=== PATIENT | male | born 1940 | race Caucasian/White ===

== ENCOUNTER 2023-05-03 10:45 | Inpatient (IN) | payer OTHER, MEDICARE, BC, SELFPAY ==
[2023-05-03] VITALS (25 sets, daily range): BP systolic 127–151; BP diastolic 62–77; PULSE 72–91; RESP 20–28; TEMP 36.4–37.7; O2SAT 93–100; BMI 29.3; BMI 30.6
--- NOTE | 2023-05-03 10:56 | CRLHL7_ITS ---
For Patients: As a result of the Century Cures Act, medical imaging exams and procedure reports are released immediately into your electronic medical record. You may view this report before your referring provider. If you have questions, please contact your health care provider. INDICATION: Shortness of breath TECHNIQUE: Chest 1 views. COMPARISON: None FINDINGS: Cardiovascular and mediastinum: Cardiomediastinal silhouette is within normal limits in size. Postsurgical changes of median sternotomy. Lungs and pleural spaces: There is elevation of the left hemidiaphragm with patchy airspace opacities bilaterally and likely atelectatic changes involving the left lung base. No sign of pleural effusion. No pneumothorax. Bones and soft tissues: No significant findings. IMPRESSION: Faint patchy airspace opacities bilaterally may be secondary to pulmonary edema versus an acute infectious/inflammatory process. Dictated by Hans Yousif MD @ 05/03/2023 11:20:43 AM (Electronically Signed)
--- NOTE | 2023-05-03 10:57 | ED.GENADULT ---
HPI - General Adult General Chief complaint: Shortness of Breath/Dyspnea Stated complaint: shortness of breath Time Seen by Provider: 05/03/23 10:51 Source: patient Mode of arrival: ambulatory Limitations: no limitations History of Present Illness HPI narrative: 82-year-old male coming in today complaining shortness of breath. Patient was found to be 80% on room air so he was placed on BiPAP and brought in for evaluation. He states he has been short of breath for a few days now. However it appears that he was seen in the clinic at the end of March and was started on azithromycin for shortness of breath at that time. Azithromycin ended 2 days ago. He thought that he was feeling better and then about 3 days ago started having more shortness of breath. He denies cough. He denies changes in his appetite. He denies fevers or chills. It appears that on April 15 he was diagnosed with acute cough and wheezing. His past medical history is significant for elevated PSA, gout, hypertension, coronary artery atherosclerosis, atrial flutter and atrial fibrillation on anticoagulation,, peripheral vascular disease. Patient takes albuterol inhaler as needed number, amlodipine, aspirin, atorvastatin, Advair, lisinopril, metoprolol, sublingual nitro, Xarelto, Flomax. Related Data Home Medications Medication Instructions Recorded Confirmed amlodipine 5 mg tablet 5 mg PO DAILY 05/03/23 05/03/23 atorvastatin 40 mg tablet 40 mg PO DAILY 05/03/23 05/03/23 fluticasone 500 mcg-salmeterol 50 1 ea inhalation BID 05/03/23 05/03/23 mcg/dose blistr powdr for inhalation (Advair Diskus) lisinopril 10 mg tablet 10 mg PO DAILY 05/03/23 05/03/23 metoprolol succinate 25 mg 25 mg PO DAILY 05/03/23 05/03/23 tablet,extended release 24 hr rivaroxaban 20 mg tablet (Xarelto) 20 mg PO DAILY 05/03/23 05/03/23 tamsulosin 0.4 mg capsule 0.4 mg PO DAILY 05/03/23 05/03/23 Allergies Allergy/AdvReac Type Severity Reaction Status Date / Time morphine Allergy Verified 05/03/23 10:51 Review of Systems Status of ROS: Reports: 10 or more systems reviewed and unremarkable except as noted in History and below PFSH [facility] Medical History (Updated 05/08/23 @ 08:10 by Susana Beatty MD) Elevated troponin ?R79.89 - Other specified abnormal findings of blood chemistry (ICD-10) Hyponatremia ?E87.1 - Hypo-osmolality and hyponatremia (ICD-10) BPH (benign prostatic hyperplasia) ?N40.0 - Benign prostatic hyperplasia without lower urinary tract symptoms (ICD-10) Hypertension ?I10 - Essential (primary) hypertension (ICD-10) Obesity ?E66.9 - Obesity, unspecified (ICD-10) Coronary artery disease ?I25.10 - Atherosclerotic heart disease of [place] coronary artery without angina pectoris (ICD-10) Chronic atrial fibrillation ?I48.20 - Chronic atrial fibrillation, unspecified (ICD-10) Surgical History (Updated 05/03/23 @ 17:42 by Hilton Nguyen MD) H/O arthroscopic knee surgery ?Z98.890 - Other specified postprocedural states (ICD-10) History of coronary artery stent placement ?Z95.5 - Presence of coronary angioplasty implant and graft (ICD-10) H/O tympanomastoidectomy ?Z98.890 - Other specified postprocedural states (ICD-10) History of tonsillectomy and adenoidectomy ?Z90.89 - Acquired absence of other organs (ICD-10) Traumatic amputation of right thumb ?S68.011A - Complete traumatic metacarpophalangeal amputation of right thumb, initial encounter (ICD-10) S/P CABG x 4 ?Z95.1 - Presence of aortocoronary bypass graft (ICD-10) Family History (Updated 05/03/23 @ 17:43 by Hilton Nguyen MD) Father Heart disease Brother Heart disease Diabetes Sister Heart disease Mother Diabetes Social History (Updated 05/03/23 @ 17:44 by Hilton Nguyen MD) Narrative: He lives in [place] with his . is healthcare power of workers compensation attorney. Code status is full. He does not smoke. Does not drink alcohol. What is your current living situation?: I presently have a place to live Problems where you live: no known problems Problems where you live details: none In the past 12 months, utilities in danger of being shut off: no In past 12 months, lack of transportation kept you from medical appts, meetings, work, or getting things needed for daily living: no In the past 12 mos, have been you worried that your food would run out before you had money to buy more?: never true In the past 12 mos, the food you bought just didn't last and you didn't have money to buy more?: never true Smoking Status: Never smoker Do you use any of these nicotine containing products: None Second hand tobacco smoke exposure: No How often do you have a drink containing alcohol: never How often do you have six or more drinks on one occasion: Never AUDIT-C Alcohol total score: 0 Non-prescribed substance use: denies use How often does anyone, including family, friends and others, physically hurt you: never How often does anyone, including family, friends and others, insult or talk down to you: never How often does anyone, including family, friends and others, threaten you with harm: never How often does anyone, including family, friends and others, scream or curse at you: never service: Yes Exam Narrative: Exam Narrative: Overweight, well-developed patient on BiPAP. Alert and oriented x3. Answers questions appropriately. Mood and affect are appropriate. Thoughts are goal oriented and rational. No tangential or magical thinking noted. Patient speaks in full sentences but does need to catch his breath before the sentences are over. HEENT: Normocephalic atraumatic. Pupils are equally round reactive to light. Extraocular muscles are intact. Conjunctivae are moist without any icterus noted. Neck is soft. Cardiovascular: Distant difficult to hear secondary to BiPAP. Pulse is regular. Lungs: Patient has rhonchi bilaterally. Right worse than the left. Abdomen: Soft and nontender nondistended with normal bowel sounds. No guarding or rebound. Extremities: Bilateral lower extremities show trace edema. Skin: Well perfused without any obvious rashes. Const: Vital Signs, click to edit/add: Vital Signs - 24 hr 05/03/23 10:52 05/03/23 11:07 05/03/23 11:08 Temperature 97.6 F Pulse Rate 85 81 Pulse Rate [Pulse Oximeter] 87 Respiratory Rate 24 Blood Pressure 148/77 H Blood Pressure [Le ft Upper Arm] 148/77 H Pulse Oximetry 100 98 98 Oxygen Delivery Me thod BiPAP Fraction of Inspir ed Oxygen 45 05/03/23 11:15 05/03/23 11:25 05/03/23 11:30 Temperature Pulse Rate 89 84 Pulse Rate [Pulse Oximeter] Respiratory Rate Blood Pressure Blood Pressure [Le ft Upper Arm] Pulse Oximetry 98 98 96 Oxygen Delivery Me thod Fraction of Inspir ed Oxygen 05/03/23 11:32 05/03/23 11:45 05/03/23 12:00 Temperature Pulse Rate 83 75 75 Pulse Rate [Pulse Oximeter] Respiratory Rate Blood Pressure 130/72 Blood Pressure [Le ft Upper Arm] Pulse Oximetry 98 98 96 Oxygen Delivery Me thod Fraction of Inspir ed Oxygen 05/03/23 12:02 05/03/23 12:03 05/03/23 12:15 Temperature Pulse Rate 82 85 82 Pulse Rate [Pulse Oximeter] Respiratory Rate Blood Pressure 144/73 H Blood Pressure [Le ft Upper Arm] Pulse Oximetry 96 97 98 Oxygen Delivery Me thod Fraction of Inspir ed Oxygen 05/03/23 12:58 05/03/23 13:00 05/03/23 13:06 Temperature Pulse Rate 83 79 Pulse Rate [Pulse Oximeter] Respiratory Rate Blood Pressure 142/69 H Blood Pressure [Le ft Upper Arm] Pulse Oximetry 96 97 Oxygen Delivery Me thod OxyMask Fraction of Inspir ed Oxygen 05/03/23 13:06 05/03/23 13:15 Temperature Pulse Rate 79 84 Pulse Rate [Pulse Oximeter] Respiratory Rate Blood Pressure 142/69 H Blood Pressure [Le ft Upper Arm] Pulse Oximetry 97 97 Oxygen Delivery Me thod Fraction of Inspir ed Oxygen Course Course ED Course: IV established. Labs drawn. D-dimer and CRP mildly elevated. Troponin elevated. IV fluids were started and patient is given a dose of IV Lasix. Chest x-ray showed bilateral airspace opacities. Given the elevated D-dimer, we did proceed with a chest CT. This was negative for PE and confirmed bilateral opacities. We were able to take the patient off of BiPAP and put him on an OxyMask. Discussed the patient with hospitalist, patient will be admitted for further management. Vital Signs Vital signs: Initial Vital Signs Temperature 97.6 F 05/03/23 10:52 Temperature Source Temporal Artery Scan 05/03/23 10:52 Pulse Rate 87 05/03/23 10:52 Pulse Rhythm Regular 05/03/23 10:52 Respiratory Rate 24 05/03/23 10:52 Blood Pressure 148/77 H 05/03/23 10:52 Blood Pressure Mean 100 05/03/23 10:52 Blood Pressure Position Supine 05/03/23 10:52 Pulse Oximetry 100 05/03/23 10:52 Oxygen Delivery Method BiPAP 05/03/23 10:52 Fraction of Inspired Oxygen 45 05/03/23 10:52 Vital Signs Temperature 97.6 F 05/03/23 10:52 Pulse Rate 87 05/03/23 10:52 Respiratory Rate 24 05/03/23 10:52 Blood Pressure 148/77 H 05/03/23 10:52 Pulse Oximetry 100 05/03/23 10:52 Oxygen Delivery Method BiPAP 05/03/23 10:52 Fraction of Inspired Oxygen 45 05/03/23 10:52 Temperature 98.6 F 05/08/23 03:00 Pulse Rate 67 05/08/23 07:00 Respiratory Rate 16 05/08/23 03:00 Blood Pressure 123/65 05/08/23 03:00 Pulse Oximetry 94 05/08/23 03:00 Oxygen Delivery Method Nasal Cannula 05/08/23 03:00 Oxygen Flow Rate 1.5 05/08/23 03:00 Fraction of Inspired Oxygen 45 05/04/23 03:05 Medications Administered Medications: Generic Name Dose Route Start Last Admin Trade Name Freq PRN Reason Stop Dose Admin Albuterol/Ipratropium 1 neb 05/03/23 17:00 05/07/23 21:12 Iprat-Albut 0.5-2.5 Mg/3 Ml Neb IH 1 neb QID FARZANA Administration Atorvastatin Calcium 40 mg 05/04/23 09:00 05/07/23 09:10 Atorvastatin Calcium 40 Mg Tablet PO 40 mg DAILY FARZANA Administration Budesonide 0.5 mg 05/03/23 21:00 05/07/23 21:13 Budesonide 0.5 Mg/2ml Neb NEB 0.5 mg BID FARZANA Administration Furosemide 40 mg 05/06/23 08:00 05/07/23 13:51 Furosemide 10 Mg/Ml Inj IVP 40 mg BID@0800,1400 FARZANA Administration Piperacillin Sod/Tazobactam 100 mls @ 200 mls/hr 05/06/23 12:30 05/08/23 06:11 Sod 3.375 gm/ Sodium Chloride IVPB 200 mls/hr Q6H FARZANA Administration Vancomycin HCl 1,500 mg/ 515 mls @ 350 mls/hr 05/07/23 01:00 05/08/23 01:54 Sodium Chloride IVPB 350 mls/hr Q12H FARZANA Administration Protocol Lisinopril 10 mg 05/04/23 09:00 05/07/23 09:11 Lisinopril 10 Mg Tablet PO 10 mg DAILY FARZANA Administration Metoprolol Succinate 50 mg 05/07/23 09:00 05/07/23 09:11 Metoprolol Succinate (Xl) 50 Mg Tab PO 50 mg DAILY FARZANA Administration Rivaroxaban 20 mg 05/04/23 09:00 05/07/23 09:11 Rivaroxaban 10 Mg Tablet PO 20 mg DAILY FARZANA Administration Sodium Chloride 5 ml 05/03/23 21:00 05/07/23 21:12 Sodium Chloride 0.9 % (Flush) 10 Ml Syringe IVF 5 ml BID FARZANA Administration Tamsulosin HCl 0.4 mg 05/04/23 09:00 05/07/23 09:11 Tamsulosin Hcl 0.4 Mg Capsule PO 0.4 mg DAILY FARZANA Administration Discontinued Medications Generic Name Dose Route Start Last Admin Trade Name Freq PRN Reason Stop Dose Admin Azithromycin 500 mg 05/03/23 16:00 05/05/23 16:51 Azithromycin 250 Mg Tablet PO 500 mg Q24H FARZANA Administration Furosemide 20 mg 05/03/23 12:36 05/03/23 13:02 Furosemide 10 Mg/Ml Inj IVP 05/03/23 12:37 20 mg ONCE ONE Administration Furosemide 40 mg 05/03/23 15:45 05/03/23 16:36 Furosemide 10 Mg/Ml Inj IVP 05/03/23 15:46 40 mg ONCE ONE Administration Furosemide 40 mg 05/04/23 07:00 05/04/23 06:12 Furosemide 10 Mg/Ml Inj IVP 05/04/23 07:01 40 mg ONCE ONE Administration Furosemide 20 mg 05/04/23 14:00 05/05/23 14:17 Furosemide 10 Mg/Ml Inj IVP 20 mg BID@0800,1400 FARZANA Administration Sodium Chloride 250 mls @ 250 mls/hr 05/03/23 11:39 05/03/23 13:46 0.9 % Sodium Chloride 250 Ml IV 05/03/23 12:38 Infused .Q1H ONE Infusion Piperacillin Sod/Tazobactam 100 mls @ 200 mls/hr 05/03/23 13:25 05/03/23 14:00 Sod 3.375 gm/ Sodium Chloride IVPB 05/03/23 13:26 Infused ONCE ONE Infusion Ceftriaxone Sodium 1 gm/ 100 mls @ 200 mls/hr 05/03/23 16:00 05/05/23 16:51 Sodium Chloride IVPB 200 mls/hr Q24H FARZANA Administration Sodium Chloride 50 mls @ 33.333 mls/hr 05/06/23 09:30 05/06/23 10:48 3 % Sodium Chloride 500 Ml IV 05/06/23 10:59 33.33 mls/hr ONCE ONE Administration Vancomycin HCl 1,750 mg/ 517.5 mls @ 240 mls/hr 05/06/23 13:00 05/06/23 13:33 Sodium Chloride IVPB 05/06/23 15:09 240 mls/hr ONCE ONE Administration Protocol Metoprolol Succinate 25 mg 05/04/23 09:00 05/06/23 09:31 Metoprolol Succinate (Xl) 25 Mg Tab PO 25 mg DAILY FARZANA Administration Metoprolol Succinate 25 mg 05/06/23 12:00 05/06/23 12:46 Metoprolol Succinate (Xl) 25 Mg Tab PO 05/06/23 12:01 25 mg ONCE ONE Administration Perflutren Lipid Microsphere 2 ml 05/04/23 15:52 05/04/23 16:04 Perflutren Lipid Microspheres 2 Ml Vial IV 05/04/23 15:53 2 ml ONCE ONE Administration Potassium Bicarbonate 50 meq 05/03/23 15:45 05/03/23 16:36 Potassium Bicarb 25 Meq Effervescent Tab PO 05/03/23 15:46 50 meq ONCE ONE Administration Medical Decision Making MDM Narrative Medical decision making narrative: 82-year-old male with acute respiratory failure, likely secondary to pneumonia. Patient will be admitted for further management. Medical Records Medical records reviewed: Yes I reviewed the patient's medical records Lab Data Lab results reviewed: Yes I reviewed the patient's lab results Labs: Lab Results 05/03/23 05/03/23 Range/Units : 16:19 WBC 9.24 (4.50-11.00) K/uL RBC 4.02 L (4.30-5.90) m/uL Hgb 12.1 L (13.5-17.5) gm/dL Hct 37.4 (37.0-53.0) % MCV 93 (80-100) fL MCH 30 (26-34) pg MCHC 32 (32-36) gm/dL RDW Coeff of Ronaldo 14.0 (11.5-15.5) % Plt Count 188 (140-440) K/uL Neut % (Auto) 89.1 H (42.0-72.0) % Lymph % (Auto) 2.5 L (20-44) % [place] % (Auto) 8.2 (0.0-11.0) % Eos % (Auto) 0.0 (0.0-7.0) % Baso % (Auto) 0.1 (0.0-3.0) % Neut # (Auto) 8.20 H (1.7-7.0) K/uL Lymph # (Auto) 0.20 L (0.90-2.90) K/uL [place] # (Auto) 0.80 (0.00-0.90) K/UL Eos # (Auto) 0.00 (0.00-0.50) K/uL Baso # (Auto) 0.01 (0.00-0.30) K/uL Abs Immat Gran (auto) 0.01 (0.00-0.30) K/uL Imm/Tot Granulo (auto) 0.1 % ESR 44 H (2-15) mm/hr D-Dimer Quant (PE/DVT) 1.15 H (0.00-0.50) ug/ml VBG pH 7.378 (7.32-7.43) VBG pCO2 53 H (40-50) mmHG VBG pO2 40.1 (25-47) mmHG VBG HCO3 31 H (21-28) mmol/L Sodium 128 L (135-149) mmol/L Potassium 4.8 (3.6-5.1) mmol/L Chloride 92 L (96-114) mmol/L Carbon Dioxide 27 (20-32) mmol/L Anion Gap 9 (7-15) mEq/L BUN 22 (7-30) mg/dL Creatinine 1.0 (0.5-1.5) mg/dL Estimated Creat Clear 59.61 Estimated GFR 75 ml/min Glucose 170 H (60-115) mg/dL Lactate 2.2 H 1.5 (0.5-1.9) mmol/L Calcium 8.5 (8.4-10.6) mg/dL Magnesium 2.2 (1.5-2.6) mg/dL Total Bilirubin 1.5 (0.1-1.5) mg/dL Direct Bilirubin 0.2 (0.0-0.5) mg/dL AST 60 H (12-35) U/L ALT 32 (4-50) U/L Alkaline Phosphatase 68 (40-150) U/L Troponin I 0.09 H* 0.10 H* (0.01-0.04) ng/mL C-Reactive Protein 5.8 H (0.5-1.0) mg/dL NT-Pro-B Natriuret Pep 3820 pg/mL Total Protein 7.9 (6.0-8.3) g/dL Albumin 3.9 (3.3-5.0) g/dL Procalcitonin 0.09 (<0.50) ng/mL SARS-CoV-2 (PCR) Negative SARS-CoV-2 (Negative) Influenza Type A (PCR) Negative PCR FLU A (Negative) Influenza Type B (PCR) Negative PCR FLU B (Negative) RSV (PCR) Negative PCR RSV (Negative) Imaging Data Chest x-ray: Attestation: I have reviewed the pertinent imaging results. Radiologist's impression: Chest 1 views. COMPARISON: None FINDINGS: Cardiovascular and mediastinum: Cardiomediastinal silhouette is within normal limits in size. Postsurgical changes of median sternotomy. Lungs and pleural spaces: There is elevation of the left hemidiaphragm with patchy airspace opacities bilaterally and likely atelectatic changes involving the left lung base. No sign of pleural effusion. No pneumothorax. Bones and soft tissues: No significant findings. IMPRESSION: Faint patchy airspace opacities bilaterally may be secondary to pulmonary edema versus an acute infectious/inflammatory process. CT scan - chest: Attestation: I have reviewed the pertinent imaging results. Radiologist's impression: CT chest PE was acquired with 95 cc Isovue 370 IV contrast. COMPARISON: Same day chest radiograph FINDINGS: Heart and vasculature: There is no central or lobar pulmonary embolism. Small hypodensities in the segmental and subsegmental pulmonary arteries are favored to represent contrast mixing artifact, and less likely small pulmonary emboli. Mild cardiomegaly. Coronary artery calcifications. Mitral and aortic annular calcifications. Likely postsurgical changes of prior CABG. Thoracic aorta and pulmonary artery are normal in caliber. Lungs and pleura: There scattered airspace opacities throughout the lungs bilaterally, favored to represent a combination of atelectasis with superimposed infectious/inflammatory process in the appropriate clinical context. Faint mosaic attenuation of the lungs which can be seen with pulmonary edema other air-trapping. There is a small right pleural effusion. Large right lower lung calcified granuloma. Lymph nodes/mediastinum: There are few prominent mediastinal lymph nodes, which are favored to be reactive. Chest wall: No masses. Upper abdomen: No acute or significant findings. Bones: Unremarkable for age. IMPRESSION: 1. No central or lobar pulmonary embolism. Small hypodensities in the segmental and subsegmental pulmonary arteries are favored to represent contracts m mixing artifact, and less likely small pulmonary emboli. No CT evidence of right heart strain. 2. Scattered airspace opacities throughout the lungs bilaterally, favored to represent an infectious/inflammatory process. Recommend dedicated CT chest with contrast in approximately 8-10 weeks to assess for resolution. 3. A few prominent mediastinal lymph nodes, which are favored to be reactive. Discharge Plan Discharge Clinical Impression: Acute respiratory failure, Pneumonia Patient Disposition: Admitted As Observation
--- NOTE | 2023-05-03 11:04 | RESP.RT ---
Patient presented short of breath and on bipap via ems. Patient set up on Bipap 03/25 Rate of 10, 45% Fio2, IT 1:00 and Rise 1. Patient RR 24, VT 842, Trigger 95%, Leak 34%, Francis 32, PIP 13, Ve 15.3. BS decreased with RUL coarse crackles. RN and MD present with Bipap set up.
[2023-05-03 11:31] LABS: HCO3 VBG 31 mmol/L (21-28); Lactate* 2.2 mmol/L (0.5-1.9); PCO2 VBG 53 mmHG (40-50); PO2 VBG 40.1 mmHG (25-47); pH VBG 7.378 (7.32-7.43)
[2023-05-03 11:34] LABS: Basophils Absolute Auto 0.01 K/uL (0.00-0.30); Basophils Percent Auto 0.1 % (0.0-3.0); Hematocrit 37.4 % (37.0-53.0); Hemoglobin* 12.1 gm/dL (13.5-17.5); Immature Granulocytes Abs Auto 0.01 K/uL (0.00-0.30); Immature Granulocytes Pct Auto 0.1 %; Lymphocytes Percent Auto 2.5 % (20-44); Mean Corpuscular HGB Conc 32 gm/dL (32-36); Mean Corpuscular Hemoglobin 30 pg (26-34); Mean Corpuscular Volume 93 fL (80-100); Monocytes Percent Auto 8.2 % (0.0-11.0); Neutrophils Percent Auto 89.1 % (42.0-72.0); Platelet Count* 188 K/uL (140-440); Red Blood Count 4.02 m/uL (4.30-5.90); White Blood Count* 9.24 K/uL (4.50-11.00)
[2023-05-03 11:51] LABS: Albumin* 3.9 g/dL (3.3-5.0); Chloride* 92 mmol/L (96-114)
[2023-05-03 11:52] LABS: Potassium* 4.8 mmol/L (3.6-5.1); Sodium* 128 mmol/L (135-149)
[2023-05-03 11:54] LABS: Est. Creatinine Clearance* 59.61; Estimated Glomerular Filt Rate 75 ml/min
[2023-05-03] MEDS: 0.9 % SODIUM CHLORIDE 250 ml 250 ML IV (11:54)
[2023-05-03 11:55] LABS: Alanine Aminotransferase* 32 U/L (4-50); Alkaline Phosphatase* 68 U/L (40-150); Anion Gap 9 mEq/L (7-15); Aspartate Amino Transferase* 60 U/L (12-35); Bilirubin Direct* 0.2 mg/dL (0.0-0.5); Bilirubin Total* 1.5 mg/dL (0.1-1.5); Blood Urea Nitrogen* 22 mg/dL (7-30); Calcium* 8.5 mg/dL (8.4-10.6); Carbon Dioxide* 27 mmol/L (20-32); D Dimer Quantitative* 1.15 ug/ml (0.00-0.50); Glucose* 170 mg/dL (60-115); Total Protein* 7.9 g/dL (6.0-8.3)
[2023-05-03 11:56] LABS: Slide Review Reflex No
[2023-05-03 11:58] LABS: C Reactive Protein* 5.8 mg/dL (0.5-1.0)
--- NOTE | 2023-05-03 12:03 | CRLHL7_ITS ---
For Patients: As a result of the Century Cures Act, medical imaging exams and procedure reports are released immediately into your electronic medical record. You may view this report before your referring provider. If you have questions, please contact your health care provider. INDICATION: Shortness of breath TECHNIQUE: CT chest PE was acquired with 95 cc Isovue 370 IV contrast. COMPARISON: Same day chest radiograph FINDINGS: Heart and vasculature: There is no central or lobar pulmonary embolism. Small hypodensities in the segmental and subsegmental pulmonary arteries are favored to represent contrast mixing artifact, and less likely small pulmonary emboli. Mild cardiomegaly. Coronary artery calcifications. Mitral and aortic annular calcifications. Likely postsurgical changes of prior CABG. Thoracic aorta and pulmonary artery are normal in caliber. Lungs and pleura: There scattered airspace opacities throughout the lungs bilaterally, favored to represent a combination of atelectasis with superimposed infectious/inflammatory process in the appropriate clinical context. Faint mosaic attenuation of the lungs which can be seen with pulmonary edema other air-trapping. There is a small right pleural effusion. Large right lower lung calcified granuloma. Lymph nodes/mediastinum: There are few prominent mediastinal lymph nodes, which are favored to be reactive. Chest wall: No masses. Upper abdomen: No acute or significant findings. Bones: Unremarkable for age. IMPRESSION: 1. No central or lobar pulmonary embolism. Small hypodensities in the segmental and subsegmental pulmonary arteries are favored to represent contracts m mixing artifact, and less likely small pulmonary emboli. No CT evidence of right heart strain. 2. Scattered airspace opacities throughout the lungs bilaterally, favored to represent an infectious/inflammatory process. Recommend dedicated CT chest with contrast in approximately 8-10 weeks to assess for resolution. 3. A few prominent mediastinal lymph nodes, which are favored to be reactive. Please note that all CT scans at this facility use dose modulation, iterative reconstruction, and/or weight-based dosing when appropriate to reduce radiation dose to as low as reasonably achievable. Dictated by Hans Yousif MD @ 05/03/2023 1:07:57 PM (Electronically Signed)
[2023-05-03 12:07] LABS: NT Pro B Type NatriureticPept* 3820 pg/mL; Troponin I* 0.09 ng/mL (0.01-0.04)
--- NOTE | 2023-05-03 12:08 | ED.NURSE ---
dr kirkland aware of elevated trop 0.09.
[2023-05-03 12:12] LABS: Procalcitonin* 0.09 ng/mL (<0.50)
[2023-05-03 12:14] LABS: PCR FLU A Negative PCR FLU A (Negative); PCR FLU B Negative PCR FLU B (Negative); PCR RSV Negative PCR RSV (Negative)
[2023-05-03 12:18] LABS: Erythrocyte SedimentationRate* 44 mm/hr (2-15)
--- NOTE | 2023-05-03 12:59 | RESP.RT ---
Patient transported to and from CT on Oxymask @ 6 lpm. Spoke with MD and will trial patient off of Bipap. Patient currently on 6 lpm oxymask with spo2 of 96%.
[2023-05-03] MEDS: FUROSEMIDE 10 MG/ML inj 20 MG IVP (13:02)
[2023-05-03 13:12] LABS: SARS PCR* Negative SARS-CoV-2 (Negative)
[2023-05-03] MEDS: PIPERACILLIN/TAZOBACTAM 3.375 GM in 0.9 % SODIUM CHLORIDE Mini-bag 100 ML IVPB (13:46)
--- NOTE | 2023-05-03 14:21 | ED.NURSE ---
given report to Caridad Castelan who will admit the patient to room 255 via cart and with O2 on via oxymask.
--- NOTE | 2023-05-03 14:43 | ED.NURSE ---
was able to stand and use urinal. has diuresed approx 650 ml.
[2023-05-03 16:29] LABS: Lactate* 1.5 mmol/L (0.5-1.9)
[2023-05-03] MEDS: FUROSEMIDE 10 MG/ML inj 40 MG IVP (16:36)
[2023-05-03] MEDS: AZITHROMYCIN 250 MG TABLET 500 MG PO (16:36)
[2023-05-03] MEDS: POTASSIUM BICARB 25 MEQ EFFERVESCENT TAB 50 MEQ PO (16:36)
[2023-05-03] MEDS: cefTRIAXone 1 GM in 0.9 % SODIUM CHLORIDE Mini-bag 100 ML IVPB (16:37)
[2023-05-03 17:08] LABS: Magnesium* 2.2 mg/dL (1.5-2.6)
--- NOTE | 2023-05-03 17:33 | PM.IMHP1 ---
Hospitalist- H&P: LUIS History of Present Illness Date Seen: 05/10/23 Chief complaint: shortness of breath Narrative: Jonathan Herrera is a 82 year old male admitted with worsening cough and dyspnea over 6 weeks. 82-year-old male with history of coronary artery disease and 4 vessel coronary artery bypass, atrial fibrillation, anticoagulation, hypertension was 1st seen at the beginning of March for a 1-2 week illness with coughing and dyspnea and some hoarseness in his voice. Did not have a fever. He does not think he was tested for COVID at the time. He was treated for bronchitis with doxycycline and prednisone. He does not think it made much difference to him but follow-up visit indicated that perhaps he had some temporary benefit from that. He was treated with an Advair inhaler which he is unsure of whether it had any benefit but he subsequently has been getting more dyspneic over the last few weeks. He does report discoloration of his sputum when he gets up in the morning with a brownish tinge to it but most the day his sputum is clear when he coughs. His dyspnea is now at a point where he can not walk around his house without stopping to catch his breath. He does not have any chest pain. He does not have a history of COPD. He is a nonsmoker. His father was a smoker. When he was younger he was apparently diagnosed with asthma but has not been evaluated or treated for asthma until this past month when he was started on an Advair inhaler. No history of thrombophilia. He does not have a history of heart failure. He denies extremity edema. He is not aware of any weight gain. Review of Systems Narrative: Other than respiratory symptoms of cough and dyspnea he reports no other concerns. He has been eating normally. Bowel bladder function have been normal. No abdominal pain. No chest pain. [facility] Medical History (Updated 05/08/23 @ 08:10 by Susana Beatty MD) Elevated troponin ?R79.89 - Other specified abnormal findings of blood chemistry (ICD-10) Hyponatremia ?E87.1 - Hypo-osmolality and hyponatremia (ICD-10) BPH (benign prostatic hyperplasia) ?N40.0 - Benign prostatic hyperplasia without lower urinary tract symptoms (ICD-10) Hypertension ?I10 - Essential (primary) hypertension (ICD-10) Obesity ?E66.9 - Obesity, unspecified (ICD-10) Coronary artery disease ?I25.10 - Atherosclerotic heart disease of [place] coronary artery without angina pectoris (ICD-10) Chronic atrial fibrillation ?I48.20 - Chronic atrial fibrillation, unspecified (ICD-10) Surgical History (Updated 05/03/23 @ 17:42 by Hilton Nguyen MD) H/O arthroscopic knee surgery ?Z98.890 - Other specified postprocedural states (ICD-10) History of coronary artery stent placement ?Z95.5 - Presence of coronary angioplasty implant and graft (ICD-10) H/O tympanomastoidectomy ?Z98.890 - Other specified postprocedural states (ICD-10) History of tonsillectomy and adenoidectomy ?Z90.89 - Acquired absence of other organs (ICD-10) Traumatic amputation of right thumb ?S68.011A - Complete traumatic metacarpophalangeal amputation of right thumb, initial encounter (ICD-10) S/P CABG x 4 ?Z95.1 - Presence of aortocoronary bypass graft (ICD-10) Family History (Updated 05/03/23 @ 17:43 by Hilton Nguyen MD) Father Heart disease Brother Heart disease Diabetes Sister Heart disease Mother Diabetes Social History (Updated 05/03/23 @ 17:44 by Hilton Nguyen MD) Narrative: He lives in [place] with his . 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 Code status is full. He does not smoke. Does not drink alcohol. What is your current living situation?: I presently have a place to live Problems where you live: no known problems Problems where you live details: none In the past 12 months, utilities in danger of being shut off: no In past 12 months, lack of transportation kept you from medical appts, meetings, work, or getting things needed for daily living: no In the past 12 mos, have been you worried that your food would run out before you had money to buy more?: never true In the past 12 mos, the food you bought just didn't last and you didn't have money to buy more?: never true Smoking Status: Never smoker Do you use any of these nicotine containing products: None Second hand tobacco smoke exposure: No How often do you have a drink containing alcohol: never How often do you have six or more drinks on one occasion: Never AUDIT-C Alcohol total score: 0 Non-prescribed substance use: denies use How often does anyone, including family, friends and others, physically hurt you: never How often does anyone, including family, friends and others, insult or talk down to you: never How often does anyone, including family, friends and others, threaten you with harm: never How often does anyone, including family, friends and others, scream or curse at you: never service: Yes Meds Home Medications and Allergies Home Medications Medication Instructions Recorded Confirmed Type amlodipine 5 mg tablet 5 mg PO DAILY 05/03/23 05/03/23 History atorvastatin 40 mg tablet 40 mg PO DAILY 05/03/23 05/03/23 History fluticasone 500 mcg-salmeterol 50 1 ea inhalation BID 05/03/23 05/03/23 History mcg/dose blistr powdr for inhalation (Advair Diskus) lisinopril 10 mg tablet 10 mg PO DAILY 05/03/23 05/03/23 History rivaroxaban 20 mg tablet (Xarelto) 20 mg PO DAILY 05/03/23 05/03/23 History tamsulosin 0.4 mg capsule 0.4 mg PO DAILY 05/03/23 05/03/23 History Allergies Allergy/AdvReac Type Severity Reaction Status Date / Time morphine Allergy Verified 05/03/23 10:51 Exam Narrative: Exam Narrative: He is alert and appears in no obvious distress breathing oxygen at 4 L via OxyMask. He gives his own history. Eyes are normal. Oropharynx is normal. Neck is supple without mass or adenopathy. No jugular venous distension. Respirations with diffuse crackles primarily expiratory crackles. Diminished breath sounds at the left lung base. No obvious consolidation. Cardiovascular: S1, S2, somewhat irregular rhythm. 2/6 systolic ejection murmur heard across the precordium. Abdomen: Bowel sounds active. Abdomen is soft without tenderness or mass. External genitalia normal. Extremities without edema. Intact pedal pulses. Good perfusion all 4 extremities. No rash. Lesions on his scalp from treatment from Dermatology for probable skin cancer appear to be well healing Const: Vital Signs, click to edit/add: Vital Signs - 24 hr 05/03/23 10:52 05/03/23 11:07 05/03/23 11:08 Temperature 97.6 F Pulse Rate 85 81 Pulse Rate [Pulse Oximeter] 87 Respiratory Rate 24 Blood Pressure 148/77 H Blood Pressure [Le ft Upper Arm] 148/77 H Pulse Oximetry 100 98 98 Oxygen Delivery Me thod BiPAP Fraction of Inspir ed Oxygen 45 05/03/23 11:15 05/03/23 11:25 05/03/23 11:30 Temperature Pulse Rate 89 84 Pulse Rate [Pulse Oximeter] Respiratory Rate Blood Pressure Blood Pressure [Le ft Upper Arm] Pulse Oximetry 98 98 96 Oxygen Delivery Me thod Fraction of Inspir ed Oxygen 05/03/23 11:32 05/03/23 11:45 05/03/23 12:00 Temperature Pulse Rate 83 75 75 Pulse Rate [Pulse Oximeter] Respiratory Rate Blood Pressure 130/72 Blood Pressure [Le ft Upper Arm] Pulse Oximetry 98 98 96 Oxygen Delivery Me thod Fraction of Inspir ed Oxygen 05/03/23 12:02 05/03/23 12:03 05/03/23 12:15 Temperature Pulse Rate 82 85 82 Pulse Rate [Pulse Oximeter] Respiratory Rate Blood Pressure 144/73 H Blood Pressure [Le ft Upper Arm] Pulse Oximetry 96 97 98 Oxygen Delivery Me thod Fraction of Inspir ed Oxygen 05/03/23 12:58 05/03/23 13:00 05/03/23 13:06 Temperature Pulse Rate 83 79 Pulse Rate [Pulse Oximeter] Respiratory Rate Blood Pressure 142/69 H Blood Pressure [Le ft Upper Arm] Pulse Oximetry 96 97 Oxygen Delivery Me thod OxyMask Fraction of Inspir ed Oxygen 05/03/23 13:06 05/03/23 13:15 05/03/23 13:30 Temperature Pulse Rate 79 84 83 Pulse Rate [Pulse Oximeter] Respiratory Rate Blood Pressure 142/69 H Blood Pressure [Le ft Upper Arm] Pulse Oximetry 97 97 94 Oxygen Delivery Me thod Fraction of Inspir ed Oxygen 05/03/23 13:32 05/03/23 13:45 05/03/23 14:00 Temperature Pulse Rate 83 87 72 Pulse Rate [Pulse Oximeter] Respiratory Rate Blood Pressure 151/76 H Blood Pressure [Le ft Upper Arm] Pulse Oximetry 96 97 95 Oxygen Delivery Me thod Fraction of Inspir ed Oxygen 05/03/23 14:01 05/03/23 14:15 Temperature Pulse Rate 82 85 Pulse Rate [Pulse Oximeter] Respiratory Rate Blood Pressure 142/68 H Blood Pressure [Le ft Upper Arm] Pulse Oximetry 95 96 Oxygen Delivery Me thod Fraction of Inspir ed Oxygen Documenting provider has reviewed patient's vital signs: yes Hospitalist - H&P: Result Labs Labs: Short CBC 05/03/23 Range/Units 11:23 WBC 9.24 (4.50-11.00) K/uL Hgb 12.1 L (13.5-17.5) gm/dL Hct 37.4 (37.0-53.0) % Plt Count 188 (140-440) K/uL BMP 05/03/23 11:23 Sodium 128 L Potassium 4.8 Chloride 92 L Carbon Dioxide 27 BUN 22 Creatinine 1.0 Glucose 170 H Calcium 8.5 Cardiac Enzymes 05/03/23 05/03/23 Range/Units 11: 16:19 Troponin I 0.09 H* 0.10 H* (0.01-0.04) ng/mL Liver Function 05/03/23 Range/Units 11:23 Total Bilirubin 1.5 (0.1-1.5) mg/dL Direct Bilirubin 0.2 (0.0-0.5) mg/dL AST 60 H (12-35) U/L ALT 32 (4-50) U/L Alkaline Phosphatase 68 (40-150) U/L Albumin 3.9 (3.3-5.0) g/dL Imaging CT scan - chest: Radiologist's impression: INDICATION: Shortness of breath TECHNIQUE: CT chest PE was acquired with 95 cc Isovue 370 IV contrast. COMPARISON: Same day chest radiograph FINDINGS: Heart and vasculature: There is no central or lobar pulmonary embolism. Small hypodensities in the segmental and subsegmental pulmonary arteries are favored to represent contrast mixing artifact, and less likely small pulmonary emboli. Mild cardiomegaly. Coronary artery calcifications. Mitral and aortic annular calcifications. Likely postsurgical changes of prior CABG. Thoracic aorta and pulmonary artery are normal in caliber. Lungs and pleura: There scattered airspace opacities throughout the lungs bilaterally, favored to represent a combination of atelectasis with superimposed infectious/inflammatory process in the appropriate clinical context. Faint mosaic attenuation of the lungs which can be seen with pulmonary edema other air-trapping. There is a small right pleural effusion. Large right lower lung calcified granuloma. Lymph nodes/mediastinum: There are few prominent mediastinal lymph nodes, which are favored to be reactive. Chest wall: No masses. Upper abdomen: No acute or significant findings. Bones: Unremarkable for age. IMPRESSION: 1. No central or lobar pulmonary embolism. Small hypodensities in the segmental and subsegmental pulmonary arteries are favored to represent contracts m mixing artifact, and less likely small pulmonary emboli. No CT evidence of right heart strain. 2. Scattered airspace opacities throughout the lungs bilaterally, favored to represent an infectious/inflammatory process. Recommend dedicated CT chest with contrast in approximately 8-10 weeks to assess for resolution. 3. A few prominent mediastinal lymph nodes, which are favored to be reactive. Assessment and Plan Assessment and plan (1) Hypoxic respiratory failure: Problem comment: At least 6 weeks of progressive hypoxic respiratory failure. Chest CT showing infiltrates. With his history of heart disease and other evaluation I clinically suspect this is heart failure primarily. He does not currently have obvious wheezing or poor air exchange suggestive of COPD, though that was reported in the clinic. Will treat for community-acquired pneumonia as well pending his clinical course. Diuresis and continued monitoring of vital signs and troponin. - may be able to switch to oral furosemide tomorrow. - continue to try to wean oxygen down. Did discuss with patient the possibility that he may need oxygen at time of discharge. Status: Acute (2) Hypertension: Problem comment: -continue home blood pressure medicines as tolerated Status: Acute (3) Coronary artery disease: Problem comment: -Status post coronary artery bypass x4 vessels in 2000 and coronary artery stent placement in 2018 Status: Acute (4) Chronic atrial fibrillation: Problem comment: On anticoagulation and rate control with metoprolol. Rate mildly elevated today. BP okay. Will increase metoprolol. Monitor on telemetry. Status: Acute (5) Hyponatremia: Problem comment: - Fluctuating. I have ordered a stricter fluid restriction and a small 3% saline bolus for this morning. May need sodium tabs. - Cause is unclear, maybe due to severity of pneumonia. I have reviewed his medications. Maybe related to lasix, but unlikely. Status: Acute (6) Elevated troponin: Problem comment: - Peak 0.1 yesterday. Asymptomatic. - Likely type 2 [place] related to hypoxic respiratory failure and probable heart failure. Status: Acute
[2023-05-03] MEDS: IPRAT-ALBUT 0.5-2.5 MG/3 ML NEB 1 NEB IH ×2 (17:35→20:41)
--- NOTE | 2023-05-03 19:27 | PC.NURSE ---
End of shift: Patient is alert and orientated, pleasant. Continuos pulse oximetry in place. NC @ 6L to maintain above 90%. Stands at the bedside to urinate... does so frequently due to IV Lasix ate 75% of dinner. Will call appropriately. No reports of pain this shift. IV came out after IV abx were given, multiple failed attempts to restart house sup was notified. Expiatory wheeze on R anterior and fine crackles bilaterally upon auscultation. Will call appropriately. Tele NSR. Call light within reach. CANDI GOODWIN RN
[2023-05-03] MEDS: BUDESONIDE 0.5 MG/2ML NEB NEB (20:35)
[2023-05-03] MEDS: SODIUM CHLORIDE 0.9 % (FLUSH) 10 ML SYRINGE 5 ML IVF (20:41)
[2023-05-04] VITALS (15 sets, daily range): BP systolic 115–150; BP diastolic 61–75; PULSE 84–101; RESP 18–24; TEMP 36.4–36.9; O2SAT 90–95
[2023-05-04] MEDS: FUROSEMIDE 10 MG/ML inj 40 MG IVP (06:12)
[2023-05-04 06:20] LABS: HCO3 VBG 37 mmol/L (21-28); PCO2 VBG 60 mmHG (40-50); PO2 VBG 27.4 mmHG (25-47); pH VBG 7.401 (7.32-7.43)
[2023-05-04 06:26] LABS: Basophils Absolute Auto 0.01 K/uL (0.00-0.30); Basophils Percent Auto 0.1 % (0.0-3.0); Eosinophils Absolute Auto 0.01 K/uL (0.00-0.50); Eosinophils Percent Auto 0.1 % (0.0-7.0); Hematocrit 36.1 % (37.0-53.0); Hemoglobin* 11.4 gm/dL (13.5-17.5); Immature Granulocytes Abs Auto 0.06 K/uL (0.00-0.30); Immature Granulocytes Pct Auto 0.6 %; Lymphocytes Percent Auto 3.3 % (20-44); Mean Corpuscular HGB Conc 32 gm/dL (32-36); Mean Corpuscular Hemoglobin 30 pg (26-34); Mean Corpuscular Volume 95 fL (80-100); Monocytes Percent Auto 9.5 % (0.0-11.0); Neutrophils Percent Auto 86.4 % (42.0-72.0); Platelet Count* 184 K/uL (140-440); RDW Coefficient of Variation % 14.2 % (11.5-15.5); Red Blood Count 3.81 m/uL (4.30-5.90); White Blood Count* 9.93 K/uL (4.50-11.00)
[2023-05-04 06:32] LABS: Slide Review Reflex No
--- NOTE | 2023-05-04 06:34 | PC.NURSE ---
Shift note [id number]: Pt has been denying pain when asked with nonverbal indications of pain noted. He has also been denying CP, numbness and tingling. Pt does have some shortness of breath upon exertion. Staff have decreased oxygen to 1L due to pt tolerating at rest though O2 sat decreased to 82% when pt up to bathroom. Oxygen increased to 3 LPM. Pt able to reposition independently in bed and uses bedside urinal independently with staff emptying. He was continent of bowel in toilet. He reports his shortness of breath is better compared to earlier yesterday before coming to hospital. Pt noted to have temp of 99.9 earlier in the shift with 1900 VS though last temp of 98.3 noted with 0300 VS. ?Pt transferring/ambulating in room with assist of 1 using walker and GB. supervisor instrument repair placed new IV to left inner forearm last evening. IV is patent and SL.
[2023-05-04 06:47] LABS: Chloride* 91 mmol/L (96-114); Sodium* 125 mmol/L (135-149)
[2023-05-04 06:48] LABS: Potassium* 4.6 mmol/L (3.6-5.1)
[2023-05-04 06:50] LABS: Est. Creatinine Clearance* 57.79; Estimated Glomerular Filt Rate 75 ml/min
[2023-05-04 06:51] LABS: Anion Gap -4 mEq/L (7-15); Blood Urea Nitrogen* 20 mg/dL (7-30); Calcium* 8.6 mg/dL (8.4-10.6); Carbon Dioxide* 38 mmol/L (20-32); Glucose* 112 mg/dL (60-115)
[2023-05-04 06:54] LABS: C Reactive Protein* 7.1 mg/dL (0.5-1.0)
[2023-05-04] MEDS: lisinopriL 10 MG TABLET PO (08:46)
[2023-05-04] MEDS: METOPROLOL SUCCINATE (XL) 25 MG TAB PO (08:46)
[2023-05-04] MEDS: RIVAROXABAN 10 MG TABLET 20 MG PO (08:46)
[2023-05-04] MEDS: ATORVASTATIN CALCIUM 40 MG TABLET PO (08:46)
[2023-05-04] MEDS: SODIUM CHLORIDE 0.9 % (FLUSH) 10 ML SYRINGE 5 ML IVF ×2 (08:46→21:02)
[2023-05-04] MEDS: TAMSULOSIN HCL 0.4 MG CAPSULE PO (08:46)
[2023-05-04] MEDS: IPRAT-ALBUT 0.5-2.5 MG/3 ML NEB 1 NEB IH ×4 (09:40→21:02)
[2023-05-04] MEDS: BUDESONIDE 0.5 MG/2ML NEB NEB ×2 (09:52→21:02)
--- NOTE | 2023-05-04 11:31 | RESP.RT ---
Continues on 3 Lpm NC, weaning as patient tolerates, patient was decreased to 1 Lpm, SaO2 decreased to 85% post 4 minutes, returned to 3 Lpm. Goal; Oxygen to Maintain SaO2 >90%, PEP with Aerobika done, instruction, education, patient made good exhalation, with good chest shake, had patient feel chest shake to understand use of Aerobika, patient does and states so. DuoNeb given in line with Aerobika, patient used well, improved breath sounds, no wheeze noted post treatment. IS done with patient used well, good effort, 2000 with float in good position. Nonproductive cough promoted.
--- NOTE | 2023-05-04 12:00 | PM.IMPN1 ---
Progress Note: A&P Assessment and plan (1) Hypoxic respiratory failure: Problem details: At least 6 weeks of progressive hypoxic respiratory failure. Chest CT showing infiltrates. With his history of heart disease and other evaluation I clinically suspect this is heart failure primarily. He does not currently have obvious wheezing or poor air exchange suggestive of COPD, though that was reported in the clinic. Will treat for community-acquired pneumonia as well pending his clinical course. Diuresis and continued monitoring of vital signs and troponin. -continue Lasix 20 mg IV b.i.d., daily weights, strict I&Os -echocardiogram ordered. BNP 3820 -RT for pulmonary support, nebulizers, incentive spirometry -05/04: PCO2 60, pH 7.37 -repeat CXR and VBG on 05/05 Status: Acute (2) Pneumonia: Problem details: -bilateral infiltrates. Lactate improved. No leukocytosis. Afebrile. Remains hypoxic -continue ceftriaxone and azithromycin. Management as above -strep pneumo/Legionella, sputum culture/Gram stain ordered Status: Acute (3) Hypertension: Problem details: -continue home blood pressure medicines as tolerated Status: Acute (4) Coronary artery disease: Problem details: -Status post coronary artery bypass x4 vessels in 2000 and coronary artery stent placement in 2018 Status: Acute (5) Chronic atrial fibrillation: Problem details: On anticoagulation and rate control EKG shows atrial fibrillation, rate controlled Status: Acute (6) Hyponatremia: Problem details: Sodium 125 (previously 128). Monitor with diuresis. Fluid restriction 1800ml Status: Acute (7) Elevated troponin: Problem details: Likely type 2 [place] related to hypoxic respiratory failure and probable heart failure. Continue to monitor and trend. Troponins flat. Denies chest pain Status: Acute Time Spent With Patient Total time spent: Total time spent caring for the patient today was 45 minutes. This includes time spent for the visit reviewing the chart, time spent during the visit, time spent after the visit and documentation and planning in coordination of care. Subjective Date Seen: 05/04/23 Interval history: Patient reports feeling much better this morning. Denies chest pain or tightness. Remains on supplemental oxygen without dyspnea. Denies headache or dizziness. Remains afebrile. Tolerating orals without nausea vomited. Exam Narrative: Exam Narrative: PHYSICAL EXAM General: Pleasant, conversant, NAD HEENT: Normocephalic, atraumatic, sclera white, EOMI, oral mucosa moist Cardiovascular: RRR, bilateral trace edema Pulmonary: Mildly diminished without expiratory wheezes, No dyspnea Neurological: Alert, answering questions appropriately, cranial nerves intact, no focal findings Extremities: No gross joint deformity or swelling. AROMI. Neurovascularly intact Skin: Warm, dry. Const: Vital Signs, click to edit/add: Vital Signs - 24 hr 05/03/23 12:02 05/03/23 12:03 05/03/23 12:15 Temperature Pulse Rate 82 85 82 Pulse Rate [Right Pulse Oximeter] Respiratory Rate Blood Pressure 144/73 H Blood Pressure [Ri ght Arm] Pulse Oximetry 96 97 98 Oxygen Delivery Me thod Oxygen Flow Rate Fraction of Inspir ed Oxygen 05/03/23 12:58 05/03/23 13:00 05/03/23 13:06 Temperature Pulse Rate 83 79 Pulse Rate [Right Pulse Oximeter] Respiratory Rate Blood Pressure 142/69 H Blood Pressure [Ri ght Arm] Pulse Oximetry 96 97 Oxygen Delivery Me thod OxyMask Oxygen Flow Rate Fraction of Inspir ed Oxygen 05/03/23 13:06 05/03/23 13:15 05/03/23 13:30 Temperature Pulse Rate 79 84 83 Pulse Rate [Right Pulse Oximeter] Respiratory Rate Blood Pressure 142/69 H Blood Pressure [Ri ght Arm] Pulse Oximetry 97 97 94 Oxygen Delivery Me thod Oxygen Flow Rate Fraction of Inspir ed Oxygen 05/03/23 13:32 05/03/23 13:45 05/03/23 14:00 Temperature Pulse Rate 83 87 72 Pulse Rate [Right Pulse Oximeter] Respiratory Rate Blood Pressure 151/76 H Blood Pressure [Ri ght Arm] Pulse Oximetry 96 97 95 Oxygen Delivery Me thod Oxygen Flow Rate Fraction of Inspir ed Oxygen 05/03/23 14:01 05/03/23 14:15 05/03/23 16:00 Temperature 98.4 F Pulse Rate 82 85 Pulse Rate [Right Pulse Oximeter] 80 Respiratory Rate 28 H Blood Pressure 142/68 H Blood Pressure [Ri ght Arm] 149/70 H Pulse Oximetry 95 96 93 Oxygen Delivery Me thod OxyMask Oxygen Flow Rate 5 Fraction of Inspir ed Oxygen 05/03/23 16:00 05/03/23 19:00 05/03/23 23:36 Temperature 99.9 F H 98.3 F Pulse Rate Pulse Rate [Right Pulse Oximeter] 91 85 Respiratory Rate 28 H 24 20 Blood [facility] 135/62 127/68 Pulse Oximetry 93 95 95 Oxygen Delivery Me thod OxyMask Nasal Cannula Nasal Cannula Oxygen Flow Rate 5 5 3 Fraction of Inspir ed Oxygen 45 45 05/04/23 03:05 05/04/23 07:00 05/04/23 08:00 Temperature 98.3 F 98.3 F Pulse Rate 99 Pulse Rate [Right Pulse Oximeter] 86 101 H Respiratory Rate 20 20 Blood Pressure Blood Pressure [facility] 115/61 150/75 H Pulse Oximetry 95 91 Oxygen Delivery Me thod Nasal Cannula Nasal Cannula Oxygen Flow Rate 3 2 Fraction of Inspir ed Oxygen 45 05/04/23 09:15 Temperature Pulse Rate Pulse Rate [Right Pulse Oximeter] Respiratory Rate 20 Blood Pressure Blood Pressure [[facility] Arm] Pulse Oximetry 92 Oxygen Delivery Me thod Nasal Cannula Oxygen Flow Rate 3 Fraction of Inspir ed Oxygen Labs Labs: Laboratory Results - last 24 hr 05/03/23 05/03/23 05/04/23 11: 16:19 06:04 WBC 9.93 RBC 3.81 L Hgb 11.4 L Hct 36.1 L MCV 95 MCH 30 MCHC 32 RDW Coeff of Ronaldo 14.2 Plt Count 184 Neut % (Auto) 86.4 H Lymph % (Auto) 3.3 L Levy % (Auto) 9.5 Eos % (Auto) 0.1 Baso % (Auto) 0.1 Neut # (Auto) 8.60 H Lymph # (Auto) 0.30 L Levy # (Auto) 0.90 Eos # (Auto) 0.01 Baso # (Auto) 0.01 Abs Immat Gran (auto) 0.06 Imm/Tot Granulo (auto) 0.6 ESR 44 H VBG pH 7.401 VBG pCO2 60 H VBG pO2 27.4 VBG HCO3 37 H Sodium 128 L 125 L Potassium 4.8 4.6 Chloride 92 L 91 L Carbon Dioxide 27 38 H Anion Gap 9 -4 L BUN 22 20 Creatinine 1.0 1.0 Estimated Creat Clear 59.61 57.79 Estimated GFR 75 75 Glucose 170 H 112 Lactate 1.5 Calcium 8.5 8.6 Magnesium 2.2 Total Bilirubin 1.5 Direct Bilirubin 0.2 AST 60 H ALT 32 Alkaline Phosphatase 68 Troponin I 0.09 H* 0.10 H* 0.10 H* C-Reactive Protein 5.8 H 7.1 H NT-Pro-B Natriuret Pep 3820 Total Protein 7.9 Albumin 3.9 Procalcitonin 0.09 SARS-CoV-2 (PCR) Negative SARS-CoV-2 Influenza Type A (PCR) Negative PCR FLU A Influenza Type B (PCR) Negative PCR FLU B RSV (PCR) Negative PCR RSV Lab Acknowledgement 05/04/23 11:48 WBC RBC Hgb Hct MCV MCH MCHC RDW Coeff of [place]nal[place] Plt Count Neut % (Auto) Lymph % (Auto) Levy % (Auto) Eos % (Auto) Baso % (Auto) Neut # (Auto) Lymph # (Auto) Levy # (Auto) Eos # (Auto) Baso # (Auto) Abs Immat Gran (auto) Imm/Tot Granulo (auto) ESR VBG pH VBG pCO2 VBG pO2 VBG HCO3 Sodium Potassium Chloride Carbon Dioxide Anion Gap BUN Creatinine Estimated Creat Clear Estimated GFR Glucose Lactate Calcium Magnesium Total Bilirubin Direct Bilirubin AST ALT Alkaline Phosphatase Troponin I C-Reactive Protein NT-Pro-B Natriuret Pep Total Protein Albumin Procalcitonin SARS-CoV-2 (PCR) Influenza Type A (PCR) Influenza Type B (PCR) RSV (PCR) Lab Acknowledgement Test Added
[2023-05-04 12:21] LABS: NT Pro B Type NatriureticPept* 2160 pg/mL
[2023-05-04 13:34] LABS: Legionella pneumo Ag Urine L. pneumo Negative (Negative); S pneumo Ag Urine S. pneumo Negative (Negative)
[2023-05-04] MEDS: FUROSEMIDE 10 MG/ML inj 20 MG IVP (13:54)
[2023-05-04] MEDS: PERFLUTREN LIPID MICROSPHERES 2 ML VIAL IV (16:04)
[2023-05-04] MEDS: AZITHROMYCIN 250 MG TABLET 500 MG PO (16:24)
[2023-05-04] MEDS: cefTRIAXone 1 GM in 0.9 % SODIUM CHLORIDE Mini-bag 100 ML IVPB (16:24)
--- NOTE | 2023-05-04 18:38 | PC.NURSE ---
End of Shift: The patient is alert and orientated... Oxygen remains in place via NC.. @ 2L currently to maintain greater than 88%. Continuous pulse oximetry in place. Voiding well IV Lasix given 1x this shift... Voids in the urinal by standing @ the bedside. He calls appropriately if he wants to move around more. IV ABX and PO ABX given this afternoon. Echo with bubble study was completed this afternoon. Awaiting results. No complaints of pain. visited this afternoon.... Telemetry in place Afib w/ RVR. Call light within reach. CANDI GOODWIN RN
[2023-05-05] VITALS (10 sets, daily range): BP systolic 93–144; BP diastolic 48–76; PULSE 79–91; RESP 18–24; TEMP 36.6–37.2; O2SAT 88–95
[2023-05-05 06:43] LABS: HCO3 VBG 36 mmol/L (21-28); PO2 VBG 36.8 mmHG (25-47); pH VBG 7.372 (7.32-7.43)
[2023-05-05 06:45] LABS: PCO2 VBG 63 mmHG (40-50)
[2023-05-05 06:51] LABS: Basophils Absolute Auto 0.01 K/uL (0.00-0.30); Basophils Percent Auto 0.1 % (0.0-3.0); Eosinophils Absolute Auto 0.08 K/uL (0.00-0.50); Hematocrit 39.4 % (37.0-53.0); Hemoglobin* 11.9 gm/dL (13.5-17.5); Immature Granulocytes Abs Auto 0.01 K/uL (0.00-0.30); Immature Granulocytes Pct Auto 0.1 %; Lymphocytes Percent Auto 4.2 % (20-44); Mean Corpuscular HGB Conc 30 gm/dL (32-36); Mean Corpuscular Hemoglobin 30 pg (26-34); Mean Corpuscular Volume 99 fL (80-100); Monocytes Percent Auto 8.7 % (0.0-11.0); Neutrophils Percent Auto 85.9 % (42.0-72.0); Platelet Count* 134 K/uL (140-440); RDW Coefficient of Variation % 14.4 % (11.5-15.5); Red Blood Count 3.99 m/uL (4.30-5.90); White Blood Count* 7.79 K/uL (4.50-11.00)
--- NOTE | 2023-05-05 06:51 | PC.NURSE ---
: pleasant and cooperative. Stands at bedside indep to use urinal. Titrated O2 from 2.5L NC to 1.5L NC, O2 sats 88-90%, will occasionally dip into the low-mid 80s for a minute or so,?singer songwriter noted that pt has episodes of apnea when asleep.
[2023-05-05 06:56] LABS: Slide Review Reflex No
--- NOTE | 2023-05-05 07:00 | CRLHL7_ITS ---
For Patients: As a result of the Century Cures Act, medical imaging exams and procedure reports are released immediately into your electronic medical record. You may view this report before your referring provider. If you have questions, please contact your health care provider. INDICATION: Short of breath, hypoxia COMPARISON: 05/03/2023 TECHNIQUE: 1 view chest radiograph. FINDINGS: Lung volumes are moderate. Significantly elevated left hemidiaphragm is unchanged. Slightly increased left basilar opacity. Prominent interstitial markings and prominent pulmonary vascular markings. Blunting of the left costophrenic angle is probably a small effusion. Pleural effusion. No pneumothorax. No pneumomediastinum. Unchanged cardiomediastinal silhouette. Atherosclerotic vascular calcifications. Median sternotomy wires. Bones: No acute appearing findings. IMPRESSION: Slightly worse left lower lobe opacity could be pneumonia or worsening atelectasis. Possible trace left pleural effusion. Elevated left hemidiaphragm is unchanged. Dictated by Sabrina Beltran MD @ 05/06/2023 9:27:44 AM (Electronically Signed)
[2023-05-05 07:22] LABS: Chloride* 90 mmol/L (96-114); Potassium* 4.6 mmol/L (3.6-5.1); Sodium* 131 mmol/L (135-149)
[2023-05-05 07:24] LABS: Creatinine* 0.9 mg/dL (0.5-1.5); Est. Creatinine Clearance* 57.79; Estimated Glomerular Filt Rate 85 ml/min
[2023-05-05 07:25] LABS: Blood Urea Nitrogen* 23 mg/dL (7-30); Calcium* 8.5 mg/dL (8.4-10.6); Carbon Dioxide* 34 mmol/L (20-32); Glucose* 109 mg/dL (60-115)
[2023-05-05 07:26] LABS: Anion Gap 7 mEq/L (7-15)
[2023-05-05] MEDS: ATORVASTATIN CALCIUM 40 MG TABLET PO (10:11)
[2023-05-05] MEDS: RIVAROXABAN 10 MG TABLET 20 MG PO (10:11)
[2023-05-05] MEDS: lisinopriL 10 MG TABLET PO (10:11)
[2023-05-05] MEDS: TAMSULOSIN HCL 0.4 MG CAPSULE PO (10:12)
[2023-05-05] MEDS: METOPROLOL SUCCINATE (XL) 25 MG TAB PO (10:12)
[2023-05-05] MEDS: SODIUM CHLORIDE 0.9 % (FLUSH) 10 ML SYRINGE 5 ML IVF ×2 (10:12→20:25)
[2023-05-05] MEDS: FUROSEMIDE 10 MG/ML inj 20 MG IVP ×2 (10:13→14:17)
[2023-05-05] MEDS: BUDESONIDE 0.5 MG/2ML NEB NEB ×2 (10:13→20:24)
[2023-05-05] MEDS: IPRAT-ALBUT 0.5-2.5 MG/3 ML NEB 1 NEB IH ×4 (10:13→20:24)
--- NOTE | 2023-05-05 15:20 | PM.IMPN1 ---
Progress Note: A&P Assessment and plan (1) Hypoxic respiratory failure: Problem details: At least 6 weeks of progressive hypoxic respiratory failure. Chest CT showing infiltrates. With his history of heart disease and other evaluation I clinically suspect this is heart failure primarily. He does not currently have obvious wheezing or poor air exchange suggestive of COPD, though that was reported in the clinic. Will treat for community-acquired pneumonia as well pending his clinical course. Diuresis and continued monitoring of vital signs and troponin. -increase Lasix to 40mg IV b.i.d., daily weights, strict I&Os -echocardiogram reviewed as above, noted for increased aortic stenosis since previous in 2018. BNP 3820 -RT for pulmonary support, nebulizers, incentive spirometry -05/05: Remains hypercapnic, pH stable -repeat CXR no significant improvement Status: Acute (2) Pneumonia: Problem details: -bilateral infiltrates. Lactate improved. No leukocytosis. Afebrile. Remains hypoxic -continue ceftriaxone and azithromycin. Management as above with diuresis -strep pneumo/Legionella negative, sputum culture pending/Gram stain negative Status: Acute (3) Hypertension: Problem details: -continue home blood pressure medicines as tolerated Status: Acute (4) Coronary artery disease: Problem details: -Status post coronary artery bypass x4 vessels in 2000 and coronary artery stent placement in 2018 Status: Acute (5) Chronic atrial fibrillation: Problem details: On anticoagulation and rate control EKG shows atrial fibrillation, rate controlled Status: Acute (6) Hyponatremia: Problem details: Sodium improving following diuresis and fluid restriction, continue to monitor Status: Acute (7) Elevated troponin: Problem details: Likely type 2 CT related to hypoxic respiratory failure and probable heart failure. Continue to monitor and trend. Troponins flat. Denies chest pain Status: Acute Time Spent With Patient Total time spent: Total time spent caring for the patient today was 45 minutes. This includes time spent for the visit reviewing the chart, time spent during the visit, time spent after the visit and documentation and planning in coordination of care. Subjective Date Seen: 05/05/23 Interval history: Continues to feel better without new complaints. Denies chest pain or tightness. Remains on supplemental oxygen without dyspnea. Oxygen saturations noted to drop with positional changes. Denies headache or dizziness. Remains afebrile. Tolerating orals without nausea vomiting. Exam Narrative: Exam Narrative: PHYSICAL EXAM General: Pleasant, conversant, NAD HEENT: Normocephalic, atraumatic, sclera white, EOMI, oral mucosa moist Cardiovascular: RRR, bilateral trace edema resolved Pulmonary: Mildly diminished without expiratory wheezes, still tight. Mild dyspnea with positional change, quickly recovers Neurological: Alert, answering questions appropriately, cranial nerves intact, no focal findings Extremities: No gross joint deformity or swelling. AROMI. Neurovascularly intact Skin: Warm, dry. Const: Vital Signs, click to edit/add: Vital Signs - 24 hr 05/04/23 15:30 05/04/23 16:00 05/04/23 16:00 Temperature 98.4 F Pulse Rate Pulse Rate [Right Pulse Oximeter] 95 Respiratory Rate 20 18 Blood Pressure [Ri ght Arm] 144/73 H Pulse Oximetry 90 92 92 Oxygen Delivery Me thod Nasal Cannula Nasal Cannula Oxygen Flow Rate 1.5 1 05/04/23 18:53 05/04/23 19:00 05/04/23 21:56 Temperature 98.2 F Pulse Rate 101 H Pulse Rate [Right Pulse Oximeter] 93 Respiratory Rate 18 Blood Pressure [Ri ght Arm] 134/73 Pulse Oximetry 91 90 Oxygen Delivery Me thod Nasal Cannula Nasal Cannula Oxygen Flow Rate 2 2 05/04/23 22:35 05/04/23 23:00 05/04/23 23:00 Temperature 98.1 F Pulse Rate Pulse Rate [Right Pulse Oximeter] 84 Respiratory Rate 18 24 Blood Pressure [Ri ght Arm] 139/72 Pulse Oximetry 93 90 Oxygen Delivery Me thod Nasal Cannula Oxygen Flow Rate 1.5 05/05/23 02:00 05/05/23 04:00 05/05/23 07:21 Temperature 98.5 F Pulse Rate 87 Pulse Rate [Right Pulse Oximeter] 79 Respiratory Rate 24 20 Blood Pressure [Ri ght Arm] 109/63 Pulse Oximetry 88 88 Oxygen Delivery Me thod Nasal Cannula Nasal Cannula Oxygen Flow Rate 1.5 1.5 05/05/23 08:15 05/05/23 08:15 05/05/23 10:00 Temperature 98.2 F Pulse Rate Pulse Rate [Right Pulse Oximeter] 87 Respiratory Rate 20 Blood Pressure [Ri ght Arm] 144/76 H Pulse Oximetry 90 91 91 Oxygen Delivery Me thod Nasal Cannula Nasal Cannula Oxygen Flow Rate 1.5 1.5 05/05/23 11:00 Temperature 98.8 F Pulse Rate Pulse Rate [Right Pulse Oximeter] 91 Respiratory Rate 20 Blood Pressure [Ri ght Arm] 139/68 Pulse Oximetry 91 Oxygen Delivery Me thod Nasal Cannula Oxygen Flow Rate 1.5 Labs Labs: Laboratory Results - last 24 hr 05/05/23 06:20 WBC 7.79 RBC 3.99 L Hgb 11.9 L Hct 39.4 MCV 99 MCH 30 MCHC 30 L RDW Coeff of Ronaldo 14.4 Plt Count 134 L Neut % (Auto) 85.9 H Lymph % (Auto) 4.2 L [place] % (Auto) 8.7 Eos % (Auto) 1.0 Baso % (Auto) 0.1 Neut # (Auto) 6.70 Lymph # (Auto) 0.30 L [place] # (Auto) 0.70 Eos # (Auto) 0.08 Baso # (Auto) 0.01 Abs Immat Gran (auto) 0.01 Imm/Tot Granulo (auto) 0.1 VBG pH 7.372 VBG pCO2 63 H* VBG pO2 36.8 VBG HCO3 36 H Sodium 131 L Potassium 4.6 Chloride 90 L Carbon Dioxide 34 H Anion Gap 7 BUN 23 Creatinine 0.9 Estimated Creat Clear 57.79 Estimated GFR 85 Glucose 109 Calcium 8.5 Imaging Echo: Radiologist's impression: Moderately enlarged left atrium. Normal left ventricular size, moderately increased wall thickness, hyperdynamic global systolic function, EF 77%, global systolic RV function is mildly reduced, aortic valve calcified and trileaflet, mild to moderate stenosis, mitral valve is sclerotic, trace mitral regurgitation, mildly increased estimated pulmonary pressures, ascending aorta is dilated maximal diameter of 3.8 cm, no pericardial effusion When compared to exam of 09/2017 aortic stenosis has increased
--- NOTE | 2023-05-05 15:43 | PC.NURSE ---
Please see eMar for meds provided. Teaching on IS and Aerobika, enc. TCDB q 1hr while awake. Pt sats 88-91% on 1.5 Litres/NC. Pt has some bloody sinus drainage and he states he is coughing up thick brown phlegm this afternoon. Report to oncoming shift RN. Tele indicates afib with NVR.
[2023-05-05] MEDS: AZITHROMYCIN 250 MG TABLET 500 MG PO (16:51)
[2023-05-05] MEDS: cefTRIAXone 1 GM in 0.9 % SODIUM CHLORIDE Mini-bag 100 ML IVPB (16:51)
[2023-05-06] VITALS (9 sets, daily range): BP systolic 114–161; BP diastolic 59–74; PULSE 79–105; RESP 18–20; TEMP 36.6–36.9; O2SAT 85–96
--- NOTE | 2023-05-06 06:10 | PC.NURSE ---
SHIFT NOTE 19-07: Pt is pleasant, A&O. Denies pain, CP and N/V. Reports some SOB with exertion. Afebrile, oxygen saturations upper 80's to 91% on 1.5L O2 PNC. Up 1 assist.
[2023-05-06 07:35] LABS: Chloride* 90 mmol/L (96-114)
[2023-05-06 07:36] LABS: Potassium* 3.8 mmol/L (3.6-5.1)
[2023-05-06 07:38] LABS: Anion Gap 1 mEq/L (7-15); Carbon Dioxide* 33 mmol/L (20-32); Creatinine* 0.9 mg/dL (0.5-1.5); Est. Creatinine Clearance* 57.79; Estimated Glomerular Filt Rate 85 ml/min
[2023-05-06 07:39] LABS: Blood Urea Nitrogen* 22 mg/dL (7-30); Calcium* 8.4 mg/dL (8.4-10.6); Glucose* 106 mg/dL (60-115)
[2023-05-06 07:47] LABS: Sodium* 124 mmol/L (135-149)
[2023-05-06 09:25] LABS: Basophils Absolute Auto 0.02 K/uL (0.00-0.30); Basophils Percent Auto 0.3 % (0.0-3.0); Eosinophils Absolute Auto 0.13 K/uL (0.00-0.50); Eosinophils Percent Auto 1.7 % (0.0-7.0); Hematocrit 35.1 % (37.0-53.0); Hemoglobin* 11.2 gm/dL (13.5-17.5); Immature Granulocytes Abs Auto 0.01 K/uL (0.00-0.30); Immature Granulocytes Pct Auto 0.1 %; Lymphocytes Percent Auto 4.5 % (20-44); Mean Corpuscular HGB Conc 32 gm/dL (32-36); Mean Corpuscular Hemoglobin 30 pg (26-34); Mean Corpuscular Volume 94 fL (80-100); Monocytes Percent Auto 8.4 % (0.0-11.0); Platelet Count* 199 K/uL (140-440); RDW Coefficient of Variation % 13.9 % (11.5-15.5); Red Blood Count 3.72 m/uL (4.30-5.90); White Blood Count* 7.76 K/uL (4.50-11.00)
[2023-05-06 09:26] LABS: Slide Review Reflex No
[2023-05-06] MEDS: IPRAT-ALBUT 0.5-2.5 MG/3 ML NEB 1 NEB IH ×4 (09:31→21:22)
[2023-05-06] MEDS: lisinopriL 10 MG TABLET PO (09:31)
[2023-05-06] MEDS: METOPROLOL SUCCINATE (XL) 25 MG TAB PO ×2 (09:31→12:46)
[2023-05-06] MEDS: FUROSEMIDE 10 MG/ML inj 40 MG IVP ×2 (09:31→13:34)
[2023-05-06] MEDS: ATORVASTATIN CALCIUM 40 MG TABLET PO (09:31)
[2023-05-06] MEDS: TAMSULOSIN HCL 0.4 MG CAPSULE PO (09:32)
[2023-05-06] MEDS: RIVAROXABAN 10 MG TABLET 20 MG PO (09:32)
[2023-05-06] MEDS: SODIUM CHLORIDE 0.9 % (FLUSH) 10 ML SYRINGE 5 ML IVF ×2 (09:32→21:23)
[2023-05-06] MEDS: 3 % SODIUM CHLORIDE 500 ml 50 ML 33.33 ML IV (10:48)
[2023-05-06] MEDS: BUDESONIDE 0.5 MG/2ML NEB NEB ×2 (10:48→21:22)
[2023-05-06 11:04] LABS: Troponin I* 0.07 ng/mL (0.01-0.04)
--- NOTE | 2023-05-06 11:15 | NUTR.NU ---
Addendum entered and electronically signed by Luiza Smart RD 05/06/23 11:23: Of note, RDN offered diet order change from Regular to Heart Healthy however patient declined. Original Note: RDN with diet education related to hx coronary artery disease, Hypertension, and obesity. Patient admitted for pneumonia and possible CHF. Height 5ft 10.87in; weight 203lb 2oz; BMI overweight at 28.4 kg/m2. Current diet order is Regular with 1500mL fluid restriction. Intakes have been adequate at 75%+ since admit. No recent weight records to assess. RDN visited with patient whom reports receiving heart healthy diet education multiple times in the past. He reports his weight has been stable. RDN offered diet education related to heart health, however he declined at this time. No nutrition inteventions at this time. RDN will continue to monitor and follow-up prn.
--- NOTE | 2023-05-06 11:31 | PM.IMPN1 ---
Progress Note: A&P Assessment and plan (1) Hypoxic respiratory failure: Problem details: At least 6 weeks of progressive hypoxic respiratory failure. Chest CT showing infiltrates. With his history of heart disease and other evaluation I clinically suspect this is heart failure primarily. He does not currently have obvious wheezing or poor air exchange suggestive of COPD, though that was reported in the clinic. Will treat for community-acquired pneumonia as well pending his clinical course. Diuresis and continued monitoring of vital signs and troponin. Status: Acute (2) Pneumonia: Problem details: -bilateral infiltrates. Lactate improved. No leukocytosis. Afebrile. Remains hypoxic, although with some improvement since admission. Has been on ceftriaxone and azithromycin. Worsening PNA on CXR yesterday. Strep pneumo/Legionella negative, sputum culture pending/Gram stain negative. Change to zosyn/vanco. Monitor renal function daily. Status: Acute (3) Heart failure with preserved ejection fraction: Problem details: -increase Lasix to 40mg IV b.i.d. (first dose of that was this morning 05/06/23), daily weights, strict I&Os -echocardiogram done 05/04/23, EF 77%, increased aortic stenosis since previous in 2018. BNP 3820 -RT for pulmonary support, nebulizers, incentive spirometry -05/05: Remains hypercapnic, pH stable -repeat CXR 05/05 no improvement Status: Acute (4) Hyponatremia: Problem details: - Fluctuating. I have ordered a stricter fluid restriction and a small 3% saline bolus for this morning. May need sodium tabs. - Cause is unclear, maybe due to severity of pneumonia. I have reviewed his medications. Maybe related to lasix, but unlikely. Status: Acute (5) Elevated troponin: Problem details: - Peak 0.1 yesterday. Asymptomatic. - Likely type 2 MD related to hypoxic respiratory failure and probable heart failure. Status: Acute (6) Coronary artery disease: Problem details: -Status post coronary artery bypass x4 vessels in 1999 and coronary artery stent placement in 2018 Status: Acute (7) Chronic atrial fibrillation: Problem details: On anticoagulation and rate control with metoprolol. Rate mildly elevated today. BP okay. Will increase metoprolol. Monitor on telemetry. Status: Acute (8) Hypertension: Problem details: -continue home blood pressure medicines as tolerated Status: Acute Time Spent With Patient Total time spent: Today I spent 35 minutes rounding on the patient. Greater than 50% included discussing care with the team, reviewing data, updating and managing the care plan. Subjective Time Seen by Provider: 09:38 Date Seen: 05/06/23 Interval history: Jonathan has no complaints. He is a little less SOB than admission. Denies pain. Exam Narrative: Exam Narrative: General: No acute distress. Awake, alert, oriented x3. No pallor. No jaundice. Oropharynx: Clear. Mucous membranes moist. Cardiovascular: Irregularly irregular, mildly tachycardic. Respiratory: Diminished bilaterally, rhonchorous throughout with occasional expiratory wheeze especially in the right lower lung field. Abdomen: Bowel sounds present. Soft, nondistended, nontender. Extremities: No pedal edema. Const: Vital Signs, click to edit/add: Vital Signs - 24 hr 05/05/23 15:00 05/05/23 15:00 05/05/23 15:00 Temperature 98.9 F Pulse Rate Pulse Rate [Right Pulse Oximeter] 91 91 Respiratory Rate 20 20 Blood Pressure [Ri t Arm] 136/72 Pulse Oximetry 95 95 Oxygen Delivery Me thod Nasal Cannula Oxygen Flow Rate 1.5 05/05/23 18:00 05/05/23 19:00 05/05/23 23:00 Temperature 98.5 F Pulse Rate 88 Pulse Rate [Right Pulse Oximeter] 90 Respiratory Rate 20 20 Blood Pressure [Ri t Arm] 128/69 Pulse Oximetry 95 90 Oxygen Delivery Me thod Nasal Cannula Nasal Cannula Oxygen Flow Rate 1.5 1.5 05/05/23 23:00 05/05/23 23:00 05/05/23 23:00 Temperature 98 F Pulse Rate Pulse Rate [Right Pulse Oximeter] 90 88 Respiratory Rate 20 18 Blood Pressure [Ri t Arm] 93/48 L Pulse Oximetry 91 91 Oxygen Delivery Me thod Nasal Cannula Oxygen Flow Rate 1.5 05/06/23 02:00 05/06/23 03:00 05/06/23 07:00 Temperature 98.5 F Pulse Rate 91 Pulse Rate [Right Pulse Oximeter] 90 Respiratory Rate 18 18 Blood Pressure [Ri t Arm] 114/59 L Pulse Oximetry 89 90 Oxygen Delivery Me thod Nasal Cannula Nasal Cannula Oxygen Flow Rate 1.5 1.5 05/06/23 07:00 05/06/23 07:00 05/06/23 07:00 Temperature 98.5 F Pulse Rate Pulse Rate [Right Pulse Oximeter] 90 94 Respiratory Rate 18 20 Blood Pressure [Ri ght Arm] 142/74 H Pulse Oximetry 88 88 Oxygen Delivery Me thod Nasal Cannula Oxygen Flow Rate 2 05/06/23 10:00 Temperature Pulse Rate Pulse Rate [Right Pulse Oximeter] Respiratory Rate 20 Blood Pressure [Ri ght Arm] Pulse Oximetry 90 Oxygen Delivery Me thod Nasal Cannula Oxygen Flow Rate 2 Labs Labs: Laboratory Results - last 24 hr 05/06/23 05/06/23 06:16 10:15 WBC 7.76 RBC 3.72 L Hgb 11.2 L Hct 35.1 L MCV 94 MCH 30 MCHC 32 RDW Coeff of Ronaldo 13.9 Plt Count 199 Neut % (Auto) 85.0 H Lymph % (Auto) 4.5 L [place] % (Auto) 8.4 Eos % (Auto) 1.7 Baso % (Auto) 0.3 Neut # (Auto) 6.60 Lymph # (Auto) 0.30 L [place] # (Auto) 0.70 Eos # (Auto) 0.13 Baso # (Auto) 0.02 Abs Immat Gran (auto) 0.01 Imm/Tot Granulo (auto) 0.1 Sodium 124 L* Potassium 3.8 Chloride 90 L Carbon Dioxide 33 H Anion Gap 1 L BUN 22 Creatinine 0.9 Estimated Creat Clear 57.79 Estimated GFR 85 Glucose 106 Calcium 8.4 Troponin I 0.07 H* Lab Acknowledgement Test Added Ordering Physician: Lien MUKHERJEE Date of Service: 05/05/23 Procedure(s): XR chest 1V portable Accession Number(s): [id number] cc: Flakito Ling M.D.; Lien MUKHERJEE~ For Patients: As a result of the Cures Act, medical imaging exams and procedure reports are released immediately into your electronic medical record. You may view this report before your referring provider. If you have questions, please contact your health care provider. INDICATION: Short of breath, hypoxia COMPARISON: 05/03/2023 TECHNIQUE: 1 view chest radiograph. FINDINGS: Lung volumes are moderate. Significantly elevated left hemidiaphragm is unchanged. Slightly increased left basilar opacity. Prominent interstitial markings and prominent pulmonary vascular markings. Blunting of the left costophrenic angle is probably a small effusion. Pleural effusion. No pneumothorax. No pneumomediastinum. Unchanged cardiomediastinal silhouette. Atherosclerotic vascular calcifications. Median sternotomy wires. Bones: No acute appearing findings. IMPRESSION: Slightly worse left lower lobe opacity could be pneumonia or worsening atelectasis. Possible trace left pleural effusion. Elevated left hemidiaphragm is unchanged. Dictated by Sabrina Beltran MD @ 05/06/2023 9:27:44 AM (Electronically Signed)
[2023-05-06] MEDS: PIPERACILLIN/TAZOBACTAM 3.375 GM in 0.9 % SODIUM CHLORIDE Mini-bag 100 ML IVPB ×2 (12:46→18:17)
--- NOTE | 2023-05-06 19:04 | PC.NURSE ---
Nursing Care Hours: [id number] Pt this shift calm and cooperative with cares, alert and oriented with some repetitive statements. Increased supplemental oxygen to 2L with NC. Pt c/o dry bloody and stuffy nose so switched to OxyMask for comfort. IV patent. No c/o pain. Using urinal at bedside independently. Walked to bathroom x1 for BM. Game Design Instructor encouraged pt to sit up in recliner chair but pt refused and eats at edge of bed for meals. Scheduled nebs given. Pt is coughing up brown to bright red tinged mucus occasionally. Complying to 1500 FR. Tele shows Afib with NVR, BBB, and occasional PVS.
[2023-05-07] VITALS (9 sets, daily range): BP systolic 113–149; BP diastolic 63–79; PULSE 70–93; RESP 15–24; TEMP 36.5–37.1; O2SAT 90–93
[2023-05-07] MEDS: PIPERACILLIN/TAZOBACTAM 3.375 GM in 0.9 % SODIUM CHLORIDE Mini-bag 100 ML IVPB ×4 (02:09→17:59)
--- NOTE | 2023-05-07 06:11 | PC.NURSE ---
End of Shift: Pt AO, pleasant and cooperative throughout shift. Denied any pain. Utilizing urinal bedside, no BM throughout shift. receiving vancomcyin and piperacillin and tazobactam IV. RN noted that 3% NA had been running at 33ml/hr from the previous shift until about 0430. Upon double checking it was noted that order was d/c'd and pt was only to receive a partial dose. NA to be drawn with morning labs. Pt remained on 2L oxygen via oxymask with sats between 91-96%. Tolerated nebs well with some intermittent coughing after.
[2023-05-07 06:26] LABS: HCO3 VBG 36 mmol/L (21-28); PO2 VBG 48.9 mmHG (25-47); pH VBG 7.361 (7.32-7.43)
[2023-05-07 06:29] LABS: PCO2 VBG 63 mmHG (40-50)
[2023-05-07 06:30] LABS: Basophils Absolute Auto 0.02 K/uL (0.00-0.30); Basophils Percent Auto 0.4 % (0.0-3.0); Eosinophils Absolute Auto 0.17 K/uL (0.00-0.50); Eosinophils Percent Auto 3.1 % (0.0-7.0); Hematocrit 35.9 % (37.0-53.0); Hemoglobin* 11.3 gm/dL (13.5-17.5); Immature Granulocytes Abs Auto 0.01 K/uL (0.00-0.30); Immature Granulocytes Pct Auto 0.2 %; Lymphocytes Percent Auto 7.2 % (20-44); Mean Corpuscular HGB Conc 32 gm/dL (32-36); Mean Corpuscular Hemoglobin 30 pg (26-34); Mean Corpuscular Volume 95 fL (80-100); Monocytes Percent Auto 10.3 % (0.0-11.0); Neutrophils Percent Auto 78.8 % (42.0-72.0); Platelet Count* 197 K/uL (140-440); RDW Coefficient of Variation % 13.9 % (11.5-15.5); Red Blood Count 3.78 m/uL (4.30-5.90); White Blood Count* 5.44 K/uL (4.50-11.00)
[2023-05-07 06:32] LABS: Slide Review Reflex No
[2023-05-07 06:45] LABS: Chloride* 95 mmol/L (96-114)
[2023-05-07 06:46] LABS: Sodium* 135 mmol/L (135-149)
[2023-05-07 06:48] LABS: Est. Creatinine Clearance* 57.79; Estimated Glomerular Filt Rate 75 ml/min
[2023-05-07 06:49] LABS: Anion Gap 6 mEq/L (7-15); Blood Urea Nitrogen* 22 mg/dL (7-30); Calcium* 8.3 mg/dL (8.4-10.6); Carbon Dioxide* 34 mmol/L (20-32); Glucose* 105 mg/dL (60-115)
[2023-05-07] MEDS: FUROSEMIDE 10 MG/ML inj 40 MG IVP ×2 (09:10→13:51)
[2023-05-07] MEDS: ATORVASTATIN CALCIUM 40 MG TABLET PO (09:10)
[2023-05-07] MEDS: METOPROLOL SUCCINATE (XL) 50 MG TAB PO (09:11)
[2023-05-07] MEDS: lisinopriL 10 MG TABLET PO (09:11)
[2023-05-07] MEDS: RIVAROXABAN 10 MG TABLET 20 MG PO (09:11)
[2023-05-07] MEDS: BUDESONIDE 0.5 MG/2ML NEB NEB ×2 (09:11→21:13)
[2023-05-07] MEDS: TAMSULOSIN HCL 0.4 MG CAPSULE PO (09:11)
[2023-05-07] MEDS: IPRAT-ALBUT 0.5-2.5 MG/3 ML NEB 1 NEB IH ×4 (09:11→21:12)
[2023-05-07] MEDS: SODIUM CHLORIDE 0.9 % (FLUSH) 10 ML SYRINGE 5 ML IVF ×2 (10:00→21:12)
--- NOTE | 2023-05-07 17:26 | PM.IMPN1 ---
Progress Note: A&P Assessment and plan (1) Hypoxic respiratory failure: Problem details: At least 6 weeks of progressive hypoxic respiratory failure. Chest CT showing infiltrates. With his history of heart disease and other evaluation I clinically suspect this is heart failure primarily. He does not currently have obvious wheezing or poor air exchange suggestive of COPD, though that was reported in the clinic. Will treat for community-acquired pneumonia as well pending his clinical course. Diuresis and continued monitoring of vital signs and troponin. - may be able to switch to oral furosemide tomorrow. - continue to try to wean oxygen down. Did discuss with patient the possibility that he may need oxygen at time of discharge. Status: Acute (2) Pneumonia: Problem details: -bilateral infiltrates. Lactate improved. No leukocytosis. Afebrile. Remains hypoxic, although with some improvement since admission. Has been on ceftriaxone and azithromycin. Worsening PNA on CXR yesterday. Strep pneumo/Legionella negative, sputum culture pending/Gram stain negative. Change to zosyn/vanco. Monitor renal function daily. - may be able to switch to oral antibiotic in near future. Status: Acute (3) Heart failure with preserved ejection fraction: Problem details: -increase Lasix to 40mg IV b.i.d. (first dose of that was this morning 05/06/23), daily weights, strict I&Os -echocardiogram done 05/04/23, EF 77%, increased aortic stenosis since previous in 2018. BNP 3820 -RT for pulmonary support, nebulizers, incentive spirometry -05/05: Remains hypercapnic, pH stable -repeat CXR 05/05 no improvement Status: Acute (4) Hyponatremia: Problem details: - Fluctuating. I have ordered a stricter fluid restriction and a small 3% saline bolus for this morning. May need sodium tabs. - Cause is unclear, maybe due to severity of pneumonia. I have reviewed his medications. Maybe related to lasix, but unlikely. Status: Acute (5) Elevated troponin: Problem details: - Peak 0.1 yesterday. Asymptomatic. - Likely type 2 MA related to hypoxic respiratory failure and probable heart failure. Status: Acute (6) Coronary artery disease: Problem details: -Status post coronary artery bypass x4 vessels in 1999 and coronary artery stent placement in 2018 Status: Acute (7) Chronic atrial fibrillation: Problem details: On anticoagulation and rate control with metoprolol. Rate mildly elevated today. BP okay. Will increase metoprolol. Monitor on telemetry. Status: Acute (8) Hypertension: Problem details: -continue home blood pressure medicines as tolerated Status: Acute Plan 1. Reviewed with patient, , son. Answered their questions. 2. They are all agreeable with above stated plans and recommendations. Time Spent With Patient Total time spent: 35 minutes Subjective Date Seen: 05/07/23 Interval history: He is concerned about his response to the furosemide causing him to have urination for long periods of time. States he has dyspnea with exertion. Still requiring oxygen supplementation at 1 liter/minute via nasal cannula continuously. Denies orthostasis. Exam Narrative: Exam Narrative: Appears comfortable in no acute distress. Vision and hearing are normal. Alert and oriented to self, place, time, situation. Friendly, articulate, cooperative. Lungs with decreased breath sounds left base with fine rales bilaterally right greater than left. Heart tones with regular rhythm, normal S1-S2. Add with active bowel sounds, soft, nontender. Independent transfer, station, and gait. No focal motor neurologic deficits. Weight today 92.1 kg, yesterday 92.9 kg, on 05/05/2023 was 93.6 kg. Const: Vital Signs, click to edit/add: Vital Signs - 24 hr 05/06/23 18:00 05/06/23 19:00 05/06/23 23:00 Temperature 98.1 F Pulse Rate Pulse Rate [Right Pulse Oximeter] 96 Respiratory Rate 18 20 Blood Pressure [Ri ght Arm] 129/67 Pulse Oximetry 93 96 91 Oxygen Delivery Me thod OxyMask OxyMask Oxygen Flow Rate 2 2 05/06/23 23:00 05/06/23 23:00 05/06/23 23:00 Temperature 98.1 F Pulse Rate 79 Pulse Rate [Right Pulse Oximeter] 93 93 Respiratory Rate 20 20 Blood Pressure [Ri ght Arm] 129/64 Pulse Oximetry 91 Oxygen Delivery Me thod OxyMask Oxygen Flow Rate 2 05/07/23 02:00 05/07/23 03:00 05/07/23 07:00 Temperature 98.1 F Pulse Rate Pulse Rate [Right Pulse Oximeter] 86 Respiratory Rate 20 20 Blood Pressure [Ri ght Arm] 120/66 Pulse Oximetry 93 93 92 Oxygen Delivery Me thod Nasal Cannula Nasal Cannula Oxygen Flow Rate 2 2 05/07/23 07:00 05/07/23 07:00 05/07/23 07:00 Temperature 98.3 F Pulse Rate 80 Pulse Rate [Right Pulse Oximeter] 90 90 Respiratory Rate 18 18 Blood Pressure [Ri ght Arm] 146/76 H Pulse Oximetry 92 Oxygen Delivery Me thod Room Air Oxygen Flow Rate 05/07/23 10:00 05/07/23 11:00 Temperature 97.7 F Pulse Rate Pulse Rate [Right Pulse Oximeter] 70 Respiratory Rate 18 15 Blood Pressure [Ri ght Arm] 118/65 Pulse Oximetry 93 90 Oxygen Delivery Me thod Nasal Cannula Nasal Cannula Oxygen Flow Rate 1.5 1.5 Documenting provider has reviewed patient's vital signs: yes Labs Labs: Laboratory Results - last 24 hr 05/07/23 06:07 WBC 5.44 RBC 3.78 L Hgb 11.3 L Hct 35.9 L MCV 95 MCH 30 MCHC 32 RDW Coeff of Ronaldo 13.9 Plt Count 197 Neut % (Auto) 78.8 H Lymph % (Auto) 7.2 L [place] % (Auto) 10.3 Eos % (Auto) 3.1 Baso % (Auto) 0.4 Neut # (Auto) 4.30 Lymph # (Auto) 0.40 L [place] # (Auto) 0.60 Eos # (Auto) 0.17 Baso # (Auto) 0.02 Abs Immat Gran (auto) 0.01 Imm/Tot Granulo (auto) 0.2 VBG pH 7.361 VBG pCO2 63 H* VBG pO2 48.9 H VBG HCO3 36 H Sodium 135 Potassium 4.0 Chloride 95 L Carbon Dioxide 34 H Anion Gap 6 L BUN 22 Creatinine 1.0 Estimated Creat Clear 57.79 Estimated GFR 75 Glucose 105 Calcium 8.3 L
--- NOTE | 2023-05-07 19:07 | PC.NURSE ---
Nursing Care Hours: [id number] Pt this shift calm and cooperative, alert and oriented. No c/o headache or chest pain. Still needing encouragement to get out of bed. Does stand at bedside to use urinal. IV in L arm tender and occluded. DC and new IV placed in R wrist. Pt states he is using IS and PEP every hour. Titrated supplemental O2 from 2L NC to 1L. At 1L pt spO2 at around 85-87% while eating. Increased to 1.5L.
[2023-05-08] VITALS (7 sets, daily range): BP systolic 123–143; BP diastolic 60–65; PULSE 67–94; RESP 16–22; TEMP 36.8–37.2; O2SAT 80–94
[2023-05-08] MEDS: PIPERACILLIN/TAZOBACTAM 3.375 GM in 0.9 % SODIUM CHLORIDE Mini-bag 100 ML IVPB ×3 (00:12→12:53)
[2023-05-08 06:02] LABS: Basophils Absolute Auto 0.02 K/uL (0.00-0.30); Basophils Percent Auto 0.4 % (0.0-3.0); Eosinophils Absolute Auto 0.23 K/uL (0.00-0.50); Eosinophils Percent Auto 4.6 % (0.0-7.0); Hematocrit 36.4 % (37.0-53.0); Hemoglobin* 11.3 gm/dL (13.5-17.5); Immature Granulocytes Abs Auto 0.01 K/uL (0.00-0.30); Immature Granulocytes Pct Auto 0.2 %; Lymphocytes Percent Auto 8.8 % (20-44); Mean Corpuscular HGB Conc 31 gm/dL (32-36); Mean Corpuscular Hemoglobin 29 pg (26-34); Mean Corpuscular Volume 95 fL (80-100); Monocytes Percent Auto 9.8 % (0.0-11.0); Neutrophils Percent Auto 76.2 % (42.0-72.0); Platelet Count* 202 K/uL (140-440); RDW Coefficient of Variation % 13.8 % (11.5-15.5); Red Blood Count 3.85 m/uL (4.30-5.90); White Blood Count* 5.01 K/uL (4.50-11.00)
[2023-05-08 06:04] LABS: HCO3 VBG 35 mmol/L (21-28); PCO2 VBG 55 mmHG (40-50); PO2 VBG 62.5 mmHG (25-47); pH VBG 7.414 (7.32-7.43)
[2023-05-08 06:06] LABS: Slide Review Reflex No
[2023-05-08 06:15] LABS: Chloride* 94 mmol/L (96-114); Potassium* 3.8 mmol/L (3.6-5.1); Sodium* 134 mmol/L (135-149)
[2023-05-08 06:18] LABS: Anion Gap 6 mEq/L (7-15); Carbon Dioxide* 34 mmol/L (20-32); Est. Creatinine Clearance* 57.79; Estimated Glomerular Filt Rate 75 ml/min
[2023-05-08 06:19] LABS: Blood Urea Nitrogen* 19 mg/dL (7-30); Calcium* 8.3 mg/dL (8.4-10.6); Glucose* 100 mg/dL (60-115)
--- NOTE | 2023-05-08 06:35 | PC.NURSE ---
End of Shift: Pt AO throughout shift, pleasant and cooperative. Utilized urinal bedside throughout shift. Denied any pain. R forearm IV remained patent throughout shift, dressing CDI. Tolerating abx infusions well. O2 sats between 92-94% on 1.5L O2 NC. VS stable. Afebrile. Cough improving in frequency compared to yesterday.
[2023-05-08] MEDS: TAMSULOSIN HCL 0.4 MG CAPSULE PO (08:42)
[2023-05-08] MEDS: lisinopriL 10 MG TABLET PO (08:42)
[2023-05-08] MEDS: RIVAROXABAN 10 MG TABLET 20 MG PO (08:42)
[2023-05-08] MEDS: ATORVASTATIN CALCIUM 40 MG TABLET PO (08:42)
[2023-05-08] MEDS: METOPROLOL SUCCINATE (XL) 50 MG TAB PO (08:42)
[2023-05-08] MEDS: SODIUM CHLORIDE 0.9 % (FLUSH) 10 ML SYRINGE 5 ML IVF (08:43)
[2023-05-08] MEDS: IPRAT-ALBUT 0.5-2.5 MG/3 ML NEB 1 NEB IH ×2 (08:43→12:52)
[2023-05-08] MEDS: FUROSEMIDE 10 MG/ML inj 40 MG IVP (08:43)
[2023-05-08] MEDS: BUDESONIDE 0.5 MG/2ML NEB NEB (08:43)
[2023-05-08] MEDS: LACTOBACILLUS ACIDOPHILUS 1 TABLET 2 TAB PO (12:52)
--- NOTE | 2023-05-08 15:30 | PC.NURSE ---
Pt pleasant and conversational. Up in chair after morning cares. 1L O2 @ rest, 3L with activity. IV DC'd, cath tip intact. DC instructions given verbally and in writing to pt, and adult son. Follow Up PCP appointment made and pt added to phone calendar. DC'd via WC to return home with and adult son helping for next few days.
--- NOTE | 2023-05-12 16:41 | P.DS_ITS ---
DS: Providers Provider Date Seen: 05/08/23 Date of admission: 05/03/23 17:15 Primary care physician: Flakito Ling MD Admitting Clinician: Lucy Cook MD Consults: 05/03/23 15:19 Consult to Respiratory Therapy [CONS] Routine Comment: Reason(s) for RT Consult:: Consult Attending Physician on discharge: Donald Costa MD Date of Discharge: 05/08/23 DS: Diagnosis Discharge Diagnosis (1) Acute respiratory failure: Status: Acute (2) Heart failure with preserved ejection fraction: Status: Acute Problem details: -increase Lasix to 40mg IV b.i.d. (first dose of that was this morning 05/06/23), daily weights, strict I&Os -echocardiogram done 05/04/23, EF 77%, increased aortic stenosis since previous in 2018. BNP 3820 -RT for pulmonary support, nebulizers, incentive spirometry -05/05: Remains hypercapnic, pH stable -repeat CXR 05/05 no improvement (3) Elevated troponin: Status: Acute Problem details: - Peak 0.1 yesterday. Asymptomatic. - Likely type 2 NE related to hypoxic respiratory failure and probable heart failure. (4) Pneumonia: Status: Acute Problem details: -bilateral infiltrates. Lactate improved. No leukocytosis. Afebrile. Remains hypoxic, although with some improvement since admission. Has been on ceftri axone and azithromycin. Worsening PNA on CXR yesterday. Strep pneumo/Legionella negative, sputum culture pending/Gram stain negative. Change to zosyn/vanco. Monitor renal function daily. - may be able to switch to oral antibiotic in near future. (5) Hyponatremia: Status: Acute Problem details: - Fluctuating. I have ordered a stricter fluid restriction and a small 3% saline bolus for this morning. May need sodium tabs. - Cause is unclear, maybe due to severity of pneumonia. I have reviewed his medi cations. Maybe related to lasix, but unlikely. (6) Hypoxic respiratory failure: Status: Acute Problem details: At least 6 weeks of progressive hypoxic respiratory failure. Chest CT showing infiltrates. With his history of heart disease and other evaluation I clinically suspect this is heart failure primarily. He does not currently have obvious wheezing or poor air exchange suggestive of COPD, though that was reported in the clinic. Will treat for community-acquired pneumonia as well pending his clinical course. Diuresis and continued monitoring of vital signs and troponin. - may be able to switch to oral furosemide tomorrow. - continue to try to wean oxygen down. Did discuss with patient the possibility that he may need oxygen at time of discharge. (7) BPH (benign prostatic hyperplasia): Status: Acute Problem details: Check bladder scan (8) Hypertension: Status: Acute Problem details: -continue home blood pressure medicines as tolerated (9) Coronary artery disease: Status: Acute Problem details: -Status post coronary artery bypass x4 vessels in 2000 and coronary artery stent placement in 2018 (10) Chronic atrial fibrillation: Status: Acute Problem details: On anticoagulation and rate control with metoprolol. Rate mildly elevated today. BP okay. Will increase metoprolol. Monitor on telemetry. DS: Summary Hospital Course Hospital Course: Please see above stated problems for details of interventions and responses. Patient had multifactorial reasons for having hypoxemic respiratory failure including heart failure exacerbation and pneumonia. Status at Discharge Functional status at discharge: independent ambulation Overall status at discharge: patient is progressing back to baseline Time Spent with Patient Time attestation: Total time spent providing and/or coordinating discharge services: Time spent: Greater than 30 minutes Exam Narrative: Exam Narrative: Appears comfortable in no acute distress. Vision and hearing are normal. Alert and oriented to self, place, time, situation. Friendly, articulate, cooperative. Lungs with decreased breath sounds left base with fine rales bilaterally right greater than left. Heart tones with regular rhythm, normal S1-S2. Add with active bowel sounds, soft, nontender. Independent transfer, station, and gait. No focal motor neurologic deficits. Weight 05/07 92.1 kg, 05/06 92.9 kg, on 05/05/2023 was 93.6 kg. DS: Data Imaging Echo: Radiologist's impression: Left atrial enlargement. Normal left ventricular chamber size with increased wall thickness and ejection fraction estimated at 77%. Mild increased size in right ventral [place] and mild decreased function of right ventricle. Moderate aortic stenosis. Increased pulmonary artery pressures at 48 mmHg plus right atrial pressure. CT angiogram of chest: Radiologist's impression: IMPRESSION: 1. No central or lobar pulmonary embolism. Small hypodensities in the segmental and subsegmental pulmonary arteries are favored to represent contracts m mixing artifact, and less likely small pulmonary emboli. No CT evidence of right heart strain. 2. Scattered airspace opacities throughout the lungs bilaterally, favored to represent an infectious/inflammatory process. Recommend dedicated CT chest with contrast in approximately 8-10 weeks to assess for resolution. 3. A few prominent mediastinal lymph nodes, which are favored to be reactive. Discharge Plan Discharge Disposition: Home, Self-Care Date of Admission: 05/03/23 17:15 Attending Provider on Discharge: Donald Costa Primary Care Provider: Flakito Ling Condition: Improved Anticipated Discharge Date/Time: 05/08/23 14:30 Discharge Medications: New metoprolol succinate 50 mg Tablet Extended Release 24 Hr 50 mg PO DAILY 30 Days Qty: 30 1RF amoxicillin-pot clavulanate 875-125 mg tablet 1 tab PO BID Qty: 10 0RF ipratropium-albuterol 0.5 mg-3 mg(2.5 mg base)/3 mL solution for nebulization 3 ml inhalation QID Qty: 180 2RF furosemide 40 mg tablet 40 mg PO DAILY Qty: 30 2RF Continued atorvastatin 40 mg tablet 40 mg PO DAILY amlodipine 5 mg tablet 5 mg PO DAILY tamsulosin 0.4 mg capsule 0.4 mg PO DAILY lisinopril 10 mg tablet 10 mg PO DAILY fluticasone propion-salmeterol [Advair Diskus] 500-50 mcg/dose blister with device 1 ea inhalation BID Xarelto 20 mg tablet 20 mg PO DAILY Discontinued metoprolol succinate 25 mg tablet extended release 24 hr 25 mg PO DAILY Discharge Orders: Discharge Order (Routine); Ordered 05/08/23 Ordered By: Donald Costa Patient Education: Metoprolol (By mouth), Furosemide (By mouth), Amoxicillin/Clavulanate Potassium (By mouth), Ipratropium/Albuterol (By breathing), Heart Failure (DC), Using Oxygen at Home (DC), Community Acquired Pneumonia (DC), How to Use a Nebulizer (DC), Low-Sodium Diet (GEN) Activity Level: Activity as Tolerated Discharge Diet: 2 gm Sodium Follow Up Appointments: Flakito Ling MD [Primary Care Provider] - 05/11/23 11:45 am ([facility] follow[facility].) [facility]: [facility] Instructions
== END 2023-05-08 15:00 | disposition home or self-care (01) | DRG 280 ==
LOC: ED 12:10 → MEDSURG 14:24
PROVIDERS: Family Medicine; Internal Medicine; Admitting Provider Family Medicine; Emergency Provider Family Medicine; PCP Family Medicine; Visit Provider Physician Assistant
DX: I11.0 Hypertensive heart disease with heart failure (principal); I50.33 Acute on chronic diastolic (congestive) heart failure; J18.9 Pneumonia, unspecified organism; J96.02 Acute respiratory failure with hypercapnia; J96.01 Acute respiratory failure with hypoxia; I21.A1 Myocardial infarction type 2; E87.1 Hypo-osmolality and hyponatremia; I48.20 Chronic atrial fibrillation, unspecified; I35.0 Nonrheumatic aortic (valve) stenosis; I25.10 Atherosclerotic heart disease of native coronary artery without angina pectoris; I48.92 Unspecified atrial flutter; Z79.01 Long term (current) use of anticoagulants; I73.9 Peripheral vascular disease, unspecified; N40.0 Benign prostatic hyperplasia without lower urinary tract symptoms; Z95.1 Presence of aortocoronary bypass graft; M10.9 Gout, unspecified; Z95.5 Presence of coronary angioplasty implant and graft
CPT/HCPCS: 36415; 71045; 71275; 80048; 80076; 82803; 83605; 83735; 83880; 84145; 84484; 85025; 85379; 85651; 86140; 87070; 87449; 87631; 87635; 87899; 93005; 93306; 94640; 94664; 94761; 99285; A9270; J0696; J1940; J2543; J3370; J7050; J7120; J7131; J7626; Q9957; Q9967

== ENCOUNTER 2023-12-17 10:31 | Emergency (ER) | payer MEDICARE, BC, SELFPAY ==
[2023-12-17] VITALS (44 sets, daily range): BP systolic 75–127; BP diastolic 39–83; PULSE 42–84; RESP 16–18; TEMP 36.2; O2SAT 93–100; BMI 25.1
--- OUTSIDE RECORDS SUMMARY | 2023-12-17 10:33 | XMS_ITS | Encounter Summary ---
Author Name [facility] [facility] [place] Address [address] [place] [address] Care Team Providers Care Biomedical Engineering Supervisor Name Role Phone HAYLEY ESCALERA Primary Care Provider Bettina eric Insurance Providers: All historical and current Section Date Range: From patient's date of to the date document was created. This section includes the names of all active insurance providers for the patient. Insurance Provider Type of Coverage Plan Name Start of Policy Coverage End of Policy Coverage Group Number Member ID Insurance Provider's Telephone Number Policy Blanco's Name Patient's Relationship to Policy Lbanco [facility] (WNR) MEDICARE ADVANTAGE SENIO R KARINE GREGG IDU Jun 20, 2011 [id number] [phone] LACI HARE PATIENT Selected Encounter This section includes the information on record at [place] for the Encounter. Date/Time Encounter Type Encounter Description Reason Provider Source Jul 28, 2023 02:31 PM EMERGENCY DEPT VISIT [facility] EMERGENCY DEPT ICD-10-CM S01.401S Unsp open wound of right cheek and TMJ area, sequela NESSDEBRA O IHE Encounter Template Text not used by [place] Assessments - Encounter Diagnoses This section includes the primary and secondary diagnoses documented for the Encounter. Date/Time Primary/Secondary Diagnosis Diagnosis Name Provider Source Jul 28, 2023 05:04 PM PRIMARY Unsp open wound of right cheek and TMJ area, sequela NESS,DEBRA O [facility] Plan of Treatment: Future Appointments (+ 6 months) and Future Tests (+/- 45 days) The Plan of Treatment section includes future care activities for the patient from all [place] treatmentfacilities. This section includes future appointments and future orders which are active, pending or scheduled. Future Appointments This section includes appointments that were scheduled to occur 6 months from the date of the Encounter, up to a maximum of 20 appointments. The data comes from all [place] treatment facilities. Appointment Date/Time Appointment Type Appointme nt Facility Name Aug 29, 2023 08:08 PM AMBULATORY - NONE [facility] Sep 27, 2023 11:00 AM AMBULATORY - NONE [facility] Nov 28, 2023 07:00 AM AMBULATORY - NONE [facility] Dec 16, 2023 09:45 AM AMBULATORY - SURGERY [facility] Vital Signs: All taken on the encounter date This section contains inpatient and outpatient Vital Signs collected on the date of the Encounter. Date/Time Temperature Pulse Blood Pressure Respiratory Rate SP02 Pain Height Weight Body Mass Index Source Jul 28, 2023 02:43 PM 98.0 70 178/73 16 96 0 [facility] Social History: Smoking Status (Most current) and Tobacco Use (All prior to encounter date) This section includes the most current, and the historical, smoking and tobacco- related health factors from the [place] facility where the Encounter took place. Current Smoking Status This section includes the most current smoking, or tobacco-related health factor, from the [facility] where the Encounter took place. Date/Time Current Smoking Status Comment Susanna cisse Aug 12, 2008 09:28 AM LIFETIME NON-TOBACCO USER [facility] Encounter Notes: All associated encounter notes This section contains the clinical notes associated to the Encounter. Date/Time Encounter Note(s) Provider Source Jul 28, 2023 06:11 PM ADDENDUM: LOCAL TITLE: Addendum STANDARD TITLE: ADDENDUM DATE OF NOTE: JUL 28, 2023@18:11:53 ENTRY DATE: JUL 28, 2023@18:11:53 AUTHOR: DEBRA ROMANO EXP COSIGNER: URGENCY: STATUS: COMPLETED pt was seen in the emergency room today. dx: minor bleed from recent MoHs site f/u: no specific follow up is needed at this time. cosignature to primary team is only FYI. /isidoro/ DEBRA ROMANO PHYSICIAN [employer] AGENT Signed: 07/28/2023 18:12 Receipt Acknowledged By: 07/29/2023 09:13 /SANGEETHA Chaudhary DNP --- Original Document --- 07/28/23 EMERGENCY DEPT NOTE: Personal Protective Equipment (PPE): MD/PA/IN STORE MARKETING ASSOCIATE used PPE during every encounter with the patient Nurse's note reviewed. All relevant CPRS notes reviewed. CHIEF COMPLAINT: bleeding from MOHS site HISTORY OF PRESENT ILLNESS: 82 y/o who is s/p MoHs earlier this week L temporal area, reporting some bleeding from the surgical site. he is on DOAC. He was at [facility] for a [employer] gathering and decided to stop by the emergency room. REVIEW OF SYSTEMS: GENERAL: no fevers, chills. Weight stable. No weakness, fatigue HEENT: no dizziness, headaches, diplopia, tinnitus, PULM: no chest pain, cough, shortness of breath, wheezing, CARDIAC: no orthopnea, dyspnea on exertion, peripheral edema, chest pain Allergies: MORPHINE (Aug 12, 2008) Past Medical History: Active problems - Computerized Problem List is the source for the followin. Tinnitus (SNOMED CT 21697316) 2. Hearing loss (SNOMED CT 77453385) - bilateral hearing aids 3. Hypertension (SNOMED CT 41181127) - dx 40s 4. Coronary atherosclerosis (SNOMED CT 713290212) - CABG 4 vsl and L Carotid Endart at [facility] - chest tightness prior to procedure 5. Hyperlipidemia (SNOMED CT 75877227) 6. Otalgia - left tympanomastoidectomy for ear pain - prior perf TM 7. Knee pain - R knee arthroscopy - meniscus and ligaments 12/16/1987 8. 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 Peripheral vascular disease 10. Benign prostatic hypertrophy with outflow obstruction Medications: Active Outpatient Medications (including Supplies): Active Non-VA Medications Status 1) Non-VA ACETAMINOPHEN 500MG TAB 500MG MOUTH EVERY DAY ACTIVE NEEDED 2) Non-VA ALBUTEROL INHL,ORAL 1-2PUFFS (PROAIR HFA) 90 ACTIVE MCG/ACTUATION INHALER INHALATION EVERY 6 HOURS NEEDED 3) Non-VA AMLODIPINE BESYLATE 10MG TAB 5MG MOUTH EVERY ACTIVE DAY 4) Non-VA ASPIRIN 81MG EC TAB 81MG MOUTH EVERY DAY ACTIVE 5) Non-VA ATORVASTATIN CALCIUM 80MG TAB 40MG MOUTH EVERY ACTIVE DAY 6) Non-VA LISINOPRIL 20MG TAB 10MG MOUTH EVERY DAY ACTIVE 7) Non-VA METOPROLOL SUCCINATE 50MG SA TAB 25MG MOUTH ACTIVE EVERY DAY 8) Non-VA NITROGLYCERIN 0.4MG SL TAB 0.4MG UNDER THE ACTIVE TONGUE NEEDED 9) Non-VA RIVAROXABAN 20MG TAB 20MG MOUTH EVERY DAY ACTIVE 10) Non-VA TAMSULOSIN HCL 0.4MG CAP 0.4MG MOUTH EVERY DAY ACTIVE Physical Exam: Temperature: 98.0 F [36.7 C] (07/28/2023 14:43) Blood Pressure: 178/73 (07/28/2023 14:43) Pulse: 70 (07/28/2023 14:43) Respiration: 16 (07/28/2023 14:43) Pain: 0 (07/28/2023 14:43) Pulse Oximetry: 96% (07/28/2023 14:43) General: well developed, well nourished Derm: He has significant dull red bruising to the left periorbital area. He has significant periorbital edema. The sutures are intact. There is a small ooze laterally by the ear. The whole area was cleansed and a pressure dressing applied. The surgical site has no redness. Neck: supple. HEENT: airway is patent Cardiovascular: RRR Pulm: CTA EXT: no edema. no deformities. ASSESSMENT wound ED COURSE: 82-year-old who presented to the emergency room with a slow ooze from a surgical wound on his left pentecostal. He had Mohs earlier this week. On exam he had a very slow stream of blood from the lateral aspect of the wound. The sutures were intact. The area was cleansed and a pressure dressing was applied. He was given some Surgicel should he really have recurrence at home that does not respond to pressure. He will leave the dressing in place till Tuesday, then apply a warm washcloth to it for 10 to 15 minutes before removing it. He was instructed by the surgeon to keep a petroleum jelly based emollient over it without covering. The degree of bleeding does not warrant interruption of his DOAC. Disposition: patient was discharged home in stable condition The above note was dictated using voice recognition software. While proofreading attempts were made to verify accuracy, it is possible that nonsensical phrases and words are still contained within the document. Please direct all questions regarding content to the original author. /isidoro/ DEBRA ROMANO PHYSICIAN [employer] AGENT Signed: 07/28/2023 18:11 DEBRA ROMANO [facility] Jul 28, 2023 04:01 PM PHYSICIAN EMERGENCY DEPT NOTE: LOCAL TITLE: EMERGENCY DEPT NOTE STANDARD TITLE: PHYSICIAN EMERGENCY DEPT NOTE DATE OF NOTE: JUL 28, 2023@16:01 ENTRY DATE: JUL 28, 2023@16:01:55 AUTHOR: DEBRA ROMANO EXP COSIGNER: URGENCY: STATUS: COMPLETED EMERGENCY DEPT NOTE Has ADDENDA Personal Protective Equipment (PPE): MD/PA/IN STORE MARKETING ASSOCIATE used PPE during every encounter with the patient Nurse's note reviewed. All relevant CPRS notes reviewed. CHIEF COMPLAINT: bleeding from MOHS site HISTORY OF PRESENT ILLNESS: 82 y/o who is s/p MoHs earlier this week L temporal area, reporting some bleeding from the surgical site. he is on DOAC. He was at [facility] for a [employer] gathering and decided to stop by the emergency room. REVIEW OF SYSTEMS: GENERAL: no fevers, chills. Weight stable. No weakness, fatigue HEENT: no dizziness, headaches, diplopia, tinnitus, PULM: no chest pain, cough, shortness of breath, wheezing, CARDIAC: no orthopnea, dyspnea on exertion, peripheral edema, chest pain Allergies: MORPHINE (Aug 12, 2008) Past Medical History: Active problems - Computerized Problem List is the source for the followin. Tinnitus (SNOMED CT 30024007) 2. Hearing loss (SNOMED CT 73142657) - bilateral hearing aids 3. Hypertension (SNOMED CT 27370020) - dx 40s 4. Coronary atherosclerosis (SNOMED CT 133745029) - CABG 4 vsl and L Carotid Endart at [facility] - chest tightness prior to procedure 5. Hyperlipidemia (SNOMED CT 42872893) 6. Otalgia - left tympanomastoidectomy for ear pain - prior perf TM 7. Knee pain - R knee arthroscopy - meniscus and ligaments 12/16/1987 8. 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 Peripheral vascular disease 10. Benign prostatic hypertrophy with outflow obstruction Medications: Active Outpatient Medications (including Supplies): Active Non-VA Medications Status 1) Non-VA ACETAMINOPHEN 500MG TAB 500MG MOUTH EVERY DAY ACTIVE NEEDED 2) Non-VA ALBUTEROL INHL,ORAL 1-2PUFFS (PROAIR HFA) 90 ACTIVE MCG/ACTUATION INHALER INHALATION EVERY 6 HOURS NEEDED 3) Non-VA AMLODIPINE BESYLATE 10MG TAB 5MG MOUTH EVERY ACTIVE DAY 4) Non-VA ASPIRIN 81MG EC TAB 81MG MOUTH EVERY DAY ACTIVE 5) Non-VA ATORVASTATIN CALCIUM 80MG TAB 40MG MOUTH EVERY ACTIVE DAY 6) Non-VA LISINOPRIL 20MG TAB 10MG MOUTH EVERY DAY ACTIVE 7) Non-VA METOPROLOL SUCCINATE 50MG SA TAB 25MG MOUTH ACTIVE EVERY DAY 8) Non-VA NITROGLYCERIN 0.4MG SL TAB 0.4MG UNDER THE ACTIVE TONGUE NEEDED 9) Non-VA RIVAROXABAN 20MG TAB 20MG MOUTH EVERY DAY ACTIVE 10) Non-VA TAMSULOSIN HCL 0.4MG CAP 0.4MG MOUTH EVERY DAY ACTIVE Physical Exam: Temperature: 98.0 F [36.7 C] (07/28/2023 14:43) Blood Pressure: 178/73 (07/28/2023 14:43) Pulse: 70 (07/28/2023 14:43) Respiration: 16 (07/28/2023 14:43) Pain: 0 (07/28/2023 14:43) Pulse Oximetry: 96% (07/28/2023 14:43) General: well developed, well nourished Derm: He has significant dull red bruising to the left periorbital area. He has significant periorbital edema. The sutures are intact. There is a small ooze laterally by the ear. The whole area was cleansed and a pressure dressing applied. The surgical site has no redness. Neck: supple. HEENT: airway is patent Cardiovascular: RRR Pulm: CTA EXT: no edema. no deformities. ASSESSMENT wound ED COURSE: 82-year-old who presented to the emergency room with a slow ooze from a surgical wound on his left pentecostal. He had Mohs earlier this week. On exam he had a very slow stream of blood from the lateral aspect of the wound. The sutures were intact. The area was cleansed and a pressure dressing was applied. He was given some Surgicel should he really have recurrence at home that does not respond to pressure. He will leave the dressing in place till Tuesday, then apply a warm washcloth to it for 10 to 15 minutes before removing it. He was instructed by the surgeon to keep a petroleum jelly based emollient over it without covering. The degree of bleeding does not warrant interruption of his DOAC. Disposition: patient was discharged home in stable condition The above note was dictated using voice recognition software. While proofreading attempts were made to verify accuracy, it is possible that nonsensical phrases and words are still contained within the document. Please direct all questions regarding content to the original author. /cynthia ROMANO PHYSICIAN [employer] AGENT Signed: 07/28/2023 18:11 07/28/2023 ADDENDUM STATUS: COMPLETED pt was seen in the emergency room today. dx: minor bleed from recent MoHs site f/u: no specific follow up is needed at this time. cosignature to primary team is only FYI. /cynthia ROMANO PHYSICIAN [employer] AGENT Signed: 07/28/2023 18:12 Receipt Acknowledged By: * AWAITING SIGNATURE * HAYLEY ESCALERA SYLVIA O [facility] Jul 28, 2023 03:21 PM NURSING EMERGENCY DEPT NOTE: LOCAL TITLE: EMERGENCY DEPT NURSING NOTE STANDARD TITLE: NURSING EMERGENCY DEPT NOTE DATE OF NOTE: JUL 28, 2023@15:21 ENTRY DATE: JUL 28, 2023@15:21:46 AUTHOR: JULISSA DIMAS EXP COSIGNER: URGENCY: STATUS: COMPLETED EMERGENCY DEPT NURSING NOTE Has ADDENDA Emergency Department Discharge Education Personal Protective Equipment (PPE): Patient was in mask on arrival, patient remained masked for entire visit, RN used PPE during every encounter with the patient, MD/PA/IN STORE MARKETING ASSOCIATE used PPE during every encounter with the patient The patient was given education on the following: wound check EDUCATION/TEACH BACK: [facility] discharge instructions have been reviewed with Patient AND had an opportunity to ask questions, has verbalized understanding, have received a copy of the [facility] instructions EDUCATIONAL LEVEL OF UNDERSTANDING: Patient was ready and receptive to education. BARRIERS TO LEARNING: No barriers identified Accompanied by: Self Mode of Transportation: Drive self EXIT ADDITIONAL EDUCATION GIVE: Discharged to: Home /isidoro/ JULISSA DIMAS POSTAL TRANSPORTATION CLERK RN Signed: 07/28/2023 17:02 07/28/2023 ADDENDUM STATUS: COMPLETED Helped clean up his hearing aid that was full of blood. Pt's wound stopped bleeding. Gave him extra supplies if bleeding starts again. /isidoro/ JULISSA DIMAS RN CONCERT MANAGER Signed: 07/28/2023 17:03 JULISSA DIMAS [facility] Jul 28, 2023 03:20 PM NURSING EMERGENCY DEPT NOTE: LOCAL TITLE: EMERGENCY DEPT NURSING NOTE STANDARD TITLE: NURSING EMERGENCY DEPT NOTE DATE OF NOTE: JUL 28, 2023@15:20 ENTRY DATE: JUL 28, 2023@15:20:32 AUTHOR: JULISSA DIMAS EXP COSIGNER: URGENCY: STATUS: COMPLETED Nursing Focused Assessment: CHIEF COMPLAINT: wound check L side of face/cheek area. Had a moohs procedure 2 d ago. [place] biopsy site started to bleed. On a blood thinner. Has L eye brusing/swelling since today. Eye swollen shut. Allergies/ADR: MORPHINE (Aug 12, 2008) Additional allergies not listed: Vital Signs * Blood Pressure: 178/73 (07/28/2023 14:43) Heart Rate: 70 (07/28/2023 14:43) Respirations: 16 (07/28/2023 14:43) Temperature: 98.0 F [36.7 C] (07/28/2023 14:43) Pain: 0 (07/28/2023 14:43) Weight: 235.1 lb [106.64 kg] (10/15/2022 08:48) O2 Sats: 96% (07/28/2023 14:43) Tobacco use: No Alcohol use: No Any drugs besides what is prescribed or over the counter: No ABUSE/NEGLECT: No evidence of abuse/neglect REVIEW OF SYSTEM-FOCUSED ASSESSMENT Neurological: Alert INTERVENTIONS: Oriented to room and bed controls Call light within reach of patient or family/friend /es/ JULISSA DIMAS RN CONCERT MANAGER Signed: 07/28/2023 16:06 JULISSA DIMAS [facility] Jul 28, 2023 02:44 PM NURSING EMERGENCY DEPT TRIAGE NOTE: LOCAL TITLE: EMERGENCY DEPARTMENT NURSING TRIAGE NOTE STANDARD TITLE: NURSING EMERGENCY DEPT TRIAGE NOTE DATE OF NOTE: JUL 28, 2023@14:44 ENTRY DATE: JUL 28, 2023@14:44:58 AUTHOR: ESTRADA ROOT COSIGNER: URGENCY: STATUS: COMPLETED Emergency Department/Urgent Care Center Triage Patient age:82 Sex: MALE On arrival patient was: AMBULATORY Patient phone number: Allergies: MORPHINE (Aug 12, 2008) Subjective/Chief Complaint: I had a MOHs procedure on and today the area started bleeding Objective: Ambulated to desk independently, no distress noted. The patient is not a fall risk. Vital Signs * Blood Pressure: 178/73 (07/28/2023 14:43) Heart Rate: 70 (07/28/2023 14:43) Respirations: 16 (07/28/2023 14:43) Temperature: 98.0 F [36.7 C] (07/28/2023 14:43) Pain: 0 (07/28/2023 14:43) Weight: 235.1 lb [106.64 kg] (10/15/2022 08:48) O2 Sats: 96% (07/28/2023 14:43) Emergency Severity Index (SUPA) level Level 4 Current Medications: Active Outpatient Medications (including Supplies): Active Non-VA Medications Status 1) Non-VA ACETAMINOPHEN 500MG TAB 500MG MOUTH EVERY DAY ACTIVE NEEDED 2) Non-VA ALBUTEROL INHL,ORAL 1-2PUFFS (PROAIR HFA) 90 ACTIVE MCG/ACTUATION INHALER INHALATION EVERY 6 HOURS NEEDED 3) Non-VA AMLODIPINE BESYLATE 10MG TAB 5MG MOUTH EVERY ACTIVE DAY 4) Non-VA ASPIRIN 81MG EC TAB 81MG MOUTH EVERY DAY ACTIVE 5) Non-VA ATORVASTATIN CALCIUM 80MG TAB 40MG MOUTH EVERY ACTIVE DAY 6) Non-VA LISINOPRIL 20MG TAB 10MG MOUTH EVERY DAY ACTIVE 7) Non-VA METOPROLOL SUCCINATE 50MG SA TAB 25MG MOUTH ACTIVE EVERY DAY 8) Non-VA NITROGLYCERIN 0.4MG SL TAB 0.4MG UNDER THE ACTIVE TONGUE NEEDED 9) Non-VA RIVAROXABAN 20MG TAB 20MG MOUTH EVERY DAY ACTIVE 10) Non-VA TAMSULOSIN HCL 0.4MG CAP 0.4MG MOUTH EVERY DAY ACTIVE Current Problems: Tinnitus ([facility] [id number]) Hearing loss ([facility] 74142943) Hypertension ([facility] 11108210) Coronary atherosclerosis ([facility] 640459398) Hyperlipidemia ([facility] 25117834) Otalgia ([facility] 77476488) Knee pain ([facility] 87010112) Traumatic amputation of finger ([facility] 94866032) Peripheral vascular disease ([facility] [id number] prostatic hypertrophy with outflow obstruction ([facility] 489499128) Identification of Seniors at Risk (ISAR):* Perform Screen Yes-ISAR help on a regular basis Yes-ISAR hospitalized during the past 6 months Yes-ISAR More than 3 different medications daily Total Score: 3 Suicide Screen: [place] Suicide Severity Rating Scale (C-SSRS) screener 1. Over the past month, have you wished you were or wished you could go to sleep and not wake up? No 2. Over the past month, have you had any actual thoughts of killing yourself? No 3. Over the past month, have you been thinking about how you might do this? Response not required due to responses to other questions. 4. Over the past month, have you had these thoughts and had some intention of acting on them? Response not required due to responses to other questions. 5. Over the past month, have you started to work out or worked out the details of how to kill yourself? Response not required due to responses to other questions. 6. If yes, at any time in the past month did you intend to carry out this plan? Response not required due to responses to other questions. 7. In your lifetime, have you ever done anything, started to do anything, or prepared to do anything to end your life (for example, collected pills, obtained a gun, gave away valuables, went to the roof but didn't jump)? No 8. If YES, was this within the past 3 months? Response not required due to responses to other questions. /isidoro/ ESTRADA ROOT, MSN, RN REGISTERED NURSE Signed: 07/28/2023 14:46 ESTRADA ROOT [facility]
--- OUTSIDE RECORDS SUMMARY | 2023-12-17 10:33 | XMS_ITS | Continuity of Care Document ---
Author Name [facility] Organization [facility] Care Team Providers Care Neurodiagnostic Technician Name Role Phone [facility] Unavailable Unavailable Problems Combined list of problems from Department of Defense and Veterans Affairs facilities. It does not include entries that were removed or entered in error. Problem Status Onset Date Problem Type Date of Resolution Comments Source Traumatic amputation of finger Active 012 Condition May 20, 2014 Entered By: CAROL RAMIREZ Comment: Right thumb amputation at joint with table saw accident [facility] Otalgia Active 985 Condition May 14, 2014 Entered By: CAROL RAMIREZ Comment: left tympanomastoidectomy for ear pain - prior perf TM [facility] Benign prostatic hypertrophy with outflow obstruction Active Condition [facility] Carotid artery occlusion Active Condition Sep 27, 2023 En tered By: HAYLEY ESCALERA Comment: Right internal carotid artery occlusion is asymptomatic- no need for further imaging of the carotid occlusionSep 27, 2023 Entered By: HAYLEY ESCALERA Comment: the left internal carotid artery is most likely less than 50% - left internal carotid artery plaque for progression with a duplex ultrasound every 1 to 2 years. [facility] Chronic obstructive pulmonary disease Active Condition [facility] Coronary atherosclerosis (SNOMED CT 689760353) Active Condition May 14, 2014 En tered By: CAROL RAMIREZ Comment: CABG 4 vsl and L Carotid [facility] at [facility] 2013 Entered By: CAROL RAMIREZ Comment: chest tightness prior to procedure [facility] Hearing loss (SNOMED CT 70939040) Active Condition May 14, 2014 En tered By: CAROL RAMIREZ Comment: bilateral hearing aids [facility] Hyperlipidemia (SNOMED CT 39684184) Active Condition [facility] Hypertension (SNOMED CT 56829797) Active Condition May 14, 2014 En tered By: CAROL RAMIREZ Comment: dx 40s [facility] Knee pain Active Condition Nov 25, 20 14 Entered By: CAROL RAMIREZ Comment: R knee arthroscopy - meniscus and ligaments 12/16/1987 [facility] Peripheral vascular disease Active Condition [facility] Pulmonary hypertension Active Condition [facility] Tinnitus (SNOMED CT 25363520) Active Condition [facility] Diagnosis: ICD-10-CM H90.3 Sensorineural hearing loss, bilateral Active Diagnosis [facility] Diagnosis: ICD-10-CM Z00.01 Encounter for general adult medical exam w abnormal findings Active Diagnosis [facility] Diagnosis: ICD-10-CM S01.401S Unsp open wound of right cheek and TMJ area, sequela [facility] Diagnosis: ICD-10-CM H25.813 Combined forms of age-related cataract, bilateral Active Diagnosis [facility] Diagnosis: ICD-10-CM Z23 Encounter for immunization Active Diagnosis [facility] Diagnosis: ICD-10-CM H61.23 Impacted cerumen, bilateral Active Diagnosis [facility] Diagnosis: ICD-10-CM I10 Essential (primary) hypertension Active Diagnosis [facility] Diagnosis: ICD-10-CM Z00.00 Encntr for general adult medical exam w/o abnormal findings Active Diagnosis [facility] Diagnosis: ICD-10-CM H90.5 Unspecified sensorineural hearing loss Active Diagnosis [facility] Medications Combined list of outpatient medications from Department of Defense and Veterans Affairs facilities.Medications provided include 1) outpatient medications from the last 15 months, and 2) patient-reported medications. Medication Details Route Status Patient Instructions Prescription Expires Prescription Number Last Dispense Date Ordering Provider Order Date Order Qty Source ACETAMINOPH EN 500MG TAB ACETAMIN OPHEN 500MG TAB Non-VA TAKE ONE TABLET BY MOUTH EVERY DAY NEEDED Oct 03, 2020 Non-VA Document ed by: SARITA ECHEVARRIA I Document ed at: [facility] ORAL ACTIVE NIKA ECHEVARRIA I 2020 [facility] ALBUTEROL INHL,ORAL ALBUTERO L INHL,ORA L Non-VA INHALE 1-2PUFFS (PROAIR HFA) 90 MCG/ACTU ATION INHALER BY INHALATI ON EVERY 6 HOURS NEEDED Oct 05, 2021 Non-VA Document ed by: WALE,RH ONDA I Document ed at: [facility] RESPIR ATORY (INHAL ATION) ACTIVE NIKA ECHEVARRIA NDA I 2021 [facility] ASPIRIN 81MG TAB,EC ASPIRIN 81MG TAB,EC Non-VA TAKE ONE TABLET BY MOUTH EVERY DAY Oct 03, 2020 Non-VA Document ed by: WALERH ONDA I Document ed at: [facility] ORAL ACTIVE WALENIKA HERNANDEZ NDA I 2020 [facility] ATORVASTATI N CA 80MG TAB ATORVAST ATIN CA 80MG TAB Non-VA TAKE ONE-HALF TABLET BY MOUTH EVERY DAY Sep 05, 2018 Non-VA Document ed by: Trevor ROSALES Document ed at: [facility] ORAL ACTIVE ABEL ROSALES 2018 [facility] LISINOPRIL 20MG TAB LISINOPR [place] 20MG TAB Non-VA TAKE ONE-HALF TABLET BY MOUTH EVERY DAY Sep 05, 2018 Non-VA Document ed by: Trevor ROSALES Document ed at: [facility] ORAL ACTIVE ABEL ROSALES 2018 [facility] METOPROLOL SUCCINATE 50MG TAB,SA METOPROL OL SUCCINAT E 50MG TAB,SA Non-VA TAKE ONE TABLET BY MOUTH EVERY DAY Sep 27, 2023 Non-VA Document ed by: NALLUSAM Y,VASUMA THI Document ed at: [facility] ORAL ACTIVE NALLUSAMY ,VASUMATH I 2023 [facility] NITROGLYCER IN 0.4MG TAB,SUBLING UAL NITROGLY CERIN 0.4MG TAB,SUBL INGUAL Non-VA DISSOLVE ONE TABLET UNDER THE TONGUE PRN Sep 05, 2018 Non-VA Document ed by: Trevor ROSALES Document ed at: [facility] SUBLIN GUAL ACTIVE ABEL ROSALES 2018 [facility] RIVAROXABAN 20MG TAB RIVAROXA BAN 20MG TAB Non-VA TAKE ONE TABLET BY MOUTH EVERY DAY Sep 05, 2018 Non-VA Document ed by: Trevor ROSALES Document ed at: [facility] ORAL ACTIVE ABEL ROSALES 2018 [facility] SPIRONOLACT ONE 25MG TAB SPIRONOL ACTONE 25MG TAB Non-VA TAKE ONE-HALF TABLET BY MOUTH EVERY DAY Sep 27, 2023 Non-VA Document ed by: ALEXA MCLEAN Document ed at: [facility] ORAL ACTIVE NALLUSAMY ,VASUMATH I 2023 [facility] TAMSULOSIN HCL 0.4MG CAP TAMSULOS IN HCL 0.4MG CAP Non-VA TAKE 1 CAPSULE BY MOUTH EVERY DAY Sep 05, 2018 Non-VA Document ed by: Trevor ROSALES Document ed at: [facility] ORAL ACTIVE ABEL ROSALES 2018 [facility] TORSEMIDE 20MG TAB TORSEMID E 20MG TAB Non-VA TAKE TWO TABLETS BY MOUTH EVERY DAY Sep 27, 2023 Non-VA Document ed by: ALEXA MCLEAN Document ed at: [facility] ORAL ACTIVE NALLUSAMY ,VASUMATH I 2023 [facility] UMECLIDINIU M 62.5MCG/DULCE ANTEROL 25MCG/ACTUA T INH,ORAL,30 D UMECLIDI NIUM 62.5MCG/ VILANTER OL 25MCG/AC TUAT INH,ORAL ,30D Non-VA INHALE 1 PUFF BY MOUTH EVERY DAY Sep 27, 2023 Non-VA Document ed by: ALEXA MCLEAN Document ed at: [facility] RESPIR ATORY (INHAL ATION) ACTIVE NALLUSAMY ,VASUMATH I 2023 [facility] Allergies, Adverse Reactions, Alerts Combined list of allergies from Department of Defense and Veterans Affairs facilities. It does not include entries that were removed or entered in error. Substance Category Reaction Severity Reaction type Status Date Reported Comments Source MORPHINE Propensity to adverse reactions to drug (finding) Finding of vomiting active 9 [facility] Immunizations Combined list of available immunizations from the Department of Defense and Veterans Affairs facilities. Immunization Series Date Given Administered By Site Reaction Lot Number CVX Code Drug Capacitor Inspector Status Comments Source TDAP 2023 GEBREKIRSTOS, MARY E LEFT DELTO ID [id number] 115 complet ed [facility] COVID-19 ([employer]), MRNA, LNP-S, PF, LINDA-SUCROSE, 30 MCG/0.3 ML (AGES 12+ YEARS) 5 2023 PRIYANKA GRACE PEBBLES RIGHT DELTO ID [id number] 309 complet ed [facility] INFLUENZA, HIGH-DOSE, QUADRIVALENT 2022 SHORTY FELDER LEFT DELTO ID [id number] 197 complet ed [facility] INFLUENZA VACCINE, QUADRIVALENT, ADJUVANTED 2021 205 complet [facility] COVID-19 (PFIZER), MRNA, LNP-S, PF, 30 MCG/0.3 ML DOSE 3 2020 208 complet ed [facility] INFLUENZA, HIGH-DOSE, QUADRIVALENT 2020 197 complet ed [facility] INFLUENZA, UNSPECIFIED FORMULATION 2020 88 complet ed [facility] COVID-19 (PFIZER), MRNA, LNP-S, PF, 30 MCG/0.3 ML DOSE 2 2020 208 complet ed [facility] COVID-19 (PFIZER), MRNA, LNP-S, PF, 30 MCG/0.3 ML DOSE 2020 208 complet ed [facility] COVID-19 (PFIZER), MRNA, LNP-S, PF, 30 MCG/0.3 ML DOSE 1 2020 208 complet [facility] INFLUENZA, INJECTABLE, QUADRIVALENT, PRESERVATIVE FREE 2019 150 complet [facility] INFLUENZA, HIGH-DOSE, QUADRIVALENT 2019 197 complet [facility] INFLUENZA, HIGH DOSE SEASONAL 2019 135 complet [facility] INFLUENZA, TRIVALENT, ADJUVANTED 2019 168 complet [facility] INFLUENZA, HIGH DOSE SEASONAL 2018 135 complet [facility] INFLUENZA, TRIVALENT, ADJUVANTED 2018 168 complet [facility] PNEUMOCOCCAL CONJUGATE PCV 13 2016 133 complet ed [facility] INFLUENZA, HIGH DOSE SEASONAL 2016 135 complet [facility] INFLUENZA, HIGH DOSE SEASONAL 2015 135 complet ed [facility] INFLUENZA, UNSPECIFIED FORMULATION 2013 88 complet ed [facility] TDAP 2012 115 complet ed [facility] INFLUENZA, SEASONAL, INJECTABLE, PRESERVATIVE FREE 2011 140 complet ed [facility] TDAP 2011 115 complet ed [facility] TDAP 2011 115 complet ed [facility] INFLUENZA, SEASONAL, INJECTABLE, PRESERVATIVE FREE 2010 140 complet ed [facility] INFLUENZA, SEASONAL, INJECTABLE 2009 141 complet ed [facility] NOVEL INFLUENZA-H1N 1-09, ALL FORMULATIONS 2009 128 complet ed [employer] [facility] PNEUMOCOCCAL POLYSACCHARID E PPV23 2009 33 complet ed [facility] INFLUENZA, UNSPECIFIED FORMULATION 2008 88 complet ed [facility] PNEUMOCOCCAL POLYSACCHARID E PPV23 2008 33 complet ed [facility] TD (ADULT), 5 LF TETANUS TOXOID, PRESERVATIVE FREE, ADSORBED 2007 113 complet ed [facility] TD(ADULT) UNSPECIFIED FORMULATION 2007 139 complet ed [facility] INFLUENZA, SEASONAL, INJECTABLE 2002 141 complet ed [facility] Vital Signs Combined list of inpatient and outpatient Vital Signs from Department of [facility] and Veterans Affairs, ranging from 12 months to all on record, depending upon the facility. Vital Sign Value Date Comments Source Encounters Combined list of: 1) Encounters from Department of Veterans Affairs facilities going back up to thelast 18 months. 2) Encounters from the Department of Defense facilities going back up to 280 months. Location Location Details Encounter Type Encounter Number Reason For Visit Attending Provider ADM Date DC Date Status Disposition Source [facility] Outpatient Encounter [id number] Diagnos is: ICD-10- CM H90.5 Unspeci fied sensori neural hearing loss
JULIET OQUENDO 07/09 [facility] OFFICE O/P EST MOD 30-39 MIN [id number] Diagnos is: ICD-10- CM H25.813 Combine d forms of age-rel ated eva brock al
RACHELCYNTHIA MCADAMSGUANACO 07[facility]21 [facility] [id number] Diagnos is: ICD-10- CM Z00.00 Encntr for general adult medical exam w/o abnorma l finding s
NALLUSALAMBERTO MCMAHANUMATHI 10/15 [facility] [place] [facility] Out[facility] Encounter [id number] 11[facility]09 [facility] [place] [facility] En[facility] [id number] 11[place]10 [place] [facility] [place] [facility] [place] Encounter [id number] 11/24 [place] [facility] [place] [facility] Encounter [id number] 12/09 [place] [facility] HC PRO PHONE CALL 21-30 MIN [id number] Diagnos is: ICD-10- CM I10 Essenti al (primar y) hyperte nsion<b r/> TEMO DAMON 12/15 [facility] [place] [facility] O/P EST MOD 30-39 MIN [id number] Diagnos is: ICD-10- CM H61.23 Impacte d eva worrell al
MONSERRAT MALONE 04[facility]22 [place] [place] [facility] En[facility] [id number] 04[place]28 [place] [facility] [place] [facility] Out[place] Encounter [id number] NICHOLAS NORTON 05/04 [place] [facility] [place] ADMIN [id number] Diagnos is: ICD-10- CM Z23 Encount er for immuniz ation<b r/> BRADFORDJOSH ANABELLA D 06/17 [facility] IMMUNIZATI ON ADMIN [id number] Diagnos is: ICD-10- CM Z23 Encount er for immuniz ation<b r/> LASHAE GRACE PEBBLES 07/15 [facility] O/P EST MOD 30 MIN [id number] Diagnos is: ICD-10- CM H25.813 Combine d forms of age-rel ated catarac t, bilater al
CYNTHIA RAMOS 07/27 [facility] EMERGENCY DEPT VISIT [facility] [id number] Diagnos is: ICD-10- CM S01.401 S Unsp open wound of right cheek and TMJ area, sequela
NESS,SYLVI A O 07/28 [facility] Outpatient Encounter [id number] RONY CUMMINGS 08/28 [facility] IMMUNIZATI ON ADMIN [id number] Diagnos is: ICD-10- CM Z00.01 Encount er for general adult medical exam w abnorma l finding s
NALLUSAMY, VASUMATHI 09/26 [facility] En[facility] [id number] 11/27 [facility] HEARING AID REPAIR/MOD IFYING [id number] Diagnos is: ICD-10- CM H90.3 Sensori neural hearing loss, bilater al
JULIET GRIFFITHS 12/15 [facility] Social History Combined list of available smoking, tobacco, and other social history from Department of Defense and Veterans Affairs facilities. Social History Type Response Date Comment Sourc e Tobacco smoking status NHIS VA-TOBACCO NEVER USED 09/27/2023 [facility] History of tobacco use VA-TOBACCO NEVER USED 10/15/2022 [facility] History of tobacco use VA-TOBACCO NEVER USED 10/05/2021 [facility] History of tobacco use VA-TOBACCO FORMER USER 10/03/2020 [facility] History of tobacco use VA-TOBACCO NEVER USED 08/27/2019 [facility] History of tobacco use VA-TOBACCO NEVER USED 07/31/2018 [facility] History of tobacco use [employer] C[employer]IST USER 08/19/2017 [facility] History of tobacco use [employer]IFETIME NON-[employer] 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 Additional future care activities may be listed in the Assessment and Plan section. Date/Time Care Activity Care Activity Detail Facili ty 04/19/2024 AMBULATORY - SURGERY AMBULATORY - SURGERY [facility] 04/25/2024 AMBULATORY - SURGERY AMBULATORY - SURGERY [facility]
--- OUTSIDE RECORDS SUMMARY | 2023-12-17 10:33 | XMS_ITS | Encounter Summary ---
Author Name [facility] [place] [facility] [place] Address [address] [place] [address] Care Team Providers Care Jigger Artisan Name Role Phone HAYLEY ESCALERA Primary Care Provider Bettina ilevonne Insurance Providers: All historical and current Section Date Range: From patient's date of to the date document was created. This section includes the names of all active insurance providers for the patient. Insurance Provider Type of Coverage Plan Name Start of Policy Coverage End of Policy Coverage Group Number Member ID Insurance Provider's Telephone Number Policy Blanco's Name Patient's Relationship to Policy Blanco JONO GOMEZ MCR (WNR) MEDICARE ADVANTAGE SENIO R KARINE BALLARDIV IDU Jun 20, 2010 [id number] [phone] LACI HARE PATIENT Selected Encounter This section includes the information on record at [place] for the Encounter. Date/Time Encounter Type Encounter Description Reason Provider Source Jul 27, 2023 11:00 AM OFFICE O/P EST MOD 30 MIN OPTOMETRY ICD-10-CM H25.813 Combined forms of age-related cataract, bilateral CYNTHIA RAMOS IHJosr Encounter Template Text not used by [facility] Assessments - Encounter Diagnoses This section includes the primary and secondary diagnoses documented for the Encounter. Date/Time Primary/Secondary Diagnosis Diagnosis Name Provider Source Jul 27, 2023 11:43 AM PRIMARY Combined forms of age-related cataract, bilateral CYNTHIA RAMOS [facility] Jul 27, 2023 11:43 AM SECONDARY Macular cyst, hole, or pseudohole, right eye CYNTHIA RAMOS [facility] Jul 27, 2023 11:43 AM SECONDARY Presbyopia CYNTHIA RAMOS [facility] Jul 27, 2023 11:43 AM SECONDARY Retinal hemorrhage, right eye RACHEL,CYNTHIA GARBO [facility] Plan of Treatment: Future Appointments (+ 6 months) and Future Tests (+/- 45 days) The Plan of Treatment section includes future care activities for the patient from all [place] treatmentfacilities. This section includes future appointments and future orders which are active, pending or scheduled. Future Appointments This section includes appointments that were scheduled to occur 6 months from the date of the Encounter, up to a maximum of 20 appointments. The data comes from all [place] treatment facilities. Appointment Date/Time Appointment Type Appointme nt Facility Name Jul 28, 2023 02:31 PM [facility] Aug 29, 2023 08:08 PM AMBULATORY - NONE [place] [facility] Sep 27, 2023 11:00 AM AMBULATORY - NONE [facility] Nov 28, 2023 07:00 [facility] Dec 16, 2023 09:45 AM [facility] SUR[facility] Encounter Notes: All associated encounter notes This section contains the clinical notes associated to the Encounter. Date/Time Encounter Note(s) Provider Source Jul 27, 2023 12:13 PM CLOUD CONSULTANT NOTE: LOCAL TITLE: CLOUD CONSULTANT NOTE STANDARD TITLE: CLOUD CONSULTANT NOTE DATE OF NOTE: JUL 27, 2023@12:13 ENTRY DATE: JUL 27, 2023@12:13:54 AUTHOR: GELA AVALOS EXP COSIGNER: URGENCY: STATUS: COMPLETED MAC OCT DONE AND UPLOADED FOR REVIEW /es/ GELA AVALOS OPHTHALMOLOGY HEALTH LABORER POULTRY HATCHERY Signed: 07/27/2023 12:14 GELA AVALOS CB Jul 27, 2023 11:05 AM OPTOMETRY NOTE: LOCAL TITLE: OPTOMETRY CLINIC NOTE STANDARD TITLE: OPTOMETRY NOTE DATE OF NOTE: JUL 27, 2023@11:05 ENTRY DATE: JUL 27, 2023@11:05:58 AUTHOR: CYNTHIA RAMOS EXP COSIGNER: URGENCY: STATUS: COMPLETED Reviewed and agree with tech notes, add: 82 year old WHITE MALE CC: stable vision OU, unaware of any visual changes OU, stable health as well chronic floaters, stable, denies flash or curtain or veil in vision PMHx: HTN, HLD 2000 left carotid endarterectomy with bypass surgery POhx: Macular cyst vs hole OD H/O midperipheral heme OD with right internal carotid artery 100% blocked Cataracts OU Mental Status: alert and orientation to time and place Mood, affect: Appropriate Last refraction: Vision: OD:CC(with glasses) OD: 20/25-1 Pinhole: 20/ Near: 20/ Vision: OS:CC(with glasses) 0S: 20/20-1 Pinhole: 20/ Near: 20/ Current glasses: OD:+2.50 -1.75X52 Prism: OS:+3.00 -1.32R025 Prism: Add: +2.75 MRx/Final Rx OD +2.50-1.05e130 VA: 20/25- OS +2.75-1.29q868 VA: 20/20 ADD+2.75 SLEx (OU unless otherwise noted): Adnexa/Orbit: clear Lids/Lashes: inspissation, 1+ scurf, dermatochalasis Conjunctiva: White and quiet Cornea: Clear Anterior Chamber: Deep and quiet Iris: No tears, no NVI Lens: 1+ NSC, 2+ ACC Intra-ocular pressure (IOP): OD: 07 OS: 09 iCare Fundus Exam (OU unless otherwise noted): ONH: 0.6 OD, 0.55 OS Rim tissue well perfused OU, distinct margins, no pallor Macula: OD foveal sheen with very subtle pseudohole,, flat/dry, OS flat/dry Vessels: Normal caliber, no heme, no NVE Vitreous: Syneresis, dense asteroid OS Periphery: Flat and intact with no holes or tears 360'; one dot heme with several MAs temporal and one MA nasal and inf OD midperiphery no midperipheral hemes OS mac OCT, 07/2023 OD slightly altered foveal contour, one cystic space, slightly larger compared to 2021 scan no other irf or srf OS normal foveal contour, no irf or srf Assessment/Plan 1.Combined cataracts OU, presurgical, discussed with patient, monitor yearly, sooner with changes 2. Mild ERM OD with pseudohole, previously saw retina in [place] who recommended observation only, cystic pocket slightly larger today compared to 2021 scan, that being said, vision stable, and pt remains asymptomatic, will contiue to f/u 9 months, VTD, mac OCT but sooner with changes 3. Mid-peripheral hemes OD, chronic -per last US, right internal carotid is 100% occluded, pt [facility] vascular [facility], [facility] notes, he is on blood thinners, there is not much else that can be done, they recommend repeating US in 1 yr, pt instructed to go to ER stat with any sudden dimming or blacking out of vision -s/p left carotid endarterectomy x 1999, and bypass surgery 4. Presbyopia OU, continue with habitual, monitor 5. Physiological cupping OU -IOP today 12/26 -denies FHx -OCT RNFL 2021: bdl T OU, otherwise WNL -pt educated on findings; IOP adequate for ONH and RNFL. Will monitor yearly with VTD, consider repeating rnfl OCT if changes occur RTC: 9-10 months VTDMRx, mac OCT Is the patient legally blind? 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 I still see my floaters but they are about the same History of Present Illness: Location: Intensity: Duration: Active problems - Computerized Problem List is the source for the followin. Tinnitus (SNOMED CT 94073721) 2. Hearing loss (SNOMED CT 41274949) - bilateral hearing aids 3. Hypertension (SNOMED CT 93604900) - dx 40s 4. Coronary atherosclerosis (SNOMED CT 013936065) - CABG 4 vsl and L Carotid Endart at [facility] - chest tightness prior to procedure 5. Hyperlipidemia (SNOMED CT 61932709) 6. Otalgia - left tympanomastoidectomy for ear pain - prior perf TM 7. Knee pain - R knee arthroscopy - meniscus and ligaments 12/16/1987 8. 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 Peripheral vascular disease 10. Benign prostatic hypertrophy with outflow obstruction Surgeries: SURGERIES - NONE FOUND Full Exam Eye Medications Patient denies eye medication use. Allergies: MORPHINE (Aug 12, 2008) No new Allergies. Past Medical History: Hypertension High cholesterol Heart disease Other: skin cancer Past eye history: Cataracts : OU Other: mac pucker OD Past eye surgeries: Denies all Social History: Alcohol use - No Tobacco use - No Family History: Eye disease: denies Diabetes Heart disease or stroke: Last refraction: Vision: OD:CC(with glasses) OD: 20/25-1 Pinhole: 20/ Near: 20/ Vision: OS:CC(with glasses) 0S: 20/20-1 Pinhole: 20/ Near: 20/ Current glasses: OD:+2.50 -1.75X52 Prism: OS:+3.00 -1.58G418 Prism: Add: +2.75 Confrontational Blanton: Full to finger counting: Right: Yes Left: Yes Extra Ocular Movement: Normal Pupils: Right: Round Left: Round Size: Right: 4 Left: 4 React to light: Right: Yes Left: Yes Afferent pupil defect: Right:No Grade: Left: No Grade: Note: Intra-ocular pressure (IOP): OD: 7 OS: 9 iCare Dilation: mydriacyl 1% and neosynephrine OU Jul@11:03 /isidoro/ GELA AVALOS OPHTHALMOLOGY HEALTH LABORER POULTRY HATCHERY Signed: 07/27/2023 11:04 GELA AVALOS OC
--- OUTSIDE RECORDS SUMMARY | 2023-12-17 10:33 | XMS_ITS | Encounter Summary ---
Author Name [facility] [place] [place] [facility] [place] Address [address] [place] [address] Care Team Providers Care Raised Printer Name Role Phone ALEYDAHAYLEY MCMAHAN Primary Care Provider Bettina eric Insurance Providers: [...] Blanco's Name Patient's Relationship to Policy Blanco [facility] MCR (WNR) MEDICARE ADVANTAGE SENIO R KARINE GREGG IDU Jun 20, 2011 [id number] [phone] LACI HARE PATIENT Selected Encounter This section includes the [place] on [place] at [place] for the Encounter. Date/Time Encounter Type Encounter Description Reason Pro vider Source Nov 28, 2023 03:44 PM Outpatient Encounter PRIMARY CARE/MEDICINE I[facility] Encounter Template Text not used by [place] Plan of Treatment: Future Appointments (+ 6 [...] Date/Time Appointment Type Appointme nt Facility Name Dec 16, 2023 09:45 AM AMBULATORY - SURGERY [facility] Apr 19, 2024 09:00 AM AMBULATORY - SURGERY [facility] Apr 25, 2024 11:00 AM AMBULATORY - SURGERY [facility] Social History: Smoking Status (Most current) and Tobacco Use (All prior to encounter date) This section includes the most current, and the historical, smoking and tobacco- related health factors from the [place] facility where the Encounter took place. Current Smoking Status This section includes the most current smoking, or tobacco-related health factor, from the [place] facility where the Encounter took place. Date/Time Current Smoking Status Comment Susanna cisse Aug 12, 2008 09:28 AM LIFETIME NON-TOBACCO USER [facility] Radiology Reports: +/- 30 days of the encounter Radiology Reports For cases when an order for radiology services may have been completed prior to the date of the Encounter, the report list includes the Radiology Reports that were completed up to 30 days before dateof the Encounter. For cases when an order for radiology services may have been completed after the date of the Encounter, the report list also includes the Radiology Reports that were completed up to30 days after date of the Encounter. The data comes from all [place] treatment facilities. Date/Time Radiology Report Provider Source Nov 28, 2023 06:53 AM US CAROTID (UNILAT ERAL) (P): YOHAN HARE [id number] -[id number] M Exm Date: NOV 28, 2023@06:53 Req Phys: NALLUSAMY,VASUMATHI Pat Loc: [facility] PACT HEARTS (Req'g Loc) Img Loc: Ultrasound Imaging Service: [place] [address] (Case [id number] COMPLETE) US CAROTID UNILATERAL (US Detailed) CPT:89483 Proc Modifiers : LEFT Reason for Study: Follow up from 2021 as per vascular Clinical History: Follow up from 2021 as per vascular Responsible provider name and phone number to notify for critical findings if other than user placing the order and pager listed below: User placing orders pager: LAST CREATININE____ Report Status: Verified Date Reported: NOV 28, 2023 Date Verified: NOV 28, 2023 Auto Service Representative E-Sig:/ES/KARRI MOYA MD Report: Unilateral Carotid Artery Duplex Ultrasound History: Follow up from 2021 as per vascular. Left carotid endarterectomy in 1999. Comparison Study: Ultrasound 07/09/2021. Findings: Left side: Plaque: Mild plaque is present at the carotid bifurcation. Moderate shadowing plaque in the common carotid artery. Changes of prior left carotid endarterectomy, widely patent. The lumen of the internal carotid artery was adequately visualized. Proximal CCA: 67 / 12 cm/sec Distal CCA: 140 / 31 cm/sec Carotid bifurcation: 150 / 29 cm/sec External CA: 204 / 22 cm/sec Proximal ICA: 130 / 51 cm/sec Mid ICA: 113 / 33 cm/sec Distal ICA: 96 / 31 cm/sec Vertebral Artery: antegrade Subclavian artery: 175 cm/sec ICA/CCA ratio: 0.93 Impression: Left: Doppler velocity criteria correlate with a less than 50% stenosis of the internal carotid artery. The endarterectomy site is patent. THE REPORT OF THE PATIENT'S FINDINGS ENDS HERE. Please note that as of April 09, 2022 the [facility] has adopted the carotid artery stenosis Duplex criteria endorsed by Intersocietal Accreditation Commission(IAC). The changes in criteria may explain differences in the degree of stenosis when compared with prior exams. I, Karri Moya, have reviewed the images and report. Primary Interpreting Staff: KARRI MOYA MD, STAFF NUCLEAR RADIOLOGIST (Auto Service Representative) Primary Interpreting Resident: ROGELIO BUSTILLO MD, FLOATMAN /peytonm KARRI MOYA [facility] Encounter Notes: All associated encounter notes This section contains the clinical notes associated to the Encounter. Date/Time Encounter Note(s) Provider Source Nov 28, 2023 03:44 PM LETTERS: LOCAL TITLE: FOLLOW UP RESULTS LETTER STANDARD TITLE: LETTERS DATE OF NOTE: NOV 28, 2023@15:44 ENTRY DATE: NOV 28, 2023@15:44:19 AUTHOR: HAYLEY ESCALERA EXP COSIGNER: URGENCY: STATUS: COMPLETED [facility] [place] [address] Nov YOHAN [place]ON PAYAM [id number] [facility] [address] Dear [place]: You should be receiving another letter with the results of the tests you had done through the [facility]. I have reviewed the results of the carotid Artery scan and overall they looked fine which is very reassuring. If you have any further questions or problems, please contact the call center at [phone] to speak with a nurse or leave me a message. Sincerely, HAYLEY ESCALERA DNP,LAMBERTO RadfordUMATHI [facility]
--- OUTSIDE RECORDS SUMMARY | 2023-12-17 10:33 | XMS_ITS | Encounter Summary ---
Author Name [facility] [place] [facility] [place] Address [address] [place] [address] Care Team Providers Care Darklight Inspector Name Role Phone HAYLEY ESCALERA Primary Care [...] Blanco's Name Patient's Relationship to Policy Blanco [facility] (WNR) MEDICARE ADVANTAGE SENIO R KARINE RGEGG IDU Jun 20, 2011 [id number] [phone] LACI HARE PATIENT Selected Encounter This section includes the information on record at [place] for the Encounter. Date/Time Encounter Type Encounter Description Reason Provider Source Sep 27, 2023 11:00 AM IMMUNIZATION ADMIN PRIMARY CARE/MEDICINE ICD-10-CM Z00.01 Encounter for general adult medical exam w abnormal findings NALLUSAMY,VAS HALEYATHI IHE Encounter Template Text not used by [place] Assessments - Encounter Diagnoses This section includes the primary and secondary diagnoses documented for the Encounter. Date/Time Primary/Secondary Diagnosis Diagnosis Name Provider Source Sep 27, 2023 12:09 PM PRIMARY Encounter for general adult medical exam w abnormal findings NALLUSAMY,KAYLYN KELI [facility] Sep 27, 2023 12:09 PM SECONDARY Athscl heart disease of [place] coronary artery w/o ang pctrs NALLUSAMY,KAYLYN KELI [facility] Sep 27, 2023 12:09 PM SECONDARY Chronic obstructive pulmonary disease, unspecified NALLUSAMY,KAYLYN KELI [facility] Sep 27, 2023 12:09 PM SECONDARY Encounter for immunization Taras MARTINEZ [facility] Sep 27, 2023 12:09 PM SECONDARY Essential (primary) hypertension ALEYDASAKAYLYN MCMAHAN [facility] Sep 27, 2023 12:09 PM SECONDARY Pulmonary hypertension, unspecified NALLUSAMY,KAYLYN KELI [facility] Plan of Treatment: Future Appointments (+ 6 months) and Future Tests (+/- 45 days) The Plan of Treatment section includes future care activities for the patient from all [place] [facility]. This section includes future appointments and future orders which are active, pending or scheduled. Future Appointments This section includes appointments that were scheduled to occur 6 months from the date of the Encounter, up to a maximum of 20 appointments. The data comes from all [place] treatment facilities. Appointment Date/Time Appointment Type Appointme nt Facility Name Nov 28, 2023 07:00 AM [facility]ATORY [facility] NONE [facility] Dec 16, 2023 09:45 AM AMBULATORY - SURGERY [facility] Vital Signs: All taken on the encounter date This section contains inpatient and outpatient Vital Signs collected on the date of the Encounter. Date/Time Temperature Pulse Blood Pressure Respiratory Rate SP02 Pain Height Weight Body Mass Index Source Sep 27, 2023 11:11 AM 97.1 62 123/68 14 95 4 70 227.5 33 KARYN SQUIRES Immunizations: All administered on the encounter date This section contains immunizations associated to the Encounter. Immunization Series Date Issued Reaction Comments TDAP Sep 27, 2023 Social History: Smoking Status (Most current) and Tobacco Use (All prior to encounter date) This section includes the most current, and the historical, smoking and tobacco- related health factors from the [place] facility where the Encounter took place. Current Smoking Status This section includes the most current smoking, or tobacco-related health factor, from the [place] facility where the Encounter took place. Date/Time Current Smoking Status Comment Susanna ity Sep 27, 2023 11:00 AM [place]-TOBACCO NEVER USED [facility] Tobacco Use History This section includes a history of the smoking, or tobacco-related health factors, that were collected on or before the date of the Encounter. The data comes from the [place] facility where the Encounter took place. Date/Time Smoking Status/Tobacco Use Comment F acility Oct 15, 2022 08:30 AM VA-TOBACCO NEVER USED [facility] Oct 05, 2021 08:00 AM VA-TOBACCO NEVER USED [facility] Oct 03, 2020 08:00 AM VA-TOBACCO FORMER USER [facility] Oct 03, 2020 08:00 AM VA-TOBACCO QUIT 15 YRS OR MORE [facility] Aug 27, 2019 03:14 PM VA-TOBACCO NEVER USED [facility] Jul 31, 2018 03:28 PM VA-TOBACCO NEVER USED [facility] Aug 19, 2017 01:06 PM LIFETIME NON-TOBACCO USER [facility] Sep 07, 2016 08:05 AM LIFETIME NON-TOBACCO USER [facility] Sep 01, 2015 11:20 AM LIFETIME NON-TOBACCO USER [facility] May 14, 2014 08:18 AM LIFETIME NON-TOBACCO USER [facility] Encounter Notes: All associated encounter notes This section contains the clinical notes associated to the Encounter. Date/Time Encounter Note(s) Provider Source Sep 27, 2023 11:14 AM PRIMARY CARE NURSI NG NOTE: LOCAL TITLE: [facility] NURSING PROGRESS NOTE STANDARD TITLE: PRIMARY CARE NURSING NOTE DATE OF NOTE: SEP 27, 2023@11:14 ENTRY DATE: SEP 27, 2023@11:14:17 AUTHOR: MARY MARTINEZ EXP COSIGNER: URGENCY: STATUS: COMPLETED TYPE OF VISIT: Appointment Check In Type of appointment: In-person appointment REASON FOR VISIT: Annual ALLERGIES: MORPHINE (Aug 12, 2008) VITAL SIGNS: Blood Pressure: 123/68 (09/27/2023 11:11) Pulse: 62 (09/27/2023 11:11) Respiration: 14 (09/27/2023 11:11) Temperature: 97.1 F [36.2 C] (09/27/2023 11:11) Weight: 227.5 lb [103.19 kg] (09/27/2023 11:11) Height: 70 in [177.8 cm] (09/27/2023 11:11) BMI: 32.7 O2 Sat: 95% (09/27/2023 11:11) Pain: 4 (09/27/2023 11:11) PAIN SCREEN: Patient is having significant pain that they would like to talk to their provider about today. Old (Chronic) (began more than 6 months ago) Patient states their average pain this past week is 4 Patient states the average number on how the chronic pain affects their enjoyment of life the past week is 4 Patient states during the past week the average number on how the pain has interfered with their general activity is 4 MEDICATION Active Outpatient Medications (including Supplies): Non-VA ACETAMINOPHEN 500MG TAB 500MG MOUTH EVERY DAY ACTIVE NEEDED Non-VA ALBUTEROL INHL,ORAL 1-2PUFFS (PROAIR HFA) 90 ACTIVE MCG/ACTUATION INHALER INHALATION EVERY 6 HOURS NEEDED Non-VA ASPIRIN 81MG EC TAB 81MG MOUTH EVERY DAY ACTIVE Non-VA ATORVASTATIN CALCIUM 80MG TAB 40MG MOUTH EVERY DAY ACTIVE Non-VA LISINOPRIL 20MG TAB 10MG MOUTH EVERY DAY ACTIVE Non-VA METOPROLOL SUCCINATE 50MG SA TAB 50MG MOUTH EVERY ACTIVE DAY Non-VA NITROGLYCERIN 0.4MG SL TAB 0.4MG UNDER THE TONGUE ACTIVE NEEDED Non-VA RIVAROXABAN 20MG TAB 20MG MOUTH EVERY DAY ACTIVE Non-VA SPIRONOLACTONE 25MG TAB 12.5MG MOUTH EVERY DAY ACTIVE Non-VA TAMSULOSIN HCL 0.4MG CAP 0.4MG MOUTH EVERY DAY ACTIVE Non-VA TORSEMIDE 20MG TAB 40MG MOUTH EVERY DAY ACTIVE Non-VA [id number] G 30D INH 1 PUFF ACTIVE MOUTH EVERY DAY Over the Counter/Herbal Medications: The patient states that they take some outside medications and/or herbals. Depression Screening: Perform PHQ-2 A PHQ-2 screen was performed. The score was 0 which is a negative screen for depression. Over the past two weeks, how often have you been bothered by the following problems? 1. Little interest or pleasure in doing things Not at all 2. Feeling down, depressed, or hopeless Not at all Alcohol Use Screen (AUDIT-C): Alcohol Screen: SCREEN FOR ALCOHOL (AUDIT-C) An alcohol screening test (AUDIT-C) was negative (score=0). 1. How often did you have a drink containing alcohol in the past year? Consider a drink to be a 12 ounce can or bottle of regular beer, 8 ounces of malt liquor, a 5 ounce glass of table wine, or a 1.5 ounce shot of liquor (like scotch, gin, or vodka). Never 2. How many drinks containing alcohol did you have on a typical day when you were drinking in the past year? Response not required due to responses to other questions. 3. How often did you have six or more drinks on one occasion in the past year? Response not required due to responses to other questions. Tobacco Use Screening: The patient has never used tobacco. Td / Tdap Immunization: Administered: TDAP Date Administered: Sep 27, 2023 11:00 [facility] Director: MiName Lot: [id number] Exp Date: October 25, 2025 [facility]: [phone] Admin Route/Site: INTRAMUSCULAR/LEFT DELTOID Dosage: 0.5mL Vaccine Information Statement(s): TDAP (TETANUS, DIPHTHERIA, PERTUSSIS) VACCINE VIS Jan 23, 2021 ([place]) Order By: Policy Administered By: Mary Martinez Vaccine Information Sheet (VIS) was given to the patient/caregiver, education regarding adverse reactions was discussed, as well as barriers to learning, if any, were acknowledged. Homelessness/Food Insecurity Screen: In the past 2 months, have you been living in stable housing that you own, rent, or stay in as part of a household? Yes - Living in stable housing. Are you worried or concerned that in the next 2 months you may NOT have stable housing that you own, rent, or stay in as part of a household? No - Not worried about housing near future [facility] reports the following: Within the past 12 months, you worried whether your food would run out before you got money to buy more. Never true Within the past 12 months, the food you bought just didn't last and you didn't have money to get more. Never true Food Assistance Programs [facility] Food Assistance Programs [facility] ADV DIR Notification and Screening: ADVANCE DIRECTIVE NOTIFICATION: Patient was given written notification of the following rights: 1. Accept or refuse any medical treatment. 2. Complete a durable power of staff attorney for health care. 3. Complete a living will. ADVANCE DIRECTIVE SCREENING: Does patient have an Advance Directive? The patient does not have an Advance Directive. The patient does not wish to create an Advance Directive for health care. Nursing Annual Screening: Fall History Screen During the past 12 months, have you had any falls? Patient does not report any falls in the past 12 months. MEDICATIONS: Patient is on one of the following medication classes: Antihypertensives, Antidepressants, Antipsychotics, Diuretics, or Controlled substance medication used for pain. Script Talk Screen Are you able to read your prescription bottles with your glasses, magnifiers or other aids? Yes or patient not taking any prescriptions. Skin Screen Patient reports any current pressure ulcers, a history of pressure ulcers, or a wound from a medical management trainer or Patient is bed-confined or a wheelchair-user or Patient requires assistance to transfer/change position No, Skin Screen is Negative Home Abuse/Violence Screen Is your home free of abuse and violence? Yes MOVE! Program Screen Body Mass Index (BMI)= 32.7 [place]: Collection DT Specimen Test Name Result Units Ref Range 09/01/2015 11:48 BLOOD !! HEMOGLOBIN A1C 5.6 % 4.0 - 6.0 !! Indicates COMMENTS AVAILABLE...Refer to Interim Lab Report. [place] Hgb A1C: No data available [place] Hgb A1C: No data available Point of Care Hgb A1C: POC HGB A1C____ Outpatient Nutrition Screen Body Mass Index (BMI)= 32.7 [place]: Collection DT Specimen Test Name Result Units Ref Range 09/01/2015 11:48 BLOOD !! HEMOGLOBIN A1C 5.6 % 4.0 - 6.0 !! Indicates COMMENTS AVAILABLE...Refer to Interim Lab Report. [place] Hgb A1C: No data available [place] Hgb A1C: No data available Point of Care Hgb A1C: POC HGB A1C____ Is patient's BMI less than 18.5? No Does patient have swallowing, coughing, or chewing problems affecting oral intake? No Has patient experienced unplanned weight loss or gain greater than 10 pounds over the last 2 months? No Is patient's Hgb A1C (Glycosylated Hemoglobin) greater than 9.5? Information not available Is patient receiving Total Parenteral Nutrition (TPN) or Tube Feedings? No Patient Health Education Screen BARRIERS/SPECIAL NEEDS: No barriers identified PREFERRED STYLE OF LEARNING: No preference stated Client Assistive Service (YAJAIRA) Screen Does the patient require assistance with outpatient visit? No Herpes Zoster (Shingles) Vaccine: The patient declines to receive the recommended dose of zoster (shingles) vaccine. Immunization: ZOSTER RECOMBINANT Refusal Reason: PATIENT DECISION Patient refuses all immunization(s) in the ZOSTER group Date Documented: 09/27/23 11:32 /isidoro/ MARY MARTINEZ LPN LICENSED PRACTICAL NURSE Signed: 09/27/2023 11:33 MARY MARTINEZ CBLAVELL Sep 27, 2023 11:11 AM H & P NOTE: LOCAL TITLE: [facility] ANNUAL VISIT STANDARD TITLE: H & P NOTE DATE OF NOTE: SEP 27, 2023@11:11 ENTRY DATE: SEP 27, 2023@11:11:19 AUTHOR: HAYLEY ESCALERA EXP COSIGNER: URGENCY: STATUS: COMPLETED Today's Nurse check-in note reviewed. Seen in clinic today respecting current PPE guidelines. Preferred name Jonathan Patient brought in outside medical records and have been reviewed: Yes-labs Co-managed care with a non-VA provider. PCP: Viktoriya Sarmiento Urology: Dr. Arenas - manage hematuria s/p angioplasty Cardiology: Dr. Sandoval, [facility]- Last seen - 09/21/2023 manages all dxs/rxs; gets some meds filled [facility] *JLV = active Chief complaint: The patient is a 82 year old MALE here for Wellness and preventive medicine visit. The patient has no concerns today. With history of CAD post CABG on Xarelto,COPD HTN, HLD, BPH knee osteoarthritis all managed through non-VA PCP. He gets all his prescriptions through non-VA pharmacy. No concerns today, he has been discharged recently after hospital stay where he was diagnosed with CHF-he has upcoming visits with cardiology and has several tests pending. ADLs: independent IADLs: independent Memory concerns: none No fall-lives in a single-family home Interval History ER- 09/01/2023- COPD exacerbation , CHF , Afib started on lasix Dysphagia- had a swallow study Review of Systems Denies chest pain, shortness of breath, recent significant weight changes, rash, bowel or bladder changes, new joint pain or swelling, headaches, lightheadedness, vision changes, new numbness or tingling or weakness. Remainder of the ROS is negative, except as above. Past Medical History Active problems - Computerized Problem List is the source for the followin. Tinnitus (SNOMED CT 26230980) 2. Hearing loss (SNOMED CT 72827367) - bilateral hearing aids 3. Hypertension (SNOMED CT 74918255) - dx 40s 4. Coronary atherosclerosis (SNOMED CT 078550726) - CABG 4 vsl and L Carotid Endart at [facility] - chest tightness prior to procedure 5. Hyperlipidemia (SNOMED CT 02756366) 6. Otalgia - left tympanomastoidectomy for ear pain - prior perf TM 7. Knee pain - R knee arthroscopy - meniscus and ligaments 12/16/1987 8. 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 Peripheral vascular disease 10. Benign prostatic hypertrophy with outflow obstruction PAST SURGICAL HISTORY CABG - 1999 left ear surgery r knee surgery right thumb amputation angioplasty x 1 - 10/12/17 SOCIAL HISTORY tobacco: lifetime nonsmoker alcohol: none to 51 yrs this year; Linda 1 daughter; 0 grandchildren lives with occupation: retired FAMILY HISTORY father: d57; [place] mother: d77; CHF, DM 1 sister d24: heart disease 1 brother d68 DM, kidney disease Allergies: MORPHINE (Aug 12, 2008) Medications: Active Outpatient Medications (including Supplies): Active Non-VA Medications Status 1) Non-VA ACETAMINOPHEN 500MG TAB 500MG MOUTH EVERY DAY ACTIVE NEEDED 2) Non-VA ALBUTEROL INHL,ORAL 1-2PUFFS (PROAIR HFA) 90 ACTIVE MCG/ACTUATION INHALER INHALATION EVERY 6 HOURS NEEDED 3) Non-VA ASPIRIN 81MG EC TAB 81MG MOUTH EVERY DAY ACTIVE 4) Non-VA ATORVASTATIN CALCIUM 80MG TAB 40MG MOUTH EVERY ACTIVE DAY 5) Non-VA LISINOPRIL 20MG TAB 10MG MOUTH EVERY DAY ACTIVE 6) Non-VA METOPROLOL SUCCINATE 50MG SA TAB 50MG MOUTH ACTIVE EVERY DAY 7) Non-VA NITROGLYCERIN 0.4MG SL TAB 0.4MG UNDER THE ACTIVE TONGUE NEEDED 8) Non-VA RIVAROXABAN 20MG TAB 20MG MOUTH EVERY DAY ACTIVE 9) Non-VA SPIRONOLACTONE 25MG TAB 12.5MG MOUTH EVERY DAY ACTIVE 10) Non-VA TAMSULOSIN HCL 0.4MG CAP 0.4MG MOUTH EVERY DAY ACTIVE 11) Non-VA TORSEMIDE 20MG TAB 40MG MOUTH EVERY DAY ACTIVE 12) Non-VA [id number]/[id number] G 30D INH 1 ACTIVE PUFF MOUTH EVERY DAY MEDICATION RECONCILIATION Outpatient At this visit I have reviewed the medication list, and discussed relevant medications with the patient/surrogate. An updated patient medication list was given to the participant(s). Change/New: I have noted this on the patient's copy of the medication list. Physical Exam: Vitals: BP: 123/68 (09/27/2023 11:11) P: 62 (09/27/2023 11:11) R: 14 (09/27/2023 11:11) T: 97.1 F [36.2 C] (09/27/2023 11:11) WT: 227.5 lb [103.19 kg] (09/27/2023 11:11) BMI: 32.7 Pain: 4 (09/27/2023 11:11) O2 Sat: 95% (09/27/2023 11:11) General: Alert, well dressed and groomed, no apparent distress HEENT: Normocephalic, atraumatic, ear canals clear, TMs normal, OP clear, neck supple without mass, adenopathy or thyromegaly Lungs: Clear; no wheezes, rhonchi or rales CV: RRR with murmur,no rub or gallop GI: Abdomen non distended, soft, non tender, normal bowel sounds, no mass or HSM Skin: Warm and moist, no rash or erythema MS: No joint swelling, ambulates without difficulty Psych: Good eye contact, speech normal rate and rhythm, affect full range Assessment/Plan: Wellness/screening visit completed. [facility] who [facility] repeat Carotid doppler of left side - I ordered it continue care with Non VA provider - Non VA provider Manages meds , health maintenance and screenings. Prescriptions updated. #Annual Vested exam - meds: reviewed, updated and renewed - the ACTIVE PROBLEM LIST problem list above is considered to be the Past Medical History for the purposes of this note; it was reviewed at the time of this visit and no changes unless otherwise noted above #Health Maintenance/Wellness As per non-VA If all is well we can see this comanaged back in one to two years. [facility] understands and agrees to the plan. Follow up as discussed. Sooner if questions or concerns. Disclaimer: This note consists of symbols derived from keyboarding, dictation and/or voice recognition software. As a result, there may be errors in the script that have gone undetected. Please consider this when interpreting information found in this chart. /isidoro/ SANGEETHA ZHU DNP Signed: 09/27/2023 12:09 HAYLEY ESCALERA [facility]
--- OUTSIDE RECORDS SUMMARY | 2023-12-17 10:34 | XMS_ITS | Encounter Summary ---
Author Name [facility] [place] [facility] [place] [facility] [place] [facility] [place] Address [address] [place] [address] Care Team Providers Care Director Energy Name Role Phone HAYLEY ESCALERA Primary Care [...] Blanco's Name Patient's Relationship to Policy Blanco [facility] (WNR) MEDICARE ADVANTAGE SENIO R KARINE GREGG IDU Jun 20, 2011 [id number] [phone] LACI HARE PATIENT Selected Encounter This section includes the information on record at [place] for the Encounter. Date/Time Encounter Type Encounter Description Reason Provider Source Dec 16, 2023 09:45 AM HEARING AID REPAIR/MODIFYIN G AUDIOLOGY ICD-10-CM H90.3 Sensorineural hearing loss, bilateral HELEN GRIFFITHS E Encounter Template Text not used by [place] Assessments - Encounter Diagnoses This section includes the primary and secondary diagnoses documented for the Encounter. Date/Time Primary/Secondary Diagnosis Diagnosis Name Provider Source Dec 16, 2023 11:18 AM PRIMARY Sensorineural hearing loss, bilateral HELEN GRIFFITHS [facility] Dec 16, 2023 11:18 AM SECONDARY Tinnitus, bilateral HELEN GRIFFITHS [facility] Plan of Treatment: Future Appointments (+ 6 months) and Future Tests (+/- 45 days) The Plan of Treatment section includes future care activities for the patient from all [place] treatmentfacilities. This section includes future appointments and future orders which are active, pending or scheduled. Future Appointments This section includes appointments that were scheduled to occur 6 months from the date of the Encounter, up to a maximum of 20 appointments. The data comes from all [facility]. Appointment Date/Time Appointment Type Appointme nt Facility Name Apr 19, 2024 09:00 AM AMBULATORY - SURGERY GIGI BERMUDEZ [facility] Apr 25, 2024 11:00 AM AMBULATORY - SURGERY AIDE NARAYAN [facility] Social History: Smoking Status (Most current) and Tobacco Use (All prior to encounter date) This section includes the most current, and the historical, smoking and tobacco- related health factors from the [place] facility where the Encounter took place. Current Smoking Status This section includes the most current smoking, or tobacco-related health factor, from the [place] facility where the Encounter took place. Date/Time Current Smoking Status Comment Susanna cisse Aug 12, 2008 09:28 AM LIFETIME NON-TOBACCO USER [facility] Radiology Reports: +/- 30 days of the [...] the Encounter. The data comes from all [facility]. Date/Time Radiology Report Provider Source Nov 28, 2023 06:53 AM US CAROTID (UNILAT ERAL) (P): YOHAN HARE [id number] -[id number] M Exm Date: NOV 28, 2023@06:53 Req Phys: HAYLEY ESCALERA Pat Loc: [facility] (Req'g Loc) Img Loc: Ultrasound Imaging Service: [place] [address] (Case [id number] COMPLETE) US CAROTID UNILATERAL (US Detailed) CPT:79591 Proc Modifiers : LEFT Reason for Study: [...] 28, 2023 Date Verified: NOV 28, 2023 Artist Relationship Manager E-Sig:/ES/JAIME MOYA MD Report: Unilateral Carotid Artery Duplex [...] that as of April 09, 2022 the [facility] Non-invasive Vascular Lab has adopted the carotid artery stenosis Duplex criteria endorsed by Intersocietal Accreditation Commission(IAC). The changes in criteria may explain differences in the degree of stenosis when compared with prior exams. IJaime, have reviewed the images and report. Primary Interpreting Staff: JAIME MOYA MD, STAFF NUCLEAR RADIOLOGIST (Artist Relationship Manager) Primary Interpreting Resident: ROGELIO BUSTILLO MD, ASSISTANT ACCOUNT MANAGER /JAIME Lantigua [facility] Encounter Notes: All associated encounter notes This section contains the clinical notes associated to the Encounter. Date/Time Encounter Note(s) Provider Source Dec 16, 2023 11:14 AM AUDIOLOGY NOTE: LOCAL TITLE: AUDIOLOGY CLINIC NOTE STANDARD TITLE: AUDIOLOGY NOTE DATE OF NOTE: DEC 16, 2023@11:14 ENTRY DATE: DEC 16, 2023@11:14:24 AUTHOR: LOUISE GRIFFITHS COSIGNER: URGENCY: STATUS: COMPLETED AUDIOLOGY CLINIC NOTE Has ADDENDA DIAGNOSIS: Sensorineural Hearing Loss, Tinnitus Reason for visit: Encounter for fitting adjustment Otoscopy: Free of excessive cerumen, normal anatomy bilaterally. History: Patient seen for a hearing aid service/hearing aid check. Hearing Aids (right/left): JOSE STRICKLAND AI MICRO SHER 312 L [id number] JOSE STRICKLAND AI MICRO SHER 312 R [id number] The following hearing aid problem/s were presented: RIGHT HEARING AID - clean & check, connect to phone LEFT HEARING AID - clean & check, connect to phone Action: Hearing aids were cleaned and checked. Listening check revealed good sound quality The following parts were replaced: wax guards, domes The was seen today for a routing clean & check, and to pair his hearing aids to his phone. I cleaned the hearing aids; changed the wax guards, replaced the domes, and brushed the eileen ports. Both aids functioning properly post clean & check. We connected the hearing aids to the vet's phone and conducted a few test calls to make sure the was hearing the phone conversation through his hearing aids. Supplies provided to patient today: No supplies needed today. was counseled on the cleaning, care and use of hearing aids. Plan: Patient will schedule an appointment to return to the clinic as needed Patient is in agreement with this plan. /isidoro/ LOUISE GRIFFITHS HEALTH TRIGONOMETRY TUTOR Signed: 12/16/2023 11:18 12/16/2023 ADDENDUM STATUS: COMPLETED I reviewed the audiological note and concur with the findings, procedures and recommendations for the . The health septic technician provided services to the during the time of the entire appointment. /isidoro/ Yomi AGOSTO, PRACHI-A FUNERAL ARRANGER Signed: 12/16/2023 15:13 LOUISE GRIFFITHS [facility]
--- OUTSIDE RECORDS SUMMARY | 2023-12-17 10:34 | XMS_ITS ---
Author Organization [facility] Address [address] [place] [address] Care Team Providers Care Rubber Belt Splicer Name Role Phone Unavailable Unavailable Unavailable Surgery Details Not on file Complications Check Surgery Details section. Procedure Estimated Blood Loss Check Surgery Details section. Procedure Findings Check Surgery Details section. Procedure Specimens Taken Check Surgery Details section.
--- OUTSIDE RECORDS SUMMARY | 2023-12-17 10:34 | XMS_ITS | Clinical Summary ---
Author Organization [facility] Address [address] [place] [address] Phone Care Team Providers Care Precinct Police Captain Name Role Phone Flakito Ling MD Primary Care Provider [phone] Allergies Active Allergy Reactions Criticality Noted Date Comments Morphine GI intolerance,Nause a And Vomiting,Other (see comments),Vomiting 12/02/2006 Medications Medication Sig Dispensed Refills Start Date End Date Status spironolactone (ALDACTONE) 25 MG tablet Take 12.5 mg by mouth 1 (one) time each day 10/20/2023 Active rivaroxaban (XARELTO) 20 MG tablet Take 20 mg by mouth 1 (one) time each day with dinner 05/03/2023 Active metoprolol succinate XL (TOPROL XL) 50 MG 24 hr tablet Take 50 mg by mouth 1 (one) time each day Active Umeclidinium-Vilant kelsie 62.5-25 MCG/ACT aerosol powder Inhale 1 puff 1 (one) time each day 07/22/2023 Active torsemide (DEMADEX) 20 MG tablet Take 20 mg by mouth in the morning and 20 mg in the evening. 10/20/2023 Active tamsulosin (FLOMAX) 0.4 MG 24 hr capsule Take 0.4 mg by mouth 1 (one) time each day 10/25/2023 Active aspirin (ST SACHI) 81 MG EC tablet Take 81 mg by mouth 1 (one) time each day Active albuterol HFA (PROVENTIL HFA;VENTOLIN HFA) 108 (90 Base) MCG/ACT inhaler Inhale 1-2 Puffs by mouth every 6 hours if needed for Shortness of Breath 1st choice. 10/25/2023 Active acetaminophen (TYLENOL) 500 MG tablet Take 1 tablet by mouth once daily. Max acetaminophen dose: 4000mg in 24 hrs. 08/13/2020 Active Dapagliflozin Propanediol 10 MG tablet Take 1 Tablet (10 mg) by mouth once daily. Get BMP lab drawn in 2 weeks after starting. 10/20/2023 Active atorvastatin (LIPITOR) 40 MG tablet Take 40 mg by mouth 1 (one) time each day 09/20/2022 Active lisinopril 10 MG tablet Take 20 mg by mouth 1 (one) time each day Active Active Problems Problem Noted Date Diagnosed Date Atrial flutter 10/30/2023 Last Assessment & Plan: Longstanding and rate controlled. Rivaroxaban. He was started on a Zio patch when he visit with cardiology on 10/20/2023 and will be seeing EP for consideration of AV node ablation and PPM. Heart valve disorder 10/30/2023 Overview: Known severe TR and mild to moderate . 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 Status post unsuccessful attempted plasty of RPL with coronary angiogram in 2018. Chronic diastolic congestive heart failure 10/29 Overview: Cardiac MRI September 2023: Hyperenhancement of the inferoseptal and anteroseptal naidu near the RV septal insertion sites with cardiac involvement by sarcoid in the differential. Echocardiogram September 2023: 1. LVEF estimate 60-65%. Normal LV size. Mild concentric LVH. 2. Moderately dilated RV with mildly reduced global function. 3. No LV thrombus [contrast study]. 4. Severe tricuspid regurgitation. There is systolic reversal in the hepatic vein. 5. Mild mitral regurgitation. 6. Yfhy-wt-mjphuadr aortic stenosis [peak velocity 2.6 m/s, mean gradient 14 mmHg, valve area 1.4 cm2]. 7. Moderate NATI. 8. Dilated IVC with abnormal respiratory variability. Nuclear medicine cardiac stress test May 2023 small area of mild transmural infarction but specificity for with no change from prior study in 2019. Last Assessment & Plan: Weight peaked at 232 pounds on 10/19/2023. Down to 205.4 pounds as of today. Recommend he sustain this weight at this time due to the MARY being worked up. Patient has pulmonary hypertension by echo criteria and appears to present this way via physical examination. High likelihood that he will not be edema free as a result. He was asked to continue his current cardiovascular related medications including the twice daily administered torsemide. This will depend on the blood work that we will obtain in the next day or so. A proBNP level will also be performed to compare to his level that was done on 10/19/2023. Insofar as a right heart catheterization, I would highly support this plan if it will take place. Other acute kidney failure 10/30/2023 Last Assessment & Plan: Progressive worsening GFR as described in the narrative. Creatinine began rising in September 2023. Previous creatinine values at 1-1.1 range, documented from levels in March and May 2023. Unclear etiology as of yet. Common things being common, patient may be experiencing progressive intolerance to RAAS inhibitors plus MRA. Cannot rule out progressive decompensated cardiorenal physiology that has also brought this forth. At the same time, need to consider the possibility of progressive intrinsic CKD. Based on his history of hemoptysis, cannot rule out underlying vasculitis. The carlson right now is to determine where he stands from a blood work perspective and GFR. Especially since he had Jardiance started around the first of this month. We will plan to obtain repeat kidney function testing in the next day or 2. Blood work will also include serologies which will encompass EDUARD, ANCA, and urinalysis. If GFR is worsening, we will recommend discontinuation of both the DILCIA inhibitor and spironolactone. In addition we will also plan to proceed with renal ultrasound to address lower genitourinary tract pathology. Continue current medications as ordered. 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 Stage 3a chronic kidney disease 10/30/2023 Overview: Baseline creatinine approximately 1-1.2 range stretching back to 2006 Hypertensive chronic kidney disease, benign, with chronic kidney disease stage I through stage IV, or unspecified 11/19/2015 Overview: Home blood pressure cuff very similar to clinic blood pressure cuff on 10/25/2023. Last Assessment & Plan: Blood pressures are excellent at this time on current regimen. 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, or unspecified 10/31/2023 Documentation Only [facility] [address] [facility] [address] [place] [address] Cherry Johnson 10/26/2023 Documentation Only [facility] [address] [facility] [address] [place] [address] Flakito Ling MD 10/26/2023 Documentation Only [facility] [address] [facility] [address] [place] [address] Flakito Ling MD from Last 3 Months Immunizations Name Administration Dates Next Due Influenza Split High Dose Preservative Free IM 1 Influenza, Unspecified 06/20/2022 Bloominous Sars-cov-2 (Covid-19) Vaccine, Mrna, Fabiano Protein 07/15/2023 Tdap 09/27/2023,06/20/2011 Family History Medical History Relation Comments Diabetes Brother Heart disease Brother heart failure, M I Heart disease Father coronary occlusi on Diabetes Mother at age 78 o f CHF and DM Heart disease Mother CHF Heart disease Sister at 24 of he art problems Relation Status Comments Brother Father Mother Sister Social History Tobacco Use Types Packs/Day Years Used Date Smoking Tobacco: Never Smokeless Tobacco: Never Alcohol Use Standard Drinks/Week Comments Not Currently 0 (1 standard drink = 0.6 oz pur e alcohol) Sex and Gender Information Value Date Recorded Sex Assigned at Not on file Gender Identity Not on file Sexual Orientation Not on file Last Filed Vital Signs Vital Sign Reading Time Taken Comments Blood Pressure 108/58 10/31/2023 2:26 PM CDT Pulse 58 10/31/2023 2:26 PM CDT Temperature - - Respiratory Rate - - Oxygen Saturation 93% 10/31/2023 2:26 PM CDT Inhaled Oxygen Concentration - - Weight 103 kg (226 lb) 10/31/2023 2:26 PM CDT Height 174.6 cm (5' 8.74) 10/31/2023 2:26 PM CD T Body Mass Index 33.63 10/31/2023 2:26 PM CDT Plan of Treatment Upcoming Encounters Date Type Department Care Team (Late st Contact Info) Description 01/24/2024 1:00 PM EDT Office Visit [facility] [address] [place] [address] Adeel Loomis MD [address] [place] [id number] Health Maintenance Due Date Last Done Comments Pneumococcal Vaccine: 65+ Years (1 of 2 - PCV) 1946 Influenza Vaccine Completed 06/17/2023, 06/20/2022 Hepatitis B Vaccine Aged Out No longe r eligible based on patient's age to complete this topic Procedures Procedure Name Priority Date/Time Associated Diagnosis Comments BASIC METABOLIC PANEL (BMP) (EXTERNAL LAB ENTRY) Routine 10/19/2023 from Last 3 Months Results * (ABNORMAL) Basic Metabolic Panel (BMP) (10/19/2023) Sodium 138 mEq/L [facility] Potassium 4.9 mEq/L [facility] Chloride 100 [facility] Carbon Dioxide 27 mmol/L [facility] Calcium 9.1 mg/dL [facility] BUN 36(H) mg/dL [facility] Creatinine 2.03(H) mg/dL [facility] Glucose 89 mg/dL [facility] eGFR 32(L) [facility] Anion Gap 11 [facility] 10/19/2023 Historical Provider LAB BLOOD ORDERAB LES [facility] from Last 3 Months Care Teams Precinct Police Captain Relationship Specialty Start Date End Date Flakito iLng MD [address] [place] [address] PCP - General Family Medicine 10/26/23
--- OUTSIDE RECORDS SUMMARY | 2023-12-17 10:34 | XMS_ITS | Encounter Summary ---
Author Organization [facility] Address [address] [place] [address] Care Team Providers Care Special Agent Fbi Name Role Phone Flakito Ling MD Primary Care Provider [phone] Encounter Details Date Type Department Care Team (Late st Contact Info) Description 10/31/2023 Documentation Only [facility] [address] [place] [phone] Cherry Johnson [address] [place] [address] Social History Tobacco Use Types Packs/Day Years Used Date Smoking Tobacco: Never Smokeless Tobacco: Never Alcohol Use Standard Drinks/Week Comments Not Currently 0 (1 standard drink = 0.6 oz pur e alcohol) Sex and Gender Information Value Date Recorded Sex Assigned at Not on file Gender Identity Not on file Sexual Orientation Not on file documented as of this encounter Plan of Treatment Upcoming Encounters Date Type Department Care Team (Late st Contact Info) Description 01/24/2024 1:00 PM EDT Office Visit [facility] [address] [place] [address] Adeel Loomis MD [address] [place] [address] documented as of this encounter Procedures Procedure Name Priority Date/Time Associated Diagnosis Comments BASIC METABOLIC PANEL (BMP) (EXTERNAL LAB ENTRY) Routine 10/19/2023 BASIC METABOLIC PANEL (BMP) (EXTERNAL LAB ENTRY) Routine 05/27/2023 CBC Routine 05/27/2023 BASIC METABOLIC PANEL (BMP) (EXTERNAL LAB ENTRY) Routine 09/03/2022 CBC Routine 09/03/2022 documented in this encounter Results * (ABNORMAL) Basic Metabolic Panel (BMP) (10/19/2023) Pathologist [facility] Sodium 138 mEq/L [facility] Potassium 4.9 mEq/L [facility] Chloride 100 [facility] Carbon Dioxide 27 mmol/L [facility] Calcium 9.1 mg/dL [facility] BUN 36(H) mg/dL [facility] Creatinine 2.03(H) mg/dL [facility] Glucose 89 mg/dL [facility] eGFR 32(L) [facility] Anion Gap 11 [facility] 10/19/2023 Historical Provider MD LAB BLOOD ORDERAB LES Performing Organization Address City/[facility]/ZIP Co de Phone Number [facility] * (ABNORMAL) CBC (05/27/2023) Pathologist [facility] WBC 4.7 K/uL [facility] Red Blood Cell Count 4.08(L) [facility] Hemoglobin 11.9(L) g/dL [facility] Hematocrit 37.1 % [facility] MCV 91 [facility] MCH 29.2 [facility] MCHC 32.1 [facility] RDW 14.8 [facility] Platelet Count 163 [facility] MPV 9.5 [facility] Blood (Blood, Venous) 05/27/2023 Historical Provider MD LAB BLOOD ORDERAB LES [facility] * (ABNORMAL) Basic Metabolic Panel (BMP) (05/27/2023) Sodium 130(L) mEq/L [facility] Potassium 4.6 mEq/L [facility] Chloride 94(L) [facility] Carbon Dioxide 30(H) mmol/L [facility] Calcium 9.7 mg/dL [facility] BUN 13 mg/dL [facility] Creatinine 1.04 mg/dL [facility] Glucose 96 mg/dL [facility] eGFR 71(L) [facility] Anion Gap 6 [facility] 05/27/2023 Historical Provider LAB BLOOD ORDERAB LES [facility] * (ABNORMAL) CBC (09/03/2022) Pathologist [facility] WBC 4.8 K/uL [facility] Red Blood Cell Count 4.12(L) [facility] Hemoglobin 12.4(L) g/dL [facility] Hematocrit 38.4 % [facility] MCV 93 [facility] MCH 30.1 [facility] MCHC 32.2 [facility] RDW 14.7 [facility] Platelet Count 129(L) [facility] MPV 10.1 [facility] Blood (Blood, Venous) 09/03/2022 Historical Provider LAB BLOOD ORDERAB LES Performing Organization Address City/[facility]/ZIP Co de Phone Number [facility] * (ABNORMAL) Basic Metabolic Panel (BMP) (09/03/2022) Pathologist [facility] Sodium 137 mEq/L [facility] Potassium 4.5 mEq/L [facility] Chloride 102 [facility] Carbon Dioxide 28 mmol/L [facility] Calcium 9.2 mg/dL [facility] BUN 19 mg/dL [facility] Creatinine 1.14 mg/dL [facility] Glucose 94 mg/dL [facility] eGFR 64(L) [facility] Anion Gap 7 [facility] 09/03/2022 Historical Provider LAB BLOOD ORDERAB LES Performing Organization Address City/[facility]/ZIP Co de Phone Number [facility] documented in this encounter Visit Diagnoses Not on filedocumented in this encounter Care Teams Special Agent Fbi Relationship Specialty Start Date End Date Flakito Ling MD [facility] [address] [place], [place] [id number] PCP - General Family Medicine 10/26/23 documented as of this encounter
--- OUTSIDE RECORDS SUMMARY | 2023-12-17 10:34 | XMS_ITS | Encounter Summary ---
Author Organization [facility] Address [address] [place] [address] Care Team Providers Care Stain Remover Name Role Phone Elsewhere, Pcp Primary Care Provider Unavailabl e Reason for Visit * Reason Comments Epistaxis (Nose Bleed) Patient presents with bleeding from outside of the nose. 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 Encounter Details Date Type Department Care Team (Late st Contact Info) Description 10/27/2023 10:19 PM CDT - 10/28/2023 12:15 AM CDT Emergency [facility] [address] [place] [address] James Nino M.D. [address] [place] [phone] Bleed Postoperative Initial (Primary Dx) Discharge Disposition: Home or Self Care Social History Tobacco Use Types Packs/Day Years Used Date Smoking Tobacco: Never Smokeless Tobacco: Never Alcohol Use Standard Drinks/Week Comments Never 0 (1 standard drink = 0.6 oz pur e alcohol) PHQ-2 Answer Date Recorded PHQ-2 Score 0 11/26/2018 Nutrition Answer Date Recorded Nutrition: EVOO Fat Source 13 03/04 Nutrition: Servings of Fruits/Vegetables per Day Not on file 03/04/2020 Dental Answer Date Recorded Dental: Regular Dentist Unknown 08/20/19 21 Sex and Gender Information Value Date Recorded Sex Assigned at Not on file Gender Identity Not on file Sexual Orientation Not on file documented as of this encounter Last Filed Vital Signs Vital Sign Reading Time Taken Comments Blood Pressure 121/81 10/28/2023 12:00 AM CDT Pulse 70 10/28/2023 12:00 AM CDT Temperature 37 ??C (98.6 ??F) 10/27/2023 10: 20 PM CDT Respiratory Rate - - Oxygen Saturation 91% 10/28/2023 12: 00 AM CDT Inhaled Oxygen Concentration - - Weight 99.7 kg (219 lb 11.2 oz) 024 10:11 PM CDT Height 180.3 cm (5' 11) 10/27/2023 10: 11 PM CDT Body Mass Index 30.64 10/27/2023 10:11 PM CDT documented in this encounter Discharge Instructions * Discharge Instructions* James Nino M.D. - 10/27/2023 11:52 PM CDT Thank for you for allowing us to participate in your care. If your symptoms do not improve in the next 1 - 2 days, please come back for reassessment. Please follow up with your Primary Care Physician as discussed. Come back to the ER right away if your symptoms worsen, or if you have any other new or concerning symptoms that come up. documented in this encounter Medications at Time of Discharge Medication Sig Dispensed Refills Start Date End Date aspirin [address] tablet Take 81 mg by mouth daily. Take for 1 month and stop atorvastatin (LIPITOR) 40 mg tablet Take 40 mg by mouth daily. dapagliflozin propanediol (FARXIGA) 10 mg tablet Take 10 mg by mouth daily. 10/20/2023 lisinopriL (PRINIVIL,ZESTRIL) 10 mg tablet Take 10 mg by mouth daily. 05/03/2023 metoprolol tartrate (LOPRESSOR) 25 mg tablet Take 25 mg by mouth 2 (two) times a day. spironolactone (ALDACTONE) 25 mg tablet Take 12.5 mg by mouth once. 10/20/2023 tamsulosin (FLOMAX) 0.4 mg 24 hr capsule Take 0.4 mg by mouth daily. torsemide (DEMADEX) 20 mg tablet Take 1 tablet by mouth daily. 09/27/2023 amLODIPine (NORVASC) 10 mg tablet Take 5 mg by mouth daily. Patient not taking 05/03/2023 atorvastatin (LIPITOR) 40 mg tablet Take 40 mg by mouth. 09/20/2022 lisinopril-hydroCHLOROthia zide (PRINZIDE,ZESTORETIC) 10-12.5 mg per tablet Take 1 tablet by mouth daily. nitroglycerin (NITROSTAT) 0.[address] 0.4 mg under the tongue every 5 (five) minutes as needed for chest pain. rivaroxaban (XARELTO) 20 mg tablet Take 20 mg by mouth daily with dinner. documented as of this encounter ED Notes * James Nino M.D. - 10/27/2023 10:58 PM CDT SUBJECTIVE CHIEF COMPLAINT/REASON FOR VISIT Epistaxis (Nose Bleed) (Patient presents with bleeding from outside of the nose. 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 ) HISTORY OF PRESENT ILLNESS Jonathan Herrera is a 83 y.o. male with a past medical history significant for chronic anticoagulant use with rivaroxaban presenting today for evaluation of bleeding from surgical site. 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 Earlier today had oozing and bleeding. No bleeding from the nose or nares. It was from the outside in the left side of the nose. No new lightheadedness dizziness shortness of breath. By the time he was roomed, bleeding had stopped. No chest pain, no vomiting blood upon no spitting blood, no coughing blood. No hematuria, bloody bowel movements or melena. No traumato the nose falls or other injury. REVIEW OF SYSTEMS A complete review of systems was performed and is otherwise negative. OBJECTIVE Initial Vitals Temperature 10/27/23 2220 37 ??C Pulse Rate 10/27/23 2215 74 Heart Rate -- Resp -- Blood Pressure 10/27/232214 145/68 SpO2 10/27/23 2215 91 % Pain Score 10/27/23 2212 0 - No pain PHYSICAL EXAMINATION General: Well appearing, not in acute distress Head: Normocephalic, atraumatic Eyes: Normal pupils, no scleral icterus or conjunctival injection ENT: Freely moving neck, No pharyngeal erythema or petechiae, mucous membranes moist, tympanic membranes normal. Erythematous and raised irritable friable appearing lesion on left side of nose on theexterior no active arterial bleed, no active oozing or venous type bleeding CV: Normal rate, regular rhythm, normal S1/S2, no murmurs, rubs, or gallops, radial and dorsalis pedis pulses present bilaterally Resp: Non-labored respirations, lungs clear to auscultation bilaterally, no wheezes, rales, or rhonchi. Easy work of breathing on room air GI: Soft, non-tender, non-distended. No rebound rigidity, guarding : No CVA tenderness MSK: No edema or tenderness to palpation of the lower extremity Skin: Warm and dry. No rashes or diaphoresis Neuro: CN: 2-12 grossly intact. Strength: 5/5 and symmetric in the upper and lower extremities. Sensation: intact to light touch in the upper and lower extremities. No gross neurologic deficits Psych: Behavior normal ASSESSMENT/PLAN MDM: Jonathan Herrera is a 83 y.o. male presenting today for evaluation of bleeding. Differential includes but is not limited to wound bleeding. Vitals assessed reassuring. No active bleeding here. Will monitor. Likely having more bleeding due to rivaroxaban use. Wound does appear extremely friable, irritable and oozing with easy bleeding. No or active bleeding currently. Will continue to keep it dressed, reassess for any bleeding, likely discharge. He does have follow up with the surgeon tomorrow morning. Will defer labs. Plan: Observation, likely discharge ED Course as of 10/28/2327October 28, 2023 0010 No additional bleeding. Wound dressed. He was follow up in the morning. Will discharge. All questions answered. 0010 Spoke with patient about the results of their workup here in the ED and the potential etiologies of their symptoms. Discussed warning signs and instructed patient to return to the ED if there are any concerns. Patient voiced understanding of instructions, questions were answered, and the patient was discharged in stable condition. Final Diagnoses: as of 10/28/2327 Bleed Postoperative Initial James Nino M.D. 10/28/2327 documented in this encounter Plan of Treatment Not on file documented as of this encounter Visit Diagnoses Diagnosis Bleed Postoperative Initial- Primary documented in this encounter Administered Medications Inactive Administered Medications - up to 3 most recent administrations Medication Order MAR Action Action Date Dose Rate Site bacitracin 500 unit/gram ointment packet 1 packet 1 packet (1 Application), topical, Once, On Elizabet 10/27/23 at 2354, For 1 dose Given 10/28/2023 12:02 AM CDT 1 packet documented in this encounter Active and Recently Administered Medications Times are shown in CDT. Scheduled Medication Order 10/26/2023 10/27/2023 10/28/2023 bacitracin 500 unit/gram ointment packet 1 packet (COMPLETED) 1 packet (1 Application), topical, Once, On Elizabet 10/27/23 at 2354, For 1 dose 0002 (Given - Provid er: Kathleen Orantes R.N.) documented in this encounter Additional Health Concerns Assessment Noted Time PHQ-9 Depression Total Score: 1 11/08/19 18 2:36 PM CDT documented as of this encounter Care Teams Stain Remover Relationship Specialty Start Date End Date Elsewhere, Pcp PCP - General Family Medicine 11/04/17 documented as of this encounter
--- OUTSIDE RECORDS SUMMARY | 2023-12-17 10:34 | XMS_ITS | Encounter Summary ---
Author Organization [facility] Address [address] [place] [address] Care Team Providers Care Landscape Photographer Name Role Phone Flakito Ling MD Primary Care Provider [phone] Encounter Details Date Type Department Care Team (Late st Contact Info) Description 10/26/2023 Documentation Only [facility] [address] [address] [place] [phone] Flakito Ling MD [address] [place] [id number] Social History Tobacco Use Types Packs/Day Years Used Date Smoking Tobacco: Never Assessed Sex and Gender Information Value Date Recorded Sex Assigned at Not on file Gender Identity Not on file Sexual Orientation Not on file documented as of this encounter Plan of Treatment Upcoming Encounters Date Type Department Care Team (Late st Contact Info) Description 01/24/2024 1:00 PM EDT Office Visit [facility] [address] [place] [address] Adeel Loomis MD [address] [place] [address] documented as of this encounter Visit Diagnoses Not on filedocumented in this encounter Care Teams Landscape Photographer Relationship Specialty Start Date End Date Flakito Ling MD [address] [place] [address] PCP - General Family Medicine 10/26/23 documented as of this encounter
--- OUTSIDE RECORDS SUMMARY | 2023-12-17 10:34 | XMS_ITS | Encounter Summary ---
Author Organization [facility] Address [address] [place] [address] Care Team Providers Care Chief Compressor Station Engineer Name Role Phone Elsewhere, Pcp Primary Care Provider Unavailabl e Reason for Visit * Reason Comments Rectal Pain Patient presents via EMS with rectal pain. States his last bowel movement was on . Now is experiencing significant rectal pain. Encounter Details Date Type Department Care Team (Late st Contact Info) Description 12/03/2023 3:44 PM CDT - 12/03/2023 6:22 PM CDT Emergency [facility] [address] [place] [address] Tu Ramos M.D. [address] [place] [phone] Drug Induced Constipation (Primary Dx) Discharge Disposition: Home or Self [...] Sign Reading Time Taken Comments Blood Pressure 132/68 12/03/2023 6:15 PM CDT Pulse 77 12/03/2023 6:15 PM CDT Temperature - - Respiratory Rate - - Oxygen Saturation 98% 12/03/2023 6:15 PM CDT Inhaled Oxygen Concentration - - Weight 87 kg (191 lb 14.4 oz) 12/03/2023 3:50 PM CDT Height 175.3 cm (5' 9) 12/03/2023 3:50 PM CDT Body Mass Index 28.34 12/03/2023 3:50 PM CDT documented in this encounter Discharge Instructions * Discharge Instructions* Tu Ramos M.D. - 12/03/2023 6:24 PM CDT I suspect that your constipation is due to the sedation and pain meds that you received during yourechocardiogram. Any time you get narcotic pain medicine you should consider take it a day or two ofMiraLax afterwards. Narcotics are very effective and potent at slowing down bowel movement. On the way home stop and belt picker a case of Fleet's enemas. I would recommend doing one or two tonight before bed. You can also take some MiraLax tonight before bed. There is a chance that you may wake up needing to have a bowel movement, so if this is a concern for you you can do laid they 1st doseof MiraLax until tomorrow morning. For the next few days, and until having normal bowel movements, I want you to double dose MiraLax in the morning. Use the enemas for any rectal pressure. You also need to try to stay very well hydrated as dehydration can exacerbate constipation as well. * Attachments The following attachments cannot be sent through Care Everywhere. * Constipation Adult ([place]) documented in this encounter Medications at Time of Discharge Medication Sig Dispensed Refills Start Date End Date acetaminophen (TYLENOL) 500 mg tablet Take 500 mg by mouth once. apixaban (ELIQUIS) 2.5 mg tablet Take 2.5 mg by mouth 2 (two) times a day. 12/02/[address] tablet Take 81 [...] as of this encounter ED Notes * Tu Ramos M.D. - 12/03/2023 3:44 PM CDT [facility] Department of Emergency Medicine- [place] 12/03/2023 6:24 PM CDT *Encounter labs and radiology results at the end of this note* Chief Complaint Patient presents with Rectal Pain Patient presents via EMS with rectal pain. States his last bowel movement was on . Now is experiencing significant rectal pain. PCP: ELSEWHERE, PCP HPI: Jonathan Herrera is a 83 y.o. gentleman with a history of hypertension, hyperlipidemia, coronary artery disease, AFib on Eliquis, presenting with rectal pain and pressure, concern for constipation. He was up at [facility] several days ago for JEAN CARLOS in anticipation of a watchman procedure. This was abandoned due to a need for further workup of for the Watchman was placed. Over the last two days the patient was experienced increasing rectal pain and pressure with diffuse abdominal pain and cramping. Last Bowel movement was Tuesday before his echocardiogram on Tuesday. He has had multiple attempts at a bowel movement, minimally successful. No fevers chills nausea vomiting or diarrhea. No chest pain shortness of breath. No upper abdominal pain, just lower. A complete review of systems was obtained and negative except as in the HPI. No alcohol, tobacco, or illicit drugs. PHYSICAL EXAMINATION General: Well-appearing in no acute distress. HEENT: Head is normocephalic and atraumatic. Hearing and vision are grossly normal. No scleral icterus, jaundice, or pallor. Neck: Supple, with normal range of motion. Heart: Heart rate is normal and regular, no murmurs. Lungs: Clear to auscultation bilaterally, no wheezes or rales. Abdomen: Soft, tender in the suprapubic and left lower quadrant, no rebound, nondistended. Skin: Warm and well-perfused Neurologic: GCS 15. Moving all 4 extremities spontaneously. Speech clear. Psychiatric: Normal mood and affect. Differential diagnosis includes constipation, bowel obstruction, ileus. MDM: 83-year-old gentleman presenting with rectal pain and pressure with lower abdominal pain and cramping and an exam that is tender over the sigmoid colon and rectum. With a history of the recent procedure and no bowel movement since Tuesday this is all consistent with narcotic or sedation induced constipation. Plain film was obtained which reveals moderate stool burden throughout the colon, and as a result I do not think he is going to require manual disimpaction. He was provided an enema which produced a moderate amount of stool and relief of his discomfort. Will discharge home with instructions for continued enemas and MiraLax until normal bowel function returns. Final Diagnoses: as of 12/03/23 1824 Drug Induced Constipation - Suspect due to recent sedation/analgesia for JEAN CARLOS Vitals: 12/03/23 1730 12/03/23 1745 12/03/23 1800 12/03/23 1815 BP: 118/65 126/62 139/66 132/68 Pulse: 74 74 77 SpO2: 96% 96% 98% Weight: Height: Medications - No data to display Clinical Impression: Final diagnoses: [K59.03] Drug Induced Constipation - Suspect due to recent sedation/analgesia for JEAN CARLOS Disposition: Discharge ED Prescriptions None Labs Reviewed - No data to display DX Abdomen 1 View Final Result Gas is present within several loops of small bowel and the colon in a nonobstructive pattern. Moderate volume of stool throughout the colon and in the rectum. No evidence of large volume pneumoperitoneum. Elevation of the left hemidiaphragm. Lung bases are clear. Intact appearing median sternotomy wires. 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 Scattered atherosclerotic calcifications. Tu Ramos M.D. 12/03/23 1829 documented in this encounter Plan of Treatment Not on file documented as of this encounter Procedures Procedure Name Priority Date/Time Associated Diagnosis Comments DX ABDOMEN 1 VIEW RAD - Semiurgent (Fast; most ED patients; some inpatients) 12/03/2023 4:16 PM CDT documented in this encounter Results * DX Abdomen 1 View (12/03/2023 4:16 PM CDT) Anatomical Region Laterality Modality Abdomen, Abdominal RST LOS, Abdominal ARZ LOS, Abdominal FLA LOS N/A Digital Radiography Impressions 12/03/2023 4:19 PM CDT Gas is present within several loops of small bowel and the colon in a nonobstructive pattern. Moderate volume of stool throughout the colon and in the rectum. No evidence of large volume pneumoperitoneum. Elevation of the left hemidiaphragm. Lung bases are clear. Intact appearing median sternotomy wires. 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 Scattered atherosclerotic calcifications. Narrative 12/03/2023 4:19 PM CDT EXAM: DX ABDOMEN 1 VIEW Procedure Note Cynthia Allan M.D. - 12/03/2023 EXAM: DX ABDOMEN 1 VIEW IMPRESSION: Gas is present within several loops of small bowel and the colon in anonobstructive pattern. Moderate volume of stool throughout the colon andin the rectum. No evidence of large volume pneumoperitoneum. Elevation ofthe left hemidiaphragm. Lung bases are clear. Intact appearing median sternotomy wires. Mild tomoderate arthrosis of the hips. Scattered atheroscleroticcalcifications. Tu [facility] PROCED[facility] documented in this encounter Visit Diagnoses Diagnosis Drug Induced Constipation- Primary documented in this encounter Additional Health Concerns Assessment Noted Time PHQ-9 Depression Total Score: 1 11/08/19 18 2:36 PM CDT documented as of this encounter Care Teams Chief Compressor Station Engineer Relationship Specialty Start Date End Date Elsewhere, Pcp PCP - General Family Medicine 11/04/17 documented as of this encounter
--- OUTSIDE RECORDS SUMMARY | 2023-12-17 10:34 | XMS_ITS | Encounter Summary ---
Author Organization [facility] Address [address] [place] [address] Care Team Providers Care Medical Review Coordinator Name Role Phone Flakito Ling MD Primary Care Provider [phone] Reason for Visit * Reason Comments CKD New Patient * Nephrology Services (Routine) - Closed Specialty Diagnoses / Procedures Referred By Contkallie t Referred To Contact Nephrology Diagnoses Chronic kidney disease stage 3 (HCC) Flakito Ling MD [address] [place] [address] [facility] [address] [facility] [address] [place] [address] Referral ID Status Reason Start Date Expiration Date Visits Re quested Visits Authorized [id number] Closed 10/26/2023 10/25/2024 1 1 Encounter Details Date Type Department Care Team (Late st Contact Info) Description 10/31/2023 2:30 PM EDT Office Visit [facility] [address] [place] [address] Adeel Loomis MD [address] [place] [address] Other acute kidney failure (HCC) (Primary Dx); Heart valve disorder; Chronic diastolic congestive heart failure (HCC); Stage 3a chronic kidney disease (HCC); Atrial flutter, not otherwise specified (HCC); Hypertensive chronic kidney disease, benign, with chronic kidney disease stage I through stage IV, or unspecified Social History Tobacco Use Types Packs/Day Years [...] Mass Index 33.63 10/31/2023 2:26 PM CDT documented in this encounter Patient Instructions * Patient Instructions* Cherry Johnson - 10/31/2023 2:30 PM CDT It was very nice to meet you today. Lets proceed with the evaluation as we discussed. Continue current medications as ordered. I will contact you with your blood work results. As we talked about haveyour blood work drawn in the next day or 2 in [place] or [place]. Welcome to [facility] Although we are experts in the care of patients with chronic kidney disease, we understand that youare the expert regarding your own life. Our goal is to work with you in providing the best possiblecare and to meet your individual needs. In addition to our Nephrologists, we have a team of Advanced Practice Providers (CATIE's) to help closely monitor our patients. Our CATIE's have specialized training and experience in caring for renal patients. If your Automatic Fancy Machine Operator deems it appropriate, you will be scheduled with an CATIE to manage your care. The keys to managing our patient's care include: Blood Pressure: Our goal is to keep your blood pressure 130/80 or lower. Heart and blood vessels: We want your LDL (bad cholesterol) to be below 100. Blood and Urine testing: Provides a more in depth 'picture' into the current renal status of a patient. If you smoke, it is important to quit. We want you to maintain good nutrition to keep your body healthy, so we do have a Renal Fleet Director to help you with this. We encourage keeping a log of blood pressures for monitoring efficiency of any blood pressure medications. If you have diabetes, we want to keep your hemoglobin A1c at 7.0 or lower and your blood sugar 80 to 130. Avoid cold medications that include ephedrine, phenylpropolamine or pseudoephedrine (Sudafed, Actifed). If your doctor wants you to have a CT scan or MRI with IV contrast, be sure to let them know that you see a communications project lead for your kidney disease. Ask that they contact your communications project lead before this type of test is scheduled. When to call for your kidneys: Any new medications prescribed to you by other providers. Any new leg swelling or unexplained weight gain > 3-5 pounds. Consistently elevated Blood Pressure or dizziness (BP greater than 140/90) When to go to the Emergency Room: If you get dehydrated, or have excessive nausea, headache or vomiting, you may need to get IV fluids. If you cannot pass your urine completely (empty your bladder) as this may be a sign of an Acute Injury to your Kidney. Our Doctors, Advanced Practice Providers, nurses, and Renal Fleet Director are here to provide you with the best renal care. We want you to feel free to call us when you have questions or concerns. To call the nurse at your communications project lead's office, please see the address and telephone number listed on your After Visit Summary. Thank you, The Physicians and staff at [facility] UNDERSTANDING YOUR BLOOD PRESSURE & LAB RESULTS People who develop chronic kidney disease may have some or all of the following tests. This sheet is to help you understand the results: Blood Pressure: Achieving the blood pressure goals identified by your kidney doctor is very important in slowing the progression of your kidney disease. Always take blood pressure medications as directed. Other steps to follow may include cutting down on the amount of salt in your diet, losing excess weight and following a regular exercise program. Serum Creatinine: Creatinine is a waste product in your blood that comes from muscle activity. It is normally removed from your blood by your kidneys, but when kidney function slows down, the creatinine level rises. (Lab Normal Range: Male: 0.5--1.3, Female: 0.4--1.1) BUN (Blood Urea Nitrogen): BUN is a waste product in your blood that is normally removed from your body by the kidneys. When your kidney function slows down or if you become dehydrated, the BUN levels rise. (Lab Normal Range: 7--24) Glomerular Filtration Rate (GFR): Your GFR tells how much kidney function you have. It is calculated from your blood level of creatinine. (Lab Normal Range: Equal to or greater than 60) Potassium: Potassium is a mineral in your blood that helps your heart and muscles work properly, too much or too little potassium can be harmful to your heart and other muscles in your body. Potassium levels can be controlled by careful dietary restrictions. Our dietitian can help plan your diet toget the right amount of potassium. (Lab Normal Range: 3.5--5.1) Phosphorus: Failing kidneys do not remove phosphorus efficiently. A high phosphorus level can lead to weak bones. If your level is too high, your kidney doctor may ask you to reduce your intake of foods that are high in phosphorus and take medications called phosphate binders with your meals and snacks. (Lab Normal Range: 2.5--4.9) Calcium: Calcium is a mineral that is important for strong bones. To help balance the amount of calcium in your blood, your kidney doctor may ask you to take calcium supplements and Vitamin D. Take only the supplements and medications recommended by your kidney doctor. (Lab Normal Range: 8.5--10.1) Parathyroid Hormone (PTH): This hormone is a marker for your bone health. High levels may result from a poor balance of calcium and phosphorus in your body that can cause bone disease. Your kidney doctor may order a special prescription form of Vitamin D to help lower your PTH. (Lab Normal Range: 14--72) Hemoglobin: Hemoglobin is the part of red blood cells that carries oxygen from your lungs to all parts of your body. A low hemoglobin level indicates too few red blood cells, which is called anemia. Anemia can make you feel tired or have a low energy level. If you have anemia, you may need treatment with iron supplements or a hormone called erythropoietin (EPO). You will be referred to a [facility] ([facility]) to manage your anemia. (Lab Normal Range: Males: 14-18, Females: 12-16) TSAT and Serum Ferritin: Your TSAT (% iron saturation) and serum ferritin are measures of iron in your body. Abnormal values may indicate iron deficiency. Your kidney doctor may recommend iron supplements when needed. (Lab Normal Range: TSAT: 15--50; Serum Ferritin: 8--388) Cholesterol tests: Patients with kidney disease have an increased risk for cardiovascular disease (heart disease), therefore it is important that your cholesterol is well controlled. Dietary changes,exercise, and cholesterol lowering medication can lower cholesterol levels and decrease cardiovascular risk. Total Cholesterol: Cholesterol is a fat-like substance found in your blood. A high cholesterol level may increase your chance of having heart and circulation problems. For many patients, the target level is less than 200. HDL Cholesterol: HDL is a type of 'good' cholesterol that protects your heart. For many patients, the target level for HDL is above 40. LDL Cholesterol: LDL is a type of 'bad' cholesterol. A high LDL level may increase your chance of having heart and circulation problems. For many patients, a good level for LDL cholesterol is below 100, but some patients may have an even lower goal. Triglyceride: Triglyceride is a type of fat found in your body. A high triglyceride level along with high levels of total and LDL cholesterol may increase your chance of heart and circulation problems. For many patients, the target level is less than 150. HgbA1c: The HgbA1c is a marker of diabetes control for the past two to three months. Adequate diabetes control has been proven to slow the progression of kidney failure. (Lab Normal Range: Less than or equal to 5.6 if average glucose is less than or equal to 114.) Avoiding Non-Steroidal Anti-Inflammatory Drugs (NSAIDs) Taking medications called NSAIDS (list of names below) can damage your kidneys and we recommend youdo not take them. Because many patients do not recognize NSAIDs by their brand or generic names, there may be overlap in prescription and Over the Counter (OTC) use. NSAIDs are sold under many different brand names, so ask your pharmacist or health care provider if the medicines you take are safe to use. Below is a list of common NSAIDs: ibuprofen (Advil, Motrin, Midol, Wal-Profin) naproxen (Aleve, Naprosyn, Midol Extended Relief, Anaprox) meloxicam (Mobic), oxaprozin (Daypro), piroxicam (Feldene) celecoxib (Celebrex) indomethacin (Indocin) If you take OTC or prescription medicines for headaches, pain, fever, or colds, you may be taking NSAIDs. If you are unsure if a product contains an NSAID, ask your pharmacist or your health care provider. You can also look for product contents on the Drug Facts labels. documented in this encounter Progress Notes * Adeel Loomis MD - 10/31/2023 2:30 PM CDT Images from the original note were not included. Patient: Jonahtan Herrera Date of : 1940 Chart: [id number] PCP: Flakito Ling MD Referring Provider: Flakito Ling Date of Service: 10/31/2023 Chief Complaint: I was asked by Royce Ling to evaluate Jonathan Herrera for acute kidney injury Subjective: Patient is an 83-year-old man referred for the above. Last several creatinine values have shown progressive rise in creatinine. Of note level was 1.84 on25 September, 1.65 on 03 October, 1.95 on 09 October, and 2.03 on 18 October. Urinalysis April 2019: Benign No imaging of the abdomen in the past 14 or so years. Patient seen by his cotton ginner helper on 10/20/2023. He has new onset decompensated heart failure. He noted lower extremity edema with ongoing dyspnea on exertion and was awaiting bronchoscopy on 10/21/2023. The bronchoscopy was to evaluate hemoptysis that he has been experiencing since a hospitalization for pneumonia in very late 2022. At his cotton ginner helper appointment he was experiencing dizziness and decrease his lisinopril down to 10 mg a day. At that visit he was 168/74? At that visit he remained (severely volume overloaded and torsemide was increased to 20 mg twice daily and spironolactone up to 25 mg a day. Jardiance was also started at that time at 10 mg once daily. A right heart catheterization was scheduled to consider Tri clip procedure. proBNP level on 10/19/2023 was 3449. Patient was seen by PCP on 10/25/2023. At that visit he was on the Jardiance and, lisinopril, spironolactone, and torsemide. At that visit he was 120/68 for blood pressure. Patient comes to clinic today with an excellent blood pressure and weight record. From 10/19/2023 hisweight has gone from 223.2 pounds, down to 205.4 pounds today. His systolic blood pressures have ranged anywhere between 109-123. He is feeling significant improvement since the water weight has improved. He still has a fair amount of lower extremity edema but he is feeling quite well. No orthopnea, PND, dyspnea on exertion, chest pain. He is still experiencing 3-4 time hemoptysis (sputum is blood-streaked). Bronchoscopy was unremarkable. He denies dysuria, hematuria, or any issues voiding. No rash. He has had recent skin cancer excision procedures and has been experiencing oozing since he is still on rivaroxaban. Assessment & Plan Problem List Atrial flutter (HCC) Current Assessment & Plan Longstanding and rate controlled. Rivaroxaban. He was started on a Zio patch when he visit with cardiology on 10/20/2023 and will be seeing EP for consideration of AV node ablation and PPM. Heart valve disorder Overview Known severe TR and mild to moderate . Chronic diastolic congestive heart failure (HCC) Overview Cardiac MRI September 2023: Hyperenhancement of the [...] hepatic vein. 5. Mild mitral regurgitation. 6. Ufrm-am-ofnukedl aortic stenosis [peak velocity 2.6 m/s, mean gradient 14 mmHg, valve area 1.4 cm2]. 7. Moderate NATI. 8. Dilated IVC with abnormal respiratory variability. Nuclear medicine cardiac stress test May 2023 small area of mild transmural infarction but specificity for with no change from prior study in 2019. Current Assessment & Plan Weight peaked at 232 pounds on 10/19/2023. [...] would highly support this plan if it willtake place. Other acute kidney failure (HCC) - Primary (Chronic) Current Assessment & Plan Progressive worsening GFR as described in the narrative. Creatinine began rising in September 2023. Previous creatinine values at 1-1.1 range, documented from levels in March and May 2023. Unclearetiology as of yet. Common things being common, patient may be experiencing progressive intoleranceto RAAS inhibitors plus MRA. Cannot rule out [...] will be relayed to PCP and his cotton ginner helper. 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 Current Assessment & Plan Blood pressures are excellent at this time on current regimen. Return in about 3 months (around 01/31/2024) for Recheck. Adeel Loomis MD [facility] The following portions of the patient's chart were reviewed in this encounter and updated as appropriate: Tobacco Allergies Meds Problems Med Hx Surg Hx Fam Hx Review of Systems Constitutional: Positive for weight loss. HENT: Negative for ear pain and nosebleeds. Respiratory: Positive for hemoptysis. Negative for cough, shortness of breath and wheezing. Cardiovascular: Positive for leg swelling. All other systems reviewed and are negative. 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, or unspecified History of Present Illness Past Medical History: Diagnosis Date Atrial fibrillation (HCC) Chronic airway obstruction, not elsewhere classified (HCC) Coronary atherosclerosis of unspecified type of vessel, nulato or graft Essential hypertension Gout Other and unspecified hyperlipidemia Past Surgical History: Procedure Laterality Date CORONARY ARTERY BYPASS GRAFT Family History Problem Relation Age of Onset Heart disease Mother CHF Diabetes Mother 55 - 59 at age 78 of CHF and DM Heart disease Father coronary occlusion Heart disease Sister 24 at 24 of heart problems Heart disease Brother heart failure, [place] Diabetes Brother Social History Tobacco Use Smoking status: Never Smokeless tobacco: Never Vaping Use Vaping Use: Never used Substance Use Topics Alcohol use: Not Currently Drug use: Never Taking? Provider LT acetaminophen (TYLENOL) 500 MG tablet Korey Young MD Take 1 tablet by mouth once daily. Max acetaminophen dose: 4000mg in 24 hrs. albuterol HFA (PROVENTIL HFA;VENTOLIN HFA) 108 (90 Base) MCG/ACT inhaler Korey Young MD Inhale 1-2 Puffs by mouth every 6 hours if needed for Shortness of Breath 1st choice. aspirin (ST SACHI) 81 MG EC tablet Korey Young MD Take 81 mg by mouth 1 (one) time each day atorvastatin (LIPITOR) 40 MG tablet Korey Young MD Take 40 mg by mouth 1 (one) time each day Dapagliflozin Propanediol 10 MG tablet Korey Young MD Take 1 Tablet (10 mg) by mouth once daily. Get BMP lab drawn in 2 weeks after starting. lisinopril 10 MG tablet Korey Young MD Take 20 mg by mouth 1 (one) time each day metoprolol succinate XL (TOPROL XL) 50 MG 24 hr tablet Korey Young MD Take 50 mg by mouth 1 (one) time each day rivaroxaban (XARELTO) 20 MG tablet Korey Young MD Take 20 mg by mouth 1 (one) time each day with dinner spironolactone (ALDACTONE) 25 MG tablet Korey Young MD Take 12.5 mg by mouth 1 (one) time each day tamsulosin (FLOMAX) 0.4 MG 24 hr capsule Korey Young MD Take 0.4 mg by mouth 1 (one) time each day torsemide (DEMADEX) 20 MG tablet Korey Young MD Take 20 mg by mouth in the morning and 20 mg in the evening. Umeclidinium-Vilanterol 62.5-25 MCG/ACT aerosol powder Korey Young MD Inhale 1 puff 1 (one) time each day Allergies Allergen Reactions Morphine GI intolerance, Nausea And Vomiting, Other (see comments) and Vomiting Physical Exam BP 108/58 (BP Location: Right upper arm, Patient Position: Sitting, BP Cuff Size: Adult) Pulse 58 Ht 5' 8.74 (1.746 m) Wt 226 lb (103 kg) SpO2 93% BMI 33.63 kg/m?? Vitals reviewed. Constitutional: He is oriented to person, place, and time. Cardiovascular: Normal rate. An irregularly irregular rhythm present. He exhibits edema (2+ pittingin both lower extremities isolated below each knee). Pulmonary/Chest: Effort normal. 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 Bowel sounds are normal. Musculoskeletal: Normal range of motion. Neurological: He is alert and oriented to person, place, and time. Skin: Skin is warm and dry. Psychiatric: He has a normal mood and affect. His behavior is normal. Judgment normal. Chemistry and Bone Mineral Lab Units 10/19/23 0000 05/27/23 0000 09/03/22 0000 SODIUM mEq/L 138 130* 137 POTASSIUM mEq/L 4.9 4.6 4.5 CHLORIDE 100 94* 102 CO2 mmol/L 27 30* 28 CALCIUM mg/dL 9.1 9.7 9.2 GLUCOSE mg/dL 89 96 94 BUN mg/dL 36* 13 19 CREATININE mg/dL 2.03* 1.04 1.14 EGFR 32* 71* 64* CBC and Iron Studies Lab Units 05/27/23 0000 09/03/22 0000 WBC AUTO K/uL 4.7 4.8 HEMATOCRIT % 37.1 38.4 HEMOGLOBIN g/dL 11.9* 12.4* MCV 91 93 PLATELETS AUTO 163 129* No lab exists for component: GLUCOSEUR, BILIRUBINUR, SPECGRAV, RBCUR, LEUKOCYTESUR, NITRITE I have performed a complete review of pertinent lab results. documented in this encounter Miscellaneous Notes * Assessment & Plan Note - Adeel Loomis MD - 10/31/2023 3:50 PM CDTAssociated Problem(s): Chronic diastolic congestive heart failure (HCC) Weight peaked at 232 pounds on 10/19/2023. [...] would highly support this plan if it willtake place. 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 * Assessment & Plan Note - Adeel Loomis MD - 10/30/2023 8:51 PM CDTAssociated Problem(s): Other acute kidney failure (HCC) Progressive worsening GFR as described in the narrative. Creatinine began rising in September 2023. Previous creatinine values at 1-1.1 range, documented from levels in March and May 2023. Unclearetiology as of yet. Common things being common, patient may be experiencing progressive intoleranceto RAAS inhibitors plus MRA. Cannot rule out [...] will be relayed to PCP and his cotton ginner helper. * Assessment & Plan Note - Adeel Loomis MD - 10/30/2023 8:48 PM CDTAssociated Problem(s): Atrial flutter (HCC) Longstanding and rate controlled. Rivaroxaban. He was started on a Zio patch when he visit with cardiology on 10/20/2023 and will be seeing EP for consideration of AV node ablation and PPM. documented in this encounter Plan of Treatment Upcoming Encounters Date Type Department Care Team (Late st Contact Info) Description 01/24/2024 1:00 PM EDT Office Visit [facility] [address] [place] [address] Adeel Loomis MD [address] [place] [id number] documented as of this encounter Visit Diagnoses Diagnosis Other acute kidney failure (HCC)- Primary Heart valve disorder Chronic diastolic congestive heart failure (HCC) Stage 3a chronic kidney disease (HCC) Atrial flutter, not otherwise specified (HCC) Hypertensive chronic kidney disease, benign, 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
--- OUTSIDE RECORDS SUMMARY | 2023-12-17 10:34 | XMS_ITS | Encounter Summary ---
Author Organization [facility] Address [address] [place] [address] Care Team Providers Care Sales Data Analyst Name Role Phone Flakito Ling MD Primary Care Provider [phone] Encounter Details Date Type Department Care Team (Late st Contact Info) Description 10/26/2023 Documentation Only [facility] [address] [facility] [address] [place] [phone] Flakito Ling MD [address] [place] [id number] Social History Tobacco Use Types Packs/Day Years [...] [place] [place] [address] Adeel Loomis MD [address] [place] [address] documented as of this encounter Visit Diagnoses Not on filedocumented in this encounter Care Teams Sales Data Analyst Relationship Specialty Start Date End Date Flakito Ling MD [address] [place] [address] PCP - General Family Medicine 10/26/23 documented as of this encounter
--- OUTSIDE RECORDS SUMMARY | 2023-12-17 10:34 | XMS_ITS | Clinical Summary ---
Author Organization [facility] Address [address] [place] [address] Care Team Providers Care Film Splicer Name Role Phone Elsewhere, Pcp Primary Care Provider Unavailabl e Source Comments Patient records contain information from all sites at [facility]. For routine questions regarding patient records, call [phone] during business hours, M-F 8:00 AM - 5:00 PM Central Time. Record requests for emergency care only can be directed to [phone] at any time.[facility] Allergies Active Allergy Reactions Criticality Noted Date Comments Morphine GI intolerance 11/07/2017 Medications Medication Sig Dispensed Refills Start Date End Date Status aspirin [address] tablet Take 81 mg by mouth daily. Take for 1 month and stop Active atorvastatin (LIPITOR) 40 mg tablet Take 40 mg by mouth daily. Active lisinopril-hydroCHLORO thiazide (PRINZIDE,ZESTORETIC) 10-12.5 mg per tablet Take 1 tablet by mouth daily. Active metoprolol tartrate (LOPRESSOR) 25 mg tablet Take 25 mg by mouth 2 (two) times a day. Active nitroglycerin (NITROSTAT) 0.[address] 0.4 mg under the tongue every 5 (five) minutes as needed for chest pain. Active rivaroxaban (XARELTO) 20 mg tablet Take 20 mg by mouth daily with dinner. Active tamsulosin (FLOMAX) 0.4 mg 24 hr capsule Take 0.4 mg by mouth daily. Active atorvastatin (LIPITOR) 40 mg tablet Take 40 mg by mouth. 09/20/2022 Active amLODIPine (NORVASC) 10 mg tablet Take 5 mg by mouth daily. Patient not taking 05/03/2023 Active apixaban (ELIQUIS) 2.5 mg tablet Take 2.5 mg by mouth 2 (two) times a day. 12/02/2023 Active spironolactone (ALDACTONE) 25 mg tablet Take 12.5 mg by mouth once. 10/20/2023 Active torsemide (DEMADEX) 20 mg tablet Take 1 tablet by mouth daily. 09/27/2023 Active lisinopriL (PRINIVIL,ZESTRIL) 10 mg tablet Take 10 mg by mouth daily. 05/03/2023 Active dapagliflozin propanediol (FARXIGA) 10 mg tablet Take 10 mg by mouth daily. 10/20/2023 Active acetaminophen (TYLENOL) 500 mg tablet Take 500 mg by mouth once. Active Active Problems No known active problems Encounters Date Type Department Care Team Description 12/03/2023 3:44 PM CDT - 12/03/2023 6:22 PM CDT [facility] Emergency Department [address] [place] [phone] Tu Ramos M.D. Drug Induced Constipation (Primary Dx) Discharge Disposition: Home or Self Care 10/27/2023 10:19 PM CDT - 10/28/2023 12:15 AM CDT [facility] Emergency Department [address] [place] [address], [place] [phone] James Nino M.D. Bleed Postoperative Initial (Primary Dx) Discharge Disposition: Home or Self Care 10/26/2023 12:05 AM CDT - 10/26/2023 1:25 AM T [facility] Emergency Department [address] [place] [phone] Thien Galicia M.D. Hemorrhage (Primary Dx); Wound Care Skin Post Surgery Discharge Disposition: Home or Self Care 10/07/2023 8:34 AM CDT - 10/07/2023 9:40 AM T [facility] Emergency Department [address] [place] [address], [place] [phone] Jem Flaherty M.D., M.B.A. Encounter For Change Or Removal Of Nonsurgical Wound Dressing (Primary Dx); Wound Care Skin Post Surgery Discharge Disposition: Home or Self Care from Last 3 Months Immunizations Name Administration Dates Next Due Influenza (IM) Preservative Free 05/09/2012 Family History Medical History Relation Name Comments Heart disease Brother 1 Diabetes Brother 2 Heart disease Father Diabetes Mother Relation Name Status Comments Brother 1 Brother 2 Father Mother Social History Tobacco Use Types Packs/Day Years Used Date Smoking Tobacco: Never Smokeless Tobacco: Never Tobacco Cessation:Counseling Given: Not Answered Alcohol Use Standard Drinks/Week Comments Never 0 [...] Pulse 77 12/03/2023 6:15 PM CDT Temperature 37 ??C (98.6 ??F) 10/27/2023 10:20 PM CDT Respiratory Rate 16 10/26/2023 12:01 AM CDT Oxygen Saturation 98% 12/03/2023 6:15 PM CDT Inhaled Oxygen Concentration - - Weight 87 kg (191 lb 14.4 oz) 12/03/2023 3:50 PM CDT Height 175.3 cm (5' 9) 12/03/2023 3:50 PM CDT Body Mass Index 28.34 12/03/2023 3:50 PM CDT Plan of Treatment Health Maintenance Due Date Last Done Comments Zoster Vaccines (1 of 2) 1990 Office Visit for Blood Press ure Check / Re-check 03/30/2023 12/28/2022 Depression Screening (Annual PHQ-2) 06/20/2023 Fall Risk Screen (Annual) 06/20/2023 COVID-19 Vaccine (2022-2 4 season) 2023 07/15/2023, 04/06/2021, 07/24/2020, Additional history exists Sodium Level 11/30/2024 12/01/2023, 11/18, 11/23/2023, Additional history exists Creatinine Level (Kidney Fun ction Test) 12/01/2024 12/02/2023, 12/01/2023, 11/30/2023, Additional history exists Potassium Level 12/01/2024 12/02/2023, 11/18, 11/30/2023, Additional history exists DTaP,Tdap,and Td Vaccines (5 - Td or Tdap) 09/26/2033 09/27/2023, 10/30/2012, 05/08/2012, Additional history exists Pneumococcal vaccine (65+ years) Completed 06/20/2019, 11/24/2016, 06/20/2009, Additional history exists Influenza Vaccine Completed 06/17/2023, , 03/25/2022, Additional history exists Medical Devices Implanted Type Area Commercial Energy Rater Device Identifier Shelf Expiration Date Model / Serial / Lot K-Wire-[id number] 4 Smooth .035 - [id number] Implanted:Qty: 2 on 05/08/2012 Hardware e.g. pins/screws/ rods Gaye Description:Device Manufactu rer - STARFACE Carlos.. Device Status Text - [id number]. Procedures Procedure Name Priority Date/Time Associated Diagnosis Comments DX ABDOMEN 1 VIEW RAD - Semiurgent (Fast; most ED patients; some inpatients) 12/03/2023 4:16 PM CDT EXTI POTASSIUM, S/P Routine 12/02/2023 8:30 AM CDT EXTI CREATININE WITH EGFR, S/P Routine 12/02/2023 8:30 AM CDT EXTI BASIC METABOLIC PANEL, S/P Routine 12/01/2023 5:43 AM CDT HEMOGLOBIN, B STAT 10/07/2023 9:15 AM CDT from Last 3 Months or Most Recently Relevant to Health Maintenance Results * DX Abdomen 1 View (12/03/2023 [...] arthrosis of the hips. Scattered atheroscleroticcalcifications. Tu Ramos M.D. IMG DIAGNOSTIC IMAGI NG PROCEDURES * (ABNORMAL) Hemoglobin (10/07/2023 9:15 AM CDT) Hemoglobin 9.0(L) 13.2 - 16.6 g/dL 10/07/2023 9:26 AM CDT NPR[facility] Blood (Blood, Venous) 10/07/2023 9:15 AM CDT 10/07/2023 9:18 AM CDT Jem Flaherty M.D., M.B.A. LAB BLOOD ADD-ON [facility] [address] [place] [address], [place] NPRG [facility] [address] [place] [address] from Last 3 Months Care Teams Film Splicer Relationship Specialty Start Date End Date Elsewhere, Pcp PCP - General Family Medicine 11/04/17
--- OUTSIDE RECORDS SUMMARY | 2023-12-17 10:34 | XMS_ITS | Referral Summary ---
Author Organization [facility] Address [address] [place] [address] Care Team Providers Care Kier Hand Name Role Phone Elsewhere, Pcp Primary Care Provider Unavailabl e Source Comments Patient records contain information from all sites at [facility]. For routine questions regarding patient records, call [phone] during business hours, M-F 8:00 AM - 5:00 PM Central Time. Record requests for emergency care only can be directed to [phone] at any time.[facility] Encounters Date Type Department Care Team Description 12/03/2023 3:44 PM CDT - 12/03/2023 6:22 PM CDT Emergency [facility] [address] [place] [phone] Tu Ramos M.D. Drug Induced Constipation (Primary Dx) Discharge Disposition: Home or Self Care 10/27/2023 10:19 PM CDT - 10/28/2023 12:15 AM CDT [facility] [address] [place] [phone] James Nino M.D. Bleed Postoperative Initial (Primary Dx) Discharge Disposition: Home or Self Care 10/26/2023 12:05 AM CDT - 10/26/2023 1:25 AM CDT [facility] [address] [place] [phone] Thien Galicia M.D. Hemorrhage (Primary Dx); Wound Care Skin Post Surgery Discharge Disposition: Home or Self Care 10/07/2023 8:34 AM CDT - 10/07/2023 9:40 AM CDT [facility] [address] [place] [phone] Jem Flaherty M.D., M.B.A. Encounter For Change Or Removal Of Nonsurgical Wound Dressing (Primary Dx); Wound Care Skin Post Surgery Discharge Disposition: Home or Self Care from Last 3 Months Allergies Active Allergy Reactions Criticality Noted Date [...] Active Active Problems No known active problems Immunizations Name Administration Dates Next Due Influenza (IM) Preservative Free 05/09/2012 Social History Tobacco Use Types Packs/Day Years [...] 12/03/2023 3:50 PM CDT Plan of Treatment Not on file Medical Devices Implanted Type Area Mash Filter Operator Device Identifier Shelf Expiration Date Model / Serial / Lot K-Wire-Ss 4 Smooth .035 - [id number] Implanted:Qty: 2 on 05/08/2012 Hardware e.g. pins/screws/ rods Jupiter Description:Device Manufactu rer - Gaye Carlos.. Device Status Text - [id number]. Procedures [...] atheroscleroticcalcifications. Tu [facility]BELL DIAGNOSTIC IMAGI NG PROCEDURES * (ABNORMAL) Hemoglobin (10/07/2023 9:15 AM CDT) Hemoglobin 9.0(L) 13.2 - 16.6 g/dL 10/07/2023 9:26 AM CDT NPR[facility] Blood (Blood, Venous) 10/07/2023 9:15 AM CDT 10/07/2023 9:18 AM CDT Jem Flaherty M.D., M.B.A. LAB BLOOD ADD-ON [facility] [place] [facility] [address] [place] [address], [facility] NPRG [facility] [address] [place] [address] from Last 3 Months Care Teams Kier Hand Relationship Specialty Start Date End Date Elsewhere, Pcp PCP - General Family Medicine 11/04/17
--- OUTSIDE RECORDS SUMMARY | 2023-12-17 10:35 | XMS_ITS | Encounter Summary ---
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 Encounter Details Date Type Department Care Team (Late st Contact Info) Description 10/07/2023 8:34 AM CDT - 10/07/2023 9:40 AM CDT Emergency [facility] [address] [place] [phone] Jem Flaherty M.D., M.B.A. [address] [place] [phone] Encounter For Change Or Removal Of Nonsurgical Wound Dressing (Primary Dx); Wound Care Skin Post Surgery Discharge Disposition: Home or Self Care Social [...] Sign Reading Time Taken Comments Blood Pressure 115/46 10/07/2023 9:00 AM CDT Pulse 46 10/07/2023 9:30 AM CDT Temperature 36 ??C (96.8 ??F) 10/07/2023 8:39 AM CDT Respiratory Rate 18 10/07/2023 8:39 AM CDT Oxygen Saturation 91% 10/07/2023 9:30 AM CDT Inhaled Oxygen Concentration - - Weight 101 kg (222 lb 10.6 oz) 10/07/2023 8:40 A M CDT Height - - Body Mass Index 37.05 07/29/2023 8:51 AM COMPLAINT OPERATOR documented in this encounter Discharge Instructions * Discharge Instructions* Jem Flaherty M.D., M.B.A. - 10/07/2023 9:27 AM CDT Please change your dressing once or twice daily with the quick clot as discussed. If bleeding through the dressing continues please hold direct pressure over the wound and return to the ER with any concerns. Your hemoglobin was slightly low at 9.0 today. We will continue to monitor this as necessary. It was a pleasure to care for you today, we hope you feel better very soon. * Attachments The following attachments cannot be sent through Care Everywhere. * How to Change Your Wound Dressing [id number] (Singaporean) documented in this encounter Medications at Time of Discharge Medication Sig Dispensed Refills Start Date End Date aspirin [address] tablet Take 81 mg by mouth daily. Take for 1 month and stop atorvastatin (LIPITOR) 40 mg tablet Take 40 mg by mouth daily. lisinopriL (PRINIVIL,ZESTRIL) 10 mg tablet Take 10 mg by mouth daily. 05/03/2023 metoprolol tartrate (LOPRESSOR) 25 mg tablet Take 25 mg by mouth 2 (two) times a day. tamsulosin (FLOMAX) 0.4 mg 24 hr capsule Take 0.4 mg by mouth daily. torsemide (DEMADEX) 20 mg tablet Take 1 tablet by mouth daily. 09/27/2023 amLODIPine (NORVASC) 10 mg tablet Take 5 mg by mouth daily. Patient not taking 05/03/2023 atorvastatin (LIPITOR) 40 mg tablet Take 40 mg by mouth. 09/20/2022 lisinopril-hydroCHLOROthi azide (PRINZIDE,ZESTORETIC) 10-12.5 mg per tablet Take 1 tablet by mouth daily. nitroglycerin (NITROSTAT) 0.[address] 0.4 mg under the tongue every 5 (five) minutes as needed for chest pain. rivaroxaban (XARELTO) 20 mg tablet Take 20 mg by mouth daily with dinner. documented as of this encounter ED Notes * Jem Flaherty M.D., M.B.A. 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 ) HISTORY OF PRESENT ILLNESS The patient presents with his significant other due to concerns for biopsy wound bleeding. Patient recently had large excision to the scalp. He presents with bleeding overnight. In spite of direct pressure and dressing change bleeding did continue. Of note he does take Xarelto. He otherwise feels well. Incision sites remain clean dry and intact. History provided by: Patient REVIEW OF SYSTEMS Constitutional: Negative. HENT: Negative. Eyes: Negative. Respiratory: Negative. Cardiovascular: Negative. Gastrointestinal: Negative. Genitourinary: Negative. Musculoskeletal: Negative. Skin: Negative. Neurological: Negative. Psychiatric/Behavioral: Negative. OBJECTIVE Initial Vitals Temperature 10/07/23 0839 36 ??C Pulse -- Heart Rate -- Resp Rate 10/07/23 0839 18 BP -- SpO2 -- Pain Score 10/07/23 0840 0 - No pain PHYSICAL EXAMINATION Constitutional: Nursing note and vitals reviewed. No distress. HENT: Head: Normocephalic and atraumatic. Nose: Nose normal. Mouth/Throat: Oropharynx is clear and moist. Mucous membranes are moist. Eyes: Conjunctivae and EOM are normal. Neck: Neck supple. Cardiovascular: Normal rate, regular rhythm and normal heart sounds. Pulses are strong and palpable. Capillary refill: takes less than 3 seconds Pulmonary/Chest: Effort normal. Musculoskeletal: General: Normal range of motion. Cervical back: Neck supple. Neurological: Alert. Skin: Skin is warm and dry. Psychiatric: He has a normal mood and affect. ASSESSMENT/PLAN Assessment and Plan Hemostasis was achieved with quick clot and observation. Hemoglobin is 9. Patient will return to the emergency department with any concerns.. DIFFERENTIAL DIAGNOSES Bleeding, scalp incision, post operative complication. PROBLEMS ADDRESSED THIS VISIT Hemostasis, home wound care, return precautions, follow-up plan. Care is significantly affected by the following Social Determinants of Health: access to healthcare. I reviewed the following external records: prior outpatient labs, office records, prior outpatient radiology tests and primary care records. Final Diagnoses: as of 10/07/23 0927 Encounter For Change Or Removal Of Nonsurgical Wound Dressing Wound Care Skin Post Surgery Jem Flaherty M.D., M.B.A. 10/07/23 1058 documented in this encounter Plan of Treatment Not on file documented as of this encounter Procedures Procedure Name Priority Date/Time Associated Diagnosis Comments HEMOGLOBIN, B STAT 10/07/2023 9:15 AM CDT documented in this encounter Results * (ABNORMAL) Hemoglobin (10/07/2023 9:15 AM CDT) Hemoglobin 9.0(L) 13.2 - 16.6 g/dL 10/07/2023 9:26 AM CDT NPRG Blood (Blood, Venous) 10/07/2023 9:15 AM CDT 10/07/2023 9:18 AM CDT Jem Flaherty M.D., M.B.A. LAB BLOOD ADD-ON [facility] [address] [place] [address], [facility] [address] [place] [address] documented in this encounter Visit Diagnoses Diagnosis Encounter For Change Or Removal Of Nonsurgical Wound Dressing- Primary Wound Care Skin Post Surgery documented in this encounter Additional Health Concerns Assessment Noted Time PHQ-9 Depression Total Score: 1 11/08/19 18 2:36 PM CDT documented as of this encounter Care Teams Communications Advisor Relationship Specialty Start Date End Date Elsewhere, Pcp PCP - General Family Medicine 11/04/17 documented as of this encounter
--- OUTSIDE RECORDS SUMMARY | 2023-12-17 10:35 | XMS_ITS | Clinical Summary ---
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 Active acetaminophen (TYLENOL EXTRA STRGTH) 500 mg tablet Take 1 tablet by mouth once daily. Max acetaminophen dose: 4000mg in 24 hrs. 0 021 Active metoprolol succinate SR (TOPROL XL) 25 mg as half tablet Take 25 mg by mouth once daily. Active dapagliflozin propanediol (Farxiga) 10 mg tablet Take 1 Tablet (10 mg) by mouth once daily. Get BMP lab drawn in 2 weeks after starting. 30 Tablet 3 024 Active albuterol HFA (ProAir HFA) 90 mcg/actuation inhalerIndications:Whee zing Inhale 1-2 Puffs by mouth every 6 hours if needed for Shortness of Breath 1st choice. 1 Each 2 024 Active atorvastatin (LIPITOR) 40 mg tabletIndications:ASHD (arteriosclerotic heart disease),Pure hypercholesterolemia Take 1 Tablet (40 mg) by mouth at bedtime. 90 Tablet 3 024 Active torsemide (DEMADEX) 20 mg tabletIndications:Acute on chronic HFrEF (heart failure with reduced ejection fraction) (HC),Ischemic cardiomyopathy Take 1 Tablet (20 mg) by mouth once daily. Active Walker - 4 wheelsIndications:Ortho static lightheadedness,Arthrit is of right knee For home use. Length of need: 99. Please have a seat on the walker with brakes. 1 Each Active lisinopriL (PRINIVIL; ZESTRIL) 10 mg tabletIndications:Ische eileen cardiomyopathy Take 1 Tablet (10 mg) by mouth once daily. DO NOT TAKE FOR NOW, RESUME 12/16/23 Active tamsulosin (FLOMAX) 0.4 mg capsuleIndications:Wilbur gn prostatic hyperplasia with nocturia Take 1 Capsule (0.4 mg) by mouth once daily in the evening. DO NOT TAKE FOR NOW, RESUME 12/16/23 024 Active clopidogreL (PLAVIX) 75 mg tabletIndications:Acute ischemic stroke (HC) Take 1 Tablet (75 mg) by mouth once daily in the morning. 90 Tablet Active spironolactone (ALDACTONE) 25 mg tabletIndications:Ische eileen cardiomyopathy Take one-half tablet by mouth once daily in the morning. 30 Tablet Active WalkerIndications:Ische eileen cardiomyopathy Walker with front wheels for home use. 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 Liters per minute: 2 per nasal cannula. Frequency of use: Nocturnal;. Length of need: 3 Months. 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 Discard inhaler 6 weeks after opening or when the counter reads '0' (after all blisters have been used), whichever comes first. 60 Each 2 024 2023 Discontinued(P harmacist change per medication history (E-cancel not sent)) rivaroxaban (Xarelto) 20 mg tabletIndications:Chron ic atrial fibrillation (HC),Typical atrial flutter (HC) Take 1 Tablet (20 mg) by mouth once daily with evening meal. Wait until they call for this. 90 Tablet 3 024 2023 Discontinued(* IP Discontinued) lisinopriL (PRINIVIL; ZESTRIL) 10 mg tablet Take 10 mg by mouth once daily. 2023 Discontinued spironolactone (ALDACTONE) 25 mg tabletIndications:Ische eileen cardiomyopathy Take 1 Tablet (25 mg) by mouth every morning. 90 Tablet 1 024 2023 Discontinued torsemide (DEMADEX) 20 mg tabletIndications:Acute on chronic HFrEF (heart failure with reduced ejection fraction) (HC),Ischemic cardiomyopathy Take 2 Tablets (40 mg) by mouth once daily. 180 Tablet 1 024 2023 Discontinued tamsulosin (FLOMAX) 0.4 mg capsuleIndications:Wilbur gn prostatic hyperplasia with nocturia Take 1 Capsule (0.4 mg) by mouth once daily in the evening. 90 Capsule 3 024 2023 Discontinued amLODIPine (NORVASC) 5 mg tabletIndications:Cardi ovascular symptoms,Pulmonary hypertension (HC),Essential hypertension with goal blood pressure less than 140/90 Take 1 Tablet (5 mg) by mouth once daily. 31 Tablet 2 024 2023 Discontinued(* IP Discontinued) apixaban (ELIQUIS) 2.5 mg tabletIndications:preve nt thromboembolism in chronic atrial fibrillation Take 1 Tablet (2.5 mg) by mouth two times daily. 60 Tablet 024 2023 Discontinued(* IP Discontinued) apixaban (ELIQUIS) 2.5 mg tabletIndications:preve nt thromboembolism in chronic atrial fibrillation Take 1 Tablet (2.5 mg) by mouth two times daily. 60 Tablet 024 2023 Discontinued(* IP Discontinued) spironolactone (ALDACTONE) 25 mg tabletIndications:Ische eileen cardiomyopathy Take 0.5 Tablets (12.5 mg) by mouth once daily in the morning. 024 2023 Discontinued(* Med complete/Regim en complete/Level of care change) Active Problems Problem Noted Date Diagnosed Date Cerebrovascular accident (CVA) 12/11/2023 Acute ischemic stroke 12/08/2023 Internal carotid artery occlusion, right 024 Chronic respiratory failure with hypoxia (HC)-2 LPM oxygen with sleep 11/30/2023 Severe tricuspid regurgitation - symptomatic 04/2024 Chronic diastolic CHF (congestive heart failure) 11/29/2023 Stage 3 chronic kidney disease 11/29/2023 Hemoptysis 10/21/2023 Pulmonary hypertension 09/20/2023 COPD with chronic bronchitis 08/26/2023 Peripheral vascular disease 08/10/2021 Arthritis of right hand 01/09/2020 Chronic atrial fibrillation 08/01/2019 Overview: To stay on Xarelto for life per Dr Ortiz (Cardiology) 11/2018 Atrial arrhythmia 10/17/2017 Overview: Fluctuates between atypical atrial flutter, atrial fibrillation and NSR. Cardiology recommends aspirin 81 for one month after stent on 10/13/17. Then off for 11 months then back on after a year. Plavix for one year after stent then stop. Xarelto for life. Benign prostatic hyperplasia with nocturia 10/17 Essential hypertension with goal blood pressure less than 140/90 11/19/2015 Overview: Home blood pressure cuff very similar to clinic blood pressure cuff on 10/25/2023. Gout, unspecified 11/18/2009 Pure hypercholesterolemia 11/02/2006 Coronary artery disease invo lving coronary bypass graft of marshall heart with unstable angina pectoris Overview: - 10/12/17: s/p GABBY SVG - OM1; unsuccessful attempted PCI of RPL Resolved Problems Problem Noted Date Diagnosed Date Resolved Date Acute respiratory failure with hypoxia 09/20/2023 10/25/2023 Obesity, Class II, BMI 35-39.9 06/21/2016 11/30/2023 Encounters Date Type Department Care Team Description 12/17/2023 Nurse Triage [facility] [address] [place] [address] Flakito Ling MD Low Blood Pressure 12/14/2023 1:30 PM CDT Home Care Visit [facility] [address] [place] [address] Mike King, PT PT - NOT TAKEN UNDER HOME CARE - HOME VISIT 12/12/2023 Orders Only [facility] [address] [place] [address] Raymundo Williamson MD <No scans attached> 12/12/2023 Patient Outreach [facility] [address] [place] [address] Inocencia Valentino RN Primary RN Care Management; Hospital F/U (LACE 46/) 12/08/2023 7:53 AM CDT Anesthesia Event [facility] [address] [place] [address] Raul Bill MD 12/08/2023 6:16 AM CDT - 12/11/2023 5:10 PM CDT Hospital Encounter [facility] [address] [place] [address] Raymundo Williamson MD Litell, John Martin, DO Anderson, MD Gilberto Jackson Nadira, [facility] Cheli Juárez, AICHA Sharma, Jaqueline Dsouza MD [facility], [facility] Hospitalists Of Chronic atrial fibrillation (HC) (Primary Dx); Permanent atrial fibrillation (HC); Benign prostatic hyperplasia with nocturia; Acute ischemic stroke (HC); Ischemic cardiomyopathy; Chronic respiratory failure with hypoxia (HC)-2 LPM oxygen with sleep Discharge Disposition: Home Health 12/08/2023 Telephone [facility] [address] [facility] [place] [address] Flakito Ling MD Abnormal Lab Results 12/07/2023 11:45 AM CDT Office Visit [facility] [address] [facility] [place] [address] Flakito Ling MD Hospital F/U ([facility] 12/01 - severe tricuspid regurgitation - symptomatic); Preoperative Exam (12/08/2023) 12/07/2023 Travel 12/05/2023 Travel 12/05/2023 Patient Outreach [facility] [address] [place] [address] Inocencia Valentino RN Primary RN Care Management; Hospital F/U (LACE 59) 12/03/[address] [facility] [place] [address] MiJeb rodriguez MD Concerns 12/02/2023 Orders Only [facility] [address] [facility] [address] [place] [address] Raymundo Williamson MD <No scans attached> 11/30/2023 9:00 PM CDT Hospital Encounter [facility] [address] [place] [address] [facility], [facility] Hospitalists Of 11/30/2023 11:49 AM CDT Anesthesia Event [facility] [address] [place] [address] Jaqueline Sharma MD Robinson, Justin C, CRNA 11/30/2023 9:34 AM CDT - 12/02/2023 1:50 PM CDT Hospital Encounter [facility] [address] [place] [address] Mitesh Mann MD [facility] Hospitalists Teresita Gandara MD Permanent atrial fibrillation (HC); Acute on chronic HFrEF (heart failure with reduced ejection fraction) (HC); Ischemic cardiomyopathy Discharge Disposition: Home Self Care 11/30/2023 Travel 11/29/2023 1:30 PM CDT Office Visit [facility] [address] [place] [address] Flakito Ling MD Hospital F/U ([place] 11/22 - Right heart catheter) 11/28/2023 Telephone [facility] [address] [facility] [address] [place] [address] Rafiq Arriaga MD Procedure 11/28/2023 Travel 11/27/2023 Telephone [facility] [address] [place] [address] Flakito Ling MD Appointment Request (Appointment ) 11/25/2023 Telephone [facility] [address] [address] Rafiq Arriaga MD Questions 11/24/2023 Telephone [facility] [address] [place] [address] Flakito Ling MD Blood Pressure (READINGS); [facility] 11/23/2023 11:46 AM CDT - 11/23/2023 5:15 PM CDT Hospital Encounter [facility] [address] [place] [address] Jessica Gee MD Pulmonary hypertension (HC) (Primary Dx); Cardiovascular symptoms; Essential hypertension with goal blood pressure less than 140/90; Precapillary pulmonary hypertension (HC); Chronic atrial fibrillation (HC) Discharge Disposition: Home Self Care 11/23/2023 Travel 11/22/2023 Telephone [facility] [address] [address] Qing Hobbs RN Pre Procedure 11/21/2023 11:00 AM CDT Telemedicine [facility] [address] [address] Fredi Gandhi MD VIRTUAL VISIT (Virtual visit: second MD visit for Watchronnie) 11/21/2023 Travel 11/07/2023 Telephone [facility] [address] [address] Shital Almeida, RN Grupo 11/04/2023 8:15 AM CDT Orders Only [facility] [address] [place] [address] Lab, [place] Lab 11/04/2023 Travel 11/03/2023 Telephone [facility] [address] [facility] [address] [place] [address] Jessica Gee MD Follow Up 11/02/2023 8:00 AM CDT Office Visit [facility] [address] [place] [address] Rafiq Arriaga MD CV Electrophysiology New (Flakito Ling MD) 11/02/2023 Travel 11/01/2023 Orders Only [facility] [address] [place] [address] Adeel Loomis MD <No scans attached> 10/31/2023 Travel 10/31/2023 Orders Only [facility] [address] [place] [address] Adeel Loomis MD <No scans attached> 10/25/2023 8:20 AM CDT Office Visit [facility] [address] [place] [address] Flakito Ling MD Medicare ANNUAL (subsequent) Visit (84 years) 10/25/2023 Travel 10/23/2023 Travel 10/21/2023 10:10 AM CDT - 10/21/2023 10:55 AM CDT Surgery [address] [address] Gavin Hackett, DO BRONCHOSCOPY WITH BRONCHOALVEOLAR LAVAGE 10/21/2023 8:33 AM CDT - 10/21/2023 1:30 PM CDT Hospital Encounter [address] [address] Gavin Hackett, DO Discharge Disposition: Home Self Care 10/20/2023 11:30 AM CDT Office Visit [facility] [address] [facility] [address] [place] [address] Jessica Gee MD CV Congenital Heart Disease Est (1 mo f/u//PCP: Flakito Ling MD ) 10/20/2023 Orders Only [facility] [address] [place] [address] Jessica Gee MD <No scans attached> 10/20/2023 Telephone [facility] [address] [place] [address] Jessica Gee MD Follow Up (SGLT2 Coverage) 10/20/2023 Travel 10/19/2023 8:00 AM CDT Orders Only [facility] [address] [place] [address] Briseyda Wiley Lab 10/18/2023 Travel 10/17/2023 12:40 PM CDT Ancillary Procedure [facility] [address] [place] [address] 10/17/2023 11:30 AM CDT Office Visit [facility] [address] [place] [address] Gavin Hackett DO Follow Up (3 month COPD) 10/17/2023 Travel 10/12/2023 10:45 AM CDT Orders Only [facility] [address] [place] [address] 2 scans: (2-Ord) US ANKLE BRACHIAL INDEX BILATERAL ([id number]) 10/12/2023 Telephone [facility] [address] [place] [address] Jessica Gee MD Blood Pressure 10/12/2023 Travel 10/12/2023 Orders Only [facility] [address] [place] [address] Jessica Gee MD <No scans attached> 10/12/2023 Telephone [facility] [address] [place] [address] Flakito Ling MD Lab 10/10/2023 8:30 AM CDT Orders Only [facility] [address] [facility] Lab 10/10/2023 Travel 10/06/2023 Travel 10/05/2023 5:30 AM CDT - 10/05/2023 11:59 PM CDT Hospital Encounter [facility] [address] [place] [address] Jessica Gee MD Acute on chronic HFrEF (heart failure with reduced ejection fraction) (HC) 10/04/2023 7:50 AM CDT Orders Only [facility] [address] [facility] [place] [address] [facility] 10/04/2023 Travel 09/30/2023 Orders Only [facility] Staff, Other Clinical 1 scan: (1-Ord) [facility] 09/30/2023 Orders Only [facility] Staff, Other Clinical 1 scan: (1-Ord) [facility] 09/30/2023 Orders Only [facility] Staff, Other Clinical 1 scan: (1-Ord) [facility] 09/30/2023 Telephone [facility] [address] [facility] [address] [place] [phone] Jessica Gee MD Follow Up 09/30/2023 Travel 09/29/2023 Telephone [facility] [address] [place] [address] lFakito Ling MD Abnormal Lab Results 09/27/2023 Orders Only [facility] Staff, Other Clinical 1 scan: (1-Ord) [facility] 09/27/2023 Telephone [facility] [address] [facility] [address] [place] [phone] Jessica Gee MD Lab 09/26/2023 10:45 AM CDT Orders Only [facility] [address] [place] [address] Lab, [place] Outside Order (Dr. Jessica Gee) 09/26/2023 Travel 09/23/2023 Telephone [facility] [address] [place] [address] Jessica Gee MD Results 09/22/2023 2:00 PM CDT Orders Only [facility] [address] [place] [address] 4 scans: (4-Ord) [facility] 09/21/2023 1:30 PM CDT Office Visit [facility] [address] [facility] [address] [place] [address] Jessica Gee MD Heart Problem (Arteriosclerotic heart disease) 09/21/2023 Travel 09/20/2023 3:10 PM CDT Office Visit [facility] [address] [place] [address] Flakito Ling MD Breathing Problem (Been feeling more short of breath than his usual baseline for the past 2 weeks, per Yohan); Leg Swelling (Bilateral lower leg swelling x 2 weeks) 09/20/2023 Travel 09/16/2023 Travel from Last 3 Months Immunizations Name Administration Dates Next Due COVID-19 vaccine (Dolosys-Bio NTech 30mcg/0.3mL) GENARO BAER 04/06/2021,07/24/2020,07/03/2020 Influenza A (H1N1), Inactivated 06/30/2009 Influenza A (H1N1), Inactiva eliana (Age >=3 Years) 05/09/2009 Influenza Virus, Unspecified 06/20/2022, 04/06/2021,04/25/2020,2019,07/07/2018,02/19/2016,05/14/2014,1 07/09/2011,03/21/2009 Influenza, High-dose Inactivated 06/21/2016 Influenza, High-dose Quadriv alent Inactivated 06/17/2023,04/06/2021,04/25/2020 Influenza, IIV3 (Age 6-35 mos) 05/09/2012,2010 Influenza, IIV3 (Age >=3 years) 05/08/20 12,03/10/2011,04/06/2010,2008,05/08/2004,05/08/2003 Influenza, Inactivated AIIV4 (Age 65+ Years) Preserv Free 03/25/2022 Influenza, Inactivated IIV3 (Age 65+ Years) Preserv Free 08/01/2019,07/07/2018 Pneumococcal Poly,23-Valent (Pneumovax) 06/20/2009,12/18/2008 Pneumococcal conj 13-Valent (Prevnar 13) 11/24/2016 Pneumococcal, Unspecified 06/20/2019 TD, UNSPECIFIED 12/15/2007 Td (Age >=7 Years) 02/22/1989 Td, Preservative Free (age > = 7 Years) 12/15/2007 Tdap 09/27/2023, 3,05/08/2012,2011 Family History Medical History Relation Name Comments Diabetes Brother 1 developed in hi s late 40s; below the knee amputation Heart failure Brother 1 at 67 of chf Heart Disease Brother 2 at 68 of a heart attack Other Brother 3 in infancy probable sids Heart Disease Father at 57 of a coronary occlusion Diabetes Mother developed in he r late 50s; at 78 of CHF and diabetes Heart Disease Sister at 24 of heart problems Relation Name Status Comments Brother 1 (Age 67) Brother 2 (Age 68) Brother 3 (Age around 4 month s) Father Mother Sister (Age 24) Social History Tobacco Use Types Packs/Day Years Used Date Smoking Tobacco: Never Smokeless Tobacco: Never Tobacco Cessation:Counseling Given: Yes Alcohol Use Standard Drinks/Week Comments No 0 (1 standard drink = 0.6 oz pur e alcohol) PHQ-2 Answer Date Recorded PHQ-2 TOTAL SCORE 0 10/25/2023 Social Connections Answer Date Recorded Frequency of Communication with Friends and Fami ly 0 03/28/2023 Financial Resource Strain Answer Date R ecorded Difficulty of Paying Living Expenses 3 03/28/2023 Difficulty of Paying Living Expenses Not on file 03/28/2023 Food Insecurity Answer Date Recorded Worried About Running Out of Food in the Last Ye ar 1 03/28/2023 Transportation Needs Answer Date Record ed Lack of Transportation (Medical) 1 03/28/2023 Housing Stability Answer Date Recorded Unable to Pay for Housing in the Last Year 1 03/28/2023 Sex and Gender Information Value Date Recorded Sex Assigned at Not on file Gender Identity Not on file Sexual Orientation Not on file Obstetrics History Last Filed Vital Signs Vital Sign Reading Time Taken Comments Blood Pressure 130/60 12/14/2023 1:36 PM CDT Pulse 78 12/14/2023 1:36 PM CDT Temperature 36.8 ??C (98.2 ??F) 12/14/2023 1:36 PM CD T Respiratory Rate 16 12/14/2023 1:36 PM CDT Oxygen Saturation 97% 12/14/2023 1:36 PM CDT Inhaled Oxygen Concentration - - Weight 78.4 kg (172 lb 13.5 oz) 024 12:00 AM CDT Height 175.3 cm (5' 9) 12/08/2023 7:00 AM CDT Body Mass Index 25.52 12/08/2023 7:00 AM CDT Plan of Treatment Upcoming Encounters Date Type Department Care Team (Late st Contact Info) Description 12/19/2023 1:10 PM CDT Office Visit [facility] [address] [place] [address] Jaqueline Roberts PA [address] [place] [address] 01/23/2024 9:00 AM CDT Appointment [facility] [address] [place] [address] 01/23/2024 11:00 AM CDT Office Visit [facility] [address] [facility] [address] [place] [phone] Hans Schneider PA [address] [facility] [address] [place] [address] Health Maintenance Due Date Last Done Comments Zoster (shingles) series for age 50+ (1 of 2) 1989 COVID-19 vaccine series ( season) 2023 07/15/2023, 04/06/2021, 07/24/2020, Additional history exists Influenza for age 65+ 02/19/2024 06/17/2023 , 06/20/2022, 03/25/2022, Additional history exists Depression screening for age 12+ 10/24/2024 10/25/2023, 10/25/2022, 10/22/2022, Additional history exists Medicare Wellness for age 65+ 10/25/2024, 10/22/2022, 08/10/2021, Additional history exists BMI (ht and wt on same day) for age 18+ 11/01/2024 11/02/2023, 10/25/2023, 10/20/2023, Additional history exists Tetanus booster 09/26/2033 09/27/2023, 10/18, 05/08/2012, Additional history exists Pneumococcal series for age 65+ Completed 06/20/2019, 11/24/2016, 06/20/2009, Additional history exists Tdap Completed 09/27/2023, 10/18, 05/08/2012, Additional history exists Procedures Procedure Name Priority Date/Time Associated Diagnosis Comments CREATININE Early AM 12/11/2023 7:04 AM CDT POTASSIUM Early AM 12/11/2023 7:04 AM CDT SODIUM Early AM 12/11/2023 7:04 AM CDT CBC W PLT NO DIFF Early AM 12/11/2023 7:04 AM CDT SCAN-CARDIAC STRIP 12/11/2023 3:21 AM CDT SCAN-CARDIAC STRIP 12/10/2023 4:04 PM CDT SCAN-CARDIAC STRIP 12/10/2023 7:30 AM CDT CBC W PLT NO DIFF Early AM 12/10/2023 4:41 AM CDT BASIC METABOLIC PANEL Early AM 12/10/2023 4:41 AM CDT SCAN-CARDIAC STRIP 12/09/2023 8:00 PM CDT XR VIDEO SWALLOW W SPEECH Routine 12/09/2023 12:18 PM CDT SCAN-CARDIAC STRIP 12/09/2023 7:14 AM CDT CBC WITH AUTO DIFFERENTIAL Early AM 12/09/2023 4:31 AM CDT HEMOGLOBIN A1C SCREENING Early AM 12/09/2023 4:31 AM CDT CBC WITH AUTO DIFFERENTIAL Early AM 12/09/2023 4:31 AM CDT LIPID PANEL Early AM 12/09/2023 4:31 AM CDT PROTIME-INR Early AM 12/09/2023 4:31 AM CDT APTT Early AM 12/09/2023 4:31 AM CDT GLUCOSE METER Timed 12/09/2023 1:01 AM CDT MR HEAD BRAIN WO Routine 12/09/2023 12:30 AM CDT GLUCOSE METER Timed 12/08/2023 6:13 PM CDT SCAN-CARDIAC STRIP 12/08/2023 3:[address] ANGIO HEAD AND NECK CAROTID STAT 12/08/2023 2:[address] HEAD BRAIN WO STAT 12/08/2023 2:35 PM CDT GLUCOSE METER Timed 12/08/2023 2:21 PM CDT ECHO JEAN CARLOS TRANSCATHETER INTRAOP PROCEDURE Routine 12/08/2023 12:18 PM CDT Permanent atrial fibrillation (HC) CV PROCEDURE TO BE PERFORMED Routine 12/08/2023 11:26 AM CDT HCHG ACTIVATED CLOTTING TM CV Timed 12/08/2023 9:12 AM CDT EP OTHER PROCEDURE Routine 12/08/2023 8:54 AM CDT ENDOTRACHEAL TUBE Routine 12/08/2023 8:13 AM CDT ENDOTRACHEAL TUBE Routine 12/08/2023 8:13 AM CDT ENDOTRACHEAL TUBE Routine 12/08/2023 8:13 AM CDT EXTRA TUBE GOLD/SST Today 12/08/2023 6:42 AM CDT BASIC METABOLIC PANEL Preop 12/08/2023 6:42 AM CDT CBC W PLT NO DIFF Preop 12/08/2023 6:42 AM CDT EKG 12 LEAD Preop 12/08/2023 6:35 AM CDT SCAN-CARDIAC STRIP 12/08/2023 12:00 AM CDT HEMOGLOBIN Routine 12/07/2023 1:21 PM CDT Orthostatic lightheadedness BASIC METABOLIC PANEL Routine 12/07/2023 1:21 PM CDT Essential hypertension with goal blood pressure less than 140/90 SCAN-CARDIAC STRIP 12/02/2023 8:55 AM CDT CREATININE LYLE 12/02/2023 8:30 AM CDT MAGNESIUM Early AM 12/02/2023 8:30 AM CDT POTASSIUM Early AM 12/02/2023 8:30 AM CDT SCAN-CARDIAC STRIP 12/01/2023 10:00 PM CDT SCAN-CARDIAC STRIP 12/01/2023 3:37 PM CDT SCAN-CARDIAC STRIP 12/01/2023 3:37 PM CDT SEDIMENTATION RATE Today 12/01/2023 3:12 PM CDT C-REACTIVE PROTEIN Timed 12/01/2023 3:11 PM CDT CTA CHEST ABDOMEN PELVIS - DUAL Routine 12/01/2023 8:[address] CARDIAC MORPHOLOGY W DUAL READ Routine 12/01/2023 8:30 AM CDT SCAN-CARDIAC STRIP 12/01/2023 7:32 AM CDT PERIPHERAL BLD MORPHOLOGY Early AM 12/01/2023 5:43 AM CDT CBC WITH AUTO DIFFERENTIAL LYLE 12/01/2023 5:43 AM CDT CBC WITH AUTO DIFFERENTIAL LYLE 12/01/2023 5:43 AM CDT VITAMIN B12 Early AM 12/01/2023 5:43 AM CDT RETICULOCYTES LYLE 12/01/2023 5:43 AM CDT C-REACTIVE PROTEIN LYLE 12/01/2023 5:43 AM CDT HEPATIC FUNCTION PANEL Early AM 12/01/2023 5:43 AM CDT BASIC METABOLIC PANEL Early AM 12/01/2023 5:43 AM CDT SCAN-CARDIAC STRIP 12/01/2023 2:15 AM CDT SCAN-CARDIAC STRIP 11/30/2023 10:10 PM CDT MR HEAD BRAIN STROKE WWO MR ANGIO HEAD WO NECK WWO Routine 11/30/2023 9:47 PM CDT ECHO JEAN CARLOS TRANSCATHETER INTRAOP PROCEDURE Routine 11/30/2023 4:19 PM CDT Permanent atrial fibrillation (HC) SCAN-CARDIAC STRIP 11/30/2023 3:33 PM CDT SOLUBLE TRANSFERRIN EDGE CUTTER LYLE 11/30/2023 3:32 PM CDT IRON PLUS IRON BINDING CAP LYLE 11/30/2023 3:32 PM CDT FERRITIN LYLE 11/30/2023 3:32 PM CDT BASIC METABOLIC PANEL Preop 11/30/2023 3:32 PM CDT CBC W PLT NO DIFF Preop 11/30/2023 3:32 PM CDT BLOOD CULTURE Today 11/30/2023 3:31 PM CDT BLOOD CULTURE Today 11/30/2023 1:40 PM CDT ENDOTRACHEAL TUBE Routine 11/30/2023 12:45 PM CDT ENDOTRACHEAL TUBE Routine 11/30/2023 12:45 PM CDT EKG 12 LEAD Preop 11/30/2023 11:30 AM CDT EP OTHER PROCEDURE Routine 11/30/2023 11:14 AM CDT COMPREHENSIVE BLOOD GAS MIXED VENOUS Timed 11/23/2023 4:42 PM CDT COMPREHENSIVE BLOOD GAS MIXED VENOUS Timed 11/23/2023 4:32 PM CDT CVL OTHER PROCEDURE Routine 11/23/2023 4:10 PM CDT Cardiovascular symptoms RA QUANTITATIVE LYLE 11/23/2023 12:50 PM CDT ANTI HIV 1/2 LYLE 11/23/2023 12:50 PM CDT HEPATIC FUNCTION PANEL LYLE 11/23/2023 12:50 PM CDT CBC WITH AUTO DIFFERENTIAL STAT 11/23/2023 12:50 PM CDT BASIC METABOLIC PANEL STAT 11/23/2023 12:50 PM CDT CBC WITH AUTO DIFFERENTIAL STAT 11/23/2023 12:50 PM CDT PROTEIN/CREAT RATIO,URINE Routine 11/04/2023 8:13 AM CDT Acute kidney injury (MARY) with acute tubular necrosis (ATN) (HC) UA W/ SEDIMENT EXAM REFLEXED PER CRITERIA Routine 11/04/2023 8:13 AM CDT Acute kidney injury (MARY) with acute tubular necrosis (ATN) (HC) IMMUNOFIXATION,SERU M Routine 11/04/2023 8:11 AM CDT Acute kidney injury (MARY) with acute tubular necrosis (ATN) (HC) BASIC METABOLIC PANEL Add On 11/04/2023 8:11 AM CDT Acute on chronic diastolic heart failure (HC) SEDIMENTATION RATE Routine 11/04/2023 8:11 AM CDT Hemoptysis C-REACTIVE PROTEIN Routine 11/04/2023 8:11 AM CDT Hemoptysis PRO-BNP Routine 11/04/2023 8:11 AM CDT Acute kidney injury (MARY) with acute tubular necrosis (ATN) (HC) RENAL FUNCTION PANEL Routine 11/04/2023 8:11 AM CDT Acute kidney injury (MARY) with acute tubular necrosis (ATN) (HC) PROTEIN ELP SERUM W REFLEX Routine 11/04/2023 8:11 AM CDT Acute kidney injury (MARY) with acute tubular necrosis (ATN) (HC) [facility] HOLD 64 Routine 11/04/2023 8:11 AM CDT Acute kidney injury (MARY) with acute tubular necrosis (ATN) (HC) ANCA PANEL FOR VASCULITIS Routine 11/04/2023 8:11 AM CDT Acute kidney injury (MARY) with acute tubular necrosis (ATN) (HC) ANTINUCLEAR ANTIBODY BY IFA Routine 11/04/2023 8:11 AM CDT Acute kidney injury (MARY) with acute tubular necrosis (ATN) (HC) AFB CULTURE, STAIN Today 10/21/2023 10:58 AM CDT BRONCHIAL CULTURE, STAIN Today 10/21/2023 10:58 AM CDT ELIZABETH PREP, OTHER SOURCE Today 10/21/2023 10:58 AM CDT FUNGUS CULT, OTHER SOURCE Today 10/21/2023 10:58 AM CDT BRONCHOSCOPY W BAL 10/21/2023 10:36 AM CDT Hemoptysis Case Notes [facility]ERAGE- 1015 Special Needs HT 5'8 WT 230NO HEALTH ALERTS BRONCHOSCOPY 10/21/2023 10:13 AM CDT EKG 12 LEAD Routine 10/20/2023 11:04 AM CDT Chronic atrial fibrillation (HC) PRO-BNP Routine 10/19/2023 7:37 AM CDT Acute on chronic HFrEF (heart failure with reduced ejection fraction) (HC) BASIC METABOLIC PANEL Routine 10/19/2023 7:37 AM CDT Acute on chronic HFrEF (heart failure with reduced ejection fraction) (HC) XR CHEST 2 VIEWS PA AND LATERAL Routine 10/17/2023 12:47 PM CDT Hemoptysis EXTENDED HOLTER Routine 10/13/2023 Atrial flutter, unspecified type (HC) US ANKLE BRACHIAL INDEX BILATERAL Routine 10/12/2023 10:58 AM CDT Claudication (HC) PSA TOTAL SCREEN Add On 10/10/2023 8:16 AM CDT Prostate cancer screening BASIC METABOLIC PANEL Routine 10/10/2023 8:16 AM CDT Ischemic cardiomyopathy Acute on chronic HFrEF (heart failure with reduced ejection fraction) (HC) CARDIAC WWO LYLE 10/05/2023 6:46 AM CDT Acute on chronic HFrEF (heart failure with reduced ejection fraction) (HC) BASIC METABOLIC PANEL Routine 10/04/2023 7:41 AM CDT Pre-procedure lab exam SCAN CORRESP-LABORATORY RESULTS 09/30/2023 2:34 PM CDT SCAN CORRESP-LABORATORY RESULTS 09/30/2023 2:28 PM CDT SCAN CORRESP-LABORATORY RESULTS 09/30/2023 2:28 PM CDT SCAN CORRESP-LABORATORY RESULTS 09/27/2023 5:00 PM CDT IMMUNOFIXATION ELP, URINE Routine 09/26/2023 11:04 AM CDT Acute on chronic HFrEF (heart failure with reduced ejection fraction) (HC) IMMUNOFIXATION,SERU M Routine 09/26/2023 10:59 AM CDT Acute on chronic HFrEF (heart failure with reduced ejection fraction) (HC) CBC WITH AUTO DIFFERENTIAL Routine 09/26/2023 10:59 AM CDT Chronic atrial fibrillation (HC) ELP AND FREE LIGHT CHAINS W REFLEX, BLOOD Routine 09/26/2023 10:59 AM CDT Acute on chronic HFrEF (heart failure with reduced ejection fraction) (HC) FERRITIN Routine 09/26/2023 10:59 AM CDT Acute on chronic HFrEF (heart failure with reduced ejection fraction) (HC) TSH Routine 09/26/2023 10:59 AM CDT Acute on chronic HFrEF (heart failure with reduced ejection fraction) (HC) CBC WITH AUTO DIFFERENTIAL Routine 09/26/2023 10:59 AM CDT Chronic atrial fibrillation (HC) ALT (SGPT) Routine 09/26/2023 10:59 AM CDT Pure hypercholesterolemia LIPID PANEL W REFLEX MEASURED LDL Routine 09/26/2023 10:59 AM CDT Pure hypercholesterolemia BASIC METABOLIC PANEL Routine 09/26/2023 10:59 AM CDT Essential hypertension with goal blood pressure less than 140/90 PRO-BNP Routine 09/26/2023 10:59 AM CDT Right-sided heart failure, unspecified HF chronicity (HC) SCAN CORRESP-LABORATORY RESULTS 09/23/2023 8:40 AM CDT ECHO TTE LIMITED W CONTRAST W COLOR W DOPPLER LYLE 09/22/2023 2:47 PM CDT Ischemic cardiomyopathy Acute on chronic HFrEF (heart failure with reduced ejection fraction) (HC) SCAN CORRESP-LABORATORY RESULTS 09/22/2023 12:27 PM CDT SCAN CORRESP-LABORATORY RESULTS 09/22/2023 12:20 PM CDT CREATININE,ISTAT Routine 09/22/2023 10:59 AM CDT Pre-procedure lab exam from Last 3 Months Results * (ABNORMAL) CBC no diff AM (12/11/2023 7:04 AM CDT) Only the most recent of4 resultswithin the time period is included. WHITE BLOOD COUNT 5.5 4.5 - 11.0 thou/cu mm 12/11/2023 7:26 AM CDT [facility] RED BLOOD COUNT 3.17(L) 4.30 - 5.90 mil/cu mm 12/11/2023 7:26 AM CDT [facility] HEMOGLOBIN 8.9(L) 13.5 - 17.5 g/dL 12/11/2023 7:26 AM T [facility] HEMATOCRIT 27.4(L) 37.0 - 53.0 % 12/11/2023 7:26 AM T [facility] MCV 86 80 - 100 fL 12/11/2023 7:26 AM T [facility] MCH 28.1 26.0 - 34.0 pg 12/11/2023 7:26 AM T [facility] MCHC 32.5 32.0 - 36.0 g/dL 12/11/2023 7:[address] [facility] RDW 17.1(H) 11.5 - 15.5 % 12/11/2023 7:[address] [facility] PLATELET COUNT 121(L) 140 - 440 thou/cu mm 12/11/2023 7:26 AM T [facility] MPV 10.7 6.5 - 11.0 fL 12/11/2023 7:[address] [facility] NRBC 0.0 % 12/11/2023 7:[address] [facility] ABS NRBC 0.0 thou /cu mm 12/11/2023 7:[address] [facility] Blood BLOOD SPECIMEN / Unknown Venipuncture / Unknown 12/11/2023 7:04 AM CDT 12/11/2023 7:13 AM CDT Yvette Fernandez MD HEMATOLOGY [facility] [address] [place] [address], * (ABNORMAL) SODIUM (12/11/2023 7:04 AM CDT) SODIUM 133(L) 136 - 145 mmol/L 12/11/2023 7:47 AM T [facility] Blood BLOOD SPECIMEN / Unknown Venipuncture / Unknown 12/11/2023 7:04 AM CDT 12/11/2023 7:13 AM CDT Yvette Fernandez MD CHEMISTRY [facility] [address] [place] [id number], [place] * POTASSIUM (12/11/2023 7:04 AM CDT) Only the most recent of2 resultswithin the time period is included. POTASSIUM 4.3 3.5 - 5.1 mmol/L 12/11/2023 7:47 AM CDT [facility] Blood BLOOD SPECIMEN / Unknown Venipuncture / Unknown 12/11/2023 7:04 AM CDT 12/11/2023 7:13 AM CDT Yvette Fernandez MD CHEMISTRY Performing Organization Address City/[facility] Co de Phone Number [facility] [address] [place] [id number], [place] * (ABNORMAL) CREATININE (12/11/2023 7:04 AM CDT) Only the most recent of2 resultswithin the time period is included. eGFR 56(L) >90 mL/min/1.7 3m2 12/11/2023 7:47 AM CDT [facility] Comment:As of 2021, eG FR is calculated by the CKD-EPI creatinine equation without race adjustment. ??eGFR can be influenced by muscle mass, exercise, and diet. ??The reported eGFR is an estimation only and is only applicable if the renal function is stable. CREATININE 1.26(H) 0.70 - 1.20 mg/dL 12/11/2023 7:47 AM CDT [facility] Blood BLOOD SPECIMEN / Unknown Venipuncture / Unknown 12/11/2023 7:04 AM CDT 12/11/2023 7:13 AM CDT Yvette Fernandez MD CHEMISTRY [facility] [address] [place] [address], * SCAN-CARDIAC STRIP (12/11/2023 3:21 AM CDT) Scanner OTHER * SCAN-CARDIAC STRIP (12/10/2023 4:04 PM CDT) Scanner OTHER * SCAN-CARDIAC STRIP (12/10/2023 7:30 AM CDT) Scanner OTHER * (ABNORMAL) BASIC METABOLIC PANEL (12/10/2023 4:41 AM CDT) Only the most recent of11 resultswithin the time period is included. SODIUM 135(L) 136 - 145 mmol/L 12/10/2023 5:20 AM CDT [facility] POTASSIUM 4.7 3.5 - 5.1 mmol/L 12/10/2023 5:20 AM CDT [facility] CHLORIDE 100 98 - 107 mmol/L 12/10/2023 5:20 AM CDT [facility] CO2,TOTAL 27 22 - 29 mmol/L 12/10/2023 5:20 AM CDT [facility] ANION GAP 8 5 - 18 12/10/2023 5:20 AM CDT [facility] GLUCOSE 93 70 - 99 mg/dL 12/10/2023 5:20 AM CDT [facility] CALCIUM 8.9 8.8 - 10.2 mg/dL 12/10/2023 5:20 AM CDT [facility] BUN 24(H) 8 - 23 mg/dL 12/10/2023 5:20 AM CDT [facility] CREATININE 1.21(H) 0.70 - 1.20 mg/dL 12/10/2023 5:20 AM CDT [facility] BUN/CREAT RATIO 20 10 - 20 4 5:20 AM CDT [facility] eGFR 59(L) >90 mL/min/1.7 3m2 12/10/2023 5:20 AM CDT [facility] Comment:As of 2021, eG FR is calculated by the CKD-EPI creatinine equation without race adjustment. ??eGFR can be influenced by muscle mass, exercise, and diet. ??The reported eGFR is an estimation only and is only applicable if the renal function is stable. Blood BLOOD SPECIMEN / Unknown Non-Lab Venipuncture / Unknown 12/10/2023 4:41 AM CDT 12/10/2023 4:49 AM CDT Zita Kee [employer] CHEMISTRY [facility] [address] [place] [address], * SCAN-CARDIAC STRIP (12/09/2023 8:00 PM CDT) Scanner OTHER * XR VIDEO SWALLOW AND TREATMENT W SPEECH (12/09/2023 12:18 PM CDT) Anatomical Region Laterality Modality Esophagus Digital Radiogra phy Narrative 12/09/2023 12:26 PM CDT EXAM: XR VIDEO SWALLOW W SPEECH DATE OF EXAM: 12/09/2023 Patient: Yohan Hare (1940), CLINICAL HISTORY: Assess swallow for aspiration. TECHNIQUE: Fluoroscopy was provided for speech pathologist during video swallow study. FINDINGS: Patient was given barium of varying consistencies to ingest. There was small volume aspiration during ingestion of thin barium liquids, mostly observed post-swallow, on small volume residue. There was laryngeal penetration during ingestion of nectar thick barium. ??There were was no laryngeal penetration or aspiration observed during ingestion of pudding thick barium and barium coated cracker. Please see the report by the speech pathologist for further details and recommendations. FLUOROSCOPY TIME: 2 minutes VAIBHAV [employer] [facility] Radiology Dept. Terese Allen [employer] SUPERINTENDENT FLUOROSCOPY * SCAN-CARDIAC STRIP (12/09/2023 7:14 AM CDT) Scanner OTHER * (ABNORMAL) CBC WITH AUTO DIFFERENTIAL (12/09/2023 4:31 AM CDT) Only the most recent of4 resultswithin the time period is included. WHITE BLOOD COUNT 5.2 4.5 - 11.0 thou/cu mm 12/09/2023 5:18 AM CDT [facility] RED BLOOD COUNT 3.52(L) 4.30 - 5.90 mil/cu mm 12/09/2023 5:18 AM CDT [facility] HEMOGLOBIN 10.0(L) 13.5 - 17.5 g/dL 12/09/2023 5:18 AM CDT [facility] HEMATOCRIT 30.8(L) 37.0 - 53.0 % 12/09/2023 5:18 AM CDT [facility] MCV 88 80 - 100 fL 12/09/2023 5:18 AM CDT [facility] MCH 28.4 26.0 - 34.0 pg 12/09/2023 5:18 AM CDT [facility] MCHC 32.5 32.0 - 36.0 g/dL 12/09/2023 5:18 AM CDT [facility] RDW 17.4(H) 11.5 - 15.5 % 12/09/2023 5:18 AM CDT [facility] PLATELET COUNT 146 140 - 440 thou/cu mm 12/09/2023 5:18 AM CDT [facility] MPV 10.9 6.5 - 11.0 fL 12/09/2023 5:18 AM CDT [facility] NRBC 0.0 % 12/09/2023 5:18 AM CDT [facility] ABS NRBC 0.0 thou /cu mm 12/09/2023 5:18 AM CDT [facility] % NEUT 78.6 % 12/09/2023 5:18 AM CDT [facility] % LYMPH 6.2 % 12/09/2023 5:18 AM CDT [facility] % MONO 10.9 % 12/09/2023 5:18 AM CDT [facility] % EOS 3.7 % 12/09/2023 5:18 AM CDT [facility] % BASO 0.4 % 12/09/2023 5:18 AM CDT [facility] % IMMATURE GRAN (METAS,MYELOS,SC OS) 0.2 % 12/09/2023 5:18 AM CDT [facility] ABSOLUTE NEUTROPHILS 4.1 1.7 - 7.0 thou/cu mm 12/09/2023 5:18 AM CDT [facility] ABSOLUTE LYMPHOCYTES 0.3(L) 0.9 - 2.9 thou/cu mm 12/09/2023 5:18 AM CDT [facility] ABSOLUTE MONOCYTES 0.6 <0.9 thou/cu mm 12/09/2023 5:18 AM CDT [facility] ABSOLUTE EOSINOPHILS 0.2 <0.5 thou/cu mm 12/09/2023 5:18 AM CDT [facility] ABSOLUTE BASOPHILS 0.0 <0.3 thou/cu mm 12/09/2023 5:18 AM CDT [facility] ABSOLUTE IMMATURE GRANULOCYTES(MET ,MYELOS,PROS) 0.0 <0.3 thou/cu mm 12/09/2023 5:18 AM CDT [facility] Blood BLOOD SPECIMEN / Unknown Venipuncture / Unknown 12/09/2023 4:31 AM CDT 12/09/2023 5:02 AM CDT Stanton Ramírez DO HEMATOLOGY [facility] [address] [place] [address], * Hemoglobin A1C Screening (12/09/2023 4:31 AM CDT) Pathologist [facility] HEMOGLOBIN A1C SCREENING 5.8 <=6.4 % 12/09/2023 6:53 AM CDT [facility] Blood BLOOD SPECIMEN / Unknown Venipuncture / Unknown 12/09/2023 4:31 AM CDT 12/09/2023 5:02 AM CDT Narrative [facility] - 12/09/2023 6:53 AM CDT ? (<5.7%) ?Normal ? (5.7% to 6.4%) ? Indicates prediabetes ? (>=6.5%) ? Confirms diabetes Falsely low levels may be seen with: Recent Transfusion, Recent Significant Blood Loss, Hemolytic Diseases, or Falsely elevated levels may be seen with: Untreated Anemias, Splenectomy Stanton Ramírez DO CHEMISTRY Performing Organization Address City/[facility]/ZIP Co de Phone Number [facility] [address] [place] [address], * aPTT (12/09/2023 4:31 AM CDT) Pathologist [facility] APTT 33 28 - 36 sec 12/09/2023 5:17 AM CDT [facility] Blood BLOOD SPECIMEN / Unknown Venipuncture / Unknown 12/09/2023 4:31 AM CDT 12/09/2023 5:02 AM CDT Narrative [facility] - 12/09/2023 5:17 AM CDT Therapeutic Range: 57-87 seconds Stanton Ramírez DO HEMATOLOGY [facility] [address] [place] [address], * (ABNORMAL) Protime - INR (12/09/2023 4:31 AM CDT) Pathologist [facility] INR 1.2 <1.3 12/09/2023 5:17 AM CDT [facility] PROTIME 13.4(H) 10.3 - 12.3 sec 12/09/2023 5:17 AM CDT [facility] Blood BLOOD SPECIMEN / Unknown Venipuncture / Unknown 12/09/2023 4:31 AM CDT 12/09/2023 5:02 AM CDT [facility] - 12/09/2023 5:17 AM CDT ?Therapeutic Range 2.0-3.0 for most anticoagulated patients 2.5-3.5 or 4.0 for high risk patients The INR is only used for patients on stable oral anticoagulant therapy. It makes no significant contribution to the diagnosis or treatment of patients whose Protime is prolonged for other reasons. INR results are increased when heparin levels exceed 1.0 U/mL, which corresponds to an aPTT >125 seconds if the patient is on UFH. Stanton Raímrez DO HEMATOLOGY [facility] [address] [place] [address], * (ABNORMAL) Lipid Panel (12/09/2023 4:31 AM CDT) Pathologist [facility] CHOLESTEROL,TOTAL 111 100 - 199 mg/dL 12/09/2023 5:30 AM T [facility] Comment: Cholesterol, Total Reference Ranges Desirable <200 mg/dL Borderline 200-239 mg/dL High >=240 mg/dL TRIGLYCERIDES 87 <150 mg/dL 12/09/2023 5:30 AM CDT [facility] HDL CHOLESTEROL 37(L) >40 mg/dL 5:30 AM CDT [facility] NON-HDL CHOLESTEROL 74 <145 mg/dl 12/09/2023 5:[address] [facility] CHOL/HDL RATIO 3.00 <4.50 12/09/2023 5:30 AM T [facility] LDL CHOLESTEROL 57 <=130 mg/dL 12/09/2023 5:30 AM CDT [facility] VLDL CHOLESTEROL 17 <=30 mg/dL 12/09/2023 5:30 AM CDT [facility] PROVIDER ORDERED STATUS RANDOM 12/09/2023 5:30 AM CDT [facility] Blood BLOOD SPECIMEN / Unknown Venipuncture / Unknown 12/09/2023 4:31 AM CDT 12/09/2023 5:02 AM CDT Stanton Ramírez DO CHEMISTRY Performing Organization Address [facility] Co de Phone Number [facility] [address] [place] [address], * (ABNORMAL) GLUCOSE METER (12/09/2023 1:01 AM CDT) Only the most recent of3 resultswithin the time period is included. GLUCOSE METER 106(H) 65 - 100 mg/dL 12/09/2023 1:01 AM CDT [facility] Blood BLOOD SPECIMEN / Unknown 12/09/2023 1:01 AM CDT 12/09/2023 1:01 AM CDT Raymundo Williamson MD CHEMISTRY Performing Organization Address City/[facility] Co de Phone Number [facility] [address] [place] [address], [place] * MR Head without contrast (12/09/2023 12:30 AM CDT) Anatomical Region Laterality Modality BRAIN, HEAD Magnetic Resonan ce 12/09/2023 7:29 AM CDT Narrative 12/09/2023 7:29 AM CDT For Patients: ??As a result of the Century Cures Act, medical imaging exams and procedure reports are released immediately into your electronic medical record. ??You may view this report before your referring provider. ??If you have questions, please contact your health care provider. Indication: Neuro deficit, acute, stroke suspected Technique: Noncontrast sagittal T1 weighted, axial T2 fast spin echo, FLAIR, and diffusion weighted images of the head. Comparison: CT head 12/08/2023 Findings: Mild patchy regions of increased T2 signal within the periventricular and subcortical white matter of both cerebral hemispheres. Mild cerebral volume loss. The ventricles, sulci and gyri are of normal size, shape and contour for age and degree of atrophy. No regions of restricted diffusion. Midline structures are centrally located. No convincing evidence of suspicious intra- or extra-axial fluid collections. Pannus formation posterior to the dens measuring up to 6 mm. Absent flow void in the right internal carotid artery compatible with occlusion. Fusion of the C2-3 vertebral bodies. Impression: 1. Absent flow void in the right internal carotid artery compatible with arterial occlusion, similar to the CTA. 2. No radiographic evidence of acute intracranial abnormalities. 3. Mild supratentorial white matter changes are non-specific but statistically most likely related to small vessel ischemic disease. Mild cerebral volume loss. Dictated by Raul Bethea MD @ 12/09/2023 7:29:06 AM (Electronically Signed) Procedure Note Raul Bethea MD - 12/09/2023 For Patients: As a result of the Century Cures Act, medical imagingexams and procedure reports are released immediately into your electronicmedical record. You may view this report before your referring provider.If you have questions, please contact your health care provider. Indication: Neuro deficit, acute, stroke suspected Technique: Noncontrast sagittal T1 weighted, axial T2 fast spin echo, FLAIR, anddiffusion weighted images of the head. Comparison: CT head 12/08/2023 Findings: Mild patchy regions of increased T2 signal within the periventricular andsubcortical white matter of both cerebral hemispheres. Mild cerebralvolume loss. The ventricles, sulci and gyri are of normal size, shape and contour forage and degree of atrophy. No regions of restricted diffusion. Midlinestructures are centrally located. No convincing evidence of suspiciousintra- or extra-axial fluid collections. Pannus formation posterior to thedens measuring up to 6 mm. Absent flow void in the right internal carotidartery compatible with occlusion. Fusion of the C2-3 vertebral bodies. Impression: 1. Absent flow void in the right internal carotid artery compatible witharterial occlusion, similar to the CTA. 2. No radiographic evidence of acute intracranial abnormalities. 3. Mild supratentorial white matter changes are non-specific butstatistically most likely related to small vessel ischemic disease. Mildcerebral volume loss. Dictated by Raul Bethea MD @ 12/09/2023 7:29:06 AM (Electronically Signed) Stanton Ramírez DO MR * SCAN-CARDIAC STRIP (12/08/2023 3:12 PM CDT) Scanner OTHER * CT ANGIO HEAD AND NECK CAROTID (12/08/2023 2:35 PM CDT) Anatomical Region Laterality Modality BRAIN, NECK Computed Tomogra phy 12/08/2023 2:53 PM CDT Addenda Addendum by Melanie Camarena MD on 12/08/2023 3:13 PM CDT For Patients: ??As a result of the Century Cures Act, medical imaging exams and procedure reports are released immediately into your electronic medical record. ??You may view this report before your referring provider. ?? If you have questions, please contact your health care provider. DATE: 12/08/2023 CLINICAL HISTORY: Patient with focal neurological deficits. TECHNIQUE: Standard helical CT image acquisition through the intracranial circulation following intravenous administration of contrast material with bolus tracking. 2D and 3D MIP images for post-processing were performed and interpreted on an independent workstation and 3D images were permanently archived. COMPARISON: CT same day, MRA 11/30/2023 FINDINGS: There is a chronically occluded right common carotid artery slightly distal to the origin. The right internal carotid artery is also chronically occluded with reconstitution of the distal right supraclinoid ICA via the [place]fe[place]. However, there is a partially occlusive thrombus in the right ICA terminus extending to the distal right M1 segment. The right anterior cerebral artery and its branches are normal. The left internal carotid artery is normal. The left middle cerebral artery and its branches are normal. The left anterior cerebral artery and its branches are normal. The anterior communicating artery is well visualized and appears normal. The right vertebral artery and PICA are normal. The left vertebral artery and PICA are normal. The vertebral arteries are codominant. The basilar artery is patent and appears normal. The right posterior cerebral artery is normal. The left posterior cerebral artery is normal. The visualized venous structures are patent. IMPRESSION: 1. Chronically occluded right common carotid artery slightly distal to the origin. The right internal carotid artery is also chronically occluded with reconstitution of the distal right supraclinoid ICA via the [place]fe[place]. 2. 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 Please note that all CT scans at this facility use dose modulation, iterative reconstruction, and/or weight-based dosing when appropriate to reduce radiation dose to as low as reasonably achievable. Dictated by Melanie Camarena MD @ 12/08/2023 3:13:50 PM (Electronically Signed) Impressions 12/08/2023 3:10 PM CDT 1. Chronically occluded right common carotid artery slightly distal to the origin. The right internal carotid artery is also chronically occluded with reconstitution of the distal right supraclinoid ICA via the [place]fe[place]. 2. Patent left carotid endarterectomy graft. Please note that all CT scans at this facility use dose modulation, iterative reconstruction, and/or weight-based dosing when appropriate to reduce radiation dose to as low as reasonably achievable. Dictated by Melanie Camarena MD @ 12/08/2023 3:10:40 PM (Electronically Signed) Narrative 12/08/2023 3:10 PM CDT For Patients: ??As a result of the Century Cures Act, medical imaging exams and procedure reports are released immediately into your electronic medical record. ??You may view this report before your referring provider. ??If you have questions, please contact your health care provider. DATE: 12/08/2023 CLINICAL HISTORY: Patient with focal neurological deficits. TECHNIQUE: Standard helical CT image acquisition of the neck up to the skull base after bolus intravenous contrast enhancement. 2D and 3D MIP images for post-processing were performed and interpreted on an independent workstation and 3D images were permanently archived. COMPARISON: CT same day, MRA 11/30/2023 FINDINGS: There is a chronically occluded right common carotid artery slightly distal to the origin. The right internal carotid artery is also chronically occluded with reconstitution of the distal right supraclinoid ICA via the [place]. The origins of the rest of the great vessels from the aortic arch are patent. The origin of the right vertebral artery is patent. The origin of the left vertebral artery is patent. The left common carotid arteries are patent. There is no stenosis at the origin of the left internal carotid artery, status post endarterectomy. The rest of the cervical segments of the left internal carotid artery are patent up to the skull base. The vertebral arteries are codominant. The cervical segments of the vertebral arteries are patent up to the skull base. The visualized lung apices are unremarkable. The thyroid gland is unremarkable. The soft tissues of the neck are unremarkable. There are degenerative changes in the cervical spine. Procedure Note Melanie Camarena MD - 12/08/2023 For Patients: As a result of the Cures Act, medical imagingexams and procedure reports are released immediately into your electronicmedical record. You may view this report before your referring provider.If you have questions, please contact your health care provider. DATE: 12/08/2023 CLINICAL HISTORY: Patient with focal neurological deficits. TECHNIQUE: Standard helical CT image acquisition of the neck up to the skull baseafter bolus intravenous contrast enhancement. 2D and 3D MIP images forpost-processing were performed and interpreted on an independentworkstation and 3D images were permanently archived. COMPARISON: CT same day, MRA 11/30/2023 FINDINGS: There is a chronically occluded right common carotid artery slightlydistal to the origin. The right internal carotid artery is alsochronically occluded with reconstitution of the distal right supraclinoidICA via the [place]. The origins of the rest of the great vessels from the aortic arch arepatent. The origin of the right vertebral artery is patent. The origin ofthe left vertebral artery is patent. The left common carotid arteries are patent. There is no stenosis at the origin of the left internal carotid artery,status post endarterectomy. The rest of the cervical segments of the left internal carotid artery arepatent up to the skull base. The vertebral arteries are codominant. The cervical segments of thevertebral arteries are patent up to the skull base. The visualized lung apices are unremarkable. The thyroid gland is unremarkable. The soft tissues of the neck are unremarkable. There are degenerative changes in the cervical spine. IMPRESSION: 1. Chronically occluded right common carotid artery slightly distal to theorigin. The right internal carotid artery is also chronically occludedwith reconstitution of the distal right supraclinoid ICA via the [place]. 2. Patent left carotid endarterectomy graft. Please note that all CT scans at this facility use dose modulation,iterative reconstruction, and/or weight-based dosing when appropriate toreduce radiation dose to as low as reasonably achievable. Dictated by Melanie Camarena MD @ 12/08/2023 3:10:40 PM (Electronically Signed) Stanton Ramírez DO CT * CT HEAD BRAIN WO (12/08/2023 2:35 PM CDT) Anatomical Region Laterality Modality HEAD, BRAIN Computed Tomogra phy 12/08/2023 2:47 PM CDT Impressions 12/08/2023 2:47 PM CDT No acute intracranial hemorrhage or mass effect. Please note that all CT scans at this facility use dose modulation, iterative reconstruction, and/or weight-based dosing when appropriate to reduce radiation dose to as low as reasonably achievable. Dictated by Vamsi Chavez MD @ 12/08/2023 2:47:41 PM (Electronically Signed) Narrative 12/08/2023 2:47 PM CDT For Patients: ??As a result of the Cures Act, medical imaging exams and procedure reports are released immediately into your electronic medical record. ??You may view this report before your referring provider. ??If you have questions, please contact your health care provider. INDICATION: Acute neurologic deficit. TECHNIQUE: Noncontrast CT images of the brain. COMPARISON: MRI brain 11/30/2023. FINDINGS: Scyj-qg-mpbnhxmb diffuse cerebral volume loss. No mass effect or midline shift. The nails-white differentiation is maintained. No acute intracranial hemorrhage or pathologic extra-axial fluid collection. Suggested mild to moderate chronic microvascular ischemic changes. Dense intracranial atherosclerotic calcifications. The globes lobes are symmetric. The calvarium is intact. Minimal paranasal sinus mucosal thickening. The mastoid air cells are clear. Procedure Note Vamsi Chavez MD - 12/08/2023 For Patients: As a result of the Cures Act, medical imagingexams and procedure reports are released immediately into your electronicmedical record. You may view this report before your referring provider.If you have questions, please contact your health care provider. INDICATION: Acute neurologic deficit. TECHNIQUE: Noncontrast CT images of the brain. COMPARISON: MRI brain 11/30/2023. FINDINGS: Sqqc-fg-edkocikr diffuse cerebral volume loss. No mass effect or midlineshift. The nails-white differentiation is maintained. No acute intracranial hemorrhage or pathologic extra-axial fluidcollection. Suggested mild to moderate chronic microvascular ischemicchanges. Dense intracranial atherosclerotic calcifications. The globeslobes are symmetric. The calvarium is intact. Minimal paranasal sinusmucosal thickening. The mastoid air cells are clear. IMPRESSION: No acute intracranial hemorrhage or mass effect. Please note that all CT scans at this facility use dose modulation,iterative reconstruction, and/or weight-based dosing when appropriate toreduce radiation dose to as low as reasonably achievable. Dictated by Vamsi Chavez MD @ 12/08/2023 2:47:41 PM (Electronically Signed) Stanton Ramírez DO CT * ECHO JEAN CARLOS TRANSCATHETER INTRAOP PROCEDURE (12/08/2023 12:18 PM CDT) Only the most recent of2 resultswithin the time period is included. Anatomical Region Laterality Modality HEART Ultrasound 12/08/2023 8:42 AM CDT Narrative 12/08/2023 12:18 PM CDT TRANSESOPHAGEAL ECHOCARDIOGRAM YOHAN HARE ? Accession#: ?? [id number] : ?1940 83 years Study Date: ?? 12/08/2023 8:42:11 AM Gender: M ?BP: ? 110/60 mmHg Height: 180.00 cm ?BSA: ?2.25 m? ? ? Weight: 106.00 kg ?Tech: ? Referring MD: RAYMUNDO WILLIAMSON Site: ? [facility] Reading Location: Patient Location: Procedure: JEAN CARLOS, Color Doppler, Spectral Doppler and 3D Imaging. Indication for study: Intra-Procedural JEAN CARLOS for #35mm Watchman FLX Cardiac Rhythm: Regular.Study quality: Excellent. Final Impressions: 1. Mildly enlarged left atrium. 2. The left atrial appendage is single a lobed structure with prominent pectinate ridges. ?At 0 degrees, orifice width = 3.0 cm, and appendage length = 2.2cm. ?At 45 degrees, orifice width = 2.3 cm, and appendage length = 1.9 cm. ?At 90 degrees, CRISPIN orifice width= 1.7 cm, and appendage length = 2.2 cm. ?At 135 degrees, orifice width = 2.3 cm and appendage length = 1.9 cm. ?Appendage orifice is elliptical and longest dimension = 3.0 cm and shortest dimension = 2.4 cm. 3. Atrial septum is intact. 4. No evidence of thrombus present in the left atrial appendage. 5. No pericardial effusion. 6. Intra-Procedural JEAN CARLOS: A transeptal puncture was guided by 2D/3D imaging. The Watchman delivery catheter was positioned within the left atrial appendange. A #35 mm Watchman FLX device was positioned using 2D/3D (biplane) guidance. Prior to release the following was assessed: ?1) Position of the device was parallel to the long-axis of the CRISPIN and covering the orifice ?2) Anchoring was confirmed with a tug test ?3) Size of the device was appropriate with >20% compression ?4) Seal was confirmed with no color Doppler flow outside the device. ?The device was released and repeat measurements were performed. ?At 0 degrees, vbotizwj-yl-ltjzjcpf width = 3.0cm ?At 45 degrees, jtcdopvq-kt-yunfmxho width = 2.9cm ?At 90 degrees, qtowwjlm-xp-jtzpxaqw width = 2.9cm ?At 135 degrees, fzqqaulc-ro-scoenbiw width = 3.0cm ?Pulmonary vein flows were normal. LV and RV function remained unchanged. ?By the end of the study, there was no pericardial effusion. ?A small defect in the inter-atrial septum was seen by Color Doppler with left to right shunt. Procedure comments: Indications, goals, risks and alternatives of the procedure were discussed with the patient and informed consent was obtained. The patient received general anesthesia. See procedural record for anesthesia details. Prior to performance of procedure, time out was called to accurately identify the patient and procedure. The X8-2T probe was passed without difficulty. JEAN CARLOS, Color Doppler, Spectral Doppler and 3D Imaging was performed. The patient developed no apparent complications during the procedure. Estimated Blood Loss: 0 ml Versed: Specimen Collected: ?Proceduralist: Dianne Macias MD Post Procedure Findings Chamber Sizes and Function Left atrial size is mildly enlarged. The left atrial appendage is well visualized and there is no evidence of thrombus present. Not well visualized left atrial appendage flow velocities. Masses, Effusion, Shunts There is no pericardial effusion. Atrial septum is intact. Agitated saline injection not done. MEASUREMENTS AND CALCULATIONS 2-D Measurements and LV Function: HR 60 bpm . ??Final (Updated) ?? Procedure Note Dianne Macias, [facility] - 12/08/2023 TRANSESOPHAGEAL ECHOCARDIOGRAM YOHAN HARE : 1940 83 years Study Date: 12/08/2023 8:42:11 AM Gender: M BP: 110/60 mmHg Height: 180.00 cm BSA: 2.25 m? ? ? Weight: 106.00 kg Tech: Referring MD: RAYMUNDO WILLIAMSON Site: [facility] Reading Location: Patient Location: Procedure: JEAN CARLOS, Color Doppler, Spectral Doppler and 3D Imaging. Indication for study: Intra-Procedural JEAN CARLOS for #35mm Watchman FLX Cardiac Rhythm: Regular.Study quality: Excellent. Final Impressions: 1. Mildly enlarged left atrium. 2. The left atrial appendage is single a lobed structure with prominentpectinate ridges. At 0 degrees, orifice width = 3.0 cm, and appendage length = 2.2cm. At 45 degrees, orifice width = 2.3 cm, and appendage length = 1.9cm. At 90 degrees, CRISPIN orifice width= 1.7 cm, and appendage length = 2.2cm. At 135 degrees, orifice width = 2.3 cm and appendage length = 1.9cm. Appendage orifice is elliptical and longest dimension = 3.0 cm andshortest dimension = 2.4 cm. 3. Atrial septum is intact. 4. No evidence of thrombus present in the left atrial appendage. 5. No pericardial effusion. 6. Intra-Procedural JEAN CARLOS: A transeptal puncture was guided by 2D/3Dimaging. The Watchman delivery catheter was positioned within the leftatrial appendange. A #35 mm Watchman FLX device was positioned using 2D/3D(biplane) guidance. Prior to release the following was assessed: 1) Position of the device was parallel to the long-axis of the CRISPIN andcovering the orifice 2) Anchoring was confirmed with a tug test 3) Size of the device was appropriate with >20% compression 4) Seal was confirmed with no color Doppler flow outside the device. The device was released and repeat measurements were performed. At 0 degrees, lqhqqcad-rr-ukmihhbr width = 3.0cm At 45 degrees, mccbthzn-zq-fmeibkvr width = 2.9cm At 90 degrees, irxasekk-ff-tovxjxnd width = 2.9cm At 135 degrees, moajvqfz-op-ucefsjvp width = 3.0cm Pulmonary vein flows were normal. LV and RV function remainedunchanged. By the end of the study, there was no pericardial effusion. A small defect in the inter-atrial septum was seen by Color Dopplerwith left to right shunt. Procedure comments: Indications, goals, risks and alternatives of theprocedure were discussed with the patient and informed consent wasobtained. The patient received general anesthesia. See procedural recordfor anesthesia details. Prior to performance of procedure, time out wascalled to accurately identify the patient and procedure. The X8-2T probewas passed without difficulty. JEAN CARLOS, Color Doppler, Spectral Doppler and 3DImaging was performed. The patient developed no apparent complicationsduring the procedure. Estimated Blood Loss: 0 ml Versed: Specimen Collected: Proceduralist: Dianne Macias MD Post Procedure Findings Chamber Sizes and Function Left atrial size is mildly enlarged. The left atrial appendage is wellvisualized and there is no evidence of thrombus present. Not wellvisualized left atrial appendage flow velocities. Masses, Effusion, Shunts There is no pericardial effusion. Atrial septum is intact. Agitated salineinjection not done. MEASUREMENTS AND CALCULATIONS 2-D Measurements and LV Function: HR 60 bpm . Final (Updated) Raymundo Williamson MD ECHO ORD * EP Procedure to be Performed (12/08/2023 11:26 AM CDT) Narrative Raymundo Williamson MD - 12/08/2023 11:26 AM CDT Raymundo Williamson MD ? 12/08/2023 11:27 AM DATE OF SERVICE: 12/08/23 OPERATORS: 1. ??Raymundo Williamson MD, interventional cardiology, primary therapist 2. SEBASTIAN Ortiz , structural heart disease fellow 3. Dianne Macias [facility] interventional echocardiography. DIAGNOSIS: Permanent atrial fibrillation. PROCEDURE: Watchman implantation, single curve guide, 35 mm Watchman FLX device. This was a general anesthesia procedure. ??We accessed with the ultrasound guidance the left and right femoral vein. Left access was used for central access with a 7-Slovak, right access 8-Slovak. We then started full-dose anticoagulation with heparin, goal ACT above 250 seconds. We then performed the transseptal procedure using an SL1 and a [place] C1 needle. Under the support of a large curve Safari wire, we then inserted the single curve guide and engaged the left atrial appendage with a pigtail catheter. We decided to use a 35 mm FLX device based on echocardiography and fluoroscopy. We then deployed the device in a total of one attempts. PASS criteria were all fulfilled and the device released. No complication was noted. Anticoagulation was reversed with protamine, see hemo log for details. Trwlvt-zn-rahaz stitch on the right femoral vein, manual pressure on the left. ?? Raymundo Williamson MD, PhD, [facility] Managing Manager [facility] [address], [address] [place] [id number] O: [phone] ?? F: [phone] ?? Raymundo Williamson MD INDUSTRIAL TECHNOLOGY EDUCATION TEACHER ORD * (ABNORMAL) ACTIVATED CLOTTING TIME [id number] ACT (12/08/2023 9:12 AM CDT) ACTIVATED CLOTTING TIME, POCT 308(H) 74 - 125 sec 12/08/2023 1:23 PM CDT [facility] Blood BLOOD SPECIMEN / Unknown 12/08/2023 9:12 AM CDT 12/08/2023 1:23 PM CDT Raymundo Williamson MD [facility] [address] [place] [address], * EP OTHER PROCEDURE (12/08/2023 8:54 AM CDT) Anatomical Region Laterality Modality X-Ray Angiograph y, X-Ray Angiography 12/08/2023 8:54 AM CDT Narrative Transcriptions Raymundo Williamson MD - 12/08/2023 3:16 PM CDT [facility] Electrophysiology Implant Report Name: YOHAN HARE Event Date: 12/08/2023 Excellian ID #: [id number] Date: 1940 Gender: Male Age: 83 [facility] #: [id number] Procedure Performed By: RAYMUNDO WILLIAMSON [facility] Referring Physician: Implant Procedure Type Other CRISPIN Closure Device Implant Summary / Conclusions VASCULAR ACCESS * Using ultrasound guidance and a percutaneous technique, the rightfemoral vein was accessed. Ultrasound was used to confirm vessel patency,localizing needle into the lumen of the vessel. For safety purposes, apicture was saved for the medical record. * Using ultrasound guidance and a percutaneous technique, the left femoralvein was accessed. Ultrasound was used to confirm vessel patency,localizing needle into the lumen of the vessel. For safety purposes, apicture was saved for the medical record. PROCEDURE * Successful placement of a 35mm Watchman FLX device Consent & Mica Protocol Mica protocol was followed. TIME OUT conducted just prior tostarting procedure confirmed patient identity, site/side, procedure,patient position, and availability of correct equipment and implants (ifapplicable). Complications ? No complications Procedure(s) Performed ? Left Atrial Appendage Occluder Implant ? Site-Rite Ultrasound used for vascular access Procedure Detail Estimated Blood Loss: < 50 ml Specimen Collected: None Level of Sedation Achieved: See Anesthesia Note Total Fluoro Time: 7.5 TRACTOR ENGINE MECHANIC Total Fluoro Dose: 180 mGy Contrast: Visipaque, 8 ml Visipaque, 5 ml Staff Name Role Raymundo Williamson Implanting Leandro Gonzales EPT Scrub Destiny Silva TANK TRUCK DRIVER Scrub Douglas Davis EPT Guest Service Representative Raul Murillo RN Nurse Medications Ordered and Administered Start Time Stop Time Medication Dose Units Route Ordered By Given By 08:56 1% Lidocaine Hydrochloride 10 mL Subcut Dian Gordon MD 08:56 0.25% Bupivicaine 10 mL Subcut Dian Gordon MD 09:06 Heparin 9000 Units IV MD Raul Gordon RN 09:23 Protamine 60 Mg IV MD Raul Gordon, RN The anesthesia service monitored the patient?s conscious sedation duringthe procedure. The medications listed above were verbally ordered by me and read back tome as documented above. Refer to the hemodynamic procedure log report for additional casedetails. electronically signed on 12/08/2023 3:16:09 PM with status of Final Raymundo Williamson MD Implanting Sales Agent [employer] [facility] [address] [place] [address] (p) [phone](f) Raymundo Williamson MD CV IMAGING * HCHG TUBE PR1, HCHG STYLET PR1, HCHG MOUTHPIECE PR1 (12/08/2023 8:13 AM CDT) Cheli Phelps, SILVER BUFFER - 12/08/2023 8:13 AM CDT Cheli Juárez CRNA ? 12/08/2023 ??8:14 AM Procedure: ETT Patient location during procedure: OR ETT Properties Mask Ventilation: easy Final Technique: direct laryngoscopy Type: straight Location: oral Cuffed: yes Tube Size: 7.5 mm Stylet: yes Laryngoscope Blade: Mac Blade Size: 3 Cormack-Lehane Grade View: 1 Insertion Attempts: 1 Placement Verification: auscultation, end tidal CO2, symmetrical chest wall movement and cuff palpation Assessment: pharynx clear, atraumatic and dentition unchanged Secured at: 22 Measured From: gums Tooth guard used and removed: yes Difficulty: 0 (not difficult) Raul Bill MD ANESTHESIA PX NOTE ORDERABLES * EXTRA TUBE GOLD/SST (12/08/2023 6:42 AM CDT) Blood BLOOD SPECIMEN / Unknown Venipuncture / Unknown 12/08/2023 6:42 AM CDT 12/08/2023 6:56 AM CDT Raymundo Williamson MD LABORATORY [facility] [address] [place] [address], * 12 Lead EKG (12/08/2023 6:35 AM CDT) Only the most recent of3 resultswithin the time period is included. Interpretation afib with PVCs Incomplete right bundle branch block Borderline ECG When compared with ECG of 30-NOV-2023 11:30, Incomplete right bundle branch block is now Present BEYOND NOW Ventricular Rate 75 BPM BEYOND NOW Atrial Rate 66 BPM BEYOND NOW P-R Interval ms BEYOND NOW QRS Duration 110 ms BEYOND NOW QT 412 ms BEYOND NOW QTc 460 ms BEYOND NOW P Swoope degrees BEYOND NOW R Swoope -18 degrees BEYOND NOW T Swoope 60 degrees BEYOND NOW 12/08/2023 6:35 AM CDT 12/08/2023 4:33 PM CDT Narrative BEYOND NOW - 12/08/2023 4:33 PM CDT Test Indication: PRE OP Raymundo Williamson MD EKG ORD BEYOND NOW [place], [place] * SCAN-CARDIAC STRIP (12/08/2023 12:00 AM CDT) Narrative 12/08/2023 12:00 AM CDT Ordered by an unspecified provider. Other Clinical Staff OTHER * (ABNORMAL) HEMOGLOBIN (12/07/2023 1:21 PM CDT) HEMOGLOBIN 11.7(L) 13.5 - 17.5 g/dL 12/07/2023 1:35 PM CDT [facility] MCV 87 80 - 100 fL 12/07/2023 1:35 PM CDT [facility] Blood BLOOD SPECIMEN / Unknown Venipuncture / Unknown 12/07/2023 1:21 PM CDT 12/07/2023 1:22 PM CDT Flakito Ling MD HEMATOLOGY Performing Organization Address [facility]/ZIP Co de Phone Number [facility] [address] [place] [address], [place] [phone] * SCAN-CARDIAC STRIP (12/02/2023 8:55 AM CDT) Scanner OTHER * MAGNESIUM (12/02/2023 8:30 AM CDT) MAGNESIUM 2.1 1.6 - 2.4 mg/dL 12/02/2023 9:53 AM CDT [facility] Blood BLOOD SPECIMEN / Unknown Non-Lab Venipuncture / Unknown 12/02/2023 8:30 AM CDT 12/02/2023 9:13 AM CDT Teresita Gandara MD CHEMISTRY [facility] [address] [place] [address], [place] * SCAN-CARDIAC STRIP (12/01/2023 10:00 PM CDT) Scanner OTHER * SCAN-CARDIAC STRIP (12/01/2023 3:37 PM CDT) Scanner OTHER * SCAN-CARDIAC STRIP (12/01/2023 3:37 PM CDT) Scanner OTHER * (ABNORMAL) SEDIMENTATION RATE (12/01/2023 3:12 PM CDT) Only the most recent of2 resultswithin the time period is included. SEDIMENTATION RATE 34(H) <20 mm/hr 2023 4:45 PM CDT [facility] Blood BLOOD SPECIMEN / Unknown Butterfly / Unknown 12/01/2023 3:12 PM CDT 12/01/2023 3:50 PM CDT Raymundo Williamson MD HEMATOLOGY Performing Organization Address City/[facility]/ZIP Co de Phone Number [facility] [address] [place] [address], * C-REACTIVE PROTEIN (12/01/2023 3:11 PM CDT) Only the most recent of3 resultswithin the time period is included. C-REACTIVE PROTEIN <0.3 <0.5 mg/dL 12/01/2023 4:30 PM CDT [facility] Blood BLOOD SPECIMEN / Unknown Butterfly / Unknown 12/01/2023 3:11 PM CDT 12/01/2023 3:50 PM CDT Raymundo Williamson MD CHEMISTRY [facility] [address] [place] [address], * CTA CHEST ABDOMEN PELVIS - DUAL (12/01/2023 8:30 AM CDT) Anatomical Region Laterality Modality Abdomen, CHEST Computed Tomogra phy Impressions 12/05/2023 5:44 PM CDT 1. No acute nonvascular findings in the chest, abdomen, and pelvis. 2. Please refer to separately dictated report for evaluation of cardiovascular structures. Please note that all CT scans at this facility use dose modulation, iterative reconstruction, and/or weight-based dosing when appropriate to reduce radiation dose to as low as reasonably achievable. Dictated by Hank Mcdonnell MD @ 12/01/2023 12:58:47 PM (Electronic Signature) Narrative 12/05/2023 5:44 PM CDT ESULT ? STUDY: CT CARDIAC MORPHOLOGY Study date: 12/01/23 Indication: 83 year-old man with severe tricuspid valvular regurgitation and concern for pulmonary valve endocarditis has been referred for evaluation of ventricular and tricuspid valve anatomy to help determine candidacy for transcathter intervention. This was part of a combined cardiac and venous access study. 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 Gap 4 mm. Anatomical regurgitant orifice area: 22 mm2, consistent with mild-moderate tricuspid regurgitation. Maximum perimeter of 142 mm, at the upper limit perimeter for Intrepid, and will fit V-Dyne. IVC-Tricuspid annulus offset measured at 2.7 cm. Pulmonic valve: tri-leaflet competent valve without evidence of large vegetations/abscesses/pseudoaneurysms. Right ventricular systolic function is normal. Left ventricular systolic function is normal. Normal thoracic aorta size and morphology with extensive nonobstructive calcifications. Normal abdominal aorta size and morphology with extensive nonobstructive calcifications. Patent upper body venous access to the right atrium. Patent transfemoral venous access to the right atrium. Please see radiology report for noncardiac findings. FINDINGS: Left ventricle: Normal systolic function. Right ventricle: ??Normal systolic function. 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 Left atrium: No evidence of thrombus Aortic valve: Mild to moderately calcified tri-leaflet. Mitral valve: Mild mitral annular calcification with normal leaflet excursion. Septal ECV: 25% Pulmonic valve: ??3 leaflets visualized. Leaflets exhibit normal leaflet excursion without evidence of vegetations/abscesses/pseudoaneurysms. Tricuspid valve: 4 leaflets (2 septal and 1 anterior, 1 posterior) visualized. Leaflets exhibit normal leaflet motion and myxomatous. Anatomical regurgitant area of 22 mm2, consistent with mild-moderate tricuspid regurgitation. Non coapting postero-septal leaflets with a gap of 4 mm. ?? Annular measurements: ??Perimeter: Mid-systole 132 mm, End-diastole 142 mm ??Cross-sectional area: Mid-systole 13.1 cm2, End-diastole 15.2 cm2 Pulmonary veins: Normal anatomy with 3 right-sided and 2 left-sided veins. No evidence of stenosis. Pericardium: Normal without effusion Thoracic aorta: Moderate atheromatous disease in the aortic sinus/ascending aorta/arch/descending thoracic aorta. Maximum cross-sectional dimensions in visualized aorta are: Aortic sinus: 38 mm maximum [id number] Ascending aorta: 33 x 32 mm. Descending thoracic aorta: 26 x 26 mm. Great arteries: Normal great artery branching pattern.. Right brachiocephalic: Mild calcification. Right subclavian: Mild calcification. Right common carotid: None calcification. Left common carotid: Mild calcification. Left subclavian: Mild calcification. Abdominal aorta: Normal size and morphology. Mild to moderate calcification. Abdominal aorta branch arteries: Celiac: Nytw-jt-jlxmyqku calcification. Superior mesenteric: Mild calcification. Right renal: Yqtk-ul-pzwqvhfa calcification. Left renal: Moderate calcification. Inferior mesenteric: None calcification. Pelvic arteries (right): Common iliac artery: Jqio-re-qbhnbdjr calcification. Internal iliac artery: Typp-xr-cgryqjre calcification. External iliac artery: Agem-xb-xvhuilsb calcification. Common femoral artery: Salv-lb-umdhkrfn calcification. Pelvic arteries (left): Common iliac artery: Vktl-zu-vhmvnwfa calcification. Internal iliac artery: Vxie-as-fbzfgcfl calcification. External iliac artery: Dbub-gn-zswisooc calcification. Common femoral artery: Nzvo-bv-foidwxli calcification. Venous access anatomy: Left inominate vein: No obstruction and no thrombus. Superior vena cava: No obstruction and no thrombus. Inferior vena cava: No evidence of compression. Common iliac veins: No evidence of compression. FOR PATIENT: Results are automatically released to your [employer] account once available, in compliance with federal regulations. ?? This means that you may see your results before your provider has had a chance to review them. ??Please allow 2-3 business days for your provider to comment on the results. Advanced imaging fellow: Venancio Benson MD Attending cardiology reader: Jayme Mcpherson MD For Patients: As a result of the 21st Century Cures Act, medical imaging exams and procedure reports are released immediately into your electronic medical record. ??You may view this report before your referring provider. ?? If you have questions, please contact your health care provider. OVER-READ ??OVER-READ ??OVER-READ OVER-READ: DETAILED RADIOLOGY EXTRACARDIAC OVER-READ OF CARDIAC CT 12/01/2023 TECHNIQUE: ??Please see cardiology report for technical information. ??84 cc Omnipaque-350 intravenous contrast. ?? This exam is being performed in conjunction with the services provided by the [facility] ([facility]). CLINICAL HISTORY: ?? Valvular cardiac disease. Cardiac over-read. FINDINGS: ?? Chest: Thyroid is unremarkable. No significant lymphadenopathy in the chest. Lung parenchyma demonstrates a mosaic pattern of attenuation which may reflect small-vessel and/or airway disease. Stable eventration of the left hemidiaphragm with associated volume loss at the left lung base. Large benign right lower lobe calcified granuloma. Abdomen/Pelvis: Liver: Noncirrhotic morphology. Right hepatic lobe cyst. Gallbladder: Unremarkable. Spleen: Unremarkable. Adrenal glands: Unremarkable. Kidneys: Enhance symmetrically without hydronephrosis. Pancreas: Unremarkable. Lymph nodes: No retroperitoneal, mesenteric, inguinal, or pelvic adenopathy by CT criteria. Bowel: No bowel obstruction. Normal appendix in the right lower quadrant. Urinary bladder: Limited evaluation due to underdistention. No gross pathology. Reproductive structures: Enlarged prostate. No abdominal/pelvis ascites or free intraperitoneal air. Musculoskeletal: Status post sternotomy. Visualized osseous structures demonstrate diffuse degenerative changes. Jeb Dyson MD CT * CTA - Morphology, Valve (12/01/2023 8:30 AM CDT) Anatomical Region Laterality Modality HEART Computed Tomogra phy Impressions 12/01/2023 6:57 PM CDT 1. Please see dedicated cardiac imaging report. 2. Chronic changes in the lung bases with granulomatous calcifications. 3. No (additional) acute or suspicious extra cardiac imaging abnormality. Please note that all CT scans at this facility use dose modulation, iterative reconstruction, and/or weight-based dosing when appropriate to reduce radiation dose to as low as reasonably achievable. Dictated by Emerson Mckeon MD @ 12/01/2023 1:04:58 PM (Electronic Signature) Narrative 12/01/2023 6:57 PM CDT STUDY: CT CARDIAC MORPHOLOGY Study date: 12/01/23 Indication: 83 year-old man with severe tricuspid valvular regurgitation and concern for pulmonary valve endocarditis has been referred for evaluation of ventricular and tricuspid valve anatomy to help determine candidacy for transcathter intervention. This was part of a combined cardiac and venous access study. STUDY PARAMETERS: Scanner: Siemens Definition Force Contrast: 84 ml of Omnipaque 350 Scan protocol: Helical with dose modulation/FLASH/Sequentialx2 Radiation dose length product: 1991 Image quality: Good FINAL IMPRESSIONS: Tricuspid valve: primary tricuspid valve dysfunction with myxomatous 4 leaflet valve with a small non coapting gap. Gap 4 mm. Anatomical regurgitant orifice area: 22 mm2, consistent with mild-moderate tricuspid regurgitation. Maximum perimeter of 142 mm, at the upper limit perimeter for Intrepid, and will fit V-Dyne. IVC-Tricuspid annulus offset measured at 2.7 cm. Pulmonic valve: tri-leaflet competent valve without evidence of large vegetations/abscesses/pseudoaneurysms. Right ventricular systolic function is normal. Left ventricular systolic function is normal. Normal thoracic aorta size and morphology with extensive nonobstructive calcifications. Normal abdominal aorta size and morphology with extensive nonobstructive calcifications. Patent upper body venous access to the right atrium. Patent transfemoral venous access to the right atrium. Please see radiology report for noncardiac findings. FINDINGS: Left ventricle: Normal systolic function. Right ventricle: ??Normal systolic function. 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 Left atrium: No evidence of thrombus Aortic valve: Mild to moderately calcified tri-leaflet. Mitral valve: Mild mitral annular calcification with normal leaflet excursion. Septal ECV: 25% Pulmonic valve: ??3 leaflets visualized. Leaflets exhibit normal leaflet excursion without evidence of vegetations/abscesses/pseudoaneurysms. Tricuspid valve: 4 leaflets (2 septal and 1 anterior, 1 posterior) visualized. Leaflets exhibit normal leaflet motion and myxomatous. Anatomical regurgitant area of 22 mm2, consistent with mild-moderate tricuspid regurgitation. Non coapting postero-septal leaflets with a gap of 4 mm. ?? Annular measurements: ??Perimeter: Mid-systole 132 mm, End-diastole 142 mm ??Cross-sectional area: Mid-systole 13.1 cm2, End-diastole 15.2 cm2 Pulmonary veins: Normal anatomy with 3 right-sided and 2 left-sided veins. No evidence of stenosis. Pericardium: Normal without effusion Thoracic aorta: Moderate atheromatous disease in the aortic sinus/ascending aorta/arch/descending thoracic aorta. Maximum cross-sectional dimensions in visualized aorta are: Aortic sinus: 38 mm maximum ckvi-iz-jeya Ascending aorta: 33 x 32 mm. Descending thoracic aorta: 26 x 26 mm. Great arteries: Normal great artery branching pattern.. Right brachiocephalic: Mild calcification. Right subclavian: Mild calcification. Right common carotid: None calcification. Left common carotid: Mild calcification. Left subclavian: Mild calcification. Abdominal aorta: Normal size and morphology. Mild to moderate calcification. Abdominal aorta branch arteries: Celiac: Bxeb-ha-gvakvemw calcification. Superior mesenteric: Mild calcification. Right renal: Ccln-ku-smigsinc calcification. Left renal: Moderate calcification. Inferior mesenteric: None calcification. Pelvic arteries (right): Common iliac artery: Vzkb-ul-rmoqiejx calcification. Internal iliac artery: Oxth-ua-mqukhuiv calcification. External iliac artery: Qiap-iu-pdqcnszw calcification. Common femoral artery: Qggq-en-cvjvmpmb calcification. Pelvic arteries (left): Common iliac artery: Inkj-fe-qcattvyk calcification. Internal iliac artery: Jwwa-av-wkcfmfic calcification. External iliac artery: Zoyb-oo-umakmvqm calcification. Common femoral artery: Bacw-qh-hwsxzsqe calcification. Venous access anatomy: Left inominate vein: No obstruction and no thrombus. Superior vena cava: No obstruction and no thrombus. Inferior vena cava: No evidence of compression. Common iliac veins: No evidence of compression. FOR PATIENT: Results are automatically released to your [employer] account once available, in compliance with federal regulations. ?? This means that you may see your results before your provider has had a chance to review them. ??Please allow 2-3 business days for your provider to comment on the results. Advanced imaging fellow: Venancio Benson MD Attending cardiology reader: Jayme Mcpherson MD For Patients: As a result of the 21st Century Cures Act, medical imaging exams and procedure reports are released immediately into your electronic medical record. ??You may view this report before your referring provider. ?? If you have questions, please contact your health care provider. OVER-READ ??OVER-READ ??OVER-READ OVER-READ: DETAILED RADIOLOGY EXTRACARDIAC OVER-READ OF CARDIAC CT 11/02/2023 TECHNIQUE: ??Please see cardiology report for technical information. ??84 cc Omnipaque 350. This exam is being performed in conjunction with the services provided by the [facility] ([facility]). CLINICAL HISTORY: ??Cardiac CT over-read. ? FINDINGS: Aorta: Normal caliber with no signs of dissection. Pulmonary arteries:No filling defects, bolus timing may somewhat limit evaluation. Mediastinum:No suspicious adenopathy. Lungs and pleural structures: Bronchial wall thickening scarring left upper and lower lobe. No pleural effusion or consolidation. Miscellaneous: Dense calcified nodule right lower lobe appears benign with small punctate splenic calcifications from granulomatous disease. Postoperative changes of coronary artery bypass. Jeb Dyson MD CT * SCAN-CARDIAC STRIP (12/01/2023 7:32 AM CDT) Scanner OTHER * PERIPHERAL BLD MORPHOLOGY (12/01/2023 5:43 AM CDT) Case Report Special Hematology Report ? Case: [id number] ? Authorizing Provider: ??Teresita Gandara MD ?Collected: ? 12/01/2023 0543 ? Ordering Location: ? [facility] ?Received: ?12/01/2023 0555 ? Hospital ? Pathologist: ? Conor Schneider MD ? Specimen: ?Blood ? 12/02/2023 3:19 PM CDT [facility] Final Diagnosis PERIPHERAL BLOOD: 1. Mild normocytic anemia 2. Marked lymphocytopenia, nonspecific 3. See comment 12/02/2023 3:19 PM CDT [facility] Comment The features of the anemia are nonspecific. The iron studies performed 11/30/2023 are normal and argue against an iron deficiency anemia. The differential includes anemia of chronic disease, anemia of chronic renal insufficiency (EGFR = 42), anatomic blood loss and medication effect. There is no morphologic evidence of hemolysis or findings to suggest a primary bone marrow disorder. This case was also reviewed by Jessica Rodriguez MT, MS ([facility]). 12/02/2023 3:19 PM CDT [facility] Clinical Information The patient is an 83-year-old male. Pertinent clinical information: Pulmonic vegetation, likely anemia of CKD. Per [facility] 11/30/2023-presen t: He has a history of CAD s/p CABG (no ischemia on stress test 06/11), HFpEF, severe TR, HTN, chronic a flutter (prior on rivaroxaban but continued to have hemoptysis), BPH, COPD (2LPM at night O2), pulmonary hypertension, stage III CKD, gout, HLD, who was admitted on 11/30/2023 with Watchman device placement because of recurrent hemoptysis on rivaroxaban. Unfortunately on JEAN CARLOS valve study done 11/29 found to have mass on pulmonic valve leaflets and unclear if vegetation versus thrombus. Watchman procedure canceled and admitted for further evaluation. Continued on rivaraxoban. He was found to have severe tricuspid regurgitation, weight loss. 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 Peripheral blood morphology 2013 ([id number]) Showed a mild normocytic anemia 12/01/23 05:43 CREATININE: ?1.61 (H) eGFR: ?42 (L) VITAMIN B12: ? 779 11/30/23 15:32 FERRITIN: ?183.0 ALIS.TRANSFERRIN RECEPTOR: ??4.54 IRON: ?106 IRON BINDING CAPACITY ?: 372 IRON,% SATURATION ?: 28 UIBC (UNSATURATED) ? : 266 12/02/2023 3:19 PM CDT [facility] CBC and Differential HEMATOLOGY PARAMETERS Tested at: ??[facility] ? RESULTS ??EXPECTED VALUES WBC: ? 5.0 ?4.5-97f7473/cu mm ? RBC: ? 4.0 ?4.30-5.90 mil/cumm ??DECREASED HGB: ? 11.3 ? 13.5-17.5 gm/di ? DECREASED HCT: ? 34.7 ? 37-53% ?DECREASED MCV: ? 87.0 ? 80-100 fl ? NORMOCYTIC MCH: ? 28.3 ? 26-34 pg ? MCHC: ?32.6 ? 32-36 gm/dl ? NORMOCHROMIC RDW: ? 17.2 ? 11.5-15.5% ?ELEVATED PLT: ? 163 ?[id number]/u L ? MPV: ? 10.2 ? 6.5-11 fl ? Retic: ?? 0.7 ?0.5-1.5% ? Differential ?Tested at: ??Central ?Absolute (%) ?Expected (%) ?(x10*9/L) ? (x10*9/L) Neutrophils: ?4.1 (82) ?1.7-7.0 (42-72%) ? Lymphocytes: ?0.4 (8) ? 0.9-2.9 (20-44%) ??DECREASED Monocytes: ?0.5 (10) ? <0.9 (0-11%) ? Eosinophils: ?0.0 (0) ?<0.5 (0-2%) ? Basophils: ?0.0 (0) ?<0.3 (<3.0%) ? Imm Grans: ?0.0 (0) ?<0.3 (0-3%) ? (Metas, Myelos,Pros) 12/02/2023 3:19 PM CDT [facility] Microscopic Description The final diagnosis is based on microscopic examination of an appropriately stained blood smear. 12/02/2023 3:19 PM CDT [facility] Additional Information Interpreted at [facility], [facility] - [address], [place] [address] 12/02/2023 3:19 PM CDT [facility]- EN[facility] Blood BLOOD SPECIMEN / Unknown Venipuncture / Unknown 12/01/2023 5:43 AM CDT 12/01/2023 5:55 AM CDT Comment:CURRENT MEDICATIONSC urrent Facility-Administered Medications: ? ? acetaminophen 650 mg tablet (TYLENOL), 650 mg, Oral, q4h prn, Teresita Gandara MD? ? albuterol HFA (PRO-AIR; VENTOLIN; PROVENTIL) 90 mcg/actuation inhaler 1-2 Puff, 1-2 Puff, Inhalation, q6h prn, Mitesh Mann MD? ? aspirin 81 mg enteric coated tablet (ECOTRIN), 81 mg, Oral, bedtime, Mitesh Mann MD? ? atorvastatin 40 mg tablet (LIPITOR), 40 mg, Oral, bedtime, Mitesh Mann MD? ? bisacodyL 10 mg suppository (DULCOLAX), 10 mg, Rectal, daily prn, Teresita Gandara MD? ? calcium carbonate 500-1,000 mg tablet (TUMS), 500-1,000 mg, Oral, q4h prn, Teresita Gandara MD? ? [START ON 12/01/2023] dapagliflozin propanediol tablet (FARXIGA) 10 mg, 10 mg, Oral, daily, Mitesh Mann MD? ? lidocaine 10 mg/mL (1%) injection 0.1-1 mL, 0.1-1 mL, Intra-Dermal, Each Time PRN, Mitesh Mann MD? ? lisinopriL 10 mg tablet (PRINIVIL; ZESTRIL), 10 mg, Oral, bedtime, Mitesh Mann MD? ? magnesium REPLACEMENT protocol, , Protocol, protocol, Teresita Gandara MD? ? melatonin tablet 3 mg, 3 mg, Oral, bedtime prn MRx1, Teresita Gandara MD? ? metoprolol succinate 25 mg tablet XL (TOPROL XL), 25 mg, Oral, daily evening, Mitesh Mann MD? ? midazolam (PF) (VERSED) injection 0.5 mg, 0.5 mg, Intravenous, Each Time PRN, Mitesh Mann MD? ? naloxone (NARCAN) 0.4 mg/mL injection vial 0.4 mg, 0.4 mg, Intravenous, q1min prn, Teresita Gandara MD? ? ondansetron 4 mg orally disintegrating tablet (ZOFRAN ODT), 4 mg, On The Tongue, q8h prn OR ondansetron 4 mg injection (ZOFRAN), 4 mg, Intravenous, q8h prn, Teresita Gandara MD? ? oral anesthetic lozenge 1 Lozenge, 1 Lozenge, On The Tongue, q2h prn, Teresita Gandara MD? ? polyethylene glycol (MIRALAX; GLYCOLAX) packet 17 g, 17 g, Oral/NG Tube, daily prn, Teresita Gandara MD? ? potassium REPLACEMENT protocol, , Protocol, protocol, Teresita Gandara MD? ? rivaroxaban (XARELTO) tablet 15 mg, 15 mg, Oral, daily wm evening, Mitesh Mann MD? ? sennosides 8.6-17.2 mg (SENNA), 8.6-17.2 mg, Oral, bid prn, Teresita Gandara MD? ? sodium chloride 0.9 % syringe 10 mL, 10 mL, Intravenous, Each Time PRN, Teresita Gandara MD? ? sodium chloride 0.9 % syringe 5 mL, 5 mL, Intravenous, q12h, Teresita Gandara MD? ? sodium chloride 0.9 % syringe 5 mL, 5 mL, Intravenous, Each Time PRN, Teresita Gandara MD? ? [START ON 12/01/2023] spironolactone 25 mg tablet (ALDACTONE), 25 mg, Oral, daily morning, Mitesh Mann MD? ? tamsulosin 0.4 mg capsule (FLOMAX), 0.4 mg, Oral, daily evening, Mitesh Mann MD? ? torsemide 40 mg tablet (DEMADEX), 40 mg, Oral, daily, Mitesh Mann MD Teresita Gandara MD HEMATOLOGY Performing Organization Address City/[facility]/ZIP Co de Phone Number [facility] [address] [address], * Reticulocyte count AM (12/01/2023 5:43 AM CDT) RETIC% 0.7 0.5 - 1.5 % 12/01/2023 6:18 AM CDT [facility] RETIC (ABSOLUTE) 0.03 0.03 - 0.08 mil/cu mm 12/01/2023 6:18 AM CDT [facility] Blood BLOOD SPECIMEN / Unknown Butterfly / Unknown 12/01/2023 5:43 AM CDT 12/01/2023 5:55 AM CDT Teresita Gandara MD HEMATOLOGY [facility] [address] [place] [id number], * Vitamin B12 level AM (12/01/2023 5:43 AM CDT) VITAMIN B12 779 232 - 1,245 pg/mL 12/01/2023 7:06 AM CDT [facility] Blood BLOOD SPECIMEN / Unknown Butterfly / Unknown 12/01/2023 5:43 AM CDT 12/01/2023 6:10 AM CDT Narrative [facility] - 12/01/2023 7:06 AM CDT Biotin supplements may cause clinically significant interference for this test assay. ??If interference is suspected, it is strongly recommended that biotin is discontinued for at least one week prior to retesting. Teresita Gandara MD CHEMISTRY [facility] [address] [place] [address], * HEPATIC FUNCTION PANEL (12/01/2023 5:43 AM CDT) Only the most recent of2 resultswithin the time period is included. ALBUMIN 4.1 4.0 - 4.9 g/dL 12/01/2023 7:06 AM CDT [facility] PROTEIN,TOTAL 7.8 6.0 - 8.0 g/dL 12/01/2023 7:06 AM CDT [facility] BILIRUBIN,TOTAL 0.6 0.0 - 1.2 mg/dL 12/01/2023 7:06 AM CDT [facility] BILIRUBIN,DIRECT 0.2 0.0 - 0.3 mg/dL 12/01/2023 7:06 AM CDT [facility] BILIRUBIN,INDIRE CT 0.4 0.2 - 0.8 mg/dL 12/01/2023 7:06 AM CDT [facility] ALK PHOSPHATASE 75 40 - 129 IU/L 12/01/2023 7:06 AM CDT [facility] ALT (SGPT) 18 10 - 50 IU/L 12/01/2023 7:06 AM CDT [facility] AST (SGOT) 38 10 - 50 IU/L 12/01/2023 7:06 AM CDT [facility] Blood BLOOD SPECIMEN / Unknown Butterfly / Unknown 12/01/2023 5:43 AM CDT 12/01/2023 6:10 AM CDT Teresita Gandara MD CHEMISTRY [facility] [address] [place] [address], * SCAN-CARDIAC STRIP (12/01/2023 2:15 AM CDT) Scanner OTHER * SCAN-CARDIAC STRIP (11/30/2023 10:10 PM CDT) Scanner OTHER * MR MRA HEAD AND NECK STROKE INC BRAIN W/WO (11/30/2023 9:47 PM CDT) Anatomical Region Laterality Modality NECK, CAROTID, HEAD Magnetic Res onance 12/01/2023 6:37 AM CDT Addenda Addendum by Gio Hernandez MD on 12/01/2023 6:39 AM CDT For Patients: ??As a result of the Cures Act, medical imaging exams and procedure reports are released immediately into your electronic medical record. ??You may view this report before your referring provider. ?? If you have questions, please contact your health care provider. Indication: Gait changes, leaning to the left. Known pulmonic vegetation. Evaluate for emboli. Technique: MRI Head: Performed before and after IV gadolinium. MRA Head: Performed without IV contrast. MRA Neck: Performed before and after IV gadolinium. Contrast: 20 cc Clariscan Comparison: None are available Findings: MRI Head: No acute infarct or restricted diffusion. No evidence for recent or remote hemorrhage. No intracranial mass effect. No ventricular obstruction. Numerous small foci of T2 signal change are noted in the cerebral white matter, typical for moderate small-vessel ischemic change. No abnormal contrast enhancement involving the brain parenchyma, meninges, calvarium or skull base. Mild cerebral atrophy. Abnormal flow void from the right internal carotid artery below and through the skull base consistent with occlusion or markedly slowed flow. Normal flow voids are maintained in the remainder of the directly imaged intracranial vascular structures. Degenerative change at C1-C2 including prominent thickening of the transverse odontoid ligament complex; the foramen magnum remains patent. There are a few opacified air cells in the periphery of both mastoids. There is slight membrane thickening in the ethmoid paranasal sinuses. 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 The intracranial internal carotid artery is filled via collaterals (anterior communicating artery, right posterior communicating artery, and ophthalmic artery). Moderate atheromatous irregularity in the petrous and cavernous segments of the left internal carotid artery. No additional occlusion/filling defect or acquired high-grade stenosis identified. No aneurysm or vascular malformation seen. MRA Neck: Occlusion of the right common carotid artery from just beyond its origin. Occlusion right internal carotid artery. Collateral filling of the right external carotid artery system. No evidence for hemodynamically significant left internal carotid artery stenosis by NASCET criteria. Some atheromatous change in the left common carotid artery. Low the cervical segments of both vertebral arteries are patent. The visualized portions of the aortic arch, great vessel origins and proximal subclavian arteries are unremarkable. Impression: MRI Head: 1. Abnormal signal in the right internal carotid artery below and through the skull base compatible with occlusion. 2. No acute parenchymal pathology identified. No evidence for mass, hemorrhage or recent infarct. 3. Moderate presumed chronic microvascular ischemic change. 4. Mild cerebral atrophy. MRA Head: 1. Occlusion of the right internal carotid artery through its petrous and cavernous segments. 2. Collateral reconstitution of the intracranial segment of the right internal carotid artery. 3. Moderate atheromatous change in the petrous and cavernous segments of the left internal carotid artery. MRA Neck: 1. Occlusion of the right common carotid artery from just beyond its origin. Occlusion of the right internal carotid artery. 2. Mild atheromatous change in the left common carotid artery. 3. No evidence for hemodynamically significant left internal carotid artery stenosis by NASCET criteria. 4. Both vertebral arteries are patent. Dictated by Gio Hernandez MD @ 12/01/2023 6:39:15 AM (Electronically Signed) Addendum by Gio Hernandez MD on 12/01/2023 6:38 AM CDT For Patients: ??As a result of the 21st Century Cures Act, medical imaging exams and procedure reports are released immediately into your electronic medical record. ??You may view this report before your referring provider. ?? If you have questions, please contact your health care provider. Indication: Gait changes, leaning to the left. Known pulmonic vegetation. Evaluate for emboli. Technique: MRI Head: Performed before and after IV gadolinium. MRA Head: Performed without IV contrast. MRA Neck: Performed before and after IV gadolinium. Contrast: 20 cc Clariscan Comparison: None are available Findings: MRI Head: No acute infarct or restricted diffusion. No evidence for recent or remote hemorrhage. No intracranial mass effect. No ventricular obstruction. Numerous small foci of T2 signal change are noted in the cerebral white matter, typical for moderate small-vessel ischemic change. No abnormal contrast enhancement involving the brain parenchyma, meninges, calvarium or skull base. Mild cerebral atrophy. Abnormal flow void from the right internal carotid artery below and through the skull base consistent with occlusion or markedly slowed flow. Normal flow voids are maintained in the remainder of the directly imaged intracranial vascular structures. Degenerative change at C1-C2 including prominent thickening of the transverse odontoid ligament complex; the foramen magnum remains patent. There are a few opacified air cells in the periphery of both mastoids. There is slight membrane thickening in the ethmoid paranasal sinuses. 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 The intracranial internal carotid artery is filled via collaterals (anterior communicating artery, right posterior communicating artery, and ophthalmic artery). Moderate atheromatous irregularity in the petrous and cavernous segments of the left internal carotid artery. No additional occlusion/filling defect or acquired high-grade stenosis identified. No aneurysm or vascular malformation seen. MRA Neck: Occlusion of the right common carotid artery from just beyond its origin. Occlusion right internal carotid artery. Collateral filling of the right external carotid artery system. No evidence for hemodynamically significant left internal carotid artery stenosis by NASCET criteria. Some atheromatous change in the left common carotid artery. Low the cervical segments of both vertebral arteries are patent. The visualized portions of the aortic arch, great vessel origins and proximal subclavian arteries are unremarkable. Impression: MRI Head: 1. Abnormal signal in the right internal carotid artery below and through the skull base compatible with occlusion. 2. No acute parenchymal pathology identified. No evidence for mass, hemorrhage or recent infarct. 3. Moderate presumed chronic microvascular ischemic change. 4. Mild cerebral atrophy. MRA Head: 1. Occlusion of the right internal carotid artery through its petrous and cavernous segments. 2. Collateral reconstitution of the intracranial segment of the right internal carotid artery. 3. Moderate atheromatous change in the petrous and cavernous segments of the left internal carotid artery. MRA Neck: 1. Occlusion of the right common carotid artery from just beyond its origin. Occlusion of the right internal carotid artery. 2. Mild atheromatous change in the left common carotid artery. 3. No evidence for hemodynamically significant left internal carotid artery stenosis by NASCET criteria. 4. Both vertebral arteries are patent. Dictated by Gio Hernandez MD @ 12/01/2023 6:38:29 AM (Electronically Signed) Narrative 12/01/2023 6:37 AM CDT For Patients: ??As a result of the Cures Act, medical imaging exams and procedure reports are released immediately into your electronic medical record. ??You may view this report before your referring provider. ??If you have questions, please contact your health care provider. Indication: Gait changes, leaning to the left. Known pulmonic vegetation. Evaluate for emboli. Technique: MRI Head: Performed before and after IV gadolinium. MRA Head: Performed without IV contrast. MRA Neck: Performed before and after IV gadolinium. Contrast: 20 cc Clariscan Comparison: None are available Findings: MRI Head: No acute infarct or restricted diffusion. No evidence for recent or remote hemorrhage. No intracranial mass effect. No ventricular obstruction. Numerous small foci of T2 signal change are noted in the cerebral white matter, typical for moderate small-vessel ischemic change. No abnormal contrast enhancement involving the brain parenchyma, meninges, calvarium or skull base. Mild cerebral atrophy. Abnormal flow void from the right internal carotid artery below and through the skull base consistent with occlusion or markedly slowed flow. Normal flow voids are maintained in the remainder of the directly imaged intracranial vascular structures. Degenerative change at C1-C2 including prominent thickening of the transverse odontoid ligament complex; the foramen magnum remains patent. There are a few opacified air cells in the periphery of both mastoids. There is slight membrane thickening in the ethmoid paranasal sinuses. 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 The intracranial internal carotid artery is filled via collaterals (anterior communicating artery, right posterior communicating artery, and ophthalmic artery). Moderate atheromatous irregularity in the petrous and cavernous segments of the left internal carotid artery. No additional occlusion/filling defect or acquired high-grade stenosis identified. No aneurysm or vascular malformation seen. MRA Neck: Occlusion of the right common carotid artery from just beyond its origin. Occlusion right internal carotid artery. Collateral filling of the right external carotid artery system. No evidence for hemodynamically significant left internal carotid artery stenosis by NASCET criteria. Some atheromatous change in the left common carotid artery. Low the cervical segments of both vertebral arteries are patent. The visualized portions of the aortic arch, great vessel origins and proximal subclavian arteries are unremarkable. Impression: MRI Head: 1. Abnormal signal in the right internal carotid artery below and through the skull base compatible with occlusion. 2. No acute parenchymal pathology identified. No evidence for mass, hemorrhage or recent infarct. 3. Moderate presumed chronic microvascular ischemic change. 4. Mild cerebral atrophy. MRA Head: 1. Occlusion of the right internal carotid artery through its petrous and cavernous segments. 2. Collateral reconstitution of the intracranial segment of the right internal carotid artery. 3. Moderate atheromatous change in the petrous and cavernous segments of the left internal carotid artery. MRA Neck: 1. Occlusion of the right common carotid artery from just beyond its origin. Occlusion of the right internal carotid artery. 2. Mild atheromatous change in the left common carotid artery. 3. No evidence for hemodynamically significant left internal carotid artery stenosis by NASCET criteria. 4. Both vertebral arteries are patent. Dictated by Gio Hernandez MD @ 12/01/2023 6:37:45 AM (Electronically Signed) Procedure Note Gio Hernandez MD - 12/01/2023 For Patients: As a result of the 21st Century Cures Act, medical imagingexams and procedure reports are released immediately into your electronicmedical record. You may view this report before your referring provider.If you have questions, please contact your health care provider. Indication: Gait changes, leaning to the left. Known pulmonic vegetation. Evaluate foremboli. Technique: MRI Head: Performed before and after IV gadolinium. MRA Head: Performed without IV contrast. MRA Neck: Performed before and after IV gadolinium. Contrast: 20 cc Clariscan Comparison: None are available Findings: MRI Head: No acute infarct or restricted diffusion. No evidence for recentor remote hemorrhage. No intracranial mass effect. No ventricularobstruction. Numerous small foci of T2 signal change are noted in thecerebral white matter, typical for moderate small-vessel ischemic change.No abnormal contrast enhancement involving the brain parenchyma, meninges,calvarium or skull base. Mild cerebral atrophy. Abnormal flow void from the right internal carotid artery below andthrough the skull base consistent with occlusion or markedly slowed flow.Normal flow voids are maintained in the remainder of the directly imagedintracranial vascular structures. Degenerative change at C1-C2 including prominent thickening of thetransverse odontoid ligament complex; the foramen magnum remains patent.There are a few opacified air cells in the periphery of both mastoids.There is slight membrane thickening in the ethmoid paranasal sinuses. MRA Head: Occlusion of the right internal carotid artery through the skullbase. The intracranial internal carotid artery is filled via collaterals(anterior communicating artery, right posterior communicating artery, andophthalmic artery). Moderate atheromatous irregularity in the petrous andcavernous segments of the left internal carotid artery. No additionalocclusion/filling defect or acquired high-grade stenosis identified. Noaneurysm or vascular malformation seen. MRA Neck: Occlusion of the right common carotid artery from just beyondits origin. Occlusion right internal carotid artery. Collateral filling ofthe right external carotid artery system. No evidence for hemodynamicallysignificant left internal carotid artery stenosis by NASCET criteria. Someatheromatous change in the left common carotid artery. Low the cervicalsegments of both vertebral arteries are patent. The visualized portions ofthe aortic arch, great vessel origins and proximal subclavian arteries areunremarkable. Impression: MRI Head: 1. Abnormal signal in the right internal carotid artery below and throughthe skull base compatible with occlusion. 2. No acute parenchymal pathology identified. No evidence for mass,hemorrhage or recent infarct. 3. Moderate presumed chronic microvascular ischemic change. 4. Mild cerebral atrophy. MRA Head: 1. Occlusion of the right internal carotid artery through its petrous andcavernous segments. 2. Collateral reconstitution of the intracranial segment of the rightinternal carotid artery. 3. Moderate atheromatous change in the petrous and cavernous segments ofthe left internal carotid artery. MRA Neck: 1. Occlusion of the right common carotid artery from just beyond itsorigin. Occlusion of the right internal carotid artery. 2. Mild atheromatous change in the left common carotid artery. 3. No evidence for hemodynamically significant left internal carotidartery stenosis by NASCET criteria. 4. Both vertebral arteries are patent. Dictated by Gio Hernandez MD @ 12/01/2023 6:37:45 AM (Electronically Signed) Teresita Gandara MD MR * SCAN-CARDIAC STRIP (11/30/2023 3:33 PM CDT) Scanner OTHER * IRON PLUS IRON BINDING CAP (11/30/2023 3:32 PM CDT) [facility] IRON 106 61 - 157 ug/dL 11/30/2023 5:22 PM CDT [facility] UIBC (UNSATURATED) 266 112 - 347 ug/dL 11/30/2023 5:22 PM CDT [facility] IRON BINDING CAPACITY 372 250 - 400 ug/dL 11/30/2023 5:22 PM CDT [facility] IRON,% SATURATION 28 14 - 50 % 11/30/2023 5:22 PM CDT [facility] Blood BLOOD SPECIMEN / Unknown Butterfly / Unknown 11/30/2023 3:32 PM CDT 11/30/2023 3:42 PM CDT Teresita Gandara MD CHEMISTRY Performing Organization Address City/[facility]/ZIP Co de Phone Number [facility] [address] [place] [address], [place] * SOLUBLE TRANSFERRIN EDGE CUTTER (11/30/2023 3:32 PM CDT) [facility] ALIS.TRANSFERRI N RECEPTOR 4.54 2.20 - 5.00 mg/L 11/30/2023 6:45 PM CDT [facility] Blood BLOOD SPECIMEN / Unknown Butterfly / Unknown 11/30/2023 3:32 PM CDT 11/30/2023 3:42 PM CDT Teresita Gandara MD SEND OUTS Performing Organization Address City/[facility]/ZIP Co de Phone Number [facility] [address] [place] [address], [place] * FERRITIN (11/30/2023 3:32 PM CDT) Only the most recent of2 resultswithin the time period is included. [facility] FERRITIN 183.0 30.0 - 400.0 ng/mL 11/30/2023 5:22 PM CDT [facility] Blood BLOOD SPECIMEN / Unknown Butterfly / Unknown 11/30/2023 3:32 PM CDT 11/30/2023 3:42 PM CDT Teresita Gandara MD CHEMISTRY Performing Organization Address [facility] Co de Phone Number [facility] [address] [place] [address], * BLOOD CULTURE (11/30/2023 3:31 PM CDT) Only the most recent of2 resultswithin the time period is included. CULTURE No Growth. 12/04/2023 4:17 PM CDT [facility] Blood BLOOD SPECIMEN / Unknown Butterfly / Unknown 11/30/2023 3:31 PM CDT 11/30/2023 3:42 PM CDT Narrative [facility] - 12/04/2023 4:17 PM CDT Low volume blood culture received; possible false negative culture. Brandee Lombardi NP MICROBIOLOGY Performing Organization Address [facility] Phone Number [facility] [address] [place] [address], * HCHG TUBE PR1, HCHG STYLET PR1 (11/30/2023 12:45 PM CDT) Narrative García Smart CRNA - 11/30/2023 12:45 PM CDT García Smart CRNA ? 11/30/2023 12:46 PM Procedure: ETT Patient location during procedure: OR ETT Properties Mask Ventilation: easy Final Technique: direct laryngoscopy Type: straight Location: oral Tube Size: 7.5 mm Stylet: yes Laryngoscope Blade: Mac Blade Size: 4 Cormack-Lehane Grade View: 1 Insertion Attempts: 1 Placement Verification: auscultation, end tidal CO2, symmetrical chest wall movement and cuff palpation Assessment: pharynx clear, atraumatic and dentition unchanged Secured at: 24 Measured From: lips Difficulty: 0 (not difficult) Jaqueline Sharma MD ANESTHESIA PX NOTE O RDERABLES * EP OTHER PROCEDURE (11/30/2023 11:14 AM CDT) Anatomical Region Laterality Modality X-Ray Angiograph y, X-Ray Angiography 11/30/2023 11:1 4 AM CDT Mitesh Mann MD CV IMAGING * (ABNORMAL) COMPREHENSIVE BLOOD GAS MIXED VENOUS (11/23/2023 4:42 PM CDT) Only the most recent of2 resultswithin the time period is included. O2 SATURATION, MEASURED, MIXED VENOUS 78(H) 70 - 75 % 11/23/2023 4:42 PM CDT [facility] PATIENT TEMPERATURE 37.0 Degrees C 11/23/2023 4:42 PM CDT [facility] COLLECTION SITE PULMONARY ARTERY 11/23/2023 4:42 PM CDT [facility] HEMOGLOBIN,BLOO D GAS 10.8(L) 13.5 - 17.5 g/dL 11/23/2023 4:42 PM CDT [facility] Blood BLOOD SPECIMEN / Unknown 11/23/2023 4:42 PM CDT 11/23/2023 4:43 PM CDT Jessica Gee MD CHEMISTRY [facility] [address] [place] [id number] * CVL OTHER PROCEDURE (11/23/2023 4:10 PM CDT) Anatomical Region Laterality Modality X-Ray Angiograph y 11/23/2023 4:10 PM CDT Provider Referring CV IMAGING * RA QUANTITATIVE (11/23/2023 12:50 PM CDT) RHEUMATOID FACTOR,QUANT <10.00 <14.00 IU/mL 11/23/2023 5:42 PM CDT [facility] Blood BLOOD SPECIMEN / Unknown Butterfly / Unknown 11/23/2023 12:50 PM CDT 11/23/2023 1:12 PM CDT Vamsi Webb TANK TRUCK DRIVER SEND OUTS Performing Organization Address [facility]/ZIP Co de Phone Number [facility] [address] [place] [address], * ANTI HIV 1/2 (11/23/2023 12:50 PM CDT) Pathologist [facility] HIV-1/HIV-2 SCREEN Non-Reacti ve Non-Reacti ve 11/23/2023 7:36 PM CDT [facility] Comment:HIV-1 p24 and HIV-1/ HIV-2 Ab Not Detected. Blood BLOOD SPECIMEN / Unknown Butterfly / Unknown 11/23/2023 12:50 PM CDT 11/23/2023 1:12 PM CDT Vmasi Webb NP SEND OUTS Performing Organization Address [facility] Co de Phone Number [facility] [address] [place] [address], * PROTEIN/CREAT RATIO,URINE (11/04/2023 8:13 AM CDT) PROTEIN QUANT,RAND URINE 11 1 - 14 mg/dL 11/04/2023 2:29 PM CDT [facility] CREAT,RANDOM URINE 100.0 39.0 - 259.0 mg/dL 11/04/2023 2:29 PM CDT [facility] PROT/CREAT RATIO,UR 0.1 <0.2 11/04/2023 2:29 PM CDT [facility] Urine URINE SPECIMEN / Unknown Non-Blood / Unknown 11/04/2023 8:13 AM CDT 11/04/2023 8:13 AM CDT Adeel Loomis MD URINE [facility] [address] [place] [address], [place] * (ABNORMAL) ROUTINE URINALYSIS (11/04/2023 8:13 AM CDT) COLOR Yellow Yellow Color 11/04/2023 8:17 AM CDT [facility] CLARITY Clear Clear Clarity 11/04/2023 8:17 AM CDT [facility] SPECIFIC GRAVITY,URINE 1.020 1.010, 1.015, 1.020, 1.025 11/04/2023 8:17 AM CDT [facility] PH,URINE 7.0 6.0, 7.0, 8.0, 5.5, 6.5, 7.5, 8.5 11/04/2023 8:17 AM CDT [facility] UROBILINOGEN, QUALITATIVE Normal Normal EU/dl 11/04/2023 8:17 AM CDT [facility] PROTEIN, URINE Negative Negative mg/dL 11/04/2023 8:17 AM CDT [facility] GLUCOSE, URINE 100(A) Negative mg/dL 11/04/2023 8:17 AM CDT [facility] KETONES,URINE Negative Negative mg/dL 11/04/2023 8:17 AM CDT [facility] BILIRUBIN,URI NE Negative Negative 11/04/2023 8:17 AM CDT [facility] OCCULT BLOOD,URINE Negative Negative 11/04/2023 8:17 AM CDT [facility] NITRITE Negative Negative 11/04/2023 8:17 AM CDT [facility] LEUKOCYTE ESTERASE Negative Negative 11/04/2023 8:17 AM CDT [facility] Urine URINE SPECIMEN / Unknown Non-Blood / Unknown 11/04/2023 8:13 AM CDT 11/04/2023 8:13 AM CDT Adeel Loomis MD URINE [facility] [address] [place] [address], [place] [phone] * (ABNORMAL) PROTEIN ELP SERUM W REFLEX (11/04/2023 8:11 AM CDT) ELP,ALBUMIN 3.75 3.31 - 5.31 g/dL 11/08/2023 3:32 PM CDT [facility] ELP,ALPHA 1 0.33 0.19 - 0.42 g/dL 11/08/2023 3:32 PM CDT [facility] ELP,ALPHA 2 0.72 0.44 - 1.03 g/dL 11/08/2023 3:32 PM CDT [facility] ELP,GAMMA 1.69(H) 0.59 - 1.46 g/dL 11/08/2023 3:32 PM CDT [facility] ELP,BETA 0.82 0.52 - 1.05 g/dL 11/08/2023 3:32 PM CDT [facility] MONOCLONAL PEAK 1 1.02 <=0.00 g/dL 11/08/2023 3:32 PM CDT [facility] ELP INTERP,SERUM Interval study shows essentially no change in magnitude of previously identified monoclonal peak. Previous Study: 0.97 gm/dL on 09/25/2022. Interpreted and electronically signed by: Emily Lazar MD 11/08/2023 3:32 PM CDT [facility] PROTEIN,TOTAL 7.3 6.0 - 8.0 g/dL 11/08/2023 3:32 PM CDT [facility] Blood BLOOD SPECIMEN / Unknown Venipuncture / Unknown 11/04/2023 8:11 AM CDT 11/04/2023 8:12 AM CDT Adeel Loomis MD CHEMISTRY [facility] [address] [place] [address], [place] * (ABNORMAL) ANTINUCLEAR ANTIBODY BY IFA (11/04/2023 8:11 AM CDT) Pathologist [facility] ANTINUCLEAR ANTIBODY (EDUARD) Positive( A) Negative 11/08/2023 1:22 PM CDT [facility] EDUARD PATTERN 1 Homogenou s(A) (none) 11/08/2023 1:22 PM CDT [facility] EDUARD TITER 1 1:320(A) (none) 11/08/2023 1:22 PM CDT [facility] Blood BLOOD SPECIMEN / Unknown Venipuncture / Unknown 11/04/2023 8:11 AM CDT 11/04/2023 8:12 AM CDT Narrative [facility] - 11/08/2023 1:22 PM CDT Method: EDUARD screen performed by (IFA) on HEP-2 substrate, IgG Adeel Loomis MD CHEMISTRY Performing Organization Address [facility]/ZIP Co de Phone Number [facility] [address] [address], * ANTIGLOMERULAR BASEMENT MEMBRANE ANTIBODIES (11/04/2023 8:11 AM CDT) Pathologist [facility] Glomerular BM Ab <0.2 0.0 - 0.9 units 11/07/2023 8:[address] [facility] ESOTERIC TESTING (CET) Blood BLOOD SPECIMEN / Unknown Venipuncture / Unknown 11/04/2023 8:11 AM CDT 11/04/2023 8:12 AM CDT Narrative [facility] ([facility]) - 11/07/2023 8:06 PM CDT Performed at: ??01 - [address] ??[id number] Vocational Rehabilitation Specialist: Charu Salazar MD, Phone: ??[phone] Adeel Loomis MD SEND OUTS Performing Organization Address City/[facility]/ZIP Co de Phone Number [facility] ESOTERIC TESTING (CET) [address] [place] [phone], * (ABNORMAL) IMMUNOFIXATION,SERUM (11/04/2023 8:11 AM CDT) Only the most recent of2 resultswithin the time period is included. 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 Interpreted and electronically signed by: Emily Lazar MD 11/08/2023 3:32 PM CDT [facility] Blood BLOOD SPECIMEN / Unknown Venipuncture / Unknown 11/04/2023 8:11 AM CDT 11/04/2023 8:12 AM CDT Adeel Loomis MD CHEMISTRY Performing Organization Address City/[facility]/ZIP Co de Phone Number [facility] [address] [place] [address], * ANCA PANEL FOR VASCULITIS (11/04/2023 8:11 AM CDT) ANCA Negative Negative 11/07/2023 1:40 PM CDT [facility] Comment: Atypical ANCA cannot be ruled out due to presence of EDUARD on screening.?? EDUARD screen results are not valid for diagnosis of Autoimmune Disease.?? Order EDUARD testing for further evaluation as clinically indicated. Blood BLOOD SPECIMEN / Unknown Venipuncture / Unknown 11/04/2023 8:11 AM CDT 11/04/2023 8:12 AM CDT Adeel Loomis MD SEND OUTS Performing Organization Address City/[facility]/ZIP Co de Phone Number [facility] [address] [place] [phone], * (ABNORMAL) PRO-BNP (11/04/2023 8:11 AM CDT) Only the most recent of3 resultswithin the time period is included. Pathologist [facility] PRO-BNP 2,486(H) <450 pg/mL 11/04/2023 4:03 PM CDT [facility] Blood BLOOD SPECIMEN / Unknown Venipuncture / Unknown 11/04/2023 8:11 AM CDT 11/04/2023 8:12 AM CDT [facility] - 11/04/2023 4:03 PM CDT The following cut-points have been suggested for the use of proBNP for the diagnostic evaluation of heart failure (HF) in patient with acute dyspnea. Patients with eGFR >= 60 Diagnosis (rule in CHF) ? <50 Years Old ?450 pg/mL 50 - 75 Years Old ?900 pg/mL >75 Years Old ? 1800 pg/mL Exclusion (rule out CHF) Age Independent ?300 pg/mL A cutoff of 1200 pg/mL for patients with an eGFR <60 yields a diagnostic sensitivity of 89% and specificity of 72% for acute congestive heart failure. ? Adeel Loomis MD SEND OUTS [facility] [address] [place] [address], * (ABNORMAL) RENAL FUNCTION PANEL (11/04/2023 8:11 AM CDT) Pathologist [facility] SODIUM 137 136 - 145 mmol/L 11/04/2023 4:03 PM T [facility] POTASSIUM 4.6 3.5 - 5.1 mmol/L 11/04/2023 4:[address] [facility] CHLORIDE 98 98 - 107 mmol/L 11/04/2023 4:[address] [facility] CO2,TOTAL 28 22 - 29 mmol/L 11/04/2023 4:[address] [facility] ANION GAP 11 5 - 18 11/04/2023 4:[address] [facility] GLUCOSE 92 70 - 99 mg/dL 11/04/2023 4:[address] [facility] CALCIUM 9.2 8.8 - 10.2 mg/dL 11/04/2023 4:[address] [facility] BUN 33(H) 8 - 23 mg/dL 11/04/2023 4:[address] [facility] CREATININE 1.62(H) 0.70 - 1.20 mg/dL 11/04/2023 4:[address] [facility] BUN/CREAT RATIO 20 10 - 20 4:[address] [facility] eGFR 42(L) >90 mL/min/1.7 3m2 11/04/2023 4:[address] [facility] Comment:As of 2021, eG FR is calculated by the CKD-EPI creatinine equation without race adjustment. ??eGFR can be influenced by muscle mass, exercise, and diet. ??The reported eGFR is an estimation only and is only applicable if the renal function is stable. PHOSPHORUS 3.7 2.5 - 4.5 mg/dL 11/04/2023 4:[address] [facility] ALBUMIN 4.2 4.0 - 4.9 g/dL 11/04/2023 4:[address] [facility] Blood BLOOD SPECIMEN / Unknown Venipuncture / Unknown 11/04/2023 8:11 AM CDT 11/04/2023 8:12 AM CDT Adeel Loomis MD CHEMISTRY Performing Organization Address [facility]/ZIP Co de Phone Number [facility] [address] [place] [address], * AFB CULTURE, STAIN (10/21/2023 10:58 AM CDT) CULTURE No Mycobacterium isolated. 12/05/2023 7:20 AM CDT [facility] ACID FAST STAIN No acid fast bacilli seen 12/05/2023 7:20 AM CDT [facility] Aspirate (Right Lower Lobe) Non-Blood / Unknown 10/21/2023 10:58 AM CDT 10/21/2023 11:25 AM CDT Gavin Hackett DO MICROBIOLOGY Performing Organization Address [facility] Co de Phone Number [facility] [address] [place] [address], * BRONCHIAL CULTURE, STAIN (10/21/2023 10:58 AM CDT) CULTURE Usual nas 10/23/2023 7:59 AM CDT [facility] GRAM STAIN 2+ PMNs 10/23/2023 7:59 AM CDT [facility] GRAM STAIN 1+ Epithelial cells 10/23/2023 7:59 AM CDT [facility] GRAM STAIN No RBCs 10/23/2023 7:59 AM CDT [facility] GRAM STAIN 3+ Gram Positive Cocci 10/23/2023 7:59 AM CDT [facility] GRAM STAIN 1+ Gram Positive Bacilli 10/23/2023 7:59 AM CDT [facility] GRAM STAIN 2+ Gram Negative Bacilli 10/23/2023 7:59 AM CDT [facility] GRAM STAIN 2+ Gram Negative Cocci 10/23/2023 7:59 AM CDT [facility] GRAM STAIN Gram stain performed by [place], [place] 10/23/2023 7:59 AM CDT [facility] Aspirate (Right Lower Lobe) Non-Blood / Unknown 10/21/2023 10:58 AM CDT 10/21/2023 11:25 AM CDT Gavin Hackett DO MICROBIOLOGY [facility] [address] [place] [address], [facility] SENDOUT INTERNAL ZIP [phone] [place] [phone] * ELIZABETH PREP, OTHER SOURCE (10/21/2023 10:58 AM CDT) OBSERVATION No fungal elements seen 10/21/2023 12:08 PM CDT [facility] Aspirate (Right Lower Lobe) Non-Blood / Unknown 10/21/2023 10:58 AM CDT 10/21/2023 11:25 AM CDT Gavin Hackett DO MICROBIOLOGY Performing Organization Address City/[facility]/ZIP Co de Phone Number [facility] SENDOUT INTERNAL ZIP [phone] [place] [phone] * FUNGUS CULT, OTHER SOURCE (10/21/2023 10:58 AM CDT) CULTURE No Fungus isolated. 11/21/2023 7:02 AM CDT [facility] Aspirate (Right Lower Lobe) Non-Blood / Unknown 10/21/2023 10:58 AM CDT 10/21/2023 11:25 AM CDT Gavin Hackett DO MICROBIOLOGY [facility] [address] [place] [address], * BRONCHOSCOPY (10/21/2023 10:13 AM CDT) 10/21/2023 10:1 3 AM CDT Narrative Transcriptions Gavin Hackett DO - 10/21/2023 11:24 AM CDT Patient Name: Yohan Hare Procedure Date: 10/21/2023 Gender: Male Date of : 1940 Admit Type: Ambulatory Procedure: Bronchoscopy Proceduralist: Gavin Hackett DO [facility] Referring MD: Gavin Hackett DO Indications/Pre-Op Diagnosis: Hemoptysis Medications: Fentanyl 50 mcg IV, Midazolam 2 mg IV, Lidocaine applied to nares and subglotticspace Procedure Description: The need for, risks and the procedure was explained to the patientand informed consent obtained. Patient was brought to the bronchoscopy suite, monitors placed and supplemental oxygen given. The endoscope [id number] was introduced through the mouth and advanced to the tracheobronchial tree. The procedure was accomplished without difficulty. The patient tolerated the procedure well. Complications: No immediate complications Estimated Blood Loss & Specimen: Estimated blood loss: none. Specimen collected: Yes and sent to Laboratory Findings: The nasopharynx/oropharynx appears normal. The larynx appears normal. The vocal cords appear normal. The proximal trachea had some oldclotted blood adherent to the posterior wall. this was suctioned clear. The valorie is sharp. The tracheobronchial tree of the left lung wasexamined to at least the first subsegmental level. Bronchial mucosa andanatomy in the left lung are normal; there are no endobronchial lesions, andno secretions. Right Lung Abnormalities: small amount of old, clotted bloodsuctioned from the lower lobe. There were no findings of DAH, no mucosal abnormalites orendobronchial disease. Impression/Post-Op Diagonsis: - Hemoptysis -old clotted blood present in the proxima trachea and small amount in RLL. No active bleeding identified on careful inspection. no DAH - The airway examination of the left lung was normal. - BAL RLL Recommendation: - Await BAL results. Gavin Hackett DO 10/21/2023 11:24:31 AM This report has been signed electronically. Note Initiated On: 10/21/2023 10:13 AM Gavin Hackett DO PROCEDURE ORD * XR CHEST 2 VIEWS PA AND LATERAL (10/17/2023 12:47 PM CDT) Anatomical Region Laterality Modality CHEST, THORAX, Lung, HEART Digit al Radiography 10/17/2023 12:4 7 PM CDT Impressions 10/17/2023 1:16 PM CDT Sternotomy. Normal heart size and pulmonary vascularity. Elevation left hemidiaphragm with some atelectasis left lung base. Right lung clear. No effusions. No significant change from previous. Narrative 10/17/2023 1:16 PM CDT For Patients: As a result of the Cures Act, medical imaging exams and procedure reports are released immediately into your electronic medical record. You may view this report before your referring provider. If you have questions, please contact your health care provider. EXAM: XR CHEST 2 VIEWS PA AND LATERAL LOCATION: [facility] DATE: 10/17/2023 INDICATION: Hemoptysis COMPARISON: 03/29/2023 Procedure Note Min Kirk MD - 10/17/2023 For Patients: As a result of the Cures Act, medical imagingexams and procedure reports are released immediately into your electronicmedical record. You may view this report before your referring provider.If you have questions, please contact your health care provider. EXAM: XR CHEST 2 VIEWS PA AND LATERAL LOCATION: [facility] DATE: 10/17/2023 INDICATION: Hemoptysis COMPARISON: 03/29/2023 IMPRESSION: Sternotomy. Normal heart size and pulmonary vascularity. Elevation lefthemidiaphragm with some atelectasis left lung base. Right lung clear. Noeffusions. No significant change from previous. Gavin Hackett DO GENERAL IMAGING * Zio XT (10/13/2023) Jessica Gee MD CARDIAC SE RVICES ORD * US ANKLE BRACHIAL INDEX BILATERAL (10/12/2023 10:58 AM CDT) Anatomical Region Laterality Modality ANKLES, ANKLE L, ANKLE R Ultraso und 10/12/2023 10:4 1 AM CDT Narrative 10/12/2023 6:25 PM CDT VASCULAR ULTRASOUND REPORT YOHAN HARE Accession#: ?? [id number] : ?1940 ??Study Date: ?? 10/12/2023 10:41:10 AM Age: ?83 years ?? Tech: ? BVB Gender: M ?Referring MD: JESSICA GEE Site: [facility] at [address] [place] [address] Study performed: ?Lower extremity resting RADHA, TBI, (bilateral). Indication for study: Claudication, LE pain/numbness TECHNIQUE: Lower/upper extremity arteries were examined per exam protocol by duplex ultrasound, color-flow and spectral Doppler. Peak systolic velocities (PSV), Doppler waveform quality, velocity ratios and vessel size in cm, were documented at protocol specific sites. Physiologic data including segmental pressures, ankle/brachial index (RADHA), digit PPG recordings, laser Doppler flowmetry, transcutaneous oximetry, and digit temperatures were documented at sites per exam protocol and test requirements. IMPRESSION: 1. Resting ankle-brachial index is moderately reduced on the right at 0.78 and is normal on the left at 1.26. 2. Toe-brachial index is mildly reduced on the right at 0.56 and toe-brachial index is normal on the left at 0.72. FINDINGS: Diffusely calcified arteries. Right toe/brachial index indicates mild range. Left toe/brachial index indicates normal range. +-------+ + + RIGHT ?? Velocity cm/s Phasicity ?? +-------+ + + ROOM SERVICE RUNNER DST ? 39 ? monophasic +-------+ + + DPA ? 11 ? multiphasic +-------+ + + +-------+ + + LEFT ?? Velocity cm/s Phasicity ?? +-------+ + + ROOM SERVICE RUNNER DST ? 55 ? multiphasic +-------+ + + DPA ? 18 ? multiphasic +-------+ + + Criteria: Stenosis ?V. Ratio Mild ?<50% ?<2.0 Moderate ?? 50-74% ?> or = 2.0 Severe ? 75-99% ?> or = 4.0 Occluded ?100% ?? no detectable flow Pressures +-----+ +--------+ +-----+ ? RIGHT (mmHg) ? LEFT (mmHg) ? +-----+ +--------+ +-----+ Index ?115 ? Brachial ?120 ? Index +-----+ +--------+ +-----+ 0.77 ? 92 ?ROOM SERVICE RUNNER ?151 ? 1.26 +-----+ +--------+ +-----+ 0.78 ? 93 ?DPA ?137 ? 1.14 +-----+ +--------+ +-----+ 0.56 ? 67 ? Digit 1 ?86 ? 0.72 +-----+ +--------+ +-----+ Darnell Abdullahi MD. Electronically signed on 10/12/2023 6:25:00 PM This study was performed and interpreted by a service accredited by the Intersocietal Accreditation Commission (IAC/Vascular), [email or web address]/vascular Report generated by [employer]. ??Final ?? Procedure Note Darnell Abdullahi MD - 10/12/2023 VASCULAR ULTRASOUND REPORT YOHAN HARE : 1940 Study Date: 10/12/2023 10:41:10 AM Age: 83 years Tech: BVB Gender: M Referring MD: JESSICA GEE Site: [facility] at [address] [place] [address] Study performed: Lower extremity resting RADHA, TBI, (bilateral). Indication for study: Claudication, LE pain/numbness TECHNIQUE: Lower/upper extremity arteries were examined per exam protocol by duplexultrasound, color-flow and spectral Doppler. Peak systolic velocities(PSV), Doppler waveform quality, velocity ratios and vessel size in cm,were documented at protocol specific sites. Physiologic data includingsegmental pressures, ankle/brachial index (RADHA), digit PPG recordings,laser Doppler flowmetry, transcutaneous oximetry, and digit temperatureswere documented at sites per exam protocol and test requirements. IMPRESSION: 1. Resting ankle-brachial index is moderately reduced on the right at0.78 and is normal on the left at 1.26. 2. Toe-brachial index is mildly reduced on the right at 0.56 andtoe-brachial index is normal on the left at 0.72. FINDINGS: Diffusely calcified arteries. Right toe/brachial index indicates mild range. Left toe/brachial index indicates normal range. +-------+ + + RIGHT Velocity cm/s Phasicity +-------+ + + ROOM SERVICE RUNNER DST 39 monophasic +-------+ + + DPA 11 multiphasic +-------+ + + +-------+ + + LEFT Velocity cm/s Phasicity +-------+ + + ROOM SERVICE RUNNER DST 55 multiphasic +-------+ + + DPA 18 multiphasic +-------+ + + Criteria: Stenosis V. Ratio Mild <50% <2.0 Moderate 50-74% > or = 2.0 Severe 75-99% > or = 4.0 Occluded 100% no detectable flow Pressures +-----+ +--------+ +-----+ RIGHT (mmHg) LEFT (mmHg) +-----+ +--------+ +-----+ Index 115 Brachial 120 Index +-----+ +--------+ +-----+ 0.77 92 ROOM SERVICE RUNNER 151 1.26 +-----+ +--------+ +-----+ 0.78 93 DPA 137 1.14 +-----+ +--------+ +-----+ 0.56 67 Digit 1 86 0.72 +-----+ +--------+ +-----+ Darnell Abdullahi MD. Electronically signed on 10/12/2023 6:25:00 PM This study was performed and interpreted by a service accredited by theIntersocietal Accreditation Commission (IAC/Vascular),www.[email or web address]/vascular Report generated by [employer]. Final Jessica Gee MD US * PSA TOTAL SCREEN - Dx Auto-associated (10/10/2023 8:16 AM CDT) PSA TOTAL (SCREEN) 3.12 <4.00 ng/mL 10/12/2023 11:57 PM CDT [facility] Blood BLOOD SPECIMEN / Unknown Venipuncture / Unknown 10/10/2023 8:16 AM CDT 10/10/2023 8:23 AM CDT Narrative [facility] - 10/12/2023 11:57 PM CDT The test method changed on 12/14/2022. If this test has been used for serial monitoring, rebaselining is recommended. Rebaselining consists of 2 measurements, collected 3-6 weeks apart. The [employer] Elecsys total PSA assay is an electrochemiluminescence immunoassay ECLIA performed on the [employer] Sayda e immunoassay analyzers. Values obtained with different assay methods may be different and cannot be used interchangeably. Flakito Ling MD LABORATORY [facility] [address] [place] [address], * MR CARDIAC WWO (10/05/2023 6:46 AM CDT) Anatomical Region Laterality Modality HEART, THORAX Magnetic Resonan ce 10/05/2023 5:34 AM CDT Narrative 10/05/2023 1:52 PM CDT ?[facility] ? CMR Report ??MRN: ?[id number] ?Name: ? YOHAN HARE ?: ? 1941-Feb-16 ?Scan Date: ?Accession Number: ?[id number] ?Status: ?Final ? Electronically signed by Jayme Mcpherson 13:52:35 VITALS ===== HEIGHT: 71 in ?(180 cm) WEIGHT: 234 lbs ?(106 kgs) BSA: 2.25 m^2 FINAL IMPRESSION ===== 1. Xzwf-[id number] left ventricular hypertrophy (max wall thickness 1.4 cm), normal left ventricular size, and normal systolic function (LVEF 59%). ? A. There is nonspecific hyperenhancement of the basal inferoseptal and anteroseptal naidu near the RV septal insertion sites. This finding is often seen in patients with RV volume and/or pressure overload. There is also involvement of the RV side of the interventricular septum at the basal anterolateral segment. Although this nonischemic LGE pattern is nonspecific, cardiac involvement by sarcoidosis may be considered in the differential. ? B. There is a small region of subendocardial hyperenhancement in the basal lateral wall, consistent with a small subendocardial infarction in the distribution of the LCx. There is also a small region of subendocardial hyperenhancement involving the apical LV segments, consistent with a small subendocardial infarction in the perfusion territory of the distal LAD. ? C. High ECV 46% - most likely secondary to the presence of regions nonischemic scar and subendocardial infarcts. ? D. No myocardial edema. 2. Moderately dilated right ventricle with mildly reduced systolic function (RV EF 49%). 3. Severely enlarged left atrium and moderately enlarged right atrium. 4. Wnsnfenu-tr-dvvgmx tricuspid regurgitation. 5. Normal aortic root and thoracic aortic caliber. 6. Normal pericardium. 7. Ground glass densities within the right lung, with an enlarged right paratracheal lymph node. SUMMARY ===== LEFT VENTRICLE: Quantitative LVEF 59 %. LV wall thickness is normal. LV cavity size is normal. LV systolic function is normal. There is concentric LVH. VIABILITY: LV scar size is 12 %. RIGHT VENTRICLE: Quantitative RVEF 49 %. RV is moderately enlarged. LV/RV SEPTUM: The ventricular septum is intact. LA/RA SEPTUM: The atrial septum is intact. LEFT ATRIUM: LA is severely enlarged. RIGHT ATRIUM: RA is moderately enlarged. PERICARDIUM: Pericardium is normal. There is no pericardial effusion. PLEURAL EFFUSION: There is no pleural effusion. AORTIC VALVE: Aortic valve is trileaflet. There is trivial aortic regurgitation. MITRAL VALVE: There is mild mitral regurgitation. Mitral regurgitant fraction 17 %. Mitral valve leaflets are normal. TRICUSPID VALVE: Tricuspid valve leaflets are normal. There is moderate-severe tricuspid regurgitation. PULMONIC VALVE: Pulmonic valve leaflets are normal. There is no pulmonic regurgitation. AORTIC ROOT: The aortic root is normal. OTHER FINDINGS: Thoracic aorta ??Left sided arch ??Ascending aorta 38 x 35 mm ??Descending aorta 26 x 27 mm Global longitudinal strain normal at 20.3% (normal range 13.3-24.1%). CORE EXAM ===== MEASUREMENTS ----- --- ?VOLUMETRIC ANALYSIS ? . . ? LV ?? Reference RV ?? Reference +------+ +------+ +------+ + EDV ?? ml ?177 ?290 ? ml/m^2 ? 79 ?129 ? ESV ?? ml ? 73 ?149 ? ml/m^2 ? 32 ? 66 ? CO ?? L/min ? 6.45 ? 8.74 ? L/min/m^2 2.86 ? 3.88 ? MASS g ?135 ? g/m^2 ? 60 ? SV ?? ml ?104 ?141 ? ml/m^2 ? 46 ? 63 ? EF ?? % ? 59 ? 49 ? '------+ +------+ +------+ ' ?CARDIAC OUTPUT HR: ??62 BPM ?LV DIMENSIONS ?WALL THICKNESS - ANTEROSEPTAL: ??1.5 cm ?WALL THICKNESS - MAXIMUM: ??1.5 cm ?LA DIMENSIONS (LV SYSTOLE) ?VOLUME: ??218 ml ?VOLUME NORMALIZED: ??96.7 ml/m^2 ?RA DIMENSIONS (RV SYSTOLE) ?VOLUME: ??153 ml ?VOLUME NORMALIZED: ??67.9 ml/m^2 ?EXTRACELLULAR VOLUME MEASUREMENT ?PRE-CONTRAST T1 MYOCARDIUM: ??1126 msec ?ECV: ??46 % 17 SEGMENT ----- --- . ----- . Segments ? Wall Motion ?? Hyperenhancement Stress Perfusion Interpretation ? + + + + +---- ----- + Base Anterior ? Normal/Hyper ?? None ? Normal ? Base Anteroseptal ?? Normal/Hyper ?? 51-75% ? Sub-Endo WI ? Base Inferoseptal ?? Normal/Hyper ?? 26-50% ? Sub-Endo WI ? Base Inferior ? Normal/Hyper ?? 1-25% ? Non-CAD Scar ? Base Inferolateral Normal/Hyper ?? 1-25% ? Non-CAD Scar ? Base Anterolateral Normal/Hyper ?? 1-25% ? Non-CAD Scar ? Mid Anterior ? Normal/Hyper ?? None ? Normal ? Mid Anteroseptal ?? Normal/Hyper ?? 1-25% ? Non-CAD Scar ? Mid Inferoseptal ?? Normal/Hyper ?? 26-50% ? Non-CAD Scar ? Mid Inferior ? Normal/Hyper ?? None ? Normal ? Mid Inferolateral ?? Normal/Hyper ?? None ? Normal ? Mid Anterolateral ?? Normal/Hyper ?? None ? Normal ? Apical Anterior ? Normal/Hyper ?? None ? Normal ? Apical Septal ? Normal/Hyper ?? None ? Normal ? Apical Inferior ? Normal/Hyper ?? None ? Normal ? Apical Lateral ? Normal/Hyper ?? None ? Normal ? [place] ? Normal/Hyper ?? 1-25% ? Sub-Endo WI ? + + + + +---- ----- + RV Segments ? Wall Motion ?? Hyperenhancement ? Interpretation ? + + + + +---- ----- + RV Basal Anterior ?? Mild/Mod Hypo None ? Abnormal Wall Motion RV Basal Inferior ?? Mild/Mod Hypo None ? Abnormal Wall Motion RV Mid ? Mild/Mod Hypo None ? Abnormal Wall Motion RV Apical ? Mild/Mod Hypo None ? Abnormal Wall Motion ' + + + +---- ----- ' ?FINDINGS ?LV SCAR SIZE (17 SEGMENT): ??12 % SCAN INFO ===== GENERAL ----- --- ?SCANNER ?PRINTED CIRCUIT BOARDS ROUTER: ??SIEMENS ?MODEL: ??Aera ?CONTRAST AGENT ?TYPE: ??Gadavist ?GD CONCENTRATION: ??1.0 M ?SETUP ?REFERRING PHYSICIAN: ??JESSICA KELLY ?ATTENDING PHYSICIAN: ??JESSICA KELLY BILLING ===== Patient Account ?[id number] ICD10 Codes ?I50.23 Report generated by [employer], a product of [employer] Procedure Note Jayme Mcpherson MD - 10/05/2023 [facility] CMR Report Name: YOHAN HARE : Scan Date: Accession Number: [id number] Status: Final Electronically signed by Jayme Mcpherson :52:35 VITALS ===== HEIGHT: 71 in (180 cm) WEIGHT: 234 lbs (106 kgs) BSA: 2.25 m^2 FINAL IMPRESSION ===== 1. Wmfg-kk-crayskgk left ventricular hypertrophy (max wall thickness 1.4cm), normal left ventricular size, and normal systolic function (LVEF 59%). A. There is nonspecific hyperenhancement of the basal inferoseptaland anteroseptal naidu near the RV septal insertion sites. This finding is often seen in patientswith RV volume and/or pressure overload. There is also involvement of the RV side of the interventricularseptum at the basal anterolateral segment. Although this nonischemic LGE pattern isnonspecific, cardiac involvement by sarcoidosis may be considered in the differential. B. There is a small region of subendocardial hyperenhancement inthe basal lateral wall, consistent with a small subendocardial infarction in the distribution ofthe LCx. There is also a small region of subendocardial hyperenhancement involving the apical LVsegments, consistent with a small subendocardial infarction in the perfusion territory of the distal LAD. C. High ECV 46% - most likely secondary to the presence of regionsnonischemic scar and subendocardial infarcts. D. No myocardial edema. 2. Moderately dilated right ventricle with mildly reduced systolicfunction (RV EF 49%). 3. Severely enlarged left atrium and moderately enlarged right atrium. 4. Vsflzdsz-nk-qeujnf tricuspid regurgitation. 5. Normal aortic root and thoracic aortic caliber. 6. Normal pericardium. 7. Ground glass densities within the right lung, with an enlarged rightparatracheal lymph node. SUMMARY ===== LEFT VENTRICLE: Quantitative LVEF 59 %. LV wall thickness is normal. LVcavity size is normal. LV systolic function is normal. There is concentric LVH. VIABILITY: LV scar size is 12 %. RIGHT VENTRICLE: Quantitative RVEF 49 %. RV is moderately enlarged. LV/RV SEPTUM: The ventricular septum is intact. LA/RA SEPTUM: The atrial septum is intact. LEFT ATRIUM: LA is severely enlarged. RIGHT ATRIUM: RA is moderately enlarged. PERICARDIUM: Pericardium is normal. There is no pericardial effusion. PLEURAL EFFUSION: There is no pleural effusion. AORTIC VALVE: Aortic valve is trileaflet. There is trivial aorticregurgitation. MITRAL VALVE: There is mild mitral regurgitation. Mitral regurgitantfraction 17 %. Mitral valve leaflets are normal. TRICUSPID VALVE: Tricuspid valve leaflets are normal. There ismoderate-severe tricuspid regurgitation. PULMONIC VALVE: Pulmonic valve leaflets are normal. There is no pulmonicregurgitation. AORTIC ROOT: The aortic root is normal. OTHER FINDINGS: Thoracic aorta Left sided arch Ascending aorta 38 x 35 mm Descending aorta 26 x 27 mm Global longitudinal strain normal at 20.3% (normal range 13.3-24.1%). CORE EXAM ===== MEASUREMENTS ----- --- VOLUMETRIC ANALYSIS . . LV Reference RV Reference +------+ +------+ +------+ + EDV ml 177 290 ml/m^2 79 129 ESV ml 73 149 ml/m^2 32 66 CO L/min 6.45 8.74 L/min/m^2 2.86 3.88 MASS g 135 g/m^2 60 SV ml 104 141 ml/m^2 46 63 EF % 59 49 '------+ +------+ +------+ ' CARDIAC OUTPUT HR: 62 BPM LV DIMENSIONS WALL THICKNESS - ANTEROSEPTAL: 1.5 cm WALL THICKNESS - MAXIMUM: 1.5 cm LA DIMENSIONS (LV SYSTOLE) VOLUME: 218 ml VOLUME NORMALIZED: 96.7 ml/m^2 RA DIMENSIONS (RV SYSTOLE) VOLUME: 153 ml VOLUME NORMALIZED: 67.9 ml/m^2 EXTRACELLULAR VOLUME MEASUREMENT PRE-CONTRAST T1 MYOCARDIUM: 1126 msec ECV: 46 % 17 SEGMENT ----- --- . ----- . Segments Wall Motion Hyperenhancement Stress Perfusion Interpretation + + + + +---- ----- + Base Anterior Normal/Hyper None Normal Base Anteroseptal Normal/Hyper 51-75% Sub-Endo WI Base Inferoseptal Normal/Hyper 26-50% Sub-Endo WI Base Inferior Normal/Hyper 1-25% Non-CAD Scar Base Inferolateral Normal/Hyper 1-25% Non-CAD Scar Base Anterolateral Normal/Hyper 1-25% Non-CAD Scar Mid Anterior Normal/Hyper None Normal Mid Anteroseptal Normal/Hyper 1-25% Non-CAD Scar Mid Inferoseptal Normal/Hyper 26-50% Non-CAD Scar Mid Inferior Normal/Hyper None Normal Mid Inferolateral Normal/Hyper None Normal Mid Anterolateral Normal/Hyper None Normal Apical Anterior Normal/Hyper None Normal Apical Septal Normal/Hyper None Normal Apical Inferior Normal/Hyper None Normal Apical Lateral Normal/Hyper None Normal [place] Normal/Hyper 1-25% Sub-Endo WI + + + + +---- ----- + RV Segments Wall Motion Hyperenhancement Interpretation + + + + +---- ----- + RV Basal Anterior Mild/Mod Hypo None Abnormal Wall Motion RV Basal Inferior Mild/Mod Hypo None Abnormal Wall Motion RV Mid Mild/Mod Hypo None Abnormal Wall Motion RV Apical Mild/Mod Hypo None Abnormal Wall Motion ' + + + +---- ----- ' FINDINGS LV SCAR SIZE (17 SEGMENT): 12 % SCAN INFO ===== GENERAL ----- --- SCANNER PRINTED CIRCUIT BOARDS ROUTER: SIEMENS MODEL: Aera CONTRAST AGENT TYPE: Gadavist GD CONCENTRATION: 1.0 M SETUP REFERRING PHYSICIAN: JESSIAC KELLY ATTENDING PHYSICIAN: JESSICA KELLY BILLING ===== Patient Account [id number] ICD10 Codes I50.23 Report generated by [employer], a product of [employer] Jessica Gee MD MR * SCAN CORRESP-LABORATORY RESULTS (09/30/2023 2:34 PM CDT) Only the most recent of7 resultswithin the time period is included. Narrative 09/30/2023 2:34 PM CDT Ordered by an unspecified provider. 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 ? Consider urine protein electrophoresis to further evaluate, as clinically indicated. Interpreted and electronically signed by: Aleyda Kimble MD 09/28/2023 5:10 PM CDT [facility] PROTEIN QUANT,RAND URINE 11 1 - 14 mg/dL 09/28/2023 5:10 PM CDT [facility] Urine URINE SPECIMEN / Unknown Non-Blood / Unknown 09/26/2023 11:04 AM CDT 09/26/2023 11:04 AM CDT Jessica Gee MD URINE [facility] [address] [place] [address], * (ABNORMAL) ELP AND FREE LIGHT CHAINS W REFLEX, BLOOD (09/26/2023 10:59 AM CDT) ELP,ALBUMIN 3.80 3.31 - 5.31 g/dL 09/28/2023 4:31 PM CDT [facility] ELP,ALPHA 1 0.29 0.19 - 0.42 g/dL 09/28/2023 4:31 PM CDT [facility] ELP,ALPHA 2 0.65 0.44 - 1.03 g/dL 09/28/2023 4:31 PM CDT [facility] ELP,GAMMA 1.53(H) 0.59 - 1.46 g/dL 09/28/2023 4:31 PM CDT [facility] ELP,BETA 0.73 0.52 - 1.05 g/dL 09/28/2023 4:31 PM CDT [facility] MONOCLONAL PEAK 1 0.97 <=0.00 g/dL 09/28/2023 4:31 PM CDT [facility] KAPPA FREE LIGHT CHAIN, S 12.19(H) 0.33 - 1.94 mg/dL 09/28/2023 4:31 PM CDT [facility] LAMBDA FREE LIGHT CHAIN, S 2.83(H) 0.57 - 2.63 mg/dL 09/28/2023 4:31 PM CDT [facility] KAPPA/LAMBDA FLC RATIO 4.31(H) 0.26 - 1.65 09/28/2023 4:31 PM CDT [facility] ELP INTERP,SERUM 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 Interpreted and electronically signed by: Aleyda Kimble MD 09/28/2023 4:31 PM CDT [facility] PROTEIN,TOTAL 7.0 6.0 - 8.0 g/dL 09/28/2023 4:31 PM CDT [facility] Blood BLOOD SPECIMEN / Unknown Venipuncture / Unknown 09/26/2023 10:59 AM CDT 09/26/2023 11:02 AM CDT Jessica Gee MD CHEMISTRY [facility] [address] [place] [phone], * (ABNORMAL) LIPID PANEL W REFLEX MEASURED LDL (09/26/2023 10:59 AM CDT) CHOLESTEROL,TOTAL 104 100 - 199 mg/dL 09/26/2023 5:36 PM CDT [facility] Comment: Cholesterol, Total Reference Ranges Desirable <200 mg/dL Borderline 200-239 mg/dL High >=240 mg/dL TRIGLYCERIDES 69 <150 mg/dL 09/26/2023 5:36 PM CDT [facility] HDL CHOLESTEROL 39(L) >40 mg/dL 5:36 PM CDT [facility] NON-HDL CHOLESTEROL 65 <145 mg/dl 09/26/2023 5:36 PM CDT [facility] CHOL/HDL RATIO 2.67 <4.50 09/26/2023 5:36 PM CDT [facility] LDL CHOLESTEROL 51 <=130 mg/dL 09/26/2023 5:36 PM CDT [facility] VLDL CHOLESTEROL 14 <=30 mg/dL 09/26/2023 5:36 PM CDT [facility] PROVIDER ORDERED STATUS RANDOM 09/26/2023 5:36 PM CDT [facility] Blood BLOOD SPECIMEN / Unknown Venipuncture / Unknown 09/26/2023 10:59 AM CDT 09/26/2023 11:02 AM CDT Flakito Ling MD CHEMISTRY Performing Organization Address [facility] Co de Phone Number [facility] [address] [place] [phone], [place] * (ABNORMAL) TSH (09/26/2023 10:59 AM CDT) TSH 4.35(H) 0.27 - 4.20 uIU/mL 09/26/2023 5:36 PM CDT [facility] Blood BLOOD SPECIMEN / Unknown Venipuncture / Unknown 09/26/2023 10:59 AM CDT 09/26/2023 11:02 AM CDT Narrative [facility] - 09/26/2023 5:36 PM CDT In Adults, TSH values between 5.00 and 10.00 uIU/ml do not necessarily indicate the presence of Hypothyroidism. Correlation with clinical findings such as presence of goiter and/or Thyroperoxidase (TPO) Antibody may be helpful. For more information please refer to HOLLY 2004; 291: 228-238. Jessica Gee MD CHEMISTRY Performing Organization Address [facility]/ZIP Co de Phone Number [facility] [address] [place] [phone], [place] * ALT (SGPT) (09/26/2023 10:59 AM CDT) ALT (SGPT) 21 10 - 50 IU/L 09/26/2023 5:36 PM CDT [facility] Blood BLOOD SPECIMEN / Unknown Venipuncture / Unknown 09/26/2023 10:59 AM CDT 09/26/2023 11:02 AM CDT Flakito Ling MD CHEMISTRY [facility] [address] [place] [phone], * ECHO TTE LIMITED W CONTRAST W COLOR W DOPPLER (09/22/2023 2:47 PM CDT) AORTIC VALVE MEAN PG 14 mmHg EJECTION FRACTION 68 % PEAK TR VELOCITY 3.3 m/s LVEDD 3.9 cm EJECTION FRACTION 60 - 65% Anatomical Region Laterality Modality Ultrasound 09/22/2023 1:36 PM CDT Narrative 09/22/2023 3:08 PM CDT ECHOCARDIOGRAM YOHAN HARE ? Accession#: ?? [id number] : ?1940 83 years Study Date: ?? 09/22/2023 1:36:20 PM Gender: M ?BP: ? 102/64 mmHg Height: 180.00 cm ?BSA: ?2.25 m? ? ? Weight: 106.00 kg ?Tech: ? BES ? Referring MD: JESSICA GEE Site: ? [address] Reading Location: [place] [address] Patient Location: Outpatient. Procedure: Limited 2D , Limited Echo w/ Contrast, Color Doppler and Limited Spectral Doppler. Indication for study: Ischemic cardiomyopathy; Acute on chronic HFrEF (heart failure with reduced ejection fraction) Cardiac Rhythm: Irregular and atrial fibrillation.Study quality: Fair. Final Impressions: Limited Echocardiogram performed 1. LVEF estimate 60-65%. Normal LV size. Mild concentric LVH. 2. Moderately dilated RV with mildly reduced global function. 3. No LV thrombus [contrast study]. 4. Severe tricuspid regurgitation. There is systolic reversal in the hepatic vein. 5. Mild mitral regurgitation. 6. Ozea-kw-rfkerlyj aortic stenosis [peak velocity 2.6 m/s, mean gradient 14 mmHg, valve area 1.4 cm2]. 7. Moderate NATI. 8. Dilated IVC with abnormal respiratory variability. Chamber Sizes and Function Mild concentric left ventricular hypertrophy. Left atrial size is moderately enlarged. Right ventricular cavity size is moderately enlarged, global systolic RV function is mildly reduced. The right atrium is moderately enlarged. The pulmonary artery is not well visualized. The sinus of Valsalva is dilated. The ascending aorta is not well visualized. Valves, RV Pressures and Diastolic Function The aortic valve is trileaflet, calcified and sclerotic, mild to moderate stenosis and no regurgitation. The mitral valve is sclerotic, mild mitral regurgitation. Mitral annular calcification is present. The tricuspid valve is normal in structure. Tricuspid regurgitation is severe. The tricuspid regurgitant velocity is 3.3 m/s, the estimated right ventricular systolic pressure is 43 mmHg plus right atrial pressure. The pulmonic valve is not well visualized. Trace pulmonic regurgitation is present on color flow. Masses, Effusion, Shunts There is no pericardial effusion. The inferior vena cava is dilated, respiratory size variation less than 50%. Interatrial septum is not well visualized. MEASUREMENTS AND CALCULATIONS 2-D Measurements and LV Function: LVID (d) 3.9 cm LV FS% (2D) ?? 36 % LVID (s) 2.5 cm LVOT diameter 2.4 cm IVS (d) ??1.2 cm HR ?55 bpm LVPW (d) 1.2 cm Ao Sinus 3.9 cm LA ? 5.4 cm Diastology: Mitral E Peak 1.18 m/s Aortic Valve: Vmax ? 2.6 m/s ??SHEILA (V) ?? 1.34 cm? ? ? VTI ?0.60 m ?? SHEILA (I) ?? 1.40 cm? ? ? LVOT V max 0.7 m/s ??Max PG ?26 mmHg LVOT VTI ?? 0.18 m ?? Mean PG ?? 14 mmHg SV ? 85 ml ?Dim Index 0.30 SV index ?? 38 ml/m? ? ? CO ?4.7 l/min ?CI ?2.1 l/min/m? ? ? Tricuspid Valve and estimated PA pressures: TR Vmax 3.3 m/s TR maxG 43 mmHg Contrast documentation: 3 ml ml diluted Definity, lot #[id number], [facility]# [id number] was administered peripherally to enhance visualization of all left ventricular segments. . This study was interpreted by an [facility] accredited facility. ??Final ?? Procedure Note Suresh Valle MD - 09/22/2023 ECHOCARDIOGRAM YOHAN HARE : 1940 83 years Study Date: 09/22/2023 1:36:20 PM Gender: M BP: 102/64 mmHg Height: 180.00 cm BSA: 2.25 m? ? ? Weight: 106.00 kg Tech: [facility] MD: JESSICA GEE Site: [facility] at [address] [place] [address] Reading Location: [place] [address] Patient Location: Outpatient. Procedure: Limited 2D , Limited Echo w/ Contrast, Color Doppler andLimited Spectral Doppler. Indication for study: Ischemic cardiomyopathy; Acute on chronic HFrEF(heart failure with reduced ejection fraction) Cardiac Rhythm: Irregular and atrial fibrillation.Study quality: Fair. Final Impressions: Limited Echocardiogram performed 1. LVEF estimate 60-65%. Normal LV size. Mild concentric LVH. 2. Moderately dilated RV with mildly reduced global function. 3. No LV thrombus [contrast study]. 4. Severe tricuspid regurgitation. There is systolic reversal in thehepatic vein. 5. Mild mitral regurgitation. 6. Clll-uy-fymumnid aortic stenosis [peak velocity 2.6 m/s, mean tyfkpvjb95 mmHg, valve area 1.4 cm2]. 7. Moderate NATI. 8. Dilated IVC with abnormal respiratory variability. Chamber Sizes and Function Mild concentric left ventricular hypertrophy. Left atrial size ismoderately enlarged. Right ventricular cavity size is moderately enlarged,global systolic RV function is mildly reduced. The right atrium ismoderately enlarged. The pulmonary artery is not well visualized. Thesinus of Valsalva is dilated. The ascending aorta is not wellvisualized. Valves, RV Pressures and Diastolic Function The aortic valve is trileaflet, calcified and sclerotic, mild to moderatestenosis and no regurgitation. The mitral valve is sclerotic, mild mitralregurgitation. Mitral annular calcification is present. The tricuspidvalve is normal in structure. Tricuspid regurgitation is severe. Thetricuspid regurgitant velocity is 3.3 m/s, the estimated right ventricularsystolic pressure is 43 mmHg plus right atrial pressure. The pulmonicvalve is not well visualized. Trace pulmonic regurgitation is present oncolor flow. Masses, Effusion, Shunts There is no pericardial effusion. The inferior vena cava is dilated,respiratory size variation less than 50%. Interatrial septum is not wellvisualized. MEASUREMENTS AND CALCULATIONS 2-D Measurements and LV Function: LVID (d) 3.9 cm LV FS% (2D) 36 % LVID (s) 2.5 cm LVOT diameter 2.4 cm IVS (d) 1.2 cm HR 55 bpm LVPW (d) 1.2 cm Ao Sinus 3.9 cm LA 5.4 cm Diastology: Mitral E Peak 1.18 m/s Aortic Valve: Vmax 2.6 m/s SHEILA (V) 1.34 cm? ? ? VTI 0.60 m SHEILA (I) 1.40 cm? ? ? LVOT V max 0.7 m/s Max PG 26 mmHg LVOT VTI 0.18 m Mean PG 14 mmHg SV 85 ml Dim Index 0.30 SV index 38 ml/m? ? ? CO 4.7 l/min CI 2.1 l/min/m? ? ? Tricuspid Valve and estimated PA pressures: TR Vmax 3.3 m/s TR maxG 43 mmHg Contrast documentation: 3 ml ml diluted Definity, lot #[id number], [facility]#[id number] was administered peripherally to enhance visualization of allleft ventricular segments. . This study was interpreted by an [facility] accredited facility. Final Jessica Gee MD ECHO ORD * (ABNORMAL) CREATININE,ISTAT (09/22/2023 10:59 AM CDT) CREATININE, POCT 1.60(H) 0.57 - 1.11 mg/dL 09/22/2023 11:02 AM CDT [facility] Comment:Caution: Patients ta caroline Hydroxyurea have falsely increased iStat Creatinine results. Verify creatinine results ordering a Creatinine (41428.2) eGFR 42(L) >90 mL/min/1.7 3m2 09/22/2023 11:02 AM CDT [facility] Comment:As of 2021, eG FR is calculated by the CKD-EPI creatinine equation without race adjustment. eGFR can be influenced by muscle mass, exercise, and diet. The reported eGFR is an estimation only and is only applicable if the renal function is stable. Blood BLOOD SPECIMEN / Unknown 09/22/2023 10:59 AM CDT 09/22/2023 11:02 AM CDT Levy Juarez MD CHEMISTRY [facility] [address] [facility] [address] [place] [address], [place] from Last 3 Months Advance Directives * Full Code (Latest Code Status on File) Date Activated Date Inactivated Comments 12/08/2023 9:32 AM 12/11/2023 7:21 PM Question Answer Comments Code Status Discussion: Reviewed Preferences * Full Code Date Activated Date Inactivated Comments 11/30/2023 3:44 PM 12/02/2023 4:14 PM Question Answer Comments Code Status Discussion: Reviewed Preferences * Full Code Date Activated Date Inactivated Comments 10/21/2023 8:42 AM 10/21/2023 4:34 PM Question Answer Comments Code Status Discussion: Unable to Assess Preferences, Provider to review later * Full Code Date Activated Date Inactivated Comments 10/12/2017 7:53 AM 10/13/2017 4:08 PM Care Teams Engraver Set Up Operator Relationship Specialty Start Date End Date Flakito Ling MD [address] [place] [phone] PCP - General 11/02/06 Jessica Gee MD [address] [place] [address] Cardiology - CHF Cardiovascular Disease 09/22/23
--- OUTSIDE RECORDS SUMMARY | 2023-12-17 10:35 | XMS_ITS | Encounter Summary ---
Author Organization [facility] Address [address] [place] [address] Care Team Providers Care Stand Grinder Name Role Phone Elsewhere, Pcp Primary Care Provider Unavailabl e Reason for Visit * Reason Comments Bleeding/Bruising Had MOHS surgery tod ay on top of head and left side of nostril. Was discharged home. noticed nose wound was bleeding. On xarelto. Encounter Details Date Type Department Care Team (Late st Contact Info) Description 10/26/2023 12:05 AM CDT - 10/26/2023 1:25 AM CDT [facility] [address] [place] [address] Thien Galicia M.D. 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 * Bleeding Precautions When on Anticoagulant Therapy Adult (Japanese) documented in this encounter Medications at Time [...] as of this encounter ED Notes * Thien Galicia M.D. - 10/26/2023 1:25 AM CDT CHIEF COMPLAINT/REASON FOR VISIT (RN note) Bleeding/Bruising (Had MOHS surgery today on top of head and left side of nostril. Was discharged home. noticed nose wound was bleeding. On xarelto. ) HISTORY OF PRESENT ILLNESS Jonathan Herrera is a 83 y.o. male who presents to the ED for evaluation of bleeding from a wound on the left side of his nose. This is external not within the nostril as noted in the triage note above. He was on Xarelto and placed some wound seal powder that did slow down the bleeding a bit. Past medical history: Reviewed in the EMR. Agree with nursing documentation. Pertinent past medical history noted per HPI. Past Medical History: Diagnosis Date Coronary Artery Disease (Unspecified) Hyperlipidemia Hypertension NOS Family History Problem Relation Name Age of Onset Heart disease Father Heart disease Brother Diabetes Mother Diabetes Brother Social history: Reviewed in the EMR. Agree with nursing documentation. Pertinent social history noted per HPI. Social History Tobacco Use Smoking status: Never Smokeless tobacco: Never Vaping Use Vaping status: never used Substance Use Topics Alcohol use: Never Drug use: Never REVIEW OF SYSTEMS Constitutional: As noted in the HPI, otherwise negative. Eyes: As noted in the HPI, otherwise negative. HEENT: As noted in the HPI, otherwise negative. CV: As noted in the HPI, otherwise negative. Resp: As noted in the HPI, otherwise negative. GI: As noted in the HPI, otherwise negative. : As noted in the HPI, otherwise negative. MSK: As noted in the HPI, otherwise negative. Skin: As noted in the HPI, otherwise negative. Neuro: As noted in the HPI, otherwise negative. PHYSICAL EXAMINATION Initial Vitals Temperature 10/26/23 0001 36.7 ??C Pulse Rate 10/26/23 0000 72 Heart Rate -- Resp Rate 10/26/23 0001 16 Blood Pressure 10/26/23 0000 148/71 SpO2 10/26/23 0000 94 % Pain Score 10/26/23 0001 0 - No pain General: Awake, alert, oriented x3. No apparent distress. Head: Normocephalic, dressings on previous wounds over the scalp. No active bleeding. Eyes: Normal sclerae and conjunctivae, extraocular movements intact. ENT: Oropharynx is clear, moist mucus membranes. He was bleeding from a wound to the left nose. Edema within the nostril. Neck: Supple, full range of motion, trachea midline. Heart: Normal rate. Lungs: No respiratory distress. Ext: Warm, well-perfused. Skin: Warm, dry, normal color. No rashes. Neuro: Awake, alert, GCS 15, cranial nerves II-XII grossly intact, normal strength/sensation x4 without focal deficits. Psych: Normal affect, concentration, and judgment. MEDICAL DECISION MAKING / ED COURSE: Silver nitrate was used to cauterize the wound on the left side of his nose. He was watched in the ED afterward and a 2nd cautery was required but then hemostasis was achieved and after another period of observation he was discharged home. -- Nursing documentation and prior records reviewed in the medical record. -- External documents reviewed. Medications nmwwduzo-atctuxncst-wktriemlj 3.5 mg-400 unit-5,000 unit ointment packet 1 Application (NEOSPORIN) (1 Application topical Given 10/26/23 0115) PROCEDURES: Procedure: Silver nitrate cautery for hemostasis Confirmed: Patient, procedure, side, and site correct. Indication: Epistaxis Consent: Patient, Has given verbal consent. Pre-procedure exam: Please see HEENT exam above. Technique: a silver nitrate stick was used to cauterize the area with good hemostasis Post-procedure exam: Bleeding controlled from nose Patient tolerated: Well. Complications: None. FINAL DIAGNOSIS: 1. Hemorrhage 2. Wound Care Skin Post Surgery ED Disposition Discharge Notes are completed with voice recognition dictation software. Errors are generally corrected in real-time. Please message me via [employer] In Basket if you note any areas requiring clarification. Thien Galicia M.D. 10/29/23 [id number] documented in this encounter Plan of Treatment Not on file documented as of this encounter Visit Diagnoses Diagnosis Hemorrhage- Primary Wound Care Skin Post Surgery documented in this encounter Administered Medications Inactive Administered Medications - up to 3 most recent administrations Medication Order MAR Action Action Date Dose Rate Site vehkdfif-fjdjxafybo-rclxtaod n 3.5 mg-400 unit-5,000 unit ointment packet 1 Application (NEOSPORIN) 1 Application, topical, Once, On Tue10/26/23 at 0043, For 1 dose Given 10/26/2023 1:15 AM CDT 1 Application documented in this encounter Active and Recently Administered Medications Times are shown in CDT. Scheduled Medication Order 10/24/2023 10/25/2023 10/26/2023 rahikdor-afajmvauol-fkcaywzrx 3.5 mg-400 unit-5,000 unit ointment packet 1 Application (NEOSPORIN) (COMPLETED) 1 Application, topical, Once, On Tue10/26/23 at 0043, For 1 dose 0115 (Given - Provid er: Ivania Sam R.N.) documented in this encounter Additional Health Concerns Assessment Noted Time PHQ-9 Depression Total Score: 1 11/08/19 18 2:36 PM CDT documented as of this encounter Care Teams Stand Grinder Relationship Specialty Start Date End Date Elsewhere, Pcp PCP - General Family Medicine 11/04/17 documented as of this encounter
--- NOTE | 2023-12-17 11:24 | ED.GENADULT ---
HPI - General Adult General Time Seen by Provider: : Date Seen: 12/17/23 Chief complaint: Weakness Stated complaint: low bp, weakness Time Seen by Provider: 12/17/23 11:23 Source: patient, EMS and RN notes reviewed Mode of arrival: EMS Limitations: no limitations History of Present Illness HPI narrative: This 83-year-old male was brought in by ambulance from home where he resides with his . He had a Watchman procedure reportedly done at [email or web address] 2 days ago, postprocedure there may have been some neurologic changes with slurring of speech. He states he had head imaging that did not show a stroke but did go to the ICU after the procedure initially. His Eliquis has been stopped, was put on Plavix. 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 He resumed his Flomax and lisinopril last night. He was off during the procedure. He did get up around 2:00 a.m. to go to the bathroom and did not have difficulty. He went back to bed, awoke at 7:00 a.m., sat up on the edge of the bed for quite a while. He did feel little lightheaded. He was able to make it down to his bathroom, then did get dressed. He did go to his office and check his blood pressure, he got systolic blood pressures of 70s and 80s. He had no headache, no visual changes, no shortness of breath, no chest pain, no GI symptoms/no nausea. He had no focal neurologic deficits that he was concerned were stroke. He just felt globally weak and lightheaded. He was waiting for his to wake up. They did end up calling the triage line and he did subsequently get advise to call the ambulance. He states he is feeling better now, his systolic blood pressure was 101 when I went in with him. He notes no symptoms, overall is feeling better now. He has not taken any medicines this morning, has only had a glass of water. Related Data Home Medications ?Medication ?Instructions ?Recorded ?Confirmed amlodipine 5 mg tablet 5 mg PO DAILY 05/03/23 05/03/23 atorvastatin 40 mg tablet 40 mg PO DAILY 05/03/23 05/03/23 fluticasone 500 mcg-salmeterol 50 1 ea inhalation BID 05/03/23 05/03/23 mcg/dose blistr powdr for inhalation (Advair Diskus) lisinopril 10 mg tablet 10 mg PO DAILY 05/03/23 05/03/23 rivaroxaban 20 mg tablet (Xarelto) 20 mg PO DAILY 05/03/23 05/03/23 tamsulosin 0.4 mg capsule 0.4 mg PO DAILY 05/03/23 05/03/23 Previous Rx's ?Medication ?Instructions ?Recorded amoxicillin 875 mg-potassium 1 tab PO BID #10 tabs 05/08/23 clavulanate 125 mg tablet furosemide 40 mg tablet 40 mg PO DAILY #30 tabs 05/08/23 ipratropium 0.5 mg-albuterol 3 mg 3 ml inhalation QID #180 mL 05/08/23 (2.5 mg base)/3 mL nebulization soln metoprolol succinate 50 mg 50 mg PO DAILY 30 days #30 tabs 05/08/23 tablet,extended release 24 hr Allergies Allergy/AdvReac Type Severity Reaction Status Date / Time morphine Allergy Verified 05/03/23 10:51 Review of Systems Status of ROS: Reports: 6 or more systems reviewed and unremarkable except as noted in History and below [facility] Medical History Elevated troponin ?R79.89 - Other specified abnormal findings of blood chemistry (ICD-10) Hyponatremia ?E87.1 - Hypo-osmolality and hyponatremia (ICD-10) BPH (benign prostatic hyperplasia) ?N40.0 - Benign prostatic hyperplasia without lower urinary tract symptoms (ICD-10) Hypertension ?I10 - Essential (primary) hypertension (ICD-10) Obesity ?E66.9 - Obesity, unspecified (ICD-10) Coronary artery disease ?I25.10 - Atherosclerotic heart disease of [place] coronary artery without angina pectoris (ICD-10) Chronic atrial fibrillation ?I48.20 - Chronic atrial fibrillation, unspecified (ICD-10) Surgical History H/O arthroscopic knee surgery ?Z98.890 - Other specified postprocedural states (ICD-10) History of coronary artery stent placement ?Z95.5 - Presence of coronary angioplasty implant and graft (ICD-10) H/O tympanomastoidectomy ?Z98.890 - Other specified postprocedural states (ICD-10) History of tonsillectomy and adenoidectomy ?Z90.89 - Acquired absence of other organs (ICD-10) Traumatic amputation of right thumb ?S68.011A - Complete traumatic metacarpophalangeal amputation of right thumb, initial encounter (ICD-10) S/P CABG x 4 ?Z95.1 - Presence of aortocoronary bypass graft (ICD-10) Family History Father Heart disease Brother Heart disease Diabetes Sister Heart disease Mother Diabetes Social History Narrative: He lives in [place] with his . is healthcare power of commercial attorney. Code status is full. He does not smoke. Does not drink alcohol. What is your current living situation?: I presently have a place to live Problems where you live: no known problems Problems where you live details: none In the past 12 months, utilities in danger of being shut off: no In past 12 months, lack of transportation kept you from medical appts, meetings, work, or getting things needed for daily living: no In the past 12 mos, have been you worried that your food would run out before you had money to buy more?: never true In the past 12 mos, the food you bought just didn't last and you didn't have money to buy more?: never true Smoking Status: Never smoker Do you use any of these nicotine containing products: None Second hand tobacco smoke exposure: No How often do you have a drink containing alcohol: never How often do you have six or more drinks on one occasion: Never AUDIT-C Alcohol total score: 0 Non-prescribed substance use: denies use How often does anyone, including family, friends and others, physically hurt you: never How often does anyone, including family, friends and others, insult or talk down to you: never How often does anyone, including family, friends and others, threaten you with harm: never How often does anyone, including family, friends and others, scream or curse at you: never service: Yes Exam Const: Vital Signs, click to edit/add: Vital Signs - 24 hr 12/17/23 10:33 12/17/23 10:49 12/17/23 11:00 Temperature 97.2 F L Pulse Rate 60 Pulse Rate [Right Pulse Oximeter] 76 Pulse Rate [orthos tatic lying Left P ulse Oximeter] Pulse Rate [orthos tatic sitting Left Pulse Oximeter] Pulse Rate [orthos tatic standing Lef t Pulse Oximeter] Respiratory Rate 18 Blood Pressure Blood Pressure [Ri ght Upper Arm] 105/55 L Blood Pressure [or thostatic lying Ri ght Arm] Blood Pressure [or thostatic sitting Right Arm] Blood Pressure [or thostatic standing Right Arm] Pulse Oximetry 96 95 Oxygen Delivery Me thod Room Air Room Air 12/17/23 11:11 12/17/23 11:15 12/17/23 11:16 Temperature Pulse Rate 64 56 L 54 L Pulse Rate [Right Pulse Oximeter] Pulse Rate [orthos tatic lying Left P ulse Oximeter] Pulse Rate [orthos tatic sitting Left Pulse Oximeter] Pulse Rate [orthos tatic standing Lef t Pulse Oximeter] Respiratory Rate 16 16 Blood Pressure 99/57 L 98/49 L Blood Pressure [Ri ght Upper Arm] Blood Pressure [or thostatic lying Ri ght Arm] Blood Pressure [or thostatic sitting Right Arm] Blood Pressure [or thostatic standing Right Arm] Pulse Oximetry 99 97 96 Oxygen Delivery Me thod Room Air Room Air 12/17/23 11:30 12/17/23 11:31 12/17/23 11:39 Temperature Pulse Rate 61 66 Pulse Rate [Right Pulse Oximeter] Pulse Rate [orthos tatic lying Left P ulse Oximeter] 57 L Pulse Rate [orthos tatic sitting Left Pulse Oximeter] 66 Pulse Rate [orthos tatic standing Lef t Pulse Oximeter] 82 Respiratory Rate 16 Blood Pressure 101/53 L Blood Pressure [Ri ght Upper Arm] Blood Pressure [or thostatic lying Ri ght Arm] 117/64 Blood Pressure [or thostatic sitting Right Arm] 95/51 L Blood Pressure [or thostatic standing Right Arm] 77/44 L Pulse Oximetry 97 Oxygen Delivery Me thod Room Air 12/17/23 11:45 12/17/23 12:00 12/17/23 12:05 Temperature Pulse Rate 59 L 67 57 L Pulse Rate [Right Pulse Oximeter] Pulse Rate [orthos tatic lying Left P ulse Oximeter] Pulse Rate [orthos tatic sitting Left Pulse Oximeter] Pulse Rate [orthos tatic standing Lef t Pulse Oximeter] Respiratory Rate 16 Blood Pressure 117/64 Blood Pressure [Ri ght Upper Arm] Blood Pressure [or thostatic lying Ri ght Arm] Blood Pressure [or thostatic sitting Right Arm] Blood Pressure [or thostatic standing Right Arm] Pulse Oximetry 100 95 98 Oxygen Delivery Me thod Room Air 12/17/23 12:06 12/17/23 12:08 12/17/23 12:12 Temperature Pulse Rate 66 82 62 Pulse Rate [Right Pulse Oximeter] Pulse Rate [orthos tatic lying Left P ulse Oximeter] Pulse Rate [orthos tatic sitting Left Pulse Oximeter] Pulse Rate [orthos tatic standing Lef t Pulse Oximeter] Respiratory Rate 16 16 16 Blood Pressure 95/51 L 77/44 L 109/60 Blood Pressure [Ri ght Upper Arm] Blood Pressure [or thostatic lying Ri ght Arm] Blood Pressure [or thostatic sitting Right Arm] Blood Pressure [or thostatic standing Right Arm] Pulse Oximetry 97 98 98 Oxygen Delivery Me thod Room Air Room Air Room Air 12/17/23 12:15 12/17/23 12:16 12/17/23 12:30 Temperature Pulse Rate 66 Pulse Rate [Right Pulse Oximeter] Pulse Rate [orthos tatic lying Left P ulse Oximeter] Pulse Rate [orthos tatic sitting Left Pulse Oximeter] Pulse Rate [orthos tatic standing Lef t Pulse Oximeter] Respiratory Rate Blood Pressure 123/63 Blood Pressure [Ri ght Upper Arm] Blood Pressure [or thostatic lying Ri ght Arm] Blood Pressure [or thostatic sitting Right Arm] Blood Pressure [or thostatic standing Right Arm] Pulse Oximetry 98 Oxygen Delivery Me thod 12/17/23 12:30 12/17/23 12:32 12/17/23 12:45 Temperature Pulse Rate 55 L 55 L 47 L Pulse Rate [Right Pulse Oximeter] Pulse Rate [orthos tatic lying Left P ulse Oximeter] Pulse Rate [orthos tatic sitting Left Pulse Oximeter] Pulse Rate [orthos tatic standing Lef t Pulse Oximeter] Respiratory Rate 16 Blood Pressure 117/62 Blood Pressure [Ri ght Upper Arm] Blood Pressure [or thostatic lying Ri ght Arm] Blood Pressure [or thostatic sitting Right Arm] Blood Pressure [or thostatic standing Right Arm] Pulse Oximetry 99 99 98 Oxygen Delivery Me thod Room Air 12/17/23 12:46 12/17/23 13:01 12/17/23 13:15 Temperature Pulse Rate 54 L 67 59 L Pulse Rate [Right Pulse Oximeter] Pulse Rate [orthos tatic lying Left P ulse Oximeter] Pulse Rate [orthos tatic sitting Left Pulse Oximeter] Pulse Rate [orthos tatic standing Lef t Pulse Oximeter] Respiratory Rate 16 16 Blood Pressure 113/56 L 127/59 L Blood Pressure [Ri ght Upper Arm] Blood Pressure [or thostatic lying Ri ght Arm] Blood Pressure [or thostatic sitting Right Arm] Blood Pressure [or thostatic standing Right Arm] Pulse Oximetry 97 97 96 Oxygen Delivery La thod Room Air Room Air 12/17/23 13:17 12/17/23 13:18 12/17/23 13:30 Temperature Pulse Rate 42 L 49 L 54 L Pulse Rate [Right Pulse Oximeter] Pulse Rate [orthos tatic lying Left P ulse Oximeter] Pulse Rate [orthos tatic sitting Left Pulse Oximeter] Pulse Rate [orthos tatic standing Lef t Pulse Oximeter] Respiratory Rate 16 Blood Pressure 111/47 L Blood Pressure [Ri ght Upper Arm] Blood Pressure [or thostatic lying Ri ght Arm] Blood Pressure [or thostatic sitting Right Arm] Blood Pressure [or thostatic standing Right Arm] Pulse Oximetry 97 98 100 Oxygen Delivery La thod Room Air 12/17/23 13:31 12/17/23 13:45 12/17/23 13:46 Temperature Pulse Rate 56 L 62 61 Pulse Rate [Right Pulse Oximeter] Pulse Rate [orthos tatic lying Left P ulse Oximeter] Pulse Rate [orthos tatic sitting Left Pulse Oximeter] Pulse Rate [orthos tatic standing Lef t Pulse Oximeter] Respiratory Rate 16 16 Blood Pressure 122/58 L 127/62 Blood Pressure [Ri ght Upper Arm] Blood Pressure [or thostatic lying Ri ght Arm] Blood Pressure [or thostatic sitting Right Arm] Blood Pressure [or thostatic standing Right Arm] Pulse Oximetry 98 100 100 Oxygen Delivery Me thod Room Air Room Air 12/17/23 14:02 12/17/23 14:16 12/17/23 14:31 Temperature Pulse Rate Pulse Rate [Right Pulse Oximeter] Pulse Rate [orthos tatic lying Left P ulse Oximeter] Pulse Rate [orthos tatic sitting Left Pulse Oximeter] Pulse Rate [orthos tatic standing Lef t Pulse Oximeter] Respiratory Rate 16 16 16 Blood Pressure 118/83 125/66 111/53 L Blood Pressure [Ri ght Upper Arm] Blood Pressure [or thostatic lying Ri ght Arm] Blood Pressure [or thostatic sitting Right Arm] Blood Pressure [or thostatic standing Right Arm] Pulse Oximetry Oxygen Delivery La thod Room Air Room Air Room Air 12/17/23 14:44 12/17/23 14:45 12/17/23 14:46 Temperature Pulse Rate 62 71 70 Pulse Rate [Right Pulse Oximeter] Pulse Rate [orthos tatic lying Left P ulse Oximeter] Pulse Rate [orthos tatic sitting Left Pulse Oximeter] Pulse Rate [orthos tatic standing Lef t Pulse Oximeter] Respiratory Rate 16 16 Blood Pressure 92/46 L 90/42 L Blood Pressure [Ri ght Upper Arm] Blood Pressure [or thostatic lying Ri ght Arm] Blood Pressure [or thostatic sitting Right Arm] Blood Pressure [or thostatic standing Right Arm] Pulse Oximetry 99 99 93 Oxygen Delivery La thod Room Air Room Air 12/17/23 14:47 12/17/23 14:48 12/17/23 14:54 Temperature Pulse Rate 75 71 63 Pulse Rate [Right Pulse Oximeter] Pulse Rate [orthos tatic lying Left P ulse Oximeter] Pulse Rate [orthos tatic sitting Left Pulse Oximeter] Pulse Rate [orthos tatic standing Lef t Pulse Oximeter] Respiratory Rate 16 16 Blood Pressure 93/50 L 95/50 L Blood Pressure [Ri ght Upper Arm] Blood Pressure [or thostatic lying Ri ght Arm] Blood Pressure [or thostatic sitting Right Arm] Blood Pressure [or thostatic standing Right Arm] Pulse Oximetry 99 99 98 Oxygen Delivery La thod Room Air Room Air 12/17/23 14:56 12/17/23 14:57 12/17/23 15:02 Temperature Pulse Rate 78 84 75 Pulse Rate [Right Pulse Oximeter] Pulse Rate [orthos tatic lying Left P ulse Oximeter] Pulse Rate [orthos tatic sitting Left Pulse Oximeter] Pulse Rate [orthos tatic standing Lef t Pulse Oximeter] Respiratory Rate 16 16 Blood Pressure 85/44 L 75/39 L Blood Pressure [Ri ght Upper Arm] Blood Pressure [or thostatic lying Ri ght Arm] Blood Pressure [or thostatic sitting Right Arm] Blood Pressure [or thostatic standing Right Arm] Pulse Oximetry 99 97 Oxygen Delivery Me thod Room Air Room Air 12/17/23 15:15 12/17/23 15:16 12/17/23 15:30 Temperature Pulse Rate 66 65 66 Pulse Rate [Right Pulse Oximeter] Pulse Rate [orthos tatic lying Left P ulse Oximeter] Pulse Rate [orthos tatic sitting Left Pulse Oximeter] Pulse Rate [orthos tatic standing Lef t Pulse Oximeter] Respiratory Rate 16 Blood Pressure 96/42 L Blood Pressure [Ri ght Upper Arm] Blood Pressure [or thostatic lying Ri ght Arm] Blood Pressure [or thostatic sitting Right Arm] Blood Pressure [or thostatic standing Right Arm] Pulse Oximetry 99 97 99 Oxygen Delivery Me thod Room Air 12/17/23 15:31 Temperature Pulse Rate 58 L Pulse Rate [Right Pulse Oximeter] Pulse Rate [orthos tatic lying Left P ulse Oximeter] Pulse Rate [orthos tatic sitting Left Pulse Oximeter] Pulse Rate [orthos tatic standing Lef t Pulse Oximeter] Respiratory Rate 16 Blood Pressure 99/47 L Blood Pressure [Ri ght Upper Arm] Blood Pressure [or thostatic lying Ri ght Arm] Blood Pressure [or thostatic sitting Right Arm] Blood Pressure [or thostatic standing Right Arm] Pulse Oximetry 99 Oxygen Delivery Me thod Room Air This 83-year-old male is alert, interactive, no apparent distress. Very pleasant and conversive, speech is normal. Pupils are equal round, sclera clear, extraocular muscles intact. Symmetrical facial function. Neck supple, no jugular venous distension or masses noted. He is able to sit up easily, lungs are clear, no wheezing or crackles, no tachypnea. CV sounds irregular at times, does have a harsh systolic murmur 3/6 heard throughout the anterior precordium. Abdomen is soft, nondistended, no organomegaly, no masses. He has no lower extremity edema. Is moving arms and legs without any noted gross focal deficit. Documenting provider has reviewed patient's vital signs: yes Course Course ED Course: It certainly sounds as if he had orthostatic hypotension this morning. It may be that his lisinopril dosage does need to be adjusted down. Will get orthostatic vitals while he is here, consider a brief IV fluid challenge if he is orthostatic. Will obtain EKG, portable chest x-ray and basic labs just to ensure no other etiology. He certainly does not seem to be in any congestive heart failure, it is known to have chronic atrial fibrillation but also does have ischemic disease. He is having no chest symptoms at this time but certainly will consider ischemic cardiac disease as a possibility. He will again have a EKG and troponin. Troponin could be elevated from recent procedure and may need to be trended. Reevaluation(s) Time of Reevaluation #1: 12:12 Reevaluation #1: Nursing staff has reported very positive orthostatic vitals. His lying blood pressure was 117/64 with a pulse of 57. Sitting blood pressure was 95/51 with a pulse of 66. Standing his blood pressure went to 77/44 and a pulse of 82. Will initiate a L of IV fluids in this patient. Will recheck orthostatic vitals after his fluids are done. He reportedly felt woozy. Time of Reevaluation #2: 13:32 Reevaluation #2: Patient is about jail through his IV fluids. He has no concerns, states he is feeling fine lying down right now. We will recheck orthostatic vitals after his fluids are done. Have advised nursing staff that he should be given something to eat and drink. Will do a follow-up troponin just to ensure that there is no rise. His 1st 1 is at 0.05 and is not significantly elevated, again, patient did just have Watchman procedure done. Time of Reevaluation #3: 15:24 Reevaluation #3: Nursing staff did complete orthostatics after his meal and finishing L of IV fluids. Lying he was 95/50, pulse 63, sitting he was 85/44, pulse 78. Standing he was 75/39, pulse 84. We are going to give this patient another L of fluid, see where his vitals are at that point. He did take his morning medicines here which did include the Plavix and a half tablet of the sustained release metoprolol, 12.5 mg. Believe torsemide may have been in that as well. Additional Reevaluation(s): Patient's blood pressure does remain somewhat low but he is been able to ambulate, does not feel symptomatic at this time. Will allow him to discharge to home but will withhold some of his medications in the interim until he has his follow-up appointment Tuesday at his doctor's office. Vital Signs Vital signs: Initial Vital Signs Temperature 97.2 F L 12/17/23 10:33 Temperature Source Temporal Artery Scan 12/17/23 10:33 Pulse Rate 76 12/17/23 10:33 Respiratory Rate 18 12/17/23 10:33 Blood Pressure 105/55 L 12/17/23 10:33 Blood Pressure Mean 71 12/17/23 10:33 Blood Pressure Position Sitting 12/17/23 10:33 Pulse Oximetry 96 12/17/23 10:33 Oxygen Delivery Method Room Air 12/17/23 10:33 Vital Signs Temperature 97.2 F L 12/17/23 10:33 Pulse Rate 76 12/17/23 10:33 Respiratory Rate 18 12/17/23 10:33 Blood Pressure 105/55 L 12/17/23 10:33 Pulse Oximetry 96 12/17/23 10:33 Oxygen Delivery Method Room Air 12/17/23 10:33 Temperature 97.2 F L 12/17/23 10:33 Pulse Rate 58 L 12/17/23 15:31 Respiratory Rate 16 12/17/23 15:31 Blood Pressure 99/47 L 12/17/23 15:31 Pulse Oximetry 99 12/17/23 15:31 Oxygen Delivery Method Room Air 12/17/23 15:31 Medications Administered Medications: Discontinued Medications Generic Name Dose Route Start Last Admin Trade Name Joseph PRN Reason Stop Dose Admin Sodium Chloride 1,000 mls @ 500 mls/hr 12/17/23 12:12 12/17/23 12:25 0.9 % Sodium Chloride 1000 Ml IV 12/17/23 14:11 500 mls/hr .Q2H FARZANA Administration Sodium Chloride 1,000 mls @ 1,000 mls/hr 12/17/23 15:24 12/17/23 15:15 0.9 % Sodium Chloride 1000 Ml IV 12/17/23 16:23 1,000 mls/hr .Q1H FARZANA Administration Medical Decision Making Medical Records Medical records reviewed: Yes I reviewed the patient's medical records Lab Data Lab results reviewed: Yes I reviewed the patient's lab results Lab results narrative: Patient's hemoglobin at [facility] on December 09 was 9, on December 10 was 8.9. Labs: Lab Results 12/17/23 12/17/23 Range/Units 11:48 13:40 WBC 4.07 L (4.50-11.00) K/uL RBC 3.28 L (4.30-5.90) m/uL Hgb 9.4 L (13.5-17.5) gm/dL Hct 29.3 L (37.0-53.0) % MCV 89 (80-100) fL MCH 29 (26-34) pg MCHC 32 (32-36) gm/dL RDW Coeff of Ronaldo 18.1 H (11.5-15.5) % Plt Count 187 (140-440) K/uL Neut % (Auto) 78.8 H (42.0-72.0) % Lymph % (Auto) 8.4 L (20-44) % [place] % (Auto) 10.1 (0.0-11.0) % Eos % (Auto) 2.0 (0.0-7.0) % Baso % (Auto) 0.5 (0.0-3.0) % Neut # (Auto) 3.20 (1.7-7.0) K/uL Lymph # (Auto) 0.30 L (0.90-2.90) K/uL [place] # (Auto) 0.40 (0.00-0.90) K/UL Eos # (Auto) 0.10 (0.00-0.50) K/uL Baso # (Auto) 0.00 (0.00-0.30) K/uL Abs Immat Gran (auto) 0.00 (0.00-0.30) K/uL Imm/Tot Granulo (auto) 0.2 % Sodium 132 L (135-149) mmol/L Potassium 4.3 (3.6-5.1) mmol/L Chloride 95 L (96-114) mmol/L Carbon Dioxide 35 H (20-32) mmol/L Anion Gap 2 L (7-15) mEq/L BUN 41 H (7-30) mg/dL Creatinine 1.6 H (0.5-1.5) mg/dL Estimated Creat Clear 35.49 Estimated GFR 42 ml/min Glucose 102 (60-115) mg/dL Lactate 0.7 (0.5-1.9) mmol/L Calcium 8.8 (8.4-10.6) mg/dL Troponin I 0.05 H 0.04 (0.01-0.04) ng/mL NT-Pro-B Natriuret Pep 1800 pg/mL Imaging Data Chest x-ray: Attestation: I have reviewed the pertinent imaging results. Radiologist's impression: Patient: YOHAN HARE Facility:?[facility] Patient ID:?[id number] Site Patient ID:?[id number]. Site :?[id number] Study:?XRay-Chest PORTABLE-12/17/2023 11:56:29 AM Ordering Physician:?Karen Meza Final Report: INDICATION: Weakness. Recent cardiac implant. COMPARISON: None. TECHNIQUE: One view. IMPRESSION: Prominently elevated left hemidiaphragm with what appears to be colon underneath that. Sternotomy. Visualized lungs are clear with normal caliber of the pulmonary vessels. No pneumothorax or pleural effusion. Watchman cardiac implant not seen on this single view. Dictated by Robbin Souza MD @ 12/17/2023 12:11:53 PM (Electronic Signature) ECG Data Attestation: I personally reviewed and interpreted this ECG as follows: (Atrial fibrillation, 64 beats per minute. There does appear to be wide complex, appears to be a PVC but machine is calling this a competing junctional pacemaker.) Discharge Plan Discharge Clinical Impression: Chronic atrial fibrillation, Orthostatic hypotension Patient Disposition: Home, Self-Care Condition: Improved Instructions: Hypotension (ED) Additional Instructions: Continue to hold your lisinopril at bedtime. Would recommend holding your torsemide tomorrow morning. Can continue with metoprolol and the tamsulosin. Monitor your blood pressure a couple times tomorrow to see what the values are and take these 2 your follow-up appointment on Tuesday. They may need to decrease the dosage of the lisinopril as well as your diuretic. If you have further symptoms, blood pressure is continuing to drop despite these recommendations, please seek re-evaluation in the interim. Activity Level: Activity as Tolerated Prescriptions: No Action atorvastatin 40 mg tablet 40 mg PO DAILY amlodipine 5 mg tablet 5 mg PO DAILY tamsulosin 0.4 mg capsule 0.4 mg PO DAILY lisinopril 10 mg tablet 10 mg PO DAILY fluticasone propion-salmeterol [Advair Diskus] 500-50 mcg/dose blister with device 1 ea inhalation BID Xarelto 20 mg tablet 20 mg PO DAILY metoprolol succinate 50 mg Tablet Extended Release 24 Hr 50 mg PO DAILY 30 Days Qty: 30 1RF amoxicillin-pot clavulanate 875-125 mg tablet 1 tab PO BID Qty: 10 0RF ipratropium-albuterol 0.5 mg-3 mg(2.5 mg base)/3 mL solution for nebulization 3 ml inhalation QID Qty: 180 2RF furosemide 40 mg tablet 40 mg PO DAILY Qty: 30 2RF Follow Up/Referrals: Flakito Ling MD [Primary Care Provider] - Stand Alone Forms: [facility] Info Instructions
--- NOTE | 2023-12-17 11:39 | CRLHL7_ITS ---
For Patients: As a result of the Century Cures Act, medical imaging exams and procedure reports are released immediately into your electronic medical record. You may view this report before your referring provider. If you have questions, please contact your health care provider. INDICATION: Weakness. Recent cardiac implant. COMPARISON: None. TECHNIQUE: One view. IMPRESSION: Prominently elevated left hemidiaphragm with what appears to be colon underneath that. Sternotomy. Visualized lungs are clear with normal caliber of the pulmonary vessels. No pneumothorax or pleural effusion. Watchman cardiac implant not seen on this single view. Dictated by Robbin Souza MD @ 12/17/2023 12:11:53 PM (Electronically Signed)
[2023-12-17 12:00] LABS: Lactate* 0.7 mmol/L (0.5-1.9)
[2023-12-17 12:02] LABS: Basophils Percent Auto 0.5 % (0.0-3.0); Hematocrit 29.3 % (37.0-53.0); Hemoglobin* 9.4 gm/dL (13.5-17.5); Immature Granulocytes Pct Auto 0.2 %; Lymphocytes Percent Auto 8.4 % (20-44); Mean Corpuscular HGB Conc 32 gm/dL (32-36); Mean Corpuscular Hemoglobin 29 pg (26-34); Mean Corpuscular Volume 89 fL (80-100); Monocytes Percent Auto 10.1 % (0.0-11.0); Neutrophils Percent Auto 78.8 % (42.0-72.0); Platelet Count* 187 K/uL (140-440); RDW Coefficient of Variation % 18.1 % (11.5-15.5); Red Blood Count 3.28 m/uL (4.30-5.90); White Blood Count* 4.07 K/uL (4.50-11.00)
[2023-12-17 12:10] LABS: Slide Review Reflex No
[2023-12-17 12:16] LABS: Chloride* 95 mmol/L (96-114)
[2023-12-17 12:17] LABS: Potassium* 4.3 mmol/L (3.6-5.1); Sodium* 132 mmol/L (135-149)
[2023-12-17 12:20] LABS: Anion Gap 2 mEq/L (7-15); Blood Urea Nitrogen* 41 mg/dL (7-30); Calcium* 8.8 mg/dL (8.4-10.6); Carbon Dioxide* 35 mmol/L (20-32); Creatinine* 1.6 mg/dL (0.5-1.5); Est. Creatinine Clearance* 35.49; Estimated Glomerular Filt Rate 42 ml/min; Glucose* 102 mg/dL (60-115)
--- OUTSIDE RECORDS SUMMARY | 2023-12-17 12:20 | XMS_ITS | Clinical Summary ---
Author Organization [facility] Address [address] [place] [address] Phone Care Team Providers Care Gas Regulator Repairer Helper Name Role Phone Flakito Ling MD Primary Care Provider [phone] Allergies Active Allergy Reactions Criticality Noted Date [...] moderate . 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 5. Mild mitral regurgitation. 6. Ludz-bo-npwlrdcm aortic stenosis [peak velocity 2.6 m/s, mean [...] will be relayed to PCP and his technical support engineer. 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, or unspecified 10/31/2023 Documentation Only [facility] [place] [address] [facility] [address] [place] [address] Cherry Johnson 10/26/2023 Documentation Only [facility] [place] [address] [facility] [address] [place] [address] Flakito Ling MD 10/26/2023 Documentation Only [facility] [place] [address] [facility] [address] [place] [address] Flakito Ling MD from Last 3 Months Immunizations Name Administration Dates Next Due Influenza Split High Dose Preservative Free IM 1 Influenza, Unspecified 06/20/2022 [place] Sars-cov-2 (Covid-19) Vaccine, Mrna, Fabiano Protein 07/15/2023 [...] [facility] [address] [place] [address] Adeel Loomis MD [address] [place] [address] Health Maintenance Due Date Last Done Comments [...] [place] from Last 3 Months Care Teams Gas Regulator Repairer Helper Relationship Specialty Start Date End Date Flakito Ling MD [address] [place] [address] PCP - General Family Medicine 10/26/23
--- OUTSIDE RECORDS SUMMARY | 2023-12-17 12:20 | XMS_ITS ---
Author Organization [facility] Address [address] [place] [address] Care Team Providers Care Outer Diameter Technician Name Role Phone Unavailable Unavailable Unavailable Surgery Details Not on file Complications Check Surgery Details section. Procedure Estimated Blood Loss Check Surgery Details section. Procedure Findings Check Surgery Details section. Procedure Specimens Taken Check Surgery Details section.
--- OUTSIDE RECORDS SUMMARY | 2023-12-17 12:20 | XMS_ITS | Encounter Summary ---
Author Organization [facility] Address [address] [place] [address] Care Team Providers Care Trace Evidence Technician Name Role Phone Flakito Ling MD Primary Care Provider [phone] Reason for Visit * Reason Comments CKD New Patient * Nephrology Services (Routine) - Closed Specialty Diagnoses / Procedures Referred By Contkallie t Referred To Contact Nephrology Diagnoses Chronic kidney disease stage 3 (HCC) Flakito Ling MD [address] [place] [address] [facility] [address] [facility] [address] [place] [address] Referral ID Status Reason Start Date Expiration Date Visits Re quested Visits Authorized [id number] Closed 10/26/2023 10/25/2024 1 1 Encounter Details Date Type Department Care Team (Late st Contact Info) Description 10/31/2023 2:30 PM EDT Office Visit [facility] [place] [address] [place] [address] Adeel Loomis MD [address] [place] [address] Other acute kidney failure (HCC) [...] in the next day or 2 in [place] or [place]. Welcome to [facility] Although we are experts in the [...] in caring for renal patients. If your Media Marketing Specialist deems it appropriate, you will be scheduled [...] healthy, so we do have a Renal Cna Pct to help you with this. We encourage [...] let them know that you see a brancher for your kidney disease. Ask that they contact your brancher before this type of test is scheduled. [...] Doctors, Advanced Practice Providers, nurses, and Renal Cna Pct are here to provide you with the best renal care. We want you to feel free to call us when you have questions or concerns. To call the nurse at your brancher's office, please see the address and telephone number listed on your After Visit Summary. Thank you, The Physicians and staff at [facility] UNDERSTANDING YOUR BLOOD PRESSURE & LAB [...] the original note were not included. Patient: Jonathan Herrera Date of : 1940 Chart: [id number] PCP: Flakito Ling MD Referring Provider: Flakito [...] or so years. Patient seen by his watermelon harvesting supervisor on 10/20/2023. He has new onset decompensated heart failure. He noted lower extremity edema with ongoing dyspnea on exertion and was awaiting bronchoscopy on 10/21/2023. The bronchoscopy was to evaluate hemoptysis that he has been experiencing since a hospitalization for pneumonia in very late 2022. At his watermelon harvesting supervisor appointment he was experiencing dizziness and decrease [...] hepatic vein. 5. Mild mitral regurgitation. 6. Bcbm-pt-ddrkqmzj aortic stenosis [peak velocity 2.6 m/s, mean [...] weight at this time due to the MAYR being worked up. Patient has pulmonary hypertension [...] will be relayed to PCP and his watermelon harvesting supervisor. Stage 3a chronic kidney disease (HCC) Overview [...] Recheck. 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) Chronic [...] Coronary atherosclerosis of unspecified type of vessel, [place] or graft Essential hypertension Gout Other and unspecified hyperlipidemia Past Surgical History: Procedure Laterality Date CORONARY ARTERY BYPASS GRAFT Family History Problem Relation Age of Onset Heart disease Mother CHF Diabetes Mother 55 - 59 at age 78 of CHF and DM Heart disease Father coronary occlusion Heart disease Sister 24 at 24 of heart problems Heart disease Brother heart failure, [place] Diabetes Brother Social History Tobacco Use Smoking [...] will be relayed to PCP and his watermelon harvesting supervisor. 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
--- OUTSIDE RECORDS SUMMARY | 2023-12-17 12:20 | XMS_ITS | Continuity of Care Document ---
Author Name [facility] Organization [facility] Care Team Providers Care Club Director Name Role Phone [facility] Unavailable Unavailable Problems Combined list of problems from Department of Defense and Veterans Affairs facilities. It does not include entries that were removed or entered in error. Problem Status Onset Date Problem Type Date of Resolution Comments Source Traumatic amputation of finger Active 012 Condition May 20, 2014 Entered By: CAROL RAMIREZ Comment: Right thumb amputation at joint with table saw accident [facility] Otalgia Active 985 Condition May 14, 2014 Entered By: CAROL RAMIREZ Comment: left tympanomastoidectomy for ear pain - prior perf TM [facility] Benign prostatic hypertrophy with outflow obstruction Active Condition [facility] Carotid artery occlusion Active Condition Sep [...] duplex ultrasound every 1 to 2 years. [facility] Chronic obstructive pulmonary disease Active Condition [facility] Coronary atherosclerosis (SNOMED CT 892757642) Active Condition May 14, 2014 En tered By: CAROL RAMIREZ Comment: CABG 4 vsl and L Carotid Endart at [facility] 2013 Entered By: CAROL RAMIREZ Comment: chest tightness prior to procedure [facility] Hearing loss (SNOMED CT 40458114) Active Condition May 14, 2014 En tered By: CAROL RAMIREZ Comment: bilateral hearing aids [facility] Hyperlipidemia (SNOMED CT 68071710) Active Condition [facility] Hypertension (SNOMED CT 00809733) Active Condition May 14, 2014 En tered By: CAROL RAMIREZ Comment: dx 40s [facility] Knee pain Active Condition Nov 25, 20 14 Entered By: CAROL RAMIREZ Comment: R knee arthroscopy - meniscus and ligaments 12/16/1987 [facility] Peripheral vascular disease Active Condition [facility] Pulmonary hypertension Active Condition [facility] Tinnitus (SNOMED CT 41789423) Active Condition [facility] Diagnosis: ICD-10-CM H90.3 Sensorineural hearing loss, bilateral Active Diagnosis [facility] Diagnosis: ICD-10-CM Z00.01 Encounter for general adult medical exam w abnormal findings Active Diagnosis [facility] Diagnosis: ICD-10-CM S01.401S Unsp open wound of right cheek and TMJ area, sequela Active Diagnosis [facility] Diagnosis: ICD-10-CM H25.813 Combined forms of age-related cataract, bilateral Active Diagnosis [facility] Diagnosis: ICD-10-CM Z23 Encounter for immunization Active Diagnosis [facility] Diagnosis: ICD-10-CM H61.23 Impacted cerumen, bilateral Active Diagnosis [facility] Diagnosis: ICD-10-CM I10 Essential (primary) hypertension Active Diagnosis [facility] Diagnosis: ICD-10-CM Z00.00 Encntr for general adult medical exam w/o abnormal findings Active Diagnosis [facility] Diagnosis: ICD-10-CM H90.5 Unspecified sensorineural hearing loss Active Diagnosis [facility] Medications Combined list of outpatient medications [...] ed by: Trevor ROSALES Document ed at: [facility] SUBLIN GUAL ACTIVE ABEL ROSALES 2018 [facility] RIVAROXABAN 20MG TAB RIVAROXA BAN 20MG TAB Non-VA TAKE ONE TABLET BY MOUTH EVERY DAY Sep 05, 2018 Non-VA Document ed by: Trevor ROSALES Document ed at: [facility] ORAL ACTIVE ABEL ROSALES 2018 [facility] [...] drug (finding) Finding of vomiting active 9 [facility] Immunizations Combined list of available immunizations from the Department of Defense and Veterans Affairs facilities. Immunization Series Date Given Administered By Site Reaction Lot Number CVX Code Drug Textile Stylist Status Comments Source TDAP 2023 GEBREKIRSTOS, MARY E LEFT DELTO ID [id number] 115 complet ed [facility] COVID-19 ([employer] MRNA, LNP-S, PF, LINDA-SUCROSE, 30 MCG/0.3 ML (AGES 12+ YEARS) 5 2023 PRIYANKA GRACE PEBBLES RIGHT DELTO ID [id number] 309 complet ed [facility] INFLUENZA, HIGH-DOSE, QUADRIVALENT 2022 SHORTY FELDER LEFT DELTO ID [id number] 197 complet ed [facility] INFLUENZA VACCINE, QUADRIVALENT, ADJUVANTED 2021 205 complet [facility] COVID-19 (P[employer]), MRNA, LNP-S, PF, 30 MCG/0.3 ML DOSE 3 2020 208 complet ed [facility] INFLUENZA, HIGH-DOSE, QUADRIVALENT 2020 197 complet ed [facility] INFLUENZA, UNSPECIFIED FORMULATION 2020 88 complet ed [facility] COVID-19 (P[employer]ER), MRNA, LNP-S, PF, 30 MCG/0.3 ML DOSE 2 2020 208 complet ed [facility] COVID-19 ([employer]ER), MRNA, LNP-S, PF, 30 MCG/0.3 ML DOSE 2020 208 complet ed [facility] COVID-19 (PFIZER), MRNA, LNP-S, PF, 30 MCG/0.3 ML DOSE 1 2020 208 complet [facility] INFLUENZA, INJECTABLE, QUADRIVALENT, PRESERVATIVE FREE 2019 150 complet [facility] INFLUENZA, HIGH-DOSE, QUADRIVALENT 2019 197 complet [facility] INFLUENZA, HIGH DOSE SEASONAL 2019 135 complet [facility] INFLUENZA, TRIVALENT, ADJUVANTED 2019 168 complet [facility] INFLUENZA, HIGH DOSE SEASONAL 2018 135 complet [facility] INFLUENZA, TRIVALENT, ADJUVANTED 2018 168 complet [facility] PNEUMOCOCCAL CONJUGATE PCV 13 2016 133 complet ed [facility] INFLUENZA, HIGH DOSE SEASONAL 2016 135 complet [facility] INFLUENZA, HIGH DOSE SEASONAL 2015 135 complet ed [facility] INFLUENZA, UNSPECIFIED FORMULATION 2013 88 complet ed [facility] TDAP 2012 115 complet ed [facility] INFLUENZA, SEASONAL, INJECTABLE, PRESERVATIVE FREE 2011 140 complet ed [facility] TDAP 2011 115 complet ed [facility] TDAP 2011 115 complet ed [facility] INFLUENZA, SEASONAL, INJECTABLE, PRESERVATIVE FREE 2010 140 complet ed [facility] INFLUENZA, SEASONAL, INJECTABLE 2009 141 complet ed [facility] NOVEL INFLUENZA-H1N 1-09, ALL FORMULATIONS 2009 128 complet ed [employer] [facility] PNEUMOCOCCAL POLYSACCHARID E PPV23 2009 33 complet ed [facility] INFLUENZA, UNSPECIFIED FORMULATION 2008 88 complet ed [facility] PNEUMOCOCCAL POLYSACCHARID E PPV23 2008 33 complet ed [facility] TD (ADULT), 5 LF TETANUS TOXOID, PRESERVATIVE FREE, ADSORBED 2007 113 complet ed [facility] TD(ADULT) UNSPECIFIED FORMULATION 2007 139 complet ed [facility] INFLUENZA, SEASONAL, INJECTABLE 2002 141 complet ed [facility] Vital Signs Combined list of inpatient and outpatient Vital Signs from Department of [facility] and Veterans Affairs, ranging from 12 [...] ADM Date DC Date Status Disposition Source [facility] Outpatient Encounter [id number] Diagnos is: ICD-10- CM H90.5 Unspeci fied sensori neural hearing loss
JULIET OQUENDO 07/09 [facility] OFFICE O/P EST MOD 30-39 MIN [id number] Diagnos is: ICD-10- CM H25.813 Combine d forms of age-rel ated eva brock al
RACHELCYNTHIA MCADAMSGUANACO 07/21 [place] [facility] Encounter [id number] Diagnos is: ICD-10- CM Z00.00 Encntr for general adult medical exam w/o abnorma l finding s
NALLUSALAMBERTO MCMAHANUMATHI 10/15 [facility] [place] [facility] Outpatient Encounter [id number] 11/09 [place] [facility] [place] [facility] Outpatient Encounter [id number] 11/10 [place] [facility] [place] [facility] Outpatient Encounter [id number] 11/24 [place] [facility] [place] [facility] Outpatient Encounter [id number] 12/09 [place] [facility] HC PRO PHONE CALL 21-30 MIN [id number] Diagnos is: ICD-10- CM I10 Essenti al (primar y) hyperte nsion<b r/> TEMO DAMON 12/15 [facility] [place] [facility] OFFICE O/P EST MOD 30-39 MIN [id number] Diagnos is: ICD-10- CM H61.23 Impacte d eva worrell al
MONSERRAT MALONE 04/22 [place] [facility] [place] [facility] Outpatient Encounter [id number] 04/28 [place] [facility] [place] [facility] Outpatient Encounter [id number] NICHOLAS NORTON 05/04 [place] [facility] IMMUNIZAT[facility] ADMIN [id number] Diagnos is: ICD-10- CM Z23 Encount er for immuniz ation<b r/> BRADFORDJOSH ANABELLA D 06/17 [facility] IMMUNIZATI ON ADMIN [id number] Diagnos is: ICD-10- CM Z23 Encount er for immuniz ation<b r/> LASHAE GRACE PEBBLES 07/15 [facility] OFF[facility] O/P EST MOD 30 MIN [id number] Diagnos is: ICD-10- CM H25.813 Combine d forms of age-rel ated catarac t, bilater al
CYNTHIA RAMOS 07/27 [facility] EMERGENCY DEPT VISIT [facility] [id number] Diagnos is: ICD-10- CM S01.401 S Unsp open wound of right cheek and TMJ area, sequela
NESS,SYLVI A O 07/28 [facility] Outpatient Encounter [id number] RONY CUMMINGS 08/28 [facility] IMMUNIZATI ON ADMIN [id number] Diagnos is: ICD-10- CM Z00.01 Encount er for general adult medical exam w abnorma l finding s
NALLUSAMY, VASUMATHI 09/26 [facility] Outpatient Encounter [id number] 11/27 [facility] HEARING AID REPAIR/MOD IFYING [id number] Diagnos is: ICD-10- CM H90.3 Sensori neural hearing loss, bilater al
JULIET GRIFFITHS 12/15 [facility] Social History Combined list of available smoking, tobacco, and other social history from Department of Defense and Veterans Affairs facilities. Social History Type Response Date Comment Sourc e Tobacco smoking status NHIS VA-TOBACCO NEVER USED 09/27/2023 [facility] History of tobacco use VA-TOBACCO NEVER USED 10/15/2022 [facility] History of tobacco use VA-TOBACCO NEVER USED 10/05/2021 [facility] History of tobacco use VA-TOBACCO FORMER USER 10/03/2020 [facility] History of tobacco use VA-TOBACCO NEVER USED 08/27/2019 [facility] History of tobacco use VA-TOBACCO NEVER USED 07/31/2018 [facility] History of tobacco use LIFETIME NON-TOBA ICT SALES REPRESENTATIVE USER 08/19/2017 [facility] History of tobacco use LIFETIME NON-TOBA ICT SALES REPRESENTATIVE USER 09/07/2016 [facility] History of tobacco use LIFETIME NON-TOBA ICT SALES REPRESENTATIVE USER 09/01/2015 [facility] History of tobacco use LIFETIME NON-TOBA ICT SALES REPRESENTATIVE USER 05/14/2014 [facility] History of tobacco use LIFETIME NON-TOBA ICT SALES REPRESENTATIVE USER 08/12/2008 [facility] Plan of Care List of future care activities from Department of Veterans Affairs facilities. Additional future care activities may be listed in the Assessment and Plan section. Date/Time Care Activity Care Activity Detail Facili ty 04/19/2024 AMBULATORY - SURGERY AMBULATORY - SURGERY [facility] 04/25/2024 AMBULATORY - SURGERY AMB[facility]ATORY - SURGERY [facility]
--- OUTSIDE RECORDS SUMMARY | 2023-12-17 12:20 | XMS_ITS | Referral Summary ---
Author Organization [facility] Address [address] [place] [address] Care Team Providers Care Single Spindle Screw Machine Operator Name Role Phone Elsewhere, Pcp Primary Care Provider Unavailabl e Source Comments Patient records contain information from all sites at [facility]. For routine questions regarding patient records, call [phone] during business hours, M-F 8:00 AM - 5:00 PM Central Time. Record requests for emergency care only can be directed to [phone] at any time.[facility] Encounters Date Type Department Care Team Description 12/03/2023 3:44 PM CDT - 12/03/2023 6:22 PM CDT Emergency [facility] [address] [place] [phone] Tu Ramos M.D. Drug Induced Constipation (Primary Dx) Discharge Disposition: Home or Self Care 10/27/2023 10:19 PM CDT - 10/28/2023 12:15 AM CDT Emergency [facility] [address] [place] [phone] James Nino M.D. Bleed Postoperative Initial (Primary Dx) Discharge Disposition: Home or Self Care 10/26/2023 12:05 AM CDT - 10/26/2023 1:25 AM CDT Emergency [facility] [address] [place] [phone] Thien Galicia M.D. Hemorrhage (Primary Dx); Wound Care Skin Post Surgery Discharge Disposition: Home or Self Care 10/07/2023 8:34 AM CDT - 10/07/2023 9:40 AM CDT Emergency [facility] [address] [place] [address] Jem Flaherty M.D., M.B.A. Encounter For [...] on file Medical Devices Implanted Type Area Hand Shoe Cutter Device Identifier Shelf Expiration Date Model / Serial / Lot K-Wire-Ss 4 Smooth .035 - [id number] Implanted:Qty: 2 on 05/08/2012 Hardware e.g. pins/screws/ rods [place] Description:Device Manufactu rer - Gaye Carlos.. Device [...] Jem Flaherty M.D., M.B.A. LAB BLOOD ADD-ON [facility] [place] [facility] [address] [place] [address], [facility] [address] [place] [address] from Last 3 Months Care Teams Single Spindle Screw Machine Operator Relationship Specialty Start Date End Date Elsewhere, Pcp PCP - General Family Medicine 11/04/17
--- OUTSIDE RECORDS SUMMARY | 2023-12-17 12:20 | XMS_ITS | Encounter Summary ---
Author Organization [facility] Address [address] [place] [address] Care Team Providers Care Financial Services Professional Name Role Phone Flakito Ling MD Primary Care Provider [phone] Encounter Details Date Type Department Care Team (Late st Contact Info) Description 10/31/2023 Documentation Only [facility] [address] [place] [phone] Cherry Johnson [address] [place] [address] Social History Tobacco Use Types [...] [facility] [address] [place] [address] Adeel Loomis MD [address] [place] [address] documented as of this encounter Procedures Procedure Name Priority Date/Time Associated Diagnosis Comments BASIC METABOLIC PANEL (BMP) (EXTERNAL LAB ENTRY) Routine 10/19/2023 BASIC METABOLIC PANEL (BMP) (EXTERNAL LAB ENTRY) Routine 05/27/2023 CBC Routine 05/27/2023 BASIC METABOLIC PANEL (BMP) (EXTERNAL LAB ENTRY) Routine 09/03/2022 CBC Routine 09/03/2022 documented in this encounter Results * (ABNORMAL) Basic Metabolic Panel (BMP) (10/19/2023) Pathologist [facility] Sodium 138 mEq/L [facility] Potassium 4.9 mEq/L [facility] Chloride 100 [facility] Carbon Dioxide 27 mmol/L [facility] Calcium 9.1 mg/dL [facility] BUN 36(H) mg/dL [facility] Creatinine 2.03(H) mg/dL [facility] Glucose 89 mg/dL [facility] eGFR 32(L) [facility] Anion Gap 11 [facility] 10/19/2023 Historical Provider MD LAB BLOOD ORDERAB LES Performing Organization Address City/[facility]/ZIP Co de Phone Number [facility] * (ABNORMAL) CBC (05/27/2023) Pathologist [facility] [place] WBC 4.7 K/uL [facility] Red Blood Cell [...] [facility] * (ABNORMAL) CBC (09/03/2022) Pathologist [facility] WBC 4.8 K/uL [facility] Red Blood Cell Count 4.12(L) [facility] Hemoglobin 12.4(L) g/dL [facility] Hematocrit 38.4 % [facility] MCV 93 [facility] MCH 30.1 [facility] MCHC 32.2 [facility] RDW 14.7 [facility] Platelet Count 129(L) [facility] MPV 10.1 [facility] Blood (Blood, Venous) 09/03/2022 Historical Provider LAB BLOOD ORDERAB LES Performing Organization Address City/[facility]/ZIP Co de Phone Number [facility] * (ABNORMAL) Basic Metabolic Panel (BMP) (09/03/2022) Pathologist [facility] Sodium 137 mEq/L [facility] Potassium 4.5 mEq/L [facility] Chloride 102 [facility] Carbon Dioxide 28 mmol/L [facility] Calcium 9.2 mg/dL [facility] BUN 19 mg/dL [facility] Creatinine 1.14 mg/dL [facility] Glucose 94 mg/dL [facility] eGFR 64(L) [facility] Anion Gap 7 [facility] 09/03/2022 Historical Provider LAB BLOOD ORDERAB LES Performing Organization Address City/[facility]/ZIP Co de Phone Number [facility] documented in this encounter Visit Diagnoses Not on filedocumented in this encounter Care Teams Financial Services Professional Relationship Specialty Start Date End Date Flakito Ling MD [facility] [address] [place], [place] [id number] PCP - General Family Medicine 10/26/23 documented as of this encounter
--- OUTSIDE RECORDS SUMMARY | 2023-12-17 12:20 | XMS_ITS | Clinical Summary ---
Author Organization [facility] Address [address] [place] [address] Care Team Providers Care Fan Blade Aligner Name Role Phone Elsewhere, Pcp Primary Care Provider Unavailabl e Source Comments Patient records contain information from all sites at [facility]. For routine questions regarding patient records, call [phone] during business hours, M-F 8:00 AM - 5:00 PM Central Time. Record requests for emergency care only can be directed to [phone] at any time.[facility] Allergies Active Allergy Reactions Criticality Noted Date [...] PM CDT - 12/03/2023 6:22 PM CDT [facility] Emergency Department [address] [place] [phone] Tu Ramos M.D. Drug Induced Constipation (Primary Dx) Discharge Disposition: Home or Self Care 10/27/2023 10:19 PM CDT - 10/28/2023 12:15 AM CDT [facility] Emergency Department [address] [place] [address], [place] [address] James Nino M.D. Bleed Postoperative Initial (Primary Dx) Discharge Disposition: Home or Self Care 10/26/2023 12:05 AM CDT - 10/26/2023 1:25 AM T [facility] Emergency Department [address] [place] [phone] Thien Galicia M.D. Hemorrhage (Primary Dx); Wound Care Skin Post Surgery Discharge Disposition: Home or Self Care 10/07/2023 8:34 AM CDT - 10/07/2023 9:40 AM T [facility] Emergency Department [address] [place] [address], [place] [address] Jem Flaherty M.D., M.B.A. Encounter For Change [...] history exists Medical Devices Implanted Type Area Industrial Maintenance Repairer Helper Device Identifier Shelf Expiration Date Model / Serial / Lot K-Wire-Ss 4 Smooth .035 - [id number] Implanted:Qty: 2 on 05/08/2012 Hardware e.g. pins/screws/ rods Gaye Description:Device Manufactu rer - [employer].. Device Status Text - [id number]-873. Procedures [...] Jem Flaherty M.D., M.B.A. LAB BLOOD ADD-ON [facility] [address] [place] [address], [place] NPRG [facility] [address] [place] [address] from Last 3 Months Care Teams Fan Blade Aligner Relationship Specialty Start Date End Date Elsewhere, Pcp PCP - General Family Medicine 11/04/17
--- OUTSIDE RECORDS SUMMARY | 2023-12-17 12:20 | XMS_ITS | Encounter Summary ---
Author Organization [facility] Address [address] [place] [address] Care Team Providers Care Mining Machinery Assembler Name Role Phone Flakito Ling MD Primary Care Provider [phone] Encounter Details Date Type Department Care Team (Late st Contact Info) Description 10/26/2023 Documentation Only [facility] [address] [facility] [address] [place] [phone] Flakito Ling MD [address] [place] [address] Social History Tobacco Use Types Packs/Day Years [...] [place] [address] Adeel Loomis MD [address] [place] [address] documented as of this encounter Visit Diagnoses Not on filedocumented in this encounter Care Teams Mining Machinery Assembler Relationship Specialty Start Date End Date Flakito Ling MD [address] [place] [address] PCP - General Family Medicine 10/26/23 documented as of this encounter
--- OUTSIDE RECORDS SUMMARY | 2023-12-17 12:20 | XMS_ITS | Encounter Summary ---
Author Organization [facility] Address [address] [place] [address] Care Team Providers Care Child Psychiatrist Name Role Phone Flakito Ling MD Primary Care Provider [phone] Encounter Details Date Type Department Care Team (Late st Contact Info) Description 10/26/2023 Documentation Only [facility] [address] [facility] [address] [place] [phone] Flakito Ling MD [address] [place] [id number] Social History Tobacco Use Types Packs/Day Years [...] [place] [address] Adeel Loomis MD [address] [place] [address] documented as of this encounter Visit Diagnoses Not on filedocumented in this encounter Care Teams Child Psychiatrist Relationship Specialty Start Date End Date Flakito Ling MD [address] [place] [address] PCP - General Family Medicine 10/26/23 documented as of this encounter
--- OUTSIDE RECORDS SUMMARY | 2023-12-17 12:21 | XMS_ITS | Encounter Summary ---
Author Organization [facility] Address [address] [place] [address] Care Team Providers Care Oil Laboratory Analyst Name Role Phone Elsewhere, Pcp Primary Care Provider Unavailabl e Reason for Visit * Reason Comments Epistaxis (Nose Bleed) Patient presents with bleeding from outside of the nose. 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 Encounter Details Date Type Department Care Team (Late st Contact Info) Description 10/27/2023 10:19 PM CDT - 10/28/2023 12:15 AM CDT Emergency [facility] [address] [place] [address] James Nino M.D. [address] [place] [phone] Bleed Postoperative Initial (Primary Dx) Discharge Disposition: [...] documented as of this encounter Care Teams Oil Laboratory Analyst Relationship Specialty Start Date End Date Elsewhere, Pcp PCP - General Family Medicine 11/04/17 documented as of this encounter
--- OUTSIDE RECORDS SUMMARY | 2023-12-17 12:21 | XMS_ITS | Encounter Summary ---
Author Organization [facility] Address [address] [place] [address] Care Team Providers Care Trestle Builder Name Role Phone Elsewhere, Pcp Primary Care Provider Unavailabl e Reason for Visit * Reason Comments Bleeding/Bruising Had MOHS surgery tod ay on top of head and left side of nostril. Was discharged home. noticed nose wound was bleeding. On xarelto. Encounter Details Date Type Department Care Team (Late st Contact Info) Description 10/26/2023 12:05 AM CDT - 10/26/2023 1:25 AM CDT Emergency [facility] [address] [place] [address] Thien Galicia M.D. [address] [place] [address] Hemorrhage (Primary Dx); Wound Care Skin Post [...] Body Mass Index 36.98 07/29/2023 8:51 AM STUDIO ARTIST documented in this encounter Discharge Instructions * Attachments The following attachments cannot be sent through Care Everywhere. * Bleeding Precautions When on Anticoagulant Therapy Adult (Amharic) documented in this encounter Medications at Time [...] medical record. -- External documents reviewed. Medications hjdocrdx-ndwsubfpgk-ikpgbbzsk 3.5 mg-400 unit-5,000 unit ointment packet 1 [...] corrected in real-time. Please message me via [facility] In Basket if you note any areas requiring clarification. Thien Galicia M.D. 10/29/23 [id number] documented in this encounter Plan of Treatment Not on file documented as of this encounter Visit Diagnoses Diagnosis Hemorrhage- Primary Wound Care Skin Post Surgery documented in this encounter Administered Medications Inactive Administered Medications - up to 3 most recent administrations Medication Order MAR Action Action Date Dose Rate Site xhgungfi-asmuryuqpu-gxjevbfw n 3.5 mg-400 unit-5,000 unit ointment packet 1 Application (NEOSPORIN) 1 Application, topical, Once, On Tue10/26/23 at 0043, For 1 dose Given 10/26/2023 1:15 AM CDT 1 Application documented in this encounter Active and Recently Administered Medications Times are shown in CDT. Scheduled Medication Order 10/24/2023 10/25/2023 10/26/2023 holhkgpt-bqozipmngk-xuagsnxoj 3.5 mg-400 unit-5,000 unit ointment packet 1 Application (NEOSPORIN) (COMPLETED) 1 Application, topical, Once, On Tue10/26/23 at 0043, For 1 dose 0115 (Given - Provid er: Ivania Sam R.N.) documented in this encounter Additional Health Concerns Assessment Noted Time PHQ-9 Depression Total Score: 1 11/08/19 18 2:36 PM CDT documented as of this encounter Care Teams Trestle Builder Relationship Specialty Start Date End Date Elsewhere, Pcp PCP - General Family Medicine 11/04/17 documented as of this encounter
--- OUTSIDE RECORDS SUMMARY | 2023-12-17 12:21 | XMS_ITS | Clinical Summary ---
Author Organization [email or web address] Address [place], [place] [address] Care Team Providers Care Rim Fire Priming Operator Name Role Phone Flakito Ling MD Primary Care Provider [phone] Jessica Gee MD Unavailable + Allergies Active [...] Each 024 Active oxygen-air delivery systems (HOME OXYGEN)Indications:Manager Tax robert respiratory failure with hypoxia (HC) Oxygen for home use. Liters per minute: 2 per nasal cannula. Frequency of use: Nocturnal;. Length of need: 3 Months. Active umeclidinium-vilanteroL (ANORO ELLIPTA) 62.5-25 mcg/actuation inhalerIndications:Manager Tax robert obstructive pulmonary disease, unspecified COPD type [...] disease invo lving coronary bypass graft of [place] heart with unstable angina pectoris Overview: - 10/12/17: s/p GABBY SVG - OM1; unsuccessful attempted PCI of RPL Resolved Problems Problem Noted Date Diagnosed Date Resolved Date Acute respiratory failure with hypoxia 09/20/2023 10/25/2023 Obesity, Class II, BMI 35-39.9 06/21/2016 11/30/2023 Encounters Date Type Department Care Team Description 12/17/2023 Nurse Triage [facility] [address] [place] [address] Flakito Ling MD Low Blood Pressure 12/14/2023 1:30 PM CDT Home Care Visit [facility] [address] [place] [address] Mike King, PT PT - NOT TAKEN UNDER HOME CARE - HOME VISIT 12/12/2023 Orders Only [facility] [place] [address] [place] [address] Raymundo Williamson MD <No scans attached> 12/12/2023 Patient Outreach [facility] [address] [place] [address] Inocencia Valentino RN Primary RN Care Management; Hospital F/U (LACE 46/) 12/08/2023 7:53 AM CDT Anesthesia Event [facility] [address] [place] [address] Raul Bill MD 12/08/2023 6:16 AM CDT - 12/11/2023 5:10 PM CDT Hospital Encounter [facility] [address] [place] [address] Raymundo Williamson MD Litell, John Martin, DO Anderson, MD Gilberto Jackson Nadira, [facility] Cheli Juárez, AICHA Sharma, Jaqueline Dsouza MD [facility], [facility] Hospitalists Of Chronic atrial fibrillation (HC) (Primary Dx); Permanent atrial fibrillation (HC); Benign prostatic hyperplasia with nocturia; Acute ischemic stroke (HC); Ischemic cardiomyopathy; Chronic respiratory failure with hypoxia (HC)-2 LPM oxygen with sleep Discharge Disposition: Home Health 12/08/2023 Telephone [facility] [address] [facility] [address] Flakito Ling MD Abnormal Lab Results 12/07/2023 11:45 AM CDT Office Visit [facility] [address] [facility] [address] Flakito Ling MD Hospital F/U ([facility] 12/01 - severe tricuspid regurgitation - symptomatic); Preoperative Exam (12/08/2023) 12/07/2023 Travel 12/05/2023 Travel 12/05/2023 Patient Outreach [facility] [address] [place] [address] Inocencia Valentino RN Primary RN Care Management; Hospital F/U (LACE 59) 12/03/[address] [facility] [place] [address] MiJeb rodriguez MD Concerns 12/02/2023 Orders Only [facility] [address] [facility] [address] [place] [address] Raymundo Williamson MD <No scans attached> 11/30/2023 9:00 PM CDT Hospital Encounter [facility] [address] [place] [address] [facility], [facility] Hospitalists Of 11/30/2023 11:49 AM CDT Anesthesia Event [facility] [address] [place] [address] Jaqueline Sharma MD Robinson, Justin C, CRNA 11/30/2023 9:34 AM CDT - 12/02/2023 1:50 PM CDT Hospital Encounter [facility] [address] [place] [address] Mitesh Mann MD [facility] Hospitalists Teresita Gandara MD Permanent atrial fibrillation (HC); Acute on chronic HFrEF (heart failure with reduced ejection fraction) (HC); Ischemic cardiomyopathy Discharge Disposition: Home Self Care 11/30/2023 Travel 11/29/2023 1:30 PM CDT Office Visit [facility] [address] [place] [address] Flakito Ling MD Hospital F/U ([place] 11/22 - Right heart catheter) 11/28/2023 Telephone [facility] [address] [facility] [address] [place] [address] Rafiq Arriaga MD Procedure 11/28/2023 Travel 11/27/2023 Telephone [facility] [address] [place] [address] Flakito Ling MD Appointment Request (Appointment ) 11/25/2023 Telephone [facility] [address] [address] Rafiq Arriaga MD Questions 11/24/2023 Telephone [facility] [address] [place] [address] Flakito Ling MD Blood Pressure (READINGS); [facility] 11/23/2023 11:46 AM CDT - 11/23/2023 5:15 PM CDT Hospital Encounter [facility] [address] [place] [address] Jessica Gee MD Pulmonary hypertension (HC) (Primary Dx); Cardiovascular symptoms; Essential hypertension with goal blood pressure less than 140/90; Precapillary pulmonary hypertension (HC); Chronic atrial fibrillation (HC) Discharge Disposition: Home Self Care 11/23/2023 Travel 11/22/2023 Telephone [facility] [address] [phone] Qing Hobbs RN Pre Procedure 11/21/2023 11:00 AM CDT Telemedicine [facility] [address] [address] Fredi Gandhi MD VIRTUAL VISIT (Virtual visit: second MD visit for Watchronnie) 11/21/2023 Travel 11/07/2023 Telephone [facility] [address] [address] Shital Almeida, RN Grupo 11/04/2023 8:15 AM CDT Orders Only [facility] [address] [place] [address] Lab, [place] Lab 11/04/2023 Travel 11/03/2023 Telephone [facility] [place] [address] [facility] [address] [place] [address] Jessica Gee MD Follow Up 11/02/2023 8:00 AM CDT Office Visit [facility] [address] [place] [address] Rafiq Arriaga MD CV Electrophysiology New (Flakito Ling MD) 11/02/2023 Travel 11/01/2023 Orders Only [facility] [address] [place] [address] Adeel Loomis MD <No scans attached> 10/31/2023 Travel 10/31/2023 Orders Only [facility] [address] [place] [address] Adeel Loomis MD <No scans attached> 10/25/2023 8:20 AM CDT Office Visit [facility] [address] [place] [address] Flakito Ling MD Medicare ANNUAL (subsequent) Visit (84 years) 10/25/2023 Travel 10/23/2023 Travel 10/21/2023 10:10 AM CDT - 10/21/2023 10:55 AM CDT Surgery [address] [address] Gavin Hackett, DO BRONCHOSCOPY WITH BRONCHOALVEOLAR LAVAGE 10/21/2023 8:33 AM CDT - 10/21/2023 1:30 PM CDT Hospital Encounter [address] [address] Gavin Hackett, DO Discharge Disposition: Home Self Care 10/20/2023 11:30 AM CDT Office Visit [facility] [place] [address] [facility] [address] [place] [address] Jessica Gee MD CV Congenital Heart Disease Est (1 mo f/u//PCP: Flakito Ling MD ) 10/20/2023 Orders Only [facility] [place] [address] [place] [address] Jessica Gee MD <No scans attached> 10/20/2023 Telephone [facility] [address] [place] [address] Jessica Gee MD Follow Up (SGLT2 Coverage) 10/20/2023 Travel 10/19/2023 8:00 AM CDT Orders Only [facility] [address] [place] [address] Briseyda Wiley Lab 10/18/2023 Travel 10/17/2023 12:40 PM CDT Ancillary Procedure [facility] [address] [place] [address] 10/17/2023 11:30 AM CDT Office Visit [facility] [address] [place] [address] Gavin Hackett DO Follow Up (3 month COPD) 10/17/2023 Travel 10/12/2023 10:45 AM CDT Orders Only [facility] [address] [place] [address] 2 scans: (2-Ord) US ANKLE BRACHIAL INDEX BILATERAL ([id number]) 10/12/2023 Telephone [facility] [address] [place] [address] Jessica Gee MD Blood Pressure 10/12/2023 Travel 10/12/2023 Orders Only [facility] [address] [place] [address] Jessica Gee MD <No scans attached> 10/12/2023 Telephone [facility] [address] [place] [address] Flakito Ling MD Lab 10/10/2023 8:30 AM CDT Orders Only [facility] [address] [facility] [address] LabEmilei Lab 10/10/2023 Travel 10/06/2023 Travel 10/05/2023 5:30 AM CDT - 10/05/2023 11:59 PM CDT Hospital Encounter [facility] [address] [place] [address] Jessica Gee MD Acute on chronic HFrEF (heart failure with reduced ejection fraction) (HC) 10/04/2023 7:50 AM CDT Orders Only [facility] [address] [facility] [place] Akers [address] LabNhi Lab 10/04/2023 Travel 09/30/2023 Orders Only [facility] Staff, Other Clinical 1 scan: (1-Ord) [facility] 09/30/2023 Orders Only [facility] Staff, Other Clinical 1 scan: (1-Ord) [facility] 09/30/2023 Orders Only [facility] Staff, Other Clinical 1 scan: (1-Ord) [facility] 09/30/2023 Telephone [facility] [address] [facility] [address] [place] [phone] Jessica Gee MD Follow Up 09/30/2023 Travel 09/29/2023 Telephone [facility] [address] [place] [address] Flakito Ling MD Abnormal Lab Results 09/27/2023 Orders Only [facility] Staff, Other Clinical 1 scan: (1-Ord) [place] 09/27/2023 Telephone [facility] [address] [facility] [address] [place] [phone] Jessica Gee MD Lab 09/26/2023 10:45 AM CDT Orders Only [facility] [address] [place] [address] Lab, [place] Outside Order (Dr. Jessica Gee) 09/26/2023 Travel 09/23/2023 Telephone [facility] [address] [place] [address] Jessica Gee MD Results 09/22/2023 2:00 PM CDT Orders Only [facility] [address] [place] [address] 4 scans: (4-Ord) [facility] 09/21/2023 1:30 PM CDT Office Visit [facility] 111 [facility] [address] [place] [address] Jessica Gee MD Heart Problem (Arteriosclerotic heart disease) 09/21/2023 Travel 09/20/2023 3:10 PM CDT Office Visit [facility] [address] [place] [address] Flakito Ling MD Breathing Problem (Been feeling more short of breath than his usual baseline for the past 2 weeks, per Yohan); Leg Swelling (Bilateral lower leg swelling x 2 weeks) 09/20/2023 Travel 09/16/2023 Travel from Last 3 Months Immunizations Name Administration Dates Next Due COVID-19 vaccine ([employer] 30mcg/0.3mL) GENARO BAER 04/06/2021,07/24/2020,07/03/2020 Influenza A [...] Description 12/19/2023 1:10 PM CDT Office Visit [facility] [address] [place] [address] Jaqueline Roberts PA [address] [place] [address] 01/23/2024 9:00 AM CDT Appointment [facility] [address] [place] [address] 01/23/2024 11:00 AM CDT Office Visit [facility] [address] [facility] [address] [place] [phone] Hans Schneider PA [address] [facility] [address] [place] [address] Health Maintenance Due Date Last Done Comments [...] STRIP 11/30/2023 3:33 PM CDT SOLUBLE TRANSFERRIN LINEN AIDE LYLE 11/30/2023 3:32 PM CDT IRON PLUS [...] 11.0 thou/cu mm 12/11/2023 7:26 AM CDT [facility] RED BLOOD COUNT 3.17(L) 4.30 - 5.90 mil/cu mm 12/11/2023 7:26 AM CDT [facility] HEMOGLOBIN 8.9(L) 13.5 - 17.5 g/dL 12/11/2023 7:26 AM T [facility] HEMATOCRIT 27.4(L) 37.0 - 53.0 % 12/11/2023 7:26 AM T [facility] MCV 86 80 - 100 fL 12/11/2023 7:26 AM T [facility] MCH 28.1 26.0 - 34.0 pg 12/11/2023 7:26 AM T [facility] MCHC 32.5 32.0 - 36.0 g/dL 12/11/2023 7:26 AM [facility] RDW 17.1(H) 11.5 - 15.5 % 12/11/2023 7:26 AM [facility] PLATELET COUNT 121(L) 140 - 440 thou/cu mm 12/11/2023 7:26 AM T [facility] MPV 10.7 6.5 - 11.0 fL 12/11/2023 7:26 AM [facility] NRBC 0.0 % 12/11/2023 7:26 AM [facility] ABS NRBC 0.0 thou /cu mm 12/11/2023 7:26 AM [facility] Blood BLOOD SPECIMEN / Unknown Venipuncture / Unknown 12/11/2023 7:04 AM CDT 12/11/2023 7:13 AM CDT Yvette Fernandez MD HEMATOLOGY [facility] [address] [place] [address], * (ABNORMAL) SODIUM (12/11/2023 7:04 AM CDT) SODIUM 133(L) 136 - 145 mmol/L 12/11/2023 7:47 AM T [facility] Blood BLOOD SPECIMEN / Unknown Venipuncture / Unknown 12/11/2023 7:04 AM CDT 12/11/2023 7:13 AM CDT Yvette Fernandez MD CHEMISTRY [facility] [address] [place] [address], [place] * POTASSIUM (12/11/2023 7:04 AM CDT) Only the most recent of2 resultswithin the time period is included. POTASSIUM 4.3 3.5 - 5.1 mmol/L 12/11/2023 7:47 AM CDT [facility] Blood BLOOD SPECIMEN / Unknown Venipuncture / Unknown 12/11/2023 7:04 AM CDT 12/11/2023 7:13 AM CDT Yvette Fernandez MD CHEMISTRY Performing Organization Address City/[facility] Co de Phone Number [facility] [address] [place] [address], [place] * (ABNORMAL) CREATININE (12/11/2023 7:04 AM CDT) Only the most recent of2 resultswithin the time period is included. eGFR 56(L) >90 mL/min/1.7 3m2 12/11/2023 7:[address] [facility] Comment:As of 2021, eG FR is calculated by the CKD-EPI creatinine equation without race adjustment. ??eGFR can be influenced by muscle mass, exercise, and diet. ??The reported eGFR is an estimation only and is only applicable if the renal function is stable. CREATININE 1.26(H) 0.70 - 1.20 mg/dL 12/11/2023 7:[address] [facility] Blood BLOOD SPECIMEN / Unknown Venipuncture / Unknown 12/11/2023 7:04 AM CDT 12/11/2023 7:13 AM CDT Yvette Fernandez MD [facility]STRY [facility] [address] [place] [address], * SCAN-CARDIAC STRIP (12/11/2023 3:21 AM CDT) Scanner OTHER * SCAN-CARDIAC STRIP (12/10/2023 4:04 PM CDT) Scanner OTHER * SCAN-CARDIAC STRIP (12/10/2023 7:30 AM CDT) Scanner OTHER * (ABNORMAL) BASIC METABOLIC PANEL (12/10/2023 4:41 AM CDT) Only the most recent of11 resultswithin the time period is included. SODIUM 135(L) 136 - 145 mmol/L 12/10/2023 5:20 AM CDT [facility] POTASSIUM 4.7 3.5 - 5.1 mmol/L 12/10/2023 5:20 AM CDT [facility] CHLORIDE 100 98 - 107 mmol/L 12/10/2023 5:20 AM CDT [facility] CO2,TOTAL 27 22 - 29 mmol/L 12/10/2023 5:20 AM CDT [facility] ANION GAP 8 5 - 18 12/10/2023 5:20 AM CDT [facility] GLUCOSE 93 70 - 99 mg/dL 12/10/2023 5:20 AM CDT [facility] CALCIUM 8.9 8.8 - 10.2 mg/dL 12/10/2023 5:20 AM CDT [facility] BUN 24(H) 8 - 23 mg/dL 12/10/2023 5:20 AM CDT [facility] CREATININE 1.21(H) 0.70 - 1.20 mg/dL 12/10/2023 5:20 AM CDT [facility] BUN/CREAT RATIO 20 10 - 20 4 5:20 AM CDT [facility] eGFR 59(L) >90 mL/min/1.7 3m2 12/10/2023 5:20 AM CDT [facility] Comment:As of 2021, eG FR is calculated by the CKD-EPI creatinine equation without race adjustment. ??eGFR can be influenced by muscle mass, exercise, and diet. ??The reported eGFR is an estimation only and is only applicable if the renal function is stable. Blood BLOOD SPECIMEN / Unknown Non-Lab Venipuncture / Unknown 12/10/2023 4:41 AM CDT 12/10/2023 4:49 AM CDT Zita Kee TAIL SAWYER CHEMISTRY [facility] [address] [place] [address], * SCAN-CARDIAC STRIP (12/09/2023 8:00 PM CDT) [...] 2 minutes VAIBHAV [employer] [facility] Radiology Dept. Terese Allen CHILD ATTENDANT FLUOROSCOPY * SCAN-CARDIAC STRIP (12/09/2023 7:14 AM CDT) Scanner OTHER * (ABNORMAL) CBC WITH AUTO DIFFERENTIAL (12/09/2023 4:31 AM CDT) Only the most recent of4 resultswithin the time period is included. WHITE BLOOD COUNT 5.2 4.5 - 11.0 thou/cu mm 12/09/2023 5:18 AM CDT [facility] RED BLOOD COUNT 3.52(L) 4.30 - 5.90 mil/cu mm 12/09/2023 5:18 AM CDT [facility] HEMOGLOBIN 10.0(L) 13.5 - 17.5 g/dL 12/09/2023 5:18 AM CDT [facility] HEMATOCRIT 30.8(L) 37.0 - 53.0 % 12/09/2023 5:18 AM CDT [facility] MCV 88 80 - 100 fL 12/09/2023 5:18 AM CDT [facility] MCH 28.4 26.0 - 34.0 pg 12/09/2023 5:18 AM CDT [facility] MCHC 32.5 32.0 - 36.0 g/dL 12/09/2023 5:18 AM CDT [facility] RDW 17.4(H) 11.5 - 15.5 % 12/09/2023 5:18 AM CDT [facility] PLATELET COUNT 146 140 - 440 thou/cu mm 12/09/2023 5:18 AM CDT [facility] MPV 10.9 6.5 - 11.0 fL 12/09/2023 5:18 AM CDT [facility] NRBC 0.0 % 12/09/2023 5:18 AM CDT [facility] ABS NRBC 0.0 thou /cu mm 12/09/2023 5:18 AM CDT [facility] % NEUT 78.6 % 12/09/2023 5:18 AM CDT [facility] % LYMPH 6.2 % 12/09/2023 5:18 AM CDT [facility] % MONO 10.9 % 12/09/2023 5:18 AM CDT [facility] % EOS 3.7 % 12/09/2023 5:18 AM CDT [facility] % BASO 0.4 % 12/09/2023 5:18 AM CDT [facility] % IMMATURE GRAN (METAS,MYELOS,ID OS) 0.2 % 12/09/2023 5:18 AM CDT [facility] ABSOLUTE NEUTROPHILS 4.1 1.7 - 7.0 thou/cu mm 12/09/2023 5:18 AM CDT [facility] ABSOLUTE LYMPHOCYTES 0.3(L) 0.9 - 2.9 thou/cu mm 12/09/2023 5:18 AM CDT [facility] ABSOLUTE MONOCYTES 0.6 <0.9 thou/cu mm 12/09/2023 5:18 AM CDT [facility] ABSOLUTE EOSINOPHILS 0.2 <0.5 thou/cu mm 12/09/2023 5:18 AM CDT [facility] ABSOLUTE BASOPHILS 0.0 <0.3 thou/cu mm 12/09/2023 5:18 AM CDT [facility] ABSOLUTE IMMATURE GRANULOCYTES(MET ,MYELOS,PROS) 0.0 <0.3 thou/cu mm 12/09/2023 5:18 AM CDT [facility] Blood BLOOD SPECIMEN / Unknown Venipuncture / Unknown 12/09/2023 4:31 AM CDT 12/09/2023 5:02 AM CDT Stanton Ramírez DO HEMATOLOGY [facility] [address] [place] [address], * Hemoglobin A1C Screening (12/09/2023 4:31 AM CDT) Pathologist [facility] HEMOGLOBIN A1C SCREENING 5.8 <=6.4 % 12/09/2023 6:53 AM CDT [facility] Blood BLOOD SPECIMEN / Unknown Venipuncture / Unknown 12/09/2023 4:31 AM CDT 12/09/2023 5:02 AM CDT Narrative [facility] - 12/09/2023 6:53 AM CDT ? (<5.7%) ?Normal ? (5.7% to 6.4%) ? Indicates prediabetes ? (>=6.5%) ? Confirms diabetes Falsely low levels may be seen with: Recent Transfusion, Recent Significant Blood Loss, Hemolytic Diseases, or Falsely elevated levels may be seen with: Untreated Anemias, Splenectomy Stanton Ramírez DO CHEMISTRY Performing Organization Address City/[facility]/ZIP Co de Phone Number [facility] [address] [place] [address], * aPTT (12/09/2023 4:31 AM CDT) Pathologist [facility] APTT 33 28 - 36 sec 12/09/2023 5:17 AM CDT [facility] Blood BLOOD SPECIMEN / Unknown Venipuncture / Unknown 12/09/2023 4:31 AM CDT 12/09/2023 5:02 AM CDT Narrative [facility] - 12/09/2023 5:17 AM CDT Therapeutic Range: 57-87 seconds Stanton Ramírez DO HEMATOLOGY [facility] [address] [place] [address], * (ABNORMAL) Protime - INR (12/09/2023 4:31 AM CDT) Pathologist [facility] INR 1.2 <1.3 12/09/2023 5:17 AM CDT [facility] PROTIME 13.4(H) 10.3 - 12.3 sec 12/09/2023 5:17 AM CDT [facility] Blood BLOOD SPECIMEN / Unknown Venipuncture / Unknown 12/09/2023 4:31 AM CDT 12/09/2023 5:02 AM CDT [facility] - 12/09/2023 5:17 AM CDT ?Therapeutic [...] if the patient is on UFH. Stanton Ramírez DO HEMATOLOGY [facility] [address] [place] [address], * (ABNORMAL) Lipid Panel (12/09/2023 4:31 AM CDT) Pathologist [facility] CHOLESTEROL,TOTAL 111 100 - 199 mg/dL 12/09/2023 5:30 AM T [facility] Comment: Cholesterol, Total Reference Ranges Desirable <200 mg/dL Borderline 200-239 mg/dL High >=240 mg/dL TRIGLYCERIDES 87 <150 mg/dL 12/09/2023 5:30 AM CDT [facility] HDL CHOLESTEROL 37(L) >40 mg/dL 5:30 AM CDT [facility] NON-HDL CHOLESTEROL 74 <145 mg/dl 12/09/2023 5:30 AM [facility] CHOL/HDL RATIO 3.00 <4.50 12/09/2023 5:30 AM T [facility] LDL CHOLESTEROL 57 <=130 mg/dL 12/09/2023 5:30 AM CDT [facility] VLDL CHOLESTEROL 17 <=30 mg/dL 12/09/2023 5:30 AM CDT [facility] PROVIDER ORDERED STATUS RANDOM 12/09/2023 5:[address] [facility] Blood BLOOD SPECIMEN / Unknown Venipuncture / Unknown 12/09/2023 4:31 AM CDT 12/09/2023 5:02 AM CDT Stanton Ramírez DO CHEMISTRY Performing Organization Address [facility] Co de Phone Number [facility] [address] [place] [address], * (ABNORMAL) GLUCOSE METER (12/09/2023 1:01 AM CDT) Only the most recent of3 resultswithin the time period is included. GLUCOSE METER 106(H) 65 - 100 mg/dL 12/09/2023 1:01 AM CDT [facility] Blood BLOOD SPECIMEN / Unknown 12/09/2023 1:01 AM CDT 12/09/2023 1:01 AM CDT Raymundo Williamson MD CHEMISTRY Performing Organization Address City/[facility] Co de Phone Number [facility] [address] [place] [address], [place] * MR Head without contrast (12/09/2023 [...] the distal right supraclinoid ICA via the kobuk of Pfeiffer. However, there is a partially [...] the distal right supraclinoid ICA via the kobuk of Pfeiffer. 2. 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 Please note that all CT scans at this facility use dose modulation, iterative reconstruction, and/or weight-based dosing when appropriate to reduce radiation dose to as low as reasonably achievable. Dictated by Melanie Camaerna MD @ 12/08/2023 3:13:50 PM (Electronically Signed) Impressions 12/08/2023 3:10 PM CDT 1. Chronically occluded right common carotid artery slightly distal to the origin. The right internal carotid artery is also chronically occluded with reconstitution of the distal right supraclinoid ICA via the kobuk of Pfeiffer. 2. Patent left carotid endarterectomy [...] the distal right supraclinoid ICA via the kobuk of Pfeiffer. The origins of the rest [...] of the distal right supraclinoidICA via the kobuk of Pfeiffer. The origins of the rest [...] the distal right supraclinoid ICA via the kobuk ofWillis. 2. Patent left carotid endarterectomy graft. [...] the brain. COMPARISON: MRI brain 11/30/2023. FINDINGS: Ictw-ga-kggbrquz diffuse cerebral volume loss. No mass effect [...] the brain. COMPARISON: MRI brain 11/30/2023. FINDINGS: Rquz-el-sanuluyv diffuse cerebral volume loss. No mass effect [...] TRANSESOPHAGEAL ECHOCARDIOGRAM YOHAN HARE ? Accession#: ?? [id number] : ?1940 83 years Study Date: ?? 12/08/2023 8:42:11 AM Gender: M ?BP: ? 110/60 mmHg Height: 180.00 cm ?BSA: ?2.25 m? ? ? Weight: 106.00 kg ?Tech: ? Referring MD: RAYMUNDO WILLIAMSON Site: ? [facility] Reading Location: Patient Location: Procedure: JEAN CARLOS, [...] repeat measurements were performed. ?At 0 degrees, eojsjcry-rc-eyxbnhof width = 3.0cm ?At 45 degrees, fqwmwkca-qa-cpwsvilo width = 2.9cm ?At 90 degrees, emghsgdf-qj-kfdxdmel width = 2.9cm ?At 135 degrees, iokxggns-vq-aeuogged width = 3.0cm ?Pulmonary vein flows were [...] ??Final (Updated) ?? Procedure Note Dianne Macias, [facility] - 12/08/2023 TRANSESOPHAGEAL ECHOCARDIOGRAM YOHAN HARE : 1940 83 years Study Date: 12/08/2023 8:42:11 AM Gender: M BP: 110/60 mmHg Height: 180.00 cm BSA: 2.25 m? ? ? Weight: 106.00 kg Tech: Referring MD: RAYMUNDO WILLIAMSON Site: [facility] Reading Location: Patient Location: Procedure: JEAN CARLOS, [...] repeat measurements were performed. At 0 degrees, srhfvycs-ue-tcswzsro width = 3.0cm At 45 degrees, ywrzztrk-td-ojnhymev width = 2.9cm At 90 degrees, gyhhanky-hm-mdbaexmy width = 2.9cm At 135 degrees, krvpmsnx-er-epzvhzgg width = 3.0cm Pulmonary vein flows were [...] OPERATORS: 1. ??Raymundo Williamson MD, interventional cardiology, injection moulding machine operator 2. SEBASTIAN Ortiz , structural heart disease fellow 3. Dianne Macias [facility] interventional echocardiography. DIAGNOSIS: Permanent atrial fibrillation. PROCEDURE: Watchman implantation, single curve guide, 35 mm Watchman FLX device. This was a general anesthesia procedure. ??We accessed with the ultrasound guidance the left and right femoral vein. Left access was used for central access with a 7-Bruneian, right access 8-Bruneian. We then started full-dose anticoagulation with heparin, goal ACT above 250 seconds. We then performed the transseptal procedure using an SL1 and a [place] C1 needle. Under the support of a [...] with protamine, see hemo log for details. Uywxli-em-akytr stitch on the right femoral vein, manual pressure on the left. ?? Raymundo Williamson MD, PhD, [facility] Basket Person [facility] [address], [address] [place] [address] O: [phone] ?? F: [phone] ?? Raymundo Williamson MD MANAGER E COMMERCE ORD * (ABNORMAL) ACTIVATED CLOTTING TIME [id number] ACT (12/08/2023 9:12 AM CDT) ACTIVATED CLOTTING TIME, POCT 308(H) 74 - 125 sec 12/08/2023 1:23 PM CDT [facility] Blood BLOOD SPECIMEN / Unknown 12/08/2023 9:12 AM CDT 12/08/2023 1:23 PM CDT Raymundo Williamson MD [facility] [address] [place] [address], * EP OTHER PROCEDURE (12/08/2023 8:54 AM CDT) Anatomical Region Laterality Modality X-Ray Angiograph y, X-Ray Angiography 12/08/2023 8:54 AM CDT Narrative Transcriptions Raymundo Williamson MD - 12/08/2023 3:16 PM CDT [facility] Electrophysiology Implant Report Name: YOHAN HARE Event Date: 12/08/2023 Excellian ID #: [id number] Date: 1940 Gender: Male Age: 83 [facility] #: [id number] Procedure Performed By: RAYMUNDO WILLIAMSON [facility] Referring Physician: Implant Procedure Type Other CRISPIN [...] a 35mm Watchman FLX device Consent & Wallowa Protocol Wallowa protocol was followed. TIME OUT conducted just [...] See Anesthesia Note Total Fluoro Time: 7.5 MAINTENANCE APPRENTICE Total Fluoro Dose: 180 mGy Contrast: Visipaque, 8 ml Visipaque, 5 ml Staff Name Role Raymundo Williamson Implanting Leandro Gonzales EPT Scrub Destiny Silva TAIL SAWYER Scrub Douglas Davis EPT Sewer Pipe Offbearer Raul Murillo RN Nurse Medications Ordered and [...] status of Final Raymundo Williamson MD Implanting Welding Machine Operator Friction [facility] [address] [place] [address] (p) [phone](f) Raymundo Williamson MD CV IMAGING * HCHG TUBE PR1, HCHG STYLET PR1, HCHG MOUTHPIECE PR1 (12/08/2023 8:13 AM CDT) Cheli Phelps, DROP CLIPPER - 12/08/2023 8:13 AM CDT Cheli Juárez [...] 6:56 AM CDT Raymundo Williamson MD LABORATORY [facility]AL LABORATORY [address] [place] [address], * 12 Lead EKG (12/08/2023 6:35 AM [...] NOW QTc 460 ms BEYOND NOW P [place] degrees BEYOND NOW R [place] -18 degrees BEYOND NOW T [place] 60 degrees BEYOND NOW 12/08/2023 6:35 AM CDT 12/08/2023 4:33 PM CDT Narrative BEYOND NOW - 12/08/2023 4:33 PM CDT Test Indication: PRE OP Raymundo Williamson MD EKG ORD BEYOND NOW [place], [place] * SCAN-CARDIAC STRIP (12/08/2023 12:00 AM CDT) Narrative 12/08/2023 12:00 AM CDT Ordered by an unspecified provider. Other Clinical Staff OTHER * (ABNORMAL) HEMOGLOBIN (12/07/2023 1:21 PM CDT) HEMOGLOBIN 11.7(L) 13.5 - 17.5 g/dL 12/07/2023 1:35 PM CDT [facility] MCV 87 80 - 100 fL 12/07/2023 1:35 PM CDT [facility] Blood BLOOD SPECIMEN / Unknown Venipuncture / Unknown 12/07/2023 1:21 PM CDT 12/07/2023 1:22 PM CDT Flakito Ling MD HEMATOLOGY Performing Organization Address [facility]/ZIP Co de Phone Number [facility] [address] [place] [address], [place] [phone] * SCAN-CARDIAC STRIP (12/02/2023 8:55 AM CDT) Scanner OTHER * MAGNESIUM (12/02/2023 8:30 AM CDT) MAGNESIUM 2.1 1.6 - 2.4 mg/dL 12/02/2023 9:53 AM CDT [facility] Blood BLOOD SPECIMEN / Unknown Non-Lab Venipuncture / Unknown 12/02/2023 8:30 AM CDT 12/02/2023 9:13 AM CDT Teresita Gandara MD CHEMISTRY [facility]AL LABORATORY [address] [place] [address], [place] * SCAN-CARDIAC STRIP (12/01/2023 10:00 PM CDT) Scanner OTHER * SCAN-CARDIAC STRIP (12/01/2023 3:37 PM CDT) Scanner OTHER * SCAN-CARDIAC STRIP (12/01/2023 3:37 PM CDT) Scanner OTHER * (ABNORMAL) SEDIMENTATION RATE (12/01/2023 3:12 PM CDT) Only the most recent of2 resultswithin the time period is included. SEDIMENTATION RATE 34(H) <20 mm/hr 2023 4:45 PM CDT [facility] Blood BLOOD SPECIMEN / Unknown Butterfly / Unknown 12/01/2023 3:12 PM CDT 12/01/2023 3:50 PM CDT Raymundo Williamson MD HEMATOLOGY Performing Organization Address City/[facility]/ZIP Co de Phone Number [facility] [address] [place] [address], * C-REACTIVE PROTEIN (12/01/2023 3:11 PM CDT) Only the most recent of3 resultswithin the time period is included. C-REACTIVE PROTEIN <0.3 <0.5 mg/dL 12/01/2023 4:30 PM CDT [facility] Blood BLOOD SPECIMEN / Unknown Butterfly / Unknown 12/01/2023 3:11 PM CDT 12/01/2023 3:50 PM CDT Raymundo Williamson MD CHEMISTRY [facility] [address] [place] [address], * CTA CHEST ABDOMEN PELVIS - DUAL [...] aorta are: Aortic sinus: 38 mm maximum uytt-wx-sybt Ascending aorta: 33 x 32 mm. Descending thoracic aorta: 26 x 26 mm. Great arteries: Normal great artery branching pattern.. Right brachiocephalic: Mild calcification. Right subclavian: Mild calcification. Right common carotid: None calcification. Left common carotid: Mild calcification. Left subclavian: Mild calcification. Abdominal aorta: Normal size and morphology. Mild to moderate calcification. Abdominal aorta branch arteries: Celiac: Osaq-rq-geqlzzdy calcification. Superior mesenteric: Mild calcification. Right renal: Vukv-lb-rvnfkogq calcification. Left renal: Moderate calcification. Inferior mesenteric: None calcification. Pelvic arteries (right): Common iliac artery: Rrjw-fw-jzwxwzwg calcification. Internal iliac artery: Zcmd-ht-uyilbcbg calcification. External iliac artery: Ftma-pw-uzvardsp calcification. Common femoral artery: Urxf-rd-qghkgcjx calcification. Pelvic arteries (left): Common iliac artery: Fuss-jw-rlmuczna calcification. Internal iliac artery: Mfwc-ks-talnbcki calcification. External iliac artery: Vxmn-zo-inzgsywd calcification. Common femoral artery: Onwi-xd-xiflwfbz calcification. Venous access anatomy: Left inominate vein: No obstruction and no thrombus. Superior vena cava: No obstruction and no thrombus. Inferior vena cava: No evidence of compression. Common iliac veins: No evidence of compression. FOR PATIENT: Results are automatically released to your [employer] ([employer]) account once available, in compliance with federal [...] conjunction with the services provided by the [facility] ([facility]). CLINICAL HISTORY: ?? Valvular cardiac disease. Cardiac [...] aorta are: Aortic sinus: 38 mm maximum fuqw-jj-kdxa Ascending aorta: 33 x 32 mm. Descending thoracic aorta: 26 x 26 mm. Great arteries: Normal great artery branching pattern.. Right brachiocephalic: Mild calcification. Right subclavian: Mild calcification. Right common carotid: None calcification. Left common carotid: Mild calcification. Left subclavian: Mild calcification. Abdominal aorta: Normal size and morphology. Mild to moderate calcification. Abdominal aorta branch arteries: Celiac: Ymbx-pb-sijygnwq calcification. Superior mesenteric: Mild calcification. Right renal: Chhs-ry-extuzfdp calcification. Left renal: Moderate calcification. Inferior mesenteric: None calcification. Pelvic arteries (right): Common iliac artery: Fgxh-ug-vpsnbanu calcification. Internal iliac artery: Adxl-kd-xrjemhxt calcification. External iliac artery: Nxdj-tb-sxbovetu calcification. Common femoral artery: Yxjz-gp-mmjeieco calcification. Pelvic arteries (left): Common iliac artery: Lovr-cs-abgddpqm calcification. Internal iliac artery: Dywp-oc-dweuihsu calcification. External iliac artery: Xdlw-uz-cjssajgy calcification. Common femoral artery: Ntoq-nx-ljgvbhgr calcification. Venous access anatomy: Left inominate vein: No obstruction and no thrombus. Superior vena cava: No obstruction and no thrombus. Inferior vena cava: No evidence of compression. Common iliac veins: No evidence of compression. FOR PATIENT: Results are automatically released to your [employer]) account once available, in compliance with federal [...] conjunction with the services provided by the [facility] ([facility]). CLINICAL HISTORY: ??Cardiac CT over-read. ? FINDINGS: [...] Case Report Special Hematology Report ? Case: [id number] ? Authorizing Provider: ??Teresita Gandara MD ?Collected: ? 12/01/2023 0543 ? Ordering Location: ? [facility] ?Received: ?12/01/2023 0555 ? Hospital ? Pathologist: ? Conor Schneider MD ? Specimen: ?Blood ? 12/02/2023 3:19 PM CDT [facility] ENTRAL LAB[facility]AT[facility] Final Diagnosis PERIPHERAL BLOOD: 1. Mild normocytic anemia 2. Marked lymphocytopenia, nonspecific 3. See comment 12/02/2023 3:19 PM CDT [facility]AL [facility] Comment The features of [...] also reviewed by Jessica Rodriguez MT, MS ([facility]). 12/02/2023 3:19 PM CDT [facility]AL [facility] Clinical Information The patient is an 83-year-old male. Pertinent clinical information: Pulmonic vegetation, likely anemia of CKD. 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 Peripheral blood morphology 2013 ([id number]) Showed a mild normocytic anemia 12/01/23 05:43 CREATININE: ?1.61 (H) eGFR: ?42 (L) VITAMIN B12: ? 779 11/30/23 15:32 FERRITIN: ?183.0 ALIS.TRANSFERRIN RECEPTOR: ??4.54 IRON: ?106 IRON BINDING CAPACITY ?: 372 IRON,% SATURATION ?: 28 UIBC (UNSATURATED) ? : 266 12/02/2023 3:19 PM CDT [facility]-C ENTRAL LABORATORY CBC and Differential HEMATOLOGY PARAMETERS Tested at: ??Central Laboratory ? RESULTS ??EXPECTED VALUES WBC: ? 5.0 ?4.5-57b1640/cu mm ? RBC: ? 4.0 ?4.30-5.90 mil/cumm ??DECREASED HGB: ? 11.3 ? 13.5-17.5 gm/di ? DECREASED HCT: ? 34.7 ? 37-53% ?DECREASED MCV: ? 87.0 ? 80-100 fl ? NORMOCYTIC MCH: ? 28.3 ? 26-34 pg ? MCHC: ?32.6 ? 32-36 gm/dl ? NORMOCHROMIC RDW: ? 17.2 ? 11.5-15.5% ?ELEVATED PLT: ? 163 ?140-294v6897/u L ? MPV: ? 10.2 ? 6.5-11 [...] ? (Metas, Myelos,Pros) 12/02/2023 3:19 PM CDT [facility]-C ENTRAL LABORATORY Microscopic Description The final diagnosis is based on microscopic examination of an appropriately stained blood smear. 12/02/2023 3:19 PM CDT [facility]-C ENTRAL LABORATORY Additional Information Interpreted at [facility], Central Laboratory - [address] [address] 12/02/2023 3:19 PM CDT [facility]- ENTRAL LABORATORY Blood BLOOD SPECIMEN / [...] Teresita Gandara MD HEMATOLOGY Performing Organization Address City/[facility]/ZIP Co de Phone Number [facility] [address] [address], * Reticulocyte count AM (12/01/2023 5:43 AM CDT) RETIC% 0.7 0.5 - 1.5 % 12/01/2023 6:18 AM CDT [facility] RETIC (ABSOLUTE) 0.03 0.03 - 0.08 mil/cu mm 12/01/2023 6:18 AM CDT [facility] Blood BLOOD SPECIMEN / Unknown Butterfly / Unknown 12/01/2023 5:43 AM CDT 12/01/2023 5:55 AM CDT Teresita Gandara MD HEMATOLOGY [facility] [address] [place] [address], * Vitamin B12 level AM (12/01/2023 5:43 AM CDT) VITAMIN B12 779 232 - 1,245 pg/mL 12/01/2023 7:06 AM CDT [facility] Blood BLOOD SPECIMEN / Unknown Butterfly / Unknown 12/01/2023 5:43 AM CDT 12/01/2023 6:10 AM CDT Narrative [facility] - 12/01/2023 7:06 AM CDT Biotin supplements may cause clinically significant interference for this test assay. ??If interference is suspected, it is strongly recommended that biotin is discontinued for at least one week prior to retesting. Teresita Gandara MD CHEMISTRY [facility] [address] [place] [address], * HEPATIC FUNCTION PANEL (12/01/2023 5:43 AM CDT) Only the most recent of2 resultswithin the time period is included. ALBUMIN 4.1 4.0 - 4.9 g/dL 12/01/2023 7:06 AM CDT [facility] PROTEIN,TOTAL 7.8 6.0 - 8.0 g/dL 12/01/2023 7:06 AM CDT [facility] BILIRUBIN,TOTAL 0.6 0.0 - 1.2 mg/dL 12/01/2023 7:06 AM CDT [facility] BILIRUBIN,DIRECT 0.2 0.0 - 0.3 mg/dL 12/01/2023 7:06 AM CDT [facility] BILIRUBIN,INDIRE CT 0.4 0.2 - 0.8 mg/dL 12/01/2023 7:06 AM CDT [facility] ALK PHOSPHATASE 75 40 - 129 IU/L 12/01/2023 7:06 AM CDT [facility] ALT (SGPT) 18 10 - 50 IU/L 12/01/2023 7:06 AM CDT [facility] AST (SGOT) 38 10 - 50 IU/L 12/01/2023 7:06 AM CDT [facility] Blood BLOOD SPECIMEN / Unknown Butterfly / Unknown 12/01/2023 5:43 AM CDT 12/01/2023 6:10 AM CDT Teresita Gandara MD CHEMISTRY [facility]-C[facility]TRAL LABORATORY [address] [place] [address], * SCAN-CARDIAC STRIP (12/01/2023 2:15 AM CDT) [...] IRON BINDING CAP (11/30/2023 3:32 PM CDT) [facility] IRON 106 61 - 157 ug/dL 11/30/2023 5:22 PM CDT [facility] UIBC (UNSATURATED) 266 112 - 347 ug/dL 11/30/2023 5:22 PM CDT [facility] IRON BINDING CAPACITY 372 250 - 400 ug/dL 11/30/2023 5:22 PM CDT [facility] IRON,% SATURATION 28 14 - 50 % 11/30/2023 5:22 PM CDT [facility] Blood BLOOD SPECIMEN / Unknown Butterfly / Unknown 11/30/2023 3:32 PM CDT 11/30/2023 3:42 PM CDT Teresita Gandara MD CHEMISTRY Performing Organization Address City/[facility]/ZIP Co de Phone Number [facility] [address] [place] [address], [place] * SOLUBLE TRANSFERRIN LINEN AIDE (11/30/2023 3:32 PM CDT) [facility] ALIS.TRANSFERRI N RECEPTOR 4.54 2.20 - 5.00 mg/L 11/30/2023 6:45 PM CDT [facility] Blood BLOOD SPECIMEN / Unknown Butterfly / Unknown 11/30/2023 3:32 PM CDT 11/30/2023 3:42 PM CDT Teresita Gandaar MD SEND OUTS Performing Organization Address City/[facility]/ZIP Co de Phone Number [facility] [address] [place] [address], [place] * FERRITIN (11/30/2023 3:32 PM CDT) Only the most recent of2 resultswithin the time period is included. [facility] FERRITIN 183.0 30.0 - 400.0 ng/mL 11/30/2023 5:22 PM CDT [facility] Blood BLOOD SPECIMEN / Unknown Butterfly / Unknown 11/30/2023 3:32 PM CDT 11/30/2023 3:42 PM CDT Teresita aGndara MD CHEMISTRY Performing Organization Address [facility] Co de Phone Number [facility] [address] [place] [address], * BLOOD CULTURE (11/30/2023 3:31 PM CDT) Only the most recent of2 resultswithin the time period is included. CULTURE No Growth. 12/04/2023 4:17 PM CDT [facility] Blood BLOOD SPECIMEN / Unknown Butterfly / Unknown 11/30/2023 3:31 PM CDT 11/30/2023 3:42 PM CDT Narrative [facility] - 12/04/2023 4:17 PM CDT Low volume blood culture received; possible false negative culture. Brandee Lombardi NP MICROBIOLOGY Performing Organization Address [facility] Phone Number [facility] [address] [place] [address], * HCHG TUBE PR1, HCHG STYLET PR1 [...] - 75 % 11/23/2023 4:42 PM CDT [facility]- NTRHI LABORATORY PATIENT TEMPERATURE 37.0 Degrees C 11/23/2023 4:42 PM CDT [facility] COLLECTION SITE PULMONARY ARTERY 11/23/2023 4:42 PM CDT [facility] HEMOGLOBIN,BLOO D GAS 10.8(L) 13.5 - 17.5 g/dL 11/23/2023 4:42 PM CDT [facility] NTR[facility] LABORATORY Blood BLOOD SPECIMEN / Unknown 11/23/2023 4:42 PM CDT 11/23/2023 4:43 PM CDT Jessica Gee MD CHEMISTRY [facility] [address] [place] [address] * CVL OTHER PROCEDURE (11/23/2023 4:10 PM CDT) Anatomical Region Laterality Modality X-Ray Angiograph y 11/23/2023 4:10 PM CDT Provider Referring CV IMAGING * RA QUANTITATIVE (11/23/2023 12:50 PM CDT) RHEUMATOID FACTOR,QUANT <10.00 <14.00 IU/mL 11/23/2023 5:42 PM CDT [facility] TRA [facility]ORATORY Blood BLOOD SPECIMEN / Unknown Butterfly / Unknown 11/23/2023 12:50 PM CDT 11/23/2023 1:12 PM CDT Vamsi Webb TAIL SAWYER SEND OUTS Performing Organization Address [facility]/ZIP Co de Phone Number [facility] [address] [place] [address], * ANTI HIV 1/2 (11/23/2023 12:50 PM CDT) Pathologist [facility] HIV-1/HIV-2 SCREEN Non-Reacti ve Non-Reacti ve 11/23/2023 7:[address] [facility] Comment:HIV-1 p24 and HIV-1/ HIV-2 Ab Not Detected. Blood BLOOD SPECIMEN / Unknown Butterfly / Unknown 11/23/2023 12:50 PM CDT 11/23/2023 1:12 PM CDT Vamsi Webb NP SEND OUTS Performing Organization Address [facility] Co de Phone Number [facility] [address] [place] [address], * PROTEIN/CREAT RATIO,URINE (11/04/2023 8:13 AM CDT) PROTEIN QUANT,RAND URINE 11 1 - 14 mg/dL 11/04/2023 2:29 PM CDT [facility] CREAT,RANDOM URINE 100.0 39.0 - 259.0 mg/dL 11/04/2023 2:29 PM CDT [facility] PROT/CREAT RATIO,UR 0.1 <0.2 11/04/2023 2:29 PM CDT [facility] Urine URINE SPECIMEN / Unknown Non-Blood / Unknown 11/04/2023 8:13 AM CDT 11/04/2023 8:13 AM CDT Adeel Loomis MD URINE [facility]-C[facility]TRAL LABORATORY [address] [place] [address], [place] * (ABNORMAL) ROUTINE URINALYSIS (11/04/2023 8:13 AM CDT) COLOR Yellow Yellow Color 11/04/2023 8:17 AM CDT [facility] CLARITY Clear Clear Clarity 11/04/2023 8:17 AM CDT [facility] SPECIFIC GRAVITY,URINE 1.020 1.010, 1.015, 1.020, 1.025 11/04/2023 8:17 AM CDT [facility] PH,URINE 7.0 6.0, 7.0, 8.0, 5.5, 6.5, 7.5, 8.5 11/04/2023 8:17 AM CDT [facility] UROBILINOGEN, QUALITATIVE Normal Normal EU/dl 11/04/2023 8:17 AM CDT [facility] PROTEIN, URINE Negative Negative mg/dL 11/04/2023 8:17 AM CDT [facility] GLUCOSE, URINE 100(A) Negative mg/dL 11/04/2023 8:17 AM CDT [facility] KETONES,URINE Negative Negative mg/dL 11/04/2023 8:17 AM CDT [facility] BILIRUBIN,URI NE Negative Negative 11/04/2023 8:17 AM CDT [facility] OCCULT BLOOD,URINE Negative Negative 11/04/2023 8:17 AM CDT [facility] NITRITE Negative Negative 11/04/2023 8:17 AM CDT [facility] LEUKOCYTE ESTERASE Negative Negative 11/04/2023 8:17 AM CDT [facility] Urine URINE SPECIMEN / Unknown Non-Blood / Unknown 11/04/2023 8:13 AM CDT 11/04/2023 8:13 AM CDT Adeel Loomis MD URINE [facility] [address] [place] [address], [place] [phone] * (ABNORMAL) PROTEIN ELP SERUM W REFLEX (11/04/2023 8:11 AM CDT) ELP,ALBUMIN 3.75 3.31 - 5.31 g/dL 11/08/2023 3:32 PM CDT [facility] ELP,ALPHA 1 0.33 0.19 - 0.42 g/dL 11/08/2023 3:32 PM CDT [facility] ELP,ALPHA 2 0.72 0.44 - 1.03 g/dL 11/08/2023 3:32 PM CDT [facility] ELP,GAMMA 1.69(H) 0.59 - 1.46 g/dL 11/08/2023 3:32 PM CDT [facility] ELP,BETA 0.82 0.52 - 1.05 g/dL 11/08/2023 3:32 PM CDT [facility] MONOCLONAL PEAK 1 1.02 <=0.00 g/dL 11/08/2023 3:32 PM CDT [facility] ELP INTERP,SERUM Interval study shows essentially no change in magnitude of previously identified monoclonal peak. Previous Study: 0.97 gm/dL on 09/25/2022. Interpreted and electronically signed by: Emily Lazar MD 11/08/2023 3:32 PM CDT [facility] PROTEIN,TOTAL 7.3 6.0 - 8.0 g/dL 11/08/2023 3:32 PM CDT [facility] Blood BLOOD SPECIMEN / Unknown Venipuncture / Unknown 11/04/2023 8:11 AM CDT 11/04/2023 8:12 AM CDT Adeel Loomis MD CHEMISTRY [facility] [address] [place] [address], [place] * (ABNORMAL) ANTINUCLEAR ANTIBODY BY IFA (11/04/2023 8:11 AM CDT) Pathologist [facility] ANTINUCLEAR ANTIBODY (EDUARD) Positive( A) Negative 11/08/2023 1:22 PM CDT [facility]AL [facility] EDUARD PATTERN 1 Homogenou s(A) (none) 11/08/2023 1:22 PM CDT [facility] EDUARD TITER 1 1:320(A) (none) 11/08/2023 1:22 PM CDT [facility] TRA [facility] Blood BLOOD SPECIMEN / Unknown Venipuncture / Unknown 11/04/2023 8:11 AM CDT 11/04/2023 8:12 AM CDT Narrative [facility] - 11/08/2023 1:22 PM CDT Method: EDUARD screen performed by (IFA) on HEP-2 substrate, IgG Adeel Loomis MD CHEMISTRY Performing Organization Address [facility]/ZIP Co de Phone Number [facility] [address] [address], * ANTIGLOMERULAR BASEMENT MEMBRANE ANTIBODIES (11/04/2023 8:11 AM CDT) Pathologist [facility] Glomerular BM Ab <0.2 0.0 - 0.9 units 11/07/2023 8:06 PM CDT [facility] ESOTERIC TESTING (CET) Blood BLOOD SPECIMEN / Unknown Venipuncture / Unknown 11/04/2023 8:11 AM CDT 11/04/2023 8:12 AM CDT Narrative [facility] TEST[facility] (CET) - 11/07/2023 8:06 PM CDT Performed at: ??[address] ??[id number] Order Manager: Charu Salazar MD, Phone: ??[phone] Adeel Loomis MD SEND OUTS Performing Organization Address City/[facility]/ZIP Co de Phone Number [facility] ESOTERIC TESTING (CET) [address] [place] [phone], * (ABNORMAL) IMMUNOFIXATION,SERUM (11/04/2023 8:11 AM CDT) Only the most recent of2 resultswithin the time period is included. 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 Interpreted and electronically signed by: Emily Lazar MD 11/08/2023 3:32 PM CDT [facility] NTRAL [facility]ORY Blood BLOOD SPECIMEN / Unknown Venipuncture / Unknown 11/04/2023 8:11 AM CDT 11/04/2023 8:12 AM CDT Adeel Loomis MD CHEMISTRY Performing Organization Address City/[facility]/ZIP Co de Phone Number [facility] [address] [place] [address], * ANCA PANEL FOR VASCULITIS (11/04/2023 8:11 AM CDT) ANCA Negative Negative 11/07/2023 1:40 PM CDT [facility] Comment: Atypical ANCA cannot be ruled out due to presence of EDUARD on screening.?? EDUARD screen results are not valid for diagnosis of Autoimmune Disease.?? Order EDUARD testing for further evaluation as clinically indicated. Blood BLOOD SPECIMEN / Unknown Venipuncture / Unknown 11/04/2023 8:11 AM CDT 11/04/2023 8:12 AM CDT Adeel Loomis MD SEND OUTS Performing Organization Address City/[facility]/ZIP Co de Phone Number [facility] [address] [place] [address], * (ABNORMAL) PRO-BNP (11/04/2023 8:11 AM CDT) Only the most recent of3 resultswithin the time period is included. Pathologist [facility] PRO-BNP 2,486(H) <450 pg/mL 11/04/2023 4:[address] [facility] Blood BLOOD SPECIMEN / Unknown Venipuncture / Unknown 11/04/2023 8:11 AM CDT 11/04/2023 8:12 AM CDT [facility] - 11/04/2023 4:03 PM CDT The [...] failure. ? Adeel Loomis MD SEND OUTS [facility] [address] [place] [address], * (ABNORMAL) RENAL FUNCTION PANEL (11/04/2023 8:11 AM CDT) Pathologist [facility] SODIUM 137 136 - 145 mmol/L 11/04/2023 4:03 PM T [facility] POTASSIUM 4.6 3.5 - 5.1 mmol/L 11/04/2023 4:03 PM [facility] TRAL LABOR[facility]ORY CHLORIDE 98 98 - 107 mmol/L 11/04/2023 4:03 PM [facility] CO2,TOTAL 28 22 - 29 mmol/L 11/04/2023 4:03 PM [facility] TRAL [facility] ANION GAP 11 5 - 18 11/04/2023 4:03 PM [facility] TR[facility] GLUCOSE 92 70 - 99 mg/dL 11/04/2023 4:03 PM [facility] CALCIUM 9.2 8.8 - 10.2 mg/dL 11/04/2023 4:03 PM [facility] BUN 33(H) 8 - 23 mg/dL 11/04/2023 4:03 PM [facility] CREATININE 1.62(H) 0.70 - 1.20 mg/dL 11/04/2023 4:03 PM [facility] BUN/CREAT RATIO 20 10 - 20 4:03 PM [facility] eGFR 42(L) >90 mL/min/1.7 3m2 11/04/2023 4:03 PM [facility] Comment:As of 2021, eG FR is calculated by the CKD-EPI creatinine equation without race adjustment. ??eGFR can be influenced by muscle mass, exercise, and diet. ??The reported eGFR is an estimation only and is only applicable if the renal function is stable. PHOSPHORUS 3.7 2.5 - 4.5 mg/dL 11/04/2023 4:03 PM [facility] ALBUMIN 4.2 4.0 - 4.9 g/dL 11/04/2023 4:03 PM [facility] Blood BLOOD SPECIMEN / Unknown Venipuncture / Unknown 11/04/2023 8:11 AM CDT 11/04/2023 8:12 AM CDT Adeel Loomis MD CHEMISTRY Performing Organization Address [facility]/ZIP Co de Phone Number [facility] [address] [place] [address], * AFB CULTURE, STAIN (10/21/2023 10:58 AM CDT) CULTURE No Mycobacterium isolated. 12/05/2023 7:20 AM CDT [facility] ACID FAST STAIN No acid fast bacilli seen 12/05/2023 7:20 AM CDT [facility] Aspirate (Right Lower Lobe) Non-Blood / Unknown 10/21/2023 10:58 AM CDT 10/21/2023 11:25 AM CDT Gavin Hackett DO MICROBIOLOGY Performing Organization Address [facility] Co de Phone Number [facility] [address] [place] [address], * BRONCHIAL CULTURE, STAIN (10/21/2023 10:58 AM CDT) CULTURE Usual nas 10/23/2023 7:59 AM CDT [facility] GRAM STAIN 2+ PMNs 10/23/2023 7:59 AM CDT [facility] GRAM STAIN 1+ Epithelial cells 10/23/2023 7:59 AM CDT [facility] GRAM STAIN No RBCs 10/23/2023 7:59 AM CDT [facility] GRAM STAIN 3+ Gram Positive Cocci 10/23/2023 7:59 AM CDT [facility] GRAM STAIN 1+ Gram Positive Bacilli 10/23/2023 7:59 AM CDT [facility] GRAM STAIN 2+ Gram Negative Bacilli 10/23/2023 7:59 AM CDT [facility] GRAM STAIN 2+ Gram Negative Cocci 10/23/2023 7:59 AM CDT [facility] GRAM STAIN Gram stain performed by [place], [place] 10/23/2023 7:59 AM CDT [facility] Aspirate (Right Lower Lobe) Non-Blood / Unknown 10/21/2023 10:58 AM CDT 10/21/2023 11:25 AM CDT Gavin Hackett DO MICROBIOLOGY [facility] [address] [place] [address], [facility] [place] [place] ZIP [phone] [place] [phone] * ELIZABETH PREP, OTHER SOURCE (10/21/2023 10:58 AM CDT) OBSERVATION No fungal elements seen 10/21/2023 12:08 PM CDT [facility] Aspirate (Right Lower Lobe) Non-Blood / Unknown 10/21/2023 10:58 AM CDT 10/21/2023 11:25 AM CDT Gavin Hackett DO MICROBIOLOGY Performing Organization Address City/[facility]/ZIP Co de Phone Number [facility] SEND[employer] INTERNAL ZIP [phone] [place] [address] * FUNGUS CULT, OTHER SOURCE (10/21/2023 10:58 AM CDT) CULTURE No Fungus isolated. 11/21/2023 7:02 AM CDT [facility] Aspirate (Right Lower Lobe) Non-Blood / Unknown 10/21/2023 10:58 AM CDT 10/21/2023 11:25 AM CDT Gavin Hackett DO MICROBIOLOGY [facility] [address] [place] [address], * BRONCHOSCOPY (10/21/2023 10:13 AM CDT) 10/21/2023 10:1 3 AM CDT Narrative Transcriptions Gavin Hackett DO - 10/21/2023 11:24 AM CDT Patient Name: Yohan Hare Procedure Date: 10/21/2023 Gender: Male Date of : 1940 Admit Type: Ambulatory Procedure: Bronchoscopy Proceduralist: Gavin Hackett DO [facility] Referring MD: Gavin Hackett DO Indications/Pre-Op Diagnosis: Hemoptysis Medications: Fentanyl 50 mcg IV, Midazolam 2 mg IV, Lidocaine applied to nares and subglotticspace Procedure Description: The need for, risks and the procedure was explained to the patientand informed consent obtained. Patient was brought to the bronchoscopy suite, monitors placed and supplemental oxygen given. The endoscope [id number] was introduced through the mouth and advanced [...] CHEST 2 VIEWS PA AND LATERAL LOCATION: [facility] DATE: 10/17/2023 INDICATION: Hemoptysis COMPARISON: 03/29/2023 Procedure Note Min Kirk MD - 10/17/2023 For Patients: As a result of the Cures Act, medical imagingexams and procedure reports are released immediately into your electronicmedical record. You may view this report before your referring provider.If you have questions, please contact your health care provider. EXAM: XR CHEST 2 VIEWS PA AND LATERAL LOCATION: [facility] DATE: 10/17/2023 INDICATION: Hemoptysis [...] VASCULAR ULTRASOUND REPORT YOHAN HARE Accession#: ?? [id number] : ?1940 ??Study Date: ?? 10/12/2023 10:41:10 AM Age: ?83 years ?? Tech: ? BVB Gender: M ?Referring MD: JESSICA GEE Site: [facility] at [address] [place] [address] Study performed: ?Lower extremity resting RADHA, TBI, [...] Velocity cm/s Phasicity ?? +-------+ + + CD REACTOR OPERATOR HEAD DST ? 39 ? monophasic +-------+ + + DPA ? 11 ? multiphasic +-------+ + + +-------+ + + LEFT ?? Velocity cm/s Phasicity ?? +-------+ + + CD REACTOR OPERATOR HEAD DST ? 55 ? multiphasic +-------+ + [...] Index +-----+ +--------+ +-----+ 0.77 ? 92 ?CD REACTOR OPERATOR HEAD ?151 ? 1.26 +-----+ +--------+ +-----+ 0.78 ? 93 ?DPA ?137 ? 1.14 +-----+ +--------+ +-----+ 0.56 ? 67 ? Digit 1 ?86 ? 0.72 +-----+ +--------+ +-----+ Darnell Abdullahi MD. Electronically signed on 10/12/2023 6:25:00 PM This study was performed and interpreted by a service accredited by the Intersocietal Accreditation Commission (IAC/Vascular), www.intersocietal.org/vascular Report generated by [employer]. ??Final ?? Procedure Note Darnell Abdullahi MD - 10/12/2023 VASCULAR ULTRASOUND REPORT YOHAN HARE : 1940 Study Date: 10/12/2023 10:41:10 AM Age: 83 years Tech: BVB Gender: M Referring MD: JESSICA GEE Site: [facility] at [address] [place] [address] Study performed: Lower extremity resting RADHA, TBI, [...] RIGHT Velocity cm/s Phasicity +-------+ + + CD REACTOR OPERATOR HEAD DST 39 monophasic +-------+ + + DPA 11 multiphasic +-------+ + + +-------+ + + LEFT Velocity cm/s Phasicity +-------+ + + CD REACTOR OPERATOR HEAD DST 55 multiphasic +-------+ + + DPA 18 multiphasic +-------+ + + Criteria: Stenosis V. Ratio Mild <50% <2.0 Moderate 50-74% > or = 2.0 Severe 75-99% > or = 4.0 Occluded 100% no detectable flow Pressures +-----+ +--------+ +-----+ RIGHT (mmHg) LEFT (mmHg) +-----+ +--------+ +-----+ Index 115 Brachial 120 Index +-----+ +--------+ +-----+ 0.77 92 CD REACTOR OPERATOR HEAD 151 1.26 +-----+ +--------+ +-----+ 0.78 93 DPA 137 1.14 +-----+ +--------+ +-----+ 0.56 67 Digit 1 86 0.72 +-----+ +--------+ +-----+ Darnell Abdullahi MD. Electronically signed on 10/12/2023 6:25:00 PM This study was performed and interpreted by a service accredited by theIntersocietal Accreditation Commission (IAC/Vascular),www.intersocietal.org/vascular Report generated by [employer]. Final Jessica Gee MD [place] * PSA TOTAL SCREEN - Dx Auto-associated (10/10/2023 8:16 AM CDT) PSA TOTAL (SCREEN) 3.12 <4.00 ng/mL 10/12/2023 11:57 PM CDT [facility] Blood BLOOD SPECIMEN / Unknown Venipuncture / Unknown 10/10/2023 8:16 AM CDT 10/10/2023 8:23 AM CDT Narrative [facility] - 10/12/2023 11:57 [...] be used interchangeably. Flakito Ling MD LABORATORY [facility] [address] [place] [address], * MR CARDIAC WWO (10/05/2023 6:46 AM CDT) Anatomical Region Laterality Modality HEART, THORAX Magnetic Resonan ce 10/05/2023 5:34 AM CDT Narrative 10/05/2023 1:52 PM CDT ?[facility] ? CMR Report ??MRN: ?[id number] ?Name: ? YOHAN HARE ?: ? 1941-Feb-16 ?Scan Date: ?Accession Number: ?[id number] ?Status: ?Final ? Electronically signed by Jayme Mcpherson 13:52:35 VITALS ===== HEIGHT: 71 in ?(180 cm) WEIGHT: 234 lbs ?(106 kgs) BSA: 2.25 m^2 FINAL IMPRESSION ===== 1. Xmqx-an-sdcsxwty left ventricular hypertrophy (max wall thickness 1.4 [...] atrium and moderately enlarged right atrium. 4. Rodszuzb-gz-bppwpr tricuspid regurgitation. 5. Normal aortic root and [...] Anteroseptal ?? Normal/Hyper ?? 51-75% ? Sub-Endo [place] ? Base Inferoseptal ?? Normal/Hyper ?? 26-50% ? Sub-Endo [place] ? Base Inferior ? Normal/Hyper ?? 1-25% [...] ? Normal/Hyper ?? None ? Normal ? [place] ? Normal/Hyper ?? 1-25% ? Sub-Endo [place] ? + + + + +---- ----- [...] SCAN INFO ===== GENERAL ----- --- ?SCANNER ?SYSTEM ADMIN: ??SIEMENS ?MODEL: ??Aera ?CONTRAST AGENT ?TYPE: ??Gadavist ?GD CONCENTRATION: ??1.0 M ?SETUP ?REFERRING PHYSICIAN: ??JESSICA KELLY ?ATTENDING PHYSICIAN: ??JESSICA KELLY BILLING ===== Patient Account ?[id number] ICD10 Codes ?I50.23 Report generated by [email or web address], a product of [employer] Procedure Note Jayme Mcpherson MD - 10/05/2023 [facility] CMR Report Name: YOHAN HARE : Scan Date: Accession Number: [id number] Status: Final Electronically signed by Jayme Mcpherson :52:35 VITALS ===== HEIGHT: 71 in (180 cm) WEIGHT: 234 lbs (106 kgs) BSA: 2.25 m^2 FINAL IMPRESSION ===== 1. Soxb-vb-jlrlsxkx left ventricular hypertrophy (max wall thickness 1.4cm), [...] atrium and moderately enlarged right atrium. 4. Hatwquul-zl-bskonu tricuspid regurgitation. 5. Normal aortic root and [...] None Normal Base Anteroseptal Normal/Hyper 51-75% Sub-Endo [place] Base Inferoseptal Normal/Hyper 26-50% Sub-Endo [place] Base Inferior Normal/Hyper 1-25% Non-CAD Scar Base [...] None Normal Apical Lateral Normal/Hyper None Normal [place] Normal/Hyper 1-25% Sub-Endo [place] + + + + +---- ----- + [...] SCAN INFO ===== GENERAL ----- --- SCANNER SYSTEM ADMIN: SIEMENS MODEL: Aera CONTRAST AGENT TYPE: Gadavist GD CONCENTRATION: 1.0 M SETUP REFERRING PHYSICIAN: JESSICA KELLY ATTENDING PHYSICIAN: JESSICA KELLY BILLING ===== Patient Account [id number] ICD10 Codes I50.23 Report generated by [employer], [...] Aleyda Kimble MD 09/28/2023 5:10 PM CDT [facility] PROTEIN QUANT,RAND URINE 11 1 - 14 mg/dL 09/28/2023 5:10 PM CDT [facility] Urine URINE SPECIMEN / Unknown Non-Blood / Unknown 09/26/2023 11:04 AM CDT 09/26/2023 11:04 AM CDT Jessica Gee MD URINE [facility] [address] [place] [address], * (ABNORMAL) ELP AND FREE LIGHT CHAINS W REFLEX, BLOOD (09/26/2023 10:59 AM CDT) ELP,ALBUMIN 3.80 3.31 - 5.31 g/dL 09/28/2023 4:31 PM CDT [facility] ELP,ALPHA 1 0.29 0.19 - 0.42 g/dL 09/28/2023 4:31 PM CDT [facility] ELP,ALPHA 2 0.65 0.44 - 1.03 g/dL 09/28/2023 4:31 PM CDT [facility] ELP,GAMMA 1.53(H) 0.59 - 1.46 g/dL 09/28/2023 4:31 PM CDT [facility] ELP,BETA 0.73 0.52 - 1.05 g/dL 09/28/2023 4:31 PM CDT [facility] MONOCLONAL PEAK 1 0.97 <=0.00 g/dL 09/28/2023 4:31 PM CDT [facility] KAPPA FREE LIGHT CHAIN, S 12.19(H) 0.33 - 1.94 mg/dL 09/28/2023 4:31 PM CDT [facility] LAMBDA FREE LIGHT CHAIN, S 2.83(H) 0.57 - 2.63 mg/dL 09/28/2023 4:31 PM CDT [facility] KAPPA/LAMBDA FLC RATIO 4.31(H) 0.26 - 1.65 09/28/2023 4:31 PM CDT [facility] ELP INTERP,SERUM 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 Interpreted and electronically signed by: Aleyda Kimble MD 09/28/2023 4:31 PM CDT [facility] PROTEIN,TOTAL 7.0 6.0 - 8.0 g/dL 09/28/2023 4:31 PM CDT [facility] Blood BLOOD SPECIMEN / Unknown Venipuncture / Unknown 09/26/2023 10:59 AM CDT 09/26/2023 11:02 AM CDT Jessica Gee MD CHEMISTRY [facility] [address] [place] [address], * (ABNORMAL) LIPID PANEL W REFLEX MEASURED LDL (09/26/2023 10:59 AM CDT) CHOLESTEROL,TOTAL 104 100 - 199 mg/dL 09/26/2023 5:36 PM CDT [facility] Comment: Cholesterol, Total Reference Ranges Desirable <200 mg/dL Borderline 200-239 mg/dL High >=240 mg/dL TRIGLYCERIDES 69 <150 mg/dL 09/26/2023 5:36 PM CDT [facility] HDL CHOLESTEROL 39(L) >40 mg/dL 5:36 PM CDT [facility] NON-HDL CHOLESTEROL 65 <145 mg/dl 09/26/2023 5:36 PM CDT [facility] CHOL/HDL RATIO 2.67 <4.50 09/26/2023 5:36 PM CDT [facility] LDL CHOLESTEROL 51 <=130 mg/dL 09/26/2023 5:36 PM CDT [facility] VLDL CHOLESTEROL 14 <=30 mg/dL 09/26/2023 5:[address] [facility] PROVIDER ORDERED STATUS RANDOM 09/26/2023 5:[address] [facility] Blood BLOOD SPECIMEN / Unknown Venipuncture / Unknown 09/26/2023 10:59 AM CDT 09/26/2023 11:02 AM CDT Flakito Ling MD CHEMISTRY Performing Organization Address [facility] Co de Phone Number [facility] [address] [place] [address], [place] * (ABNORMAL) TSH (09/26/2023 10:59 AM CDT) TSH 4.35(H) 0.27 - 4.20 uIU/mL 09/26/2023 5:36 PM CDT [facility] Blood BLOOD SPECIMEN / Unknown Venipuncture / Unknown 09/26/2023 10:59 AM CDT 09/26/2023 11:[address] [facility] - 09/26/2023 5:36 PM CDT In Adults, TSH values between 5.00 and 10.00 uIU/ml do not necessarily indicate the presence of Hypothyroidism. Correlation with clinical findings such as presence of goiter and/or Thyroperoxidase (TPO) Antibody may be helpful. For more information please refer to HOLLY 2004; 291: 228-238. Jessica Gee MD CHEMISTRY Performing Organization Address [facility]/ZIP Co de Phone Number [facility] [address] [place] [address], [place] * ALT (SGPT) (09/26/2023 10:59 AM CDT) ALT (SGPT) 21 10 - 50 IU/L 09/26/2023 5:36 PM CDT [facility] Blood BLOOD SPECIMEN / Unknown Venipuncture / Unknown 09/26/2023 10:59 AM CDT 09/26/2023 11:02 AM CDT Flakito Ling MD CHEMISTRY [facility] [address] [place] [address], * ECHO TTE LIMITED W CONTRAST W COLOR W DOPPLER (09/22/2023 2:47 PM CDT) AORTIC VALVE MEAN PG 14 mmHg EJECTION FRACTION 68 % PEAK TR VELOCITY 3.3 m/s LVEDD 3.9 cm EJECTION FRACTION 60 - 65% Anatomical Region Laterality Modality Ultrasound 09/22/2023 1:36 PM CDT Narrative 09/22/2023 3:08 PM CDT ECHOCARDIOGRAM YOHAN HARE ? Accession#: ?? [id number] : ?1940 83 years Study Date: ?? 09/22/2023 1:36:20 PM Gender: M ?BP: ? 102/64 mmHg Height: 180.00 cm ?BSA: ?2.25 m? ? ? Weight: 106.00 kg ?Tech: ? BES ? Referring MD: JESSICA GEE Site: ? [address] Reading Location: [place] [address] Patient Location: Outpatient. Procedure: Limited 2D , [...] hepatic vein. 5. Mild mitral regurgitation. 6. Gcxz-yx-bfenjekv aortic stenosis [peak velocity 2.6 m/s, mean [...] 3 ml ml diluted Definity, lot #[id number], [facility]# [id number] was administered peripherally to enhance visualization of all left ventricular segments. . This study was interpreted by an [facility] accredited facility. ??Final ?? Procedure Note Suresh Valle MD - 09/22/2023 ECHOCARDIOGRAM YOHAN HARE : 1940 83 years Study Date: 09/22/2023 1:36:20 PM Gender: M BP: 102/64 mmHg Height: 180.00 cm BSA: 2.25 m? ? ? Weight: 106.00 kg Tech: [facility] MD: JESSICA GEE Site: [facility] at [address] [place] [address] Reading Location: [place] [address] Patient Location: Outpatient. Procedure: Limited 2D , [...] thehepatic vein. 5. Mild mitral regurgitation. 6. Ndep-in-wkjbipmb aortic stenosis [peak velocity 2.6 m/s, mean rtjqacvw00 mmHg, valve area 1.4 cm2]. 7. Moderate [...] 3 ml ml diluted Definity, lot #[id number], [facility]#[id number] was administered peripherally to enhance visualization of allleft ventricular segments. . This study was interpreted by an [facility] accredited facility. Final Jessica Gee MD ECHO ORD * (ABNORMAL) CREATININE,ISTAT (09/22/2023 10:59 AM CDT) CREATININE, POCT 1.60(H) 0.57 - 1.11 mg/dL 09/22/2023 11:02 AM CDT [facility] Comment:Caution: Patients ta caroline Hydroxyurea have falsely increased iStat Creatinine results. Verify creatinine results ordering a Creatinine (64965.2) eGFR 42(L) >90 mL/min/1.7 3m2 09/22/2023 11:02 AM CDT [facility] Comment:As of 2021, eG FR [...] MD CHEMISTRY [facility] [address] [place] [address], [place] from Last 3 Months Advance Directives [...] 7:53 AM 10/13/2017 4:08 PM Care Teams Rim Fire Priming Operator Relationship Specialty Start Date End Date Flakito Ling MD [address] [place] [id number] PCP - General 11/02/06 Jessica Gee MD [address] [place] [address] Cardiology - CHF Cardiovascular Disease 09/22/23
--- OUTSIDE RECORDS SUMMARY | 2023-12-17 12:21 | XMS_ITS | Encounter Summary ---
Author Organization [facility] Address [address] [place] [address] Care Team Providers Care Hurricane Tracker Name Role Phone Elsewhere, Pcp Primary Care Provider Unavailabl e Reason for Visit * Reason Comments Rectal Pain Patient presents via EMS with rectal pain. States his last bowel movement was on . Now is experiencing significant rectal pain. Encounter Details Date Type Department Care Team (Late st Contact Info) Description 12/03/2023 3:44 PM CDT - 12/03/2023 6:22 PM CDT Emergency [facility] [address] [place] [address] Tu Ramos M.D. [address] [place] [phone] Drug Induced Constipation (Primary Dx) Discharge Disposition: [...] movement. 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 I would [...] sent through Care Everywhere. * Constipation Adult (Monegasque) documented in this encounter Medications at Time [...] Ramos M.D. - 12/03/2023 3:44 PM CDT [facility] Department of [facility]- [facility] 12/03/2023 6:24 PM CDT *Encounter labs and [...] concern for constipation. He was up at [facility] several days ago for JEAN CARLOS in [...] documented as of this encounter Care Teams Hurricane Tracker Relationship Specialty Start Date End Date Elsewhere, Pcp PCP - General Family Medicine 11/04/17 documented as of this encounter
--- OUTSIDE RECORDS SUMMARY | 2023-12-17 12:21 | XMS_ITS | Encounter Summary ---
Author Organization [facility] Address [address] [place] [address] Care Team Providers Care Script Artist Name Role Phone Elsewhere, Pcp Primary Care [...] CDT - 10/07/2023 9:40 AM CDT Emergency [facility] [address] [place] [address] Jem Flaherty M.D., M.B.A. [address] [place] [phone] Encounter For Change Or Removal Of Nonsurgical [...] Body Mass Index 37.05 07/29/2023 8:51 AM EXCELLENCE CONSULTANT documented in this encounter Discharge Instructions * [...] * How to Change Your Wound Dressing Ygfr-we-Yaxu (Libyan) documented in this encounter Medications at Time [...] Jem Flaherty M.D., M.B.A. LAB BLOOD ADD-ON [facility] [address] [place] [address], [facility] [address] [place] [address] documented in this encounter Visit Diagnoses Diagnosis Encounter For Change Or Removal Of Nonsurgical Wound Dressing- Primary Wound Care Skin Post Surgery documented in this encounter Additional Health Concerns Assessment Noted Time PHQ-9 Depression Total Score: 1 11/08/19 18 2:36 PM CDT documented as of this encounter Care Teams Script Artist Relationship Specialty Start Date End Date Elsewhere, Pcp PCP - General Family Medicine 11/04/17 documented as of this encounter
[2023-12-17] MEDS: 0.9 % SODIUM CHLORIDE 1000 ml 1,000 ML 500 ML IV (12:25)
[2023-12-17 12:32] LABS: Troponin I* 0.05 ng/mL (0.01-0.04)
[2023-12-17 12:37] LABS: NT Pro B Type NatriureticPept* 1800 pg/mL
[2023-12-17 14:18] LABS: Troponin I* 0.04 ng/mL (0.01-0.04)
[2023-12-17] MEDS: 0.9 % SODIUM CHLORIDE 1000 ml 1,000 ML IV (15:15)
== END 2023-12-17 17:41 | disposition home or self-care (01) ==
PROVIDERS: Emergency Provider Family Medicine; PCP Family Medicine
DX: I48.91 Unspecified atrial fibrillation (principal); I95.1 Orthostatic hypotension
CPT/HCPCS: 36415; 71045; 80048; 83605; 83880; 84484; 85025; 93005; 94761; 99284; 99285; J7030

== ENCOUNTER 2024-08-13 06:03 | Day surgery (SDC) | payer MEDICARE, BC, SELFPAY ==
--- OUTSIDE RECORDS SUMMARY | 2024-08-13 06:09 | XMS_ITS | Data Portability ---
Author Organization [facility] Address [address] [place] [address] Care Team Providers Care Surveillance Supervisor Name Role Phone DAINEL BARRAGAN Primary Care Provider [phone] DANIEL BARRAGAN Referring Provider Assessment No assessment recorded. Plan of Treatment Reminders Order Date Submit Date Provider Last Modified By Organization Details Last Modified Time Details Appointments None recorded . Lab PSA, total, serum or plasma 024 [facility], [address], [place], [address], 4 09:35:50 PSA, total, serum or plasma 024 024 [facility], [address], [place], [address], 4 14:16:46 PSA, total, serum or plasma 023 023 [facility], [address], [address], [place], [address], 3 16:28:27 Referral None recorded . Procedures None recorded . Surgeries None recorded . Imaging None recorded . Medication Orders None recorded . Patient TargetsNo targets recorded. Patient InstructionsNo instructions recorded. Reason for Referral None Reported. Results Created Date Observation Date Name Description Value Unit Range Abnormal Flag Note LastModifiedBy Organization Detail LastModifiedTime 06/10/20 23 06/10/2023 PSA, TOTAL PSA, total 7.40 NG/mL 0.00-4 .00 high This lab resul t is being provi ded to you and your provi huma at the same time in [facility] with the u ry Cures Act. Your provi huma may not have had time to revie w and make recom menda tions based on the resul t. Pleas e allow up to one week for provi huma revie w. Not Available [facility] [address] [facility] [address], [place], [address], 06/10/2023 16:28:27 02/10/20 24 02/10/2024 PSA, TOTAL PSA, total 2.95 NG/mL 0.00-4 .00 Speci men run in dupli mague and resul ts verif ied This lab resul t is being provi ded to you and your provi huma at the same time in [facility] with the Centu ry Cures Act. Your provi huma may not have had time to revie w and make recom menda tions based on the resul t. Pleas e allow up to one week for provi huma revie w. Not Available [facility] [address] [facility] [address], [place], [address], 02/10/2024 14:16:46 Result Notes None recorded. Problems Name Problem SNOMED Code Status Onset Date Resolution Date Notes Provider Name and Address Organization Details Recorded Time Prostate specific antigen above reference range 930479685 Active 023 Paty escobedo [facility] 3 13:31:12 Problem Notes None recorded. 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 Procedure Notes None recorded. Medical Equipment None Reported. Allergies Allergen ID Allergen Name Allergen Category Reaction Reaction Severity Criticality Documentation Date Start Date Code Code System Note Provider Name and Address Organization Details Recorded Time 062293 morphine medicatio n vomiting Not available Not available 06/09/2023 7052 RxNorm Not Available Not Available Not Available Medications Name Sig Start Date Stop Date Status Note LastModified by Organization Details LastModified Time amoxicill in 500 mg capsule 02/15 completed HN: Patient reports no longer taking Not Available Not Available Not Available furosemid e 40 mg tablet 02/15 completed HN: Patient reports no longer taking Not Available Not Available Not Available atorvasta tin 40 mg tablet 40mg 1/day active Not Available Not Available No t Available ipratropi um 0.5 mg-albute rol 3 mg (2.5 mg base)/3 mL nebulizat ion soln 02/15 completed HN: Patient reports no longer taking Not Available Not Available Not Available torsemide 20 mg tablet 02/15 completed HN: Patient reports no longer taking Not Available Not Available Not Available azithromy joshua 250 mg tablet 06/10 completed Not Available Not Available Not Available metoprolo l succinate ER 50 mg tablet,ex tended release 24 hr 02/15 completed HN: Patient reports no longer taking Not Available Not Available Not Available lisinopri l 20 mg tablet 02/15 completed HN: Patient reports no longer taking Not Available Not Available Not Available prednison e 20 mg tablet 02/15 completed HN: Patient reports no longer taking Not Available Not Available Not Available clopidogr el 75 mg tablet active Not Available Not Available Not Available amlodipin e 5 mg tablet 02/15 completed HN: Patient reports no longer taking Not Available Not Available Not Available spironola ctone 25 mg tablet active Not Available Not Available No t Available tamsulosi n 0.4 mg capsule 0.4mg 1/day active Not Available Not Available No t Available cephalexi n 500 mg capsule TAKE ONE CAPSULE BY MOUTH 2X DAILY FOR 5 DAYS WITH FOOD AND WATER 02/15 completed HN: Patient reports no longer taking Not Available Not Available Not Available lisinopri l 10 mg tablet 10mg 1/day 02/15 completed HN: Patient reports no longer taking Not Available Not Available Not Available Advair Diskus 500 mcg-50 mcg/dose powder for inhalatio n 02/15 completed HN: Patient reports no longer taking Not Available Not Available Not Available metoprolo l succinate ER 25 mg tablet,ex tended release 24 hr 06/10 completed Not Available Not Available Not Available albuterol sulfate HFA 90 mcg/actua tion aerosol inhaler active Not Available Not Available Not Available doxycycli ne hyclate 100 mg tablet 06/10 completed Not Available Not Available Not Available amoxicill in 875 mg-potass ium clavulana te 125 mg tablet 06/10 completed Not Available Not Available Not Available acetamino phen 500 1/day active Not Available Not Available No t Available aspirin 81mg 1/day active Not Available Not Available No t Available amlodipin e 5mg 1/day 06/10 completed Not Available Not Available Not Available Xarelto 20 mg tablet 02/15 completed HN: Patient reports no longer taking Not Available Not Available Not Available metoprolo l succ 50 mg-hydroc hlorothia zide 12.5 mg tablet,ex t.rel 24 hr 50mg 1/day active Not Available Not Available No t Available Farxiga 10 mg tablet active Not Available Not Available Not Available Anoro Ellipta 62.5 mcg-25 mcg/actua tion powder for inhalatio n 02/15 completed HN: Patient reports no longer taking Not Available Not Available Not Available Vitals Date Recorded Body height Body weight Body mass index (BMI) Provider Name and Address Organization Details Last Updated DateTime 06/10/2023 180.34 cm 37824.94095 95993 g 27.9 kg/m2 Not Available Health Note 06/10/2023 13:07:16 Date Recorded Body height Body mass index (BMI) Body weight Provider Name and Address Organization Details Last Updated DateTime 02/17/2024 180.34 cm 27.9 kg/m2 57778.47 g Marci Owusu [place] [facility] 02/17/2024 10:42:03 Social History Question Answer Notes LastModified by Organizat ion Details LastModified Time Tobacco Smoking Status Never Smoker Not Available Health Note 06/09/2023 12:15:49 What Is Your Level Of Alcohol Consumption? None [email or web address] Information not available 06/10/2023 What Is Your Level Of Caffeine Consumption? None [email or web address] Information not available 06/09/2023 How Much Tobacco Do You Chew? None [email or web address] Information not available 06/09/2023 Do You Or Have You Ever Used E-cigarettes Or Vape? Never Used Electronic Cigarettes [email or web address] Information not available 06/09/2023 What Was The Date Of Your Most Recent Tobacco Screening? 06/10/2023 [email or web address] Information not available 06/09/2023 What Is Your Relationship Status? [email or web address] Information not available 06/09/2023 Are You Sexually Active? No [email or web address] Information not available 06/09/2023 Do You Or Have You Ever Used Smokeless Tobacco? Never Used Smokeless Tobacco [email or web address] Information not available 06/09/2023 Do You Use Any Illicit Or Recreational Drugs? No [email or web address] Information not available 06/09/2023 Has Tobacco Cessation Counseling Been Provided? No [email or web address] Information not available 06/10/2023 Do You Or Have You Ever Used Any Other Forms Of Tobacco Or Nicotine? No [email or web address] Information not available 06/10/2023 How Many Days In The Past Year Have You Consumed 5 Or More Drinks? 0 [email or web address] Information no t available 06/09/2023 Sex: Unknown Functional Status None recorded. Mental Status None recorded. Family History Relationship Description Onset Age of this Age Resolved Age Notes LastModified by Organization Details LastModified Time Mother Family history of diabetes mellitus [email or web address] Not available 2022 12:15:46 Father Family history of cardiac disorder [email or web address] Not available 2022 12:15:46 Unspecified Relation Family history of renal stone [email or web address] Not available 05/21 12:15:46 Medical History Condition Response High Blood Pressure Y Kidney Stones N Lung Disease N Depression N GERD/Acid Reflux N Sexually Transmitted Infection N Cancer N High Cholesterol Y Diabetes N Bleeding Disorder N Heart Disease Y Immunizations Vaccine Type Date Status Note Provider Nam e and Address Organization Details Recorded Time SARS-COV-2 (COVID-19) vaccine, UNSPECIFIED 2 [facility] 13:32:29 influenza, unspecified formulation 3 [facility] 02[facility]17[facility]2024 10:42:07 pneumococcal, unspecified formulation 0 [facility]2023 13:32:29 Influenza, adjuvanted, trivalent, PF 9 completed [facility]2023 13:32:29 Influenza, adjuvanted, trivalent, PF 0 [facility]10[facility]2023 13:32:29 Influenza, high-dose, quadrivalent, PF 1 [facility]23 13:32:29 Influenza, high-dose, quadrivalent, PF 0 [facility]2023 13:32:29 COVID-19, mRNA, LNP-S, PF, 30 mcg/0.3 mL dose 1 [facility]2023 13:32:29 COVID-19, mRNA, LNP-S, PF, 30 mcg/0.3 mL dose 1 [facility]10[facility]2023 13:32:29 COVID-19, mRNA, LNP-S, PF, 30 mcg/0.3 mL dose 1 [facility] 06/10/2023 13:32:29 pneumococcal polysaccharide PPV23 9 [facility] 06/10/2023 13:32:29 Tdap 3 [facility]10[facility]2023 13:32:29 Tdap 2 [facility]2023 13:32:29 Pneumococcal conjugate PCV 13 7 completed Paty escobedo [facility] 06/10/2023 13:32:29 Influenza, high-dose, trivalent, PF 7 completed Paty escobedo [facility] 06/10/2023 13:32:29 Influenza, split virus, trivalent, preservative 0 completed Paty escobedo [facility] 06/10/2023 13:32:29 Influenza, split virus, trivalent, preservative 3 completed Paty escobedo [facility] 06/10/2023 13:32:29 Influenza, split virus, trivalent, PF 1 completed Paty escobedo [facility] 06/10/2023 13:32:29 Influenza, split virus, trivalent, PF 2 completed Paty escobedo [facility] 06/10/2023 13:32:29 Td (adult), 5 Lf tetanus toxoid, preservative free, adsorbed 8 [facility]23 13:32:29 Past Encounters Encounter ID Performer Location Encounter Start Date Encounter Closed Date Diagnosis/Indication Diagnosis SNOMED-CT Code Diagnosis ICD10 Code Diagnosis Note [id number] Min Dey MD [facility] [address] [place] [phone] 06/10/2023 13:03:50 06/14/2023 11:22:02 Prostate specific antigen above reference range 049048082 R97.20 The psa elevated for age. We hada good discussion regarding the PSA test as used for prostate cancer screening. The elevated PSA is concerning for, but not definitive for, that man having prostate cancer. An elevated PSA can occur with prostate cancer, prostate enlargemen t or BPH, inflammati on or infection, post ejaculator y state, and general age related changes within the prostate. Options exist regarding next steps One option would be to proceed with transrecta l ultrasound with prostate needle biopsy. This allows for sampling of the prostate in areas where cancer is likely to be found. This will allow for detection of underlying prostate cancer if it is present. We discussed the limitation s of this including under sampling which may lead to under diagnosis. Risks-blee ding to a degree enough to require interventi on-infecti on which may result in hospitaliz ation-temp orary hematuria, blood per rectum, and hematosper vickie A second option we discussed would be to proceed first with an MRI of the prostate. This would allow for detection of underlying lesions of the prostate which are suspicious for cancer. This informatio n could then be utilized for ultrasound -MRI fusion biopsies which may result in improved detection of underlying prostate cancer and also facilitate custodial surveillan ce for men in which low risk prostate cancers are identified . Risks of biopsy similar to standard biopsy with slight increase in profile due to increased number of biopsies taken. We then discussed the role of adjunctive testing in the form (4k score, isoPSA, or ExoDx) to help better inform risk profile. While this does not tell a man whether he has prostate cancer this may be helpful in making a decision about whether to proceed with a prostate biopsy. Lastly we also discussed options for continued observatio n of the PSA and serial prostate exam typically done on a 6 months basis to monitor for continued elevations in the PSA and/or changes in prostate exam. We have redrawn his PSA today and that is pending. He has a very large prostate which may account for his elevation. Follow-up for biopsies to be determined by PSA and follow-up testing. [id number] [facility] [address] [place] [phone] 02/10/2024 10:07:38 02/10/2024 10:10:14 Prostate specific antigen above reference range 705377209 R97.20 [id number] MD [facility] [address] [place] [phone] 02/17/2024 10:06:14 02/21/2024 09:01:08 Prostate specific antigen above reference range 026639266 R97.20 psa significan tly lower. I am not sure what to attribute that significan t drop to about his overall voiding symptoms are improved as well and his exam is benign. I think we can continue to follow his exams on a yearly schedule with 6-month PSA testing through his primary clinic lab. Benign pro static hyperplasia with outflow obstruction [id number] N40.1 He has a known large prostate. He reports with recent weight loss that has significan tly improved his voiding symptoms and voiding intervals. Currently on medication tamsulosin . We will continue to follow yearly. Health Concerns Section Related Observation LastModified by Organization Detai ls LastModified Time None Recorded Concern Status LastModified by Organization Details LastModified Time None Recorded Advance Directives Directive None Recorded Payers Encounter Date Sequence Insurance Name Policy Number Policy Blanco Covered Member ID Blanco Member ID Guarantor Name 06/10/2023 1 [facility] [employer] - MEDIC[place] COST [id number] Jonathan A Sharon [id number] Jonathan A Sharon 06/10/2023 2 [place] [employer] Jonathan A Sharon [id number] Jonathan A Sharon 02/10/2024 1 [facility] [employer] [place] [place]IC[place] COST [id number] Jonathan A Sharon [id number] Jonathan A Sharon 02/10/2024 2 [place] [employer] Jonathan A Sharon [id number] Jonathan A Sharon 02/17/2024 1 [facility] [employer] [place] [place] COST [id number] Jonathan A Sharon [id number] Jonathan A Sharon 02/17/2024 2 [place] [employer] Jonathan A Sharon [id number] Jonathan A Sharon Notes Date Note Type Note Provider Name and Address Organization Details Recorded Time 06/10/2023 text/html Chief complaint:Elevated Prostate Level (PSA)psa 9.44. this is elevated above baseline.nocturia every couple of hoursflomax is mildly helpful history of hematuria in 2018. finasteride. helped bleeding. no recurrent bleeding. Elevated PSA:Diagnosed:12 Months ago Min Dey MD [address] [facility],[address], [place], [address], [facility] 06/11/2023 06:12:24 02/17/2024 text/html elevated psacurrent 2.95known large postatesays he lost weight. that has improved his nocturiahad a watchman procedure. Min Dey MD [address] [facility],[address], [place], [address], [facility] 02/17/2024 17:47:08
--- OUTSIDE RECORDS SUMMARY | 2024-08-13 06:09 | XMS_ITS | Clinical Summary ---
Author Organization [facility] Address [address] [place] [address] Care Team Providers Care Communications Marketing Intern Name Role Phone Elsewhere, Pcp Primary Care Provider Unavailabl e Source Comments Patient records contain information from all sites at [facility]. For routine questions regarding patient records, call [phone] during business hours, M-F 8:00 AM - 5:00 PM Central Time. Record requests for emergency care only can be directed to [phone] at any time.[facility] Allergies Active Allergy Reactions Criticality Noted Date Comments Morphine GI intolerance 11/07/2017 Medications [address] tablet Take 81 mg by mouth daily. Take for 1 month and stop Active atorvastatin (LIPITOR) 40 mg tablet Take 40 mg by mouth daily. Active lisinopril-hydro CHLOROthiazide (PRINZIDE,ZESTOR ETIC) 10-12.5 mg per tablet Take 1 tablet [...] tablet by mouth daily. 09/27/2023 Active lisinopriL (PRINIVIL,ZESTRI L) 10 mg tablet Take 10 mg by mouth daily. 05/03/2023 Active dapagliflozin propanediol (FARXIGA) 10 mg tablet Take 10 mg by mouth daily. 10/20/2023 Active acetaminophen (TYLENOL) 500 mg tablet Take 500 mg by mouth once. Active Active Problems No known active problems Immunizations Immunization Administration Dates Next Due influenza trivalent vaccine (6 months and older) (PF) 05/09/2012 Family History Medical History Relation Name [...] Recorded Sex Assigned at Not on file Legal Sex Male 1:14 PM [employer] Gender Identity Not on file Sexual Orientation Not on file Last Filed Vital Signs Vital Sign Reading Time Taken Comments Blood Pressure 132/68 12/03/2023 6:15 PM CDT Pulse 77 12/03/2023 6:15 PM CDT Temperature 37 C (98.6 F) 10/27/2023 10:20 PM CDT Respiratory Rate 16 [...] Comments Zoster Vaccines (1 of 2) 1989 RSV vaccine - (32-36 weeks) or 60+ years (1 - 1-dose 75+ series) 2014 Office Visit for Blood Pressure Check / Re-check 03/30/2023 12/28/2022 COVID-19 Vaccine ( season) 2024 07/15/2023, 04/06/2021, 07/24/2020, Additional history exists Influenza Vaccine (#1) 2024 , 06/20/2022, 03/25/2022, Additional history exists Depression Screening (Annual PHQ-2) 06/20/2024 Fall Risk Screen (Annual) 06/20/2024 Sodium Level 11/30/2024 12/01/2023, 11/18, 11/23/2023, Additional history exists Creatinine Level (Kidney Function Test) 12/01/2024 12/02/2023, 12/01/2023, 11/30/2023, Additional history exists Potassium Level 12/01/2024 12/02/2023, 11/18, 11/30/2023, Additional history exists DTaP,Tdap,and Td Vaccines (5 - Td or Tdap) 09/26/2033 09/27/2023, 10/30/2012, 05/08/2012, Additional history exists Pneumococcal vaccine (50+ years) Completed 06/20/2019, 11/24/2016, 06/20/2009, Additional history exists IPV Vaccines Aged Out No longer eligi ble based on patient's age to complete this topic Medical Devices Implanted Type 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 Device Status Text - [id number]. Procedures Procedure Name Priority Date/Time Associated Diagnosis Comments ELECTROLYTE (CHEM 4) PANEL, S/P Routine 05/09/2012 4:20 AM [employer] from Last 3 Months or Most Recently Relevant to Health Maintenance Results * Electrolyte (Chem 4) Panel (05/09/2012 4:20 AM [employer]) Sodium, S 142 135 - 145 MMOL/L [facility] Potassium, S 4.4 3.6 - 5.2 MMOL/L [facility] Creatinine 1.1 0.8 - 1.3 MG/DL [facility] BUN (Blood Urea Nitrogen), S 16 8 - 24 MG/DL [facility] Chloride, S 105 100 - 108 MMOL/L [facility] HX Bicarbonate, P/S 23 22 - 29 MMOL/L [facility] Anion Gap 14 7 - 15 [facility] Glucose, S 122 70 - 140 MG/DL [facility] 05/09/2012 4:20 AM [employer] 05/09/2012 4:20 AM [employer] us Octaviano Ridley M.D. LAB BLOOD ADD-ON Final Res ult [facility] [address] [place] [address], [facility] from Last 3 Months or Most Recently Relevant to Health Maintenance Insurance MEDICARE [facility] Care Teams Communications Marketing Intern Relationship Specialty Start Date End Date Elsewhere, Pcp PCP - General Family Medicine 11/04/17
--- OUTSIDE RECORDS SUMMARY | 2024-08-13 06:09 | XMS_ITS | Data Portability ---
Author Organization [place] - [facility] Address [address] [place] [address] Care Team Providers Care Body Artist Name Role Phone DANIEL BARRAGAN Primary Care Provider Assessment Encounter Date Assessment Date Assessment LastModified by Organization Details LastModified Time 12/04/2023 12/04/2023 This visit was performed via [employer] device with a total face to face time of 17 minutes. This patient is being seen today for a [facility] appointment after hospitalization. 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 Specifically, the data/test result/record I reviewed was: discharge information. *The following comorbid health conditions pertinent to this [facility] visit were discussed, diagnoses were added, and current status documented: The patient has a follow up appointment with PCP on 12/07/2023. The patient has a follow up appointment for an echocardiogram/EP Watchman Implant on 12/08/23. [facility]. The patient has a follow up appointment with PCP on 12/30/23 The patient has an echocardiogram on 01/23/24 at [facility]. The patient has an office visit with Hans Fernandes at [facility] on 01/23/24 *The following referrals were submitted today: none. SSMILE High Risk area for hospital readmission *SYMPTOMS Does the patient have ongoing or worsening symptoms? No, low risk for readmission. *SKILLED NEEDS Does the patient have unaddressed skilled needs? No, low risk for readmission. *MEDICATIONS Is the patient/caregiver able to describe current medication management strategy? Yes, low risk for readmission. Reconciliation and Management: Hard copy discharge medication list provided by patient was reviewed and reconciled during this encounter with patient's current medications. A face to face medication reconciliation was completed during today's visit. No changes were made to the patient's medication regimen today The patient understands how to take their new medications. The patient verbalized understanding of the dosage and timing of their medications and understands the need to take their medications as prescribed. I had the opportunity to answer any questions regarding their medications. *INFORMATION Does the patient/caregiver /MPOA have understanding of disease/discharge information/treat ment plan/red flag symptoms? Yes, low risk for readmission. *LINKED UP Does the patient understand the appropriate providers to follow up with: Yes, low risk for readmission. Does the patient have access to healthcare, food, social support? Yes, low risk for readmission. Resources available through [facility]. *ENGAGEMENT Is the patient/caregiver /MPOA engaged in the care plan? Yes, low risk for readmission. *After reviewing records, medications, understanding for the plan of care, physical exam, and SSMILE Risk score, and it is determined the patient is safe to remain at home and is left in stable condition. *Additional patient instructions: I gave detailed care plan instructions, submitted appropriate referrals as needed, and answered all questions. A [facility] follow up has been scheduled to monitor compliance and understanding of care plan. The follow up as scheduled. The patient verbalizes understanding and agrees with the plan. The patient is advised to seek immediate evaluation with [facility], or in the ER for new or worsening symptoms. Notes from the visit were sent to the patient's PCP. Proper Personal Protective Equipment (PPE), including gloves and surgical mask were donned and doffed appropriately and all equipment cleaned using approved technique with germicidal disposable wipes prior to and after care of this patient according to [employer] [facility]'s infection prevention protocols. [email or web address] Not available 12/04/2023 19:01:10 Plan of Treatment Reminders Order Date Submit Date Provider Last Modified By Organization Details Last Modified Time Details Appointments None record ed. Lab None record ed. Referral None record ed. Procedures None record ed. Surgeries None record ed. Imaging None record ed. Medication Orders None record ed. Patient TargetsNo targets recorded. Patient Instructions Encounter Date Encounter Id Patient Instructions Last Modified By Organization Details Last Modified Time 12/04/2023 [id number] preventing falls : care instructions [email or web address] Not available 12/04/2023 19:08:58 urinary retentio n: care instructions [email or web address] Not available 12/04/2023 18:55:26 heart valve disease: care instructions [email or web address] Not available 12/04/2023 18:55:21 Thank you for yo ur visit with [employer] today. We cannot always find the exact cause of your symptoms during your initial visit. Please follow up with your primary care provider or specialist to be rechecked or seek medical attention if your symptoms do not go away or get worse. If you develop any new or worsening symptoms and need after hours care, please go to nearest ER and/or call 911. If you have additional concerns or develop a change in your condition between 8am-10pm, please call [employer] at [phone] to help navigate your care. Heart Valve Disease: Care Instructions Overview Your heart is a muscular pump that has four chambers and four valves. The four valves are the mitral, aortic, tricuspid, and pulmonary valves. The valves open and close to keep blood flowing in the proper direction through your heart. When something is wrong with one of the valves, the blood cannot flow in and out of the heart properly. Problems with the heart valves can cause leaks (valve regurgitation) and blockages (valve stenosis). You can be born with heart valve disease, or it can develop over a number of years. Mild cases of heart valve disease may not cause problems, but more serious cases will weaken the heart and can lead to heart failure. Treatment with medicine can help relieve symptoms, but it will not fix the valve. You may choose to have the valve replaced or repaired. Follow-up care is a carlson part of your treatment and safety. Be sure to make and go to all appointments, and call your doctor if you are having problems. It's also a good idea to know your test results and keep a list of the medicines you take. How can you care for yourself at home? Take your medicines exactly as prescribed. Call your doctor if you think you are having a problem with your medicine. You will get more details on the specific medicines your doctor prescribes. Eat a heart-healthy diet. For example, eat more fruits, vegetables, fish, lean meats, whole grains, and other high-fiber foods. Limit sodium, sugar, and alcohol. Be active. Ask your doctor what type and level of exercise is safe for you. Walking is a good choice. You also may want to swim, bike, or do other activities. Stay at a healthy weight. Lose weight if you need to. Do not smoke. Smoking can cause more heart problems. If you need help quitting, talk to your doctor about stop-smoking programs and medicines. These can increase your chances of quitting for good. Manage other health problems. These include diabetes, high blood pressure, and high cholesterol. If you think you may have a problem with alcohol or drug use, talk to your doctor. Avoid infections such as COVID-19, colds, and the flu. Get a pneumococcal vaccine. If you have had one before, ask your doctor if you need another dose. Get a flu vaccine every year. Stay up to date on your COVID-19 vaccines. Take care of your teeth and gums. Get regular dental checkups. Good dental health is important because bacteria can spread from infected teeth and gums to the heart valves. If you have had a valve repaired or replaced, you may need to take antibiotics before you have certain dental or surgical procedures. When should you call for help? Call anytime you think you may need emergency care. For example, call if: You have severe trouble breathing. You cough up pink, foamy mucus and you have trouble breathing. You have symptoms of a heart attack. These may include: Chest pain or pressure, or a strange feeling in the chest. Sweating. Shortness of breath. Nausea or vomiting. Pain, pressure, or a strange feeling in the back, neck, jaw, or upper belly or in one or both shoulders or arms. Lightheadedness or sudden weakness. A fast or irregular heartbeat. After you call , the box covering machine operator may tell you to chew 1 adult-strength or 2 to 4 low-dose aspirin. Wait for an ambulance. Do not try to drive yourself. You have symptoms of a stroke. These may include: Sudden numbness, tingling, weakness, or loss of movement in your face, arm, or leg, especially on only one side of your body. Sudden vision changes. Sudden trouble speaking. Sudden confusion or trouble understanding simple statements. Sudden problems with walking or balance. A sudden, severe headache that is different from past headaches. You passed out (lost consciousness). Call your doctor now or seek immediate medical care if: You have new or increased shortness of breath. You are dizzy or lightheaded, or you feel like you may faint. You have sudden weight gain, such as more than 2 to 3 pounds in a day or 5 pounds in a week. (Your doctor may suggest a different range of weight gain.) You have increased swelling in your legs, ankles, or feet. Watch closely for changes in your health, and be sure to contact your doctor if you have any problems. Urinary Retention: Care Instructions Your Care Instructions Urinary retention means that urine is retained, or held, in your bladder and you can't urinate. It is often caused by a blockage of the urinary tract from an enlarged prostate. It can also be caused by an infection, nerve damage, or constipation. Or it may be a side effect of a medicine. The doctor may have drained the urine from your bladder. If you still have problems passing urine, your doctor may put a catheter in your bladder before you go home. This is used to empty your bladder until the problem, if found, can be fixed. You will be told when to come back to have the catheter removed. If the problem isn't fixed, you may need to learn intermittent self-catheterizatio n at home. The doctor has checked you closely. But problems can develop later. If you notice any problems or new symptoms, get medical treatment right away. Follow-up care is a carlson part of your treatment and safety. Be sure to make and go to all appointments, and call your doctor if you are having problems. It's also a good idea to know your test results and keep a list of the medicines you take. How can you care for yourself at home? Take your medicines exactly as prescribed. Call your doctor if you think you are having a problem with your medicine. You will get more details on the specific medicines your doctor prescribes. Check with your doctor before you use any clof-nla-wqhggon medicines. Many cold and allergy medicines, for example, can make this problem worse. Make sure your doctor knows all of the medicines, vitamins, supplements, and herbal remedies you take. Drink fluids in small amounts throughout the day. Do not drink a lot at bedtime. Avoid alcohol and caffeine. If you have been given a catheter, or if one is already in place, follow the instructions you were given. Always wash your hands before and after you handle the catheter. When should you call for help? Call your doctor now or seek immediate medical care if: You cannot urinate at all, or it is getting harder to urinate. You have a catheter but urine isn't coming out. You have symptoms of a urinary tract infection. These may include: Pain or burning when you urinate. A frequent need to urinate without being able to pass much urine. Pain in the flank, which is just below the rib cage and above the waist on either side of the back. Blood in your urine. A fever. Watch closely for changes in your health, and be sure to contact your doctor if: You have any problems with your catheter. You do not get better as expected. PREVENTING FALLS: Injuries and health problems such as trouble walking or poor eyesight can increase your risk of falling. So can some medicines. But there are things you can do to help prevent falls. You can exercise to get stronger. You can also arrange your home to make it safer. Talk to your doctor about the medicines you take. Ask if any of them increase the risk of falls and whether they can be changed or stopped. Try to exercise regularly. It can help improve your strength and balance. This can help lower your risk of falling. Practice fall safety and prevention. Wear low-heeled shoes that fit well and give your feet good support. Talk to your doctor if you have foot problems that make this hard. Carry a cellphone or wear a medical alert device that you can use to call for help. Use stepladders instead of chairs to reach high objects. Don't climb if you're at risk for falls. Ask for help, if needed. Wear the correct eyeglasses, if you need them. Make your home safer. Remove rugs, cords, clutter, and furniture from walkways. Keep your house well lit. Use night-lights in hallways and bathrooms. Install and use sturdy handrails on stairways. Wear non-skid footwear, even inside. Don't walk barefoot or in socks without shoes. Be safe outside. Use handrails, curb cuts, and ramps whenever possible. Keep your hands free by using a shoulder bag or backpack. Try to walk in well-lit areas. Watch out for uneven ground, changes in pavement, and debris. Be careful in the winter. Walk on the grass or gravel when sidewalks are slippery. Use de-icer on steps and walkways. Add non-slip devices to shoes. Put grab bars and non-skid mats in your shower or tub and near the toilet. Try to use a shower chair or bath bench when bathing. Get into a tub or shower by putting in your weaker leg first. Get out with your strong side first. Have a phone or medical alert device in the bathroom with you. [email or web address] [id number] Not available 12/04/2023 19:10:04 Reason for Referral None Reported. Procedures Surgical History Date Name Laterality Status Provider Name and Address Organization Details Recorded Time 024 Medication Review completed Dary Gonzalez NP [address] [facility],[address], [place], [address], [place] - [facility] 12/04/2023 17:53:16 tonsillectomy completed Mabel Cumberland [place] [facility] 12/04/2023 18:10:46 Knee arthroscopy/surg dat completed Mabel Zak [place] [facility] 12/04/2023 18:11:16 Bypass graft patency/patch completed Mabel Zak [place] [facility] 12/04/2023 18:11:56 amputation of thumb completed Mabel Cumberland [place] [facility] 12/04/2023 18:12:24 Imaging Results None recorded. Procedure Notes None recorded. Medical Equipment None Reported. Allergies Allergen ID Allergen Name Allergen Category Reaction Reaction Severity Criticality Documentation Date Start Date Code Code System Note Provider Name and Address Organization Details Recorded Time 392644 morphine medicatio n Not available Not available Not available 12/04/2023 7052 RxNorm Mabel Crespo [facility], [place] [facility] 18:01:02 Medications Name Sig Start Date Stop Date Status Note LastModified by Organization Details LastModified Time furosemide 40 mg tablet active Not Available Not Available No t Available atorvastatin 40 mg tablet active Not Available Not Available Not Available ipratropium 0.5 mg-albuterol 3 mg (2.5 mg base)/3 mL nebulization soln active Not Available Not Available Not Available torsemide 20 mg tablet active Not Available Not Available No t Available azithromycin 250 mg tablet 12/03 completed Not Available Not Available Not Available metoprolol succinate ER 50 mg tablet,extend ed release 24 hr active Not Available Not Available Not Available lisinopril 20 mg tablet active Not Available Not Available No t Available prednisone 20 mg tablet 12/03 completed Not Available Not Available Not Available clopidogrel 75 mg tablet active Not Available Not Available Not Available amlodipine 5 mg tablet 12/03 completed Not Available Not Available Not Available spironolacton e 25 mg tablet active Not Available Not Available Not Available tamsulosin 0.4 mg capsule active Not Available Not Available Not Available cephalexin 500 mg capsule 12/03 completed Not Available Not Available Not Available lisinopril 10 mg tablet 12/03 completed Not Available Not Available Not Available Advair Diskus 500 mcg-50 mcg/dose powder for inhalation 12/03 completed Not Available Not Available Not Available metoprolol succinate ER 25 mg tablet,extend ed release 24 hr 12/03 completed Not Available Not Available Not Available albuterol sulfate HFA 90 mcg/actuation aerosol inhaler active Not Available Not Available Not Available doxycycline hyclate 100 mg tablet 12/03 completed Not Available Not Available Not Available amoxicillin 875 mg-potassium clavulanate 125 mg tablet 12/03 completed Not Available Not Available Not Available Xarelto 20 mg tablet active Not Available Not Available Not Available apixaban 2.5 mg tablet Take 1 tablet twice a day by oral route. active Not Available Not Available No t Available Farxiga 10 mg tablet 2023 active Not Available Not Available Not Avai lable Anoro Ellipta 62.5 mcg-25 mcg/actuation powder for inhalation 12/03 completed Not Available Not Available Not Available Vitals Date Recorded Body temperature Oxygen saturation Oxygen saturation in Arterial blood by Pulse oximetry Respiratory rate Heart rate Body height Body weight Heart rate Systolic blood pressure Diastolic blood pressure Systolic blood pressure Diastolic blood pressure Provider Name and Address Organization Details Last Updated DateTime 4 99 [degF] 94 % 94 % 10 /min 83 /min 172.72 cm 51190 g 75 /min 91 mm[Hg] 42 mm[Hg] 97 mm[Hg] 54 mm[Hg] Not Available [facility] 18:33:43 Social History Question Answer Notes LastModified by Organizat ion Details LastModified Time Tobacco Smoking Status Never Smoker Mabel Crespo afnny [place] - [facility] 12/04/2023 18:03:17 Do You Have An Advance Directive? No Information not available 12/04/2023 What Is Your Level Of Alcohol Consumption? None Information not available 12/04/2023 Is Blood Transfusion Acceptable In An Emergency? Yes Information not available 12/04/2023 What Is Your Code Status? Full Code Information not available 12/04/2023 Do You Have A Directive To Physicians? No Information not available 12/04/2023 Within The Past 12 Months, Has It Happened That The Food You Bought Just Didn't Last And You Didn't Have Money To Get More. Never True Information not available 12/04/2023 Within The Past 12 Months, Have You Worried That Your Food Would Run Out Before You Got Money To Buy More. Never True Information not available 12/04/2023 Fall Risk: Do You Feel Unsteady When Standing Or Walking? Yes Information not available 12/04/2023 We Know That How And When People Interact With Friends And Family Can Be Very Different From Person To Person. How Often Do You Have The Opportunity To See Or Talk To People That You Care About And Feel Close To? (Ex: Talking To Friends On The Phone Or Visiting Friends Or Family Or Going To [employer] Or Club Meetings) 5 Or More Times Per Week Information not available 12/04/2023 Excessive Alcohol Or Drug Use No Information not available 12/04/2023 Symptoms Score - Does The Patient Have Ongoing Or Worsening Symptoms Relevant To His Or Her Condition? Yes - At Risk Pt Has Had To Use His Cane More Often Since His Discharge From The Hospital. Information not available 12/04/2023 Skilled Needs -Does The Patient Have Skilled Needs (PT/OT/Wound Care) That Were Not Arranged At The Time Of Hospital Discharge Or That Were Arranged But Not Happening As Intended? No - Low Risk Information not available 12/04/2023 Medications - Is The Patient/caregiv er Able To Describe Current Medication Management Strategy? Yes - Low Risk Information not available 12/04/2023 Information - Is The Patient/caregiv er Able To Describe Condition, Discharge Information, And Red Flag Symptoms? Yes - Low Risk Information not available 12/04/2023 Linked-Up - Does The Patient Have LIMITED OR NO Access To Any Of The Following? Does Have Access To Healthcare And Social Support And Nutrition - Low Risk Information not available 12/04/2023 Engagement - Does The Patient/caregiv er Show Engagement Around Partnering Around Care Plan? Yes - Low Risk Information not available 12/04/2023 Does This Patient Have A PCP? Yes Information not available 12/04/2023 Has The Patient Seen Their PCP In The Past 6 Months? Yes Information not available 12/04/2023 Is This Patient In Hospice? No Information not available 12/04/2023 ADL: Do You Need Help With Daily Activities Such As Bathing, Preparing Meals, Dressing, Or Cleaning? Yes (Z74.1) Information not available 12/04/2023 Social Support: Do You Feel Safe? Yes Information not available 12/04/2023 We Know From Many Of Our Patients That Covering All Of Their Costs Can Be Difficult At Times. This Can Cause Stress And Impact Health. In The Past Year, Have You Been Unable To Get Any Of The Following When It Was Really Needed? No Information not available 12/04/2023 What Is Your Housing Situation Today? I Have Housing Information not available 12/04/2023 Would You Like Help Connecting To Resources? None Information not available 12/04/2023 Do You Have A Medical Power Of Machining And Assembly Supervisor? No Information not available 12/04/2023 Do You Have An Out Of Hospital DNR? No Information not available 12/04/2023 Do You Have A Patient Advocate? No Information not available 12/04/2023 Do You Use Any Illicit Or Recreational Drugs? No Information not available 12/04/2023 Has Tobacco Cessation Counseling Been Provided? No Information not available 12/04/2023 Do You Or Have You Ever Used Any Other Forms Of Tobacco Or Nicotine? No Information not available 12/04/2023 Sex: Unknown Functional Status None recorded. Mental Status None recorded. Family History Nothing Reported. Medical History Condition Response Diabetes N Coronary Artery Disease Y CHF Y Parkinson's Disease N Cancer N Dementia N Stroke N Asthma N COPD N Depression N Hypothyroidism N High Cholesterol Y Rheumatoid Arthritis Y Pulmonary Embolism N Hypertension Y Osteoporosis N A-fib Y Kidney Disease N Past Encounters Encounter ID Performer Location Encounter Start Date Encounter Closed Date Diagnosis/Indication Diagnosis SNOMED-CT Code Diagnosis ICD10 Code Diagnosis Note [id number] Dary Gonzalez NP [facility] [address] [place], [place] [id number] 12/04/2023 17:17:12 12/05/2023 00:56:04 Retention of urine 887285621 R33.9 Status of condition: {{Acute: Active condition* Chronic: Decompensa eliana Chroni c: Stable Acu te on Chronic: Ongoing Exacerbati on Critica l: Warrants escalation to ED}}.The patient is following discharge course of treatment and instructio ns, symptoms {{improvin g but not resolved* did not change wor sening despite treatment} } since discharge, with risk of decompensa tion due to {{treatmen t failure* l ack of home care resources lack of scheduled PCP/specia list follow-up [facility] related impact: (lives alone, fall risk, lack of transporta tion, financial insecurity , health literacy gap, etc.) ruth ry impairment }}.Testing , results, and discussion : patient states that he is urinating without issue, however, he is now having constipati on problems and return to the ER yesterday. Patient was provided an enema Plan & management : Continue with plan of care as discussed at time of discharge. Follow-up recommenda tions: Advised to monitor their symptoms closely including for signs of {{infectio n surgical wound complicati on returni ng symptoms* dyspnea fe alicia pain c hest pain SOB s yncope ble eding }}, to take their regular daily medication s as prescribed , practice fall precaution s, and keep their appointmen t(s) as scheduled on {{DATE }}. ER precaution s advised. 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 Status of condition: {{Acute: Active condition* Chronic: Decompensa eliana Chroni c: Stable Acu te on Chronic: Ongoing Exacerbati on Critica l: Warrants escalation to ED}}.The patient is following discharge course of treatment and instructio ns, symptoms {{improvin g but not resolved* did not change wor sening despite treatment} } since discharge, with risk of decompensa tion due to {{treatmen t failure* l ack of home care resources lack of scheduled PCP/specia list follow-up SDoH related impact: (lives alone, fall risk, lack of transporta tion, financial insecurity , health literacy gap, etc.) ruth ry impairment }}.Testing , results, and discussion : Patient and strongly encouraged to take a notebook and write down questions and concerns they have regarding the patients medical condition. They are to take this with them to their appointmen t this week on the along with the BP log. Plan & management : continue with plan of care as discussed and printed at discharge from the hospital Follow-up recommenda tions: Advised to monitor their symptoms closely including for signs of {{infectio n surgical wound complicati on returni ng symptoms* dyspnea fe alicia pain c hest pain SOB s yncope ble eding }}, to take their regular daily medication s as prescribed , practice fall precaution s, and keep their appointmen t(s) as scheduled on {{DATE }}. ER precaution s advised. Impaired mobility [id number] Z74.09 Status of condition: {{Acute* E xacerbatio n/Acute on chronic Ch ronic Stab le Worseni ng/Progres nico Uncon trolled Cr itical: Warrants escalation to ED. Undete rmined: Unclear staging of condition. Needs further evaluation and management by PCP and/or Specialist }}. Testing/Re sults: None today Discussion : After evaluation by the MT/CATIE it was discovered that the patient is needing his cane more than not. The home has obstacles that could be perceived as fall hazards. He may benefit from a walker and education on fall precaution s. Plan & Management : Please review the informatio n that was printed regarding safety in the home to prevent falls, along with the conversati on regarding fall precaution s that the DHMT/CATIE shared with you Health Concerns Section Related Observation LastModified by Organization Detai ls LastModified Time None Recorded Concern Status LastModified by Organization Details LastModified Time None Recorded Advance Directives Directive N: Payers Encounter Date Sequence Insurance Name Policy Number Policy Blanco Covered Member ID Blanco Member ID Guarantor Name 12/04/2023 1 [place] SECURE BLUE (MEDICARE REPLACEMENT HMO) Jonathan Herrera [id number] Jonathan Herrera Notes Date Note Type Note Provider Name and Address Organization Details Recorded Time text/html This patient being seen for a [facility] appointment following hospitalization at:{{ [facility]#}}. Date of initial contact by Dispatcher Scheduling Team (see Dashboard):{{DATE }} Reason for admission:Concern for vegetation/growth on pulmonic valve and urinary retention Date admitted:{{DATE 11/18}}.Date discharged:{{DATE }}. Testing:Surgeries/Pr ocedures:New medications:Apixaban Since discharge, the patient states that he has had some blood pressure issues and notes that since his return from the hospital he is having a tough time getting around the house and is having to rely more and more on his cane. The pt is also having to take breaks more often than normal. The pt is able to eat and drink normally. He is having some issues defecating. He was seen in the Emergency room the day after his discharge and was given an enema. He has since been able to defecate with the assistance of enemas. Pt denies chest pain, SOB and flu/Covid like symptoms. Dary Gonzalez, KARMA [address] [facility] ,[address], [place], [address], [place] [facility] 12/04/2023 19:22:39
--- OUTSIDE RECORDS SUMMARY | 2024-08-13 06:09 | XMS_ITS | Clinical Summary ---
Author Organization [facility] Address [address] [place] [address] Care Team Providers Care [employer] Name Role Phone Flakito Ling MD Primary Care Provider [phone] Hans Schneider Unavailable [phone] Allergies Active Allergy Reactions Criticality Noted Date Comments Morphine Nausea And Vomiting 12/02/2006 Amlodipine Edema Low 11/30/2023 Significant leg swelling and dizziness Medications aspirin (ECOTRIN) 81 mg enteric coated tablet Take 81 mg by mouth at bedtime. Active acetaminophen (TYLENOL EXTRA STRGTH) 500 mg tablet Take 1 tablet by mouth once daily. Max acetaminophen dose: 4000mg in 24 hrs. 0 021 Active albuterol HFA (ProAir HFA) 90 mcg/actuation inhalerIndications:Whee zing Inhale 1-2 Puffs by mouth every 6 hours if needed for Shortness of Breath 1st choice. 1 Each 2 024 Active atorvastatin (LIPITOR) 40 mg tabletIndications:ASHD (arteriosclerotic heart disease),Pure hypercholesterolemia Take 1 Tablet (40 mg) by mouth at bedtime. 90 Tablet 3 024 Active Walker - 4 wheelsIndications:Ortho static lightheadedness,Arthrit is of right knee For home use. Length of need: 99. Please have a seat on the walker with brakes. 1 Each 024 Active tamsulosin (FLOMAX) 0.4 mg capsuleIndications:Wilbur gn prostatic hyperplasia with nocturia Take 1 Capsule (0.4 mg) by mouth once daily in the evening. DO NOT TAKE FOR NOW, RESUME 12/16/23 024 Active WalkerIndications:Ische eileen cardiomyopathy Walker with front wheels for home use. 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 Liters per minute: 2 per nasal cannula. Frequency of use: Nocturnal;. Length of need: 3 Months. Active spironolactone (ALDACTONE) 25 mg tabletIndications:Ische eileen cardiomyopathy Take 0.5 Tablets (12.5 mg) by mouth once daily in the morning. 45 Tablet 3 024 Active dapagliflozin propanediol (Farxiga) 10 mg tabletIndications:Acute on chronic HFrEF (heart failure with reduced ejection fraction) (HC) Take 1 Tablet (10 mg) by mouth once daily. 90 Tablet 1 024 Active metoprolol succinate (Toprol XL) 25 mg Sustained-Release tabletIndications:Acute on chronic HFrEF (heart failure with reduced ejection fraction) (HC) Take 1 Tablet (25 mg) by mouth once daily. Wait until they call for this. 90 Tablet 3 024 Active lisinopriL (PRINIVIL; ZESTRIL) 5 mg tabletIndications:Essen tia hypertension with goal blood pressure less than 140/90 Take 1 Tablet (5 mg) by mouth two times daily. Wait until they call for this. 180 Tablet 3 025 Active clopidogreL (PLAVIX) 75 mg tabletIndications:Acute ischemic stroke (HC) Take 1 Tablet (75 mg) by mouth once daily in the morning. 90 Tablet 024 2024 Disconti nued(*Me d complete /Regimen complete /Level of care change) Active Problems Problem Noted Date Diagnosed Date Acute on chronic HFrEF (hear t failure with reduced ejection fraction) 07/11/2024 Acute ischemic stroke 12/08/2023 Internal carotid artery occlusion, right Severe tricuspid regurgitation - symptomatic 04/2024 Chronic diastolic CHF (congestive heart failure) 11/29/2023 Stage 3 chronic kidney disease 11/29/2023 Pulmonary hypertension 09/20/2023 COPD with chronic bronchitis 08/26/2023 Peripheral vascular disease 08/10/2021 Arthritis of right hand 01/09/2020 Chronic atrial fibrillation 08/01/2019 Overview (07/25/2024): To stay on Xarelto for life per Dr Ortiz (Cardiology) 11/2018 Able to go off Xarelto when watchman was placed. Atrial arrhythmia 10/17/2017 Overview (10/17/2017): Fluctuates between atypical atrial flutter, atrial fibrillation and NSR. Cardiology recommends aspirin 81 for one month after stent on 10/13/17. Then off for 11 months then back on after a year. Plavix for one year after stent then stop. Xarelto for life. Benign prostatic hyperplasia with nocturia 10/17 Essential hypertension with goal blood pressure less than 140/90 11/19/2015 Overview (07/11/2024): Home blood pressure cuff very similar to clinic blood pressure cuff on 10/25/2023. Amlodipine caused swelling so it was discontinued. Gout, unspecified 11/18/2009 Pure hypercholesterolemia 11/02/2006 Coronary artery disease invo lving coronary bypass graft of suquam[place] heart with unstable angina pectoris Overview (10/13/2017): - 10/12/17: s/p GABBY SVG - OM1; unsuccessful attempted PCI of RPL Resolved Problems Problem Noted Date Diagnosed Date Resolved Date Hemiplegia 12/27/2023 07/11/2024 Overview (12/27/2023): Transient Hemiplegia of left side of face was noted after Watchman was placed in 11/2023. He was given Tenecteplase and symptoms resolved quickly. They placed him on Plavix 75 mg daily and Aspirin 81 mg daily for 6 months which should end on 06/11/2024. Chronic respiratory failure with hypoxia (HC)-2 LPM oxygen with sleep 11/30/2023 07/11/2024 Encounters Date Type Department Care Team Description 07/26/2024 Telephone [facility] [address] [place] [address] Flakito Ling MD Follow Up 07/25/2024 8:25 AM BUSINESS INFORMATION MANAGER Office Visit [facility] [address] [facility] [place] [address] Flakito Ling MD Preoperative Exam (inguinal hernia 08/13) 07/25/2024 Travel 07/20/2024 Travel 07/13/2024 8:30 AM BUSINESS INFORMATION MANAGER Office Visit [facility] [address] [place] [address] Hans Schneider PA CV General Cardiology Est (OVERDUE 4 MO F/U/NO OTHER TESTING NEEDED /Acute ischemic stroke (HC) /Ischemic cardiomyopathy /Chronic atrial fibrillation (HC //PCP: Flakito Ling MD/) 07/13/2024 Travel 07/11/2024 8:25 AM BUSINESS INFORMATION MANAGER Office Visit [facility] [address] [place] [address] Flakito Ling MD Medication Management (Follow up blood pressure / visit from 05/08) 07/11/2024 Travel 07/10/2024 8:15 AM BUSINESS INFORMATION MANAGER Orders Only [facility] [address] [place] [place] [address] Lab, [place] Lab 07/09/2024 Telephone [facility] [address] [place] [address] Ashanti Coyne MD Surgery Scheduled 07/09/2024 Travel 07/06/2024 Travel 07/05/2024 Travel 06/22/2024 Telephone [facility] [address] [place] [address] Flakito Ling MD SIVA; Form 06/22/2024 Telephone [facility] [address] [place] [address] Hans Schneider PA Medication Management (amoxicillin) 06/08/2024 8:35 AM BUSINESS INFORMATION MANAGER - 06/08/2024 11:59 PM BUSINESS INFORMATION MANAGER Hospital Encounter [facility] [address] [place] [address] Hans Schneider PA Ischemic cardiomyopathy 06/08/2024 Travel 05/23/2024 9:50 AM BUSINESS INFORMATION MANAGER Orders Only [facility] [address] [address] Lab, [place] Lab 05/22/2024 Travel from Last 3 Months Immunizations Name Administration Dates Next Due COVID-19 vaccine (ONStor-Bio NTech 30mcg/0.3mL) PF, MDV 04/06/2021,07/24/2020,07/03/2020 Influenza A (H1N1), Inactivated 06/30/2009 Influenza A (H1N1), Inactiva eliana (Age >=3 Years) 05/09/2009 Influenza Virus, Unspecified 06/20/2022, 04/06/2021,04/25/2020,2019,07/07/2018,02/19/2016,05/14/2014,1 07/09/2011,03/21/2009 Influenza, High-dose Inactivated 06/21/2016 Influenza, High-dose Quadriv alent Inactivated 06/17/2023,04/06/2021,04/25/2020 Influenza, IIV3 (Age 6-35 mos) 05/09/2012,2010 Influenza, IIV3 (Age >=3 years) 05/08/20 12,03/10/2011,04/06/2010,2008,05/08/2004,05/08/2003 Influenza, Inactivated AIIV4 (Age 65+ Years) Preserv Free 04/27/2024,03/25/2022 Influenza, Inactivated IIV3 (Age 65+ Years) Preserv [...] 0 10/25/2023 Social Connections Answer Date Recorded Do you often feel lonely or isolated from those around you? 0 05/08/2024 Financial Resource Strain Answer Date R ecorded Difficulty of Paying Living Expenses 3 05/08/2024 Difficulty of Paying Living Expenses Not on file 05/08/2024 Food Insecurity Answer Date Recorded Do you worry your food will run out before you are able to buy more? 1 05/08/2024 Transportation Needs Answer Date Record ed Does lack of transportation keep you from medica l appointments? 1 05/08/2024 Does lack of transportation keep you from work, meetings or getting things that you need? 1 05/08/2024 Housing Stability Answer Date Recorded What is your housing situation today? 1 05/08/2024 Interpersonal Safety Answer Date Record ed Are you being hit, kicked, p ushed or yelled at (see row info)? No 11/23/2023 Interpersonal Safety Abuse 12 - 18 Not on file 11/23/2023 Interpersonal Safety Ambulatory Vulnerability No t on file 11/23/2023 Utilities Answer Date Recorded Do you have trouble paying f or utilities (for example, heat, electricity, water, phone)? 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 on file Not on file Not on file Obstetrics History Last Filed Vital Signs Vital Sign Reading Time Taken Comments Blood Pressure 148/50 07/25/2024 8:58 AM BUSINESS INFORMATION MANAGER Pulse 64 07/25/2024 8:05 AM BUSINESS INFORMATION MANAGER Temperature 36.4 C (97.6 F) 07/25/2024 8:05 AM BUSINESS INFORMATION MANAGER Respiratory Rate 16 12/14/2023 1:36 PM CDT Oxygen Saturation 97% 07/25/2024 8:05 AM BUSINESS INFORMATION MANAGER Inhaled Oxygen Concentration - - Weight 89.1 kg (196 lb 8 oz) 07/25/2024 8:05 AM BUSINESS INFORMATION MANAGER Height 175.3 cm (5' 9.02) 07/25/2024 8:05 AM CS T Body Mass Index 29 07/25/2024 8:05 AM BUSINESS INFORMATION MANAGER Plan of Treatment Health Maintenance Due Date Last Done Comments Zoster (shingles) series for age 50+ (1 of 2) 1989 RSV vaccine for adults or (1 - 1-dose 75+ series) 2014 Depression screening for age 12+ 10/24/2024 10/25/2023, 10/25/2022, 10/22/2022, Additional history exists Medicare Wellness for age 65+ 10/25/2024, 10/22/2022, 08/10/2021, Additional history exists BMI (ht and wt on same day) for age 18+ 07/25/2025 07/25/2024, 07/13/2024, 02/06/2024, Additional history exists Tetanus booster 09/26/2033 09/27/2023, 10/18, 05/08/2012, Additional history exists Pneumococcal series for age 50+ Completed 06/20/2019, 11/24/2016, 06/20/2009, Additional history exists Tdap Completed 09/27/2023, 10/18, 05/08/2012, Additional history exists Influenza for age 65+ Completed 04/27/2024 , 06/17/2023, 06/20/2022, Additional history exists COVID-19 vaccine series Completed 05/07/20 24, 07/15/2023, 04/06/2021, Additional history exists Procedures Procedure Name Priority Date/Time Associated Diagnosis Comments BASIC METABOLIC PANEL Routine 07/10/2024 8:02 AM BUSINESS INFORMATION MANAGER Essential hypertension with goal blood pressure less than 140/90 CT CARDIAC MORPHOLOGY W RAD DUAL READ Routine 06/08/2024 9:12 AM BUSINESS INFORMATION MANAGER Ischemic cardiomyopathy T4,FREE Routine 05/23/2024 9:30 AM BUSINESS INFORMATION MANAGER Abnormal thyroid blood test TSH WITH REFLEX Routine 05/23/2024 9:30 AM BUSINESS INFORMATION MANAGER Abnormal thyroid blood test CREATININE Routine 05/23/2024 9:30 AM BUSINESS INFORMATION MANAGER Ischemic cardiomyopathy from Last 3 Months Results * BASIC METABOLIC PANEL (07/10/2024 8:02 AM BUSINESS INFORMATION MANAGER) GLUCOSE 88 65 - 99 mg/dL [facility] Comment: Fasting reference interval UREA NITROGEN (BUN) 18 7 - 25 mg/dL [facility] CREATININE 1.14 0.70 - 1.22 mg/dL [facility] EGFR 63 > OR = 60 mL/min/1. 73m2 [facility] BUN/CREATININE RATIO SEE NOTE: 6 - 22 (calc) [facility] Comment: Not Reported: BUN and Creatinine are within reference range. SODIUM 136 135 - 146 mmol/L [facility] POTASSIUM 4.6 3.5 - 5.3 mmol/L [facility] CHLORIDE 99 98 - 110 mmol/L [facility] CARBON DIOXIDE 30 20 - 32 mmol/L [facility] ELECTROLYTE BALANCE 7 7 - 17 mmol/L (calc) [facility] CALCIUM 9.3 8.6 - 10.3 mg/dL [facility] Blood BLOOD SPECIMEN / Unknown 07/10/2024 8:02 AM BUSINESS INFORMATION MANAGER 07/10/2024 8:02 AM BUSINESS INFORMATION MANAGER Flakito Ling MD CHEMISTRY Final Resu lt [facility] [address] [place] [address], [facility] [address] [place] [address] * CT CARDIAC MORPHOLOGY W DUAL READ (06/08/2024 9:12 AM BUSINESS INFORMATION MANAGER) Anatomical Region Laterality Modality HEART Computed Tomogra phy Impressions 06/08/2024 6:49 PM BUSINESS INFORMATION MANAGER 1. Areas of linear parenchymal fibrosis and/or linear atelectasis. 2. Findings of prior granulomatous disease. 3. Peribronchial thickening which is likely inflammatory. 4. Cardiovascular findings reported by I. Please note that all CT scans at this facility use dose modulation, iterative reconstruction, and/or weight-based dosing when appropriate to reduce radiation dose to as low as reasonably achievable. Dictated by: Zack Zacarias MD @ 06/08/2024 11:33:36 (Electronic Signature) Narrative 06/08/2024 6:49 PM BUSINESS INFORMATION MANAGER STUDY: CT CARDIAC MORPHOLOGY Study date: 06/08/2025 Comparison: 01/23/2024 Indication: Jonathan Park is a 83 year-old man status post Watchman percutaneous atrial appendage occluder device implantation has been referred for evaluation of device position and presence of device-related thrombus. STUDY PARAMETERS: Scanner: Siemens Definition Force Contrast: 80 ml of Omnipaque 350 Scan protocol: Wilson helical in both first pass arterial phase and delayed phase. Radiation dose length product: 311 Image quality: Good FINAL IMPRESSIONS: S/P Watchman occluder device. There is partial thrombosis within the Watchman device which extends within the excluded CRISPIN. No device related thrombus. Very small peridevice leak is seen at the postero-inferior aspect of the device, measuring 1-2 mm in diameter. Severely dilated left atrium. Mild mitral annular calcification. This study is not optimized to evaluate the coronary arteries and bypass graft. When compared to the prior study of 01/23/2024, the pilo-device leak is smaller and the most apical portion of the CRISPIN has less contrast c/w device maturation. Please see radiology report for noncardiac findings. FINDINGS: Main left atrial chamber: Normal contrast opacification Appendage: A Watchman occluder device is seated tilted slightly superiorly. There is partial thrombosis within the Watchman device which extends within the excluded CRISPIN. . No device related thrombus. A small peridevice leak seen at the postero-inferior aspect of the device, measuring 1-2 mm in diameter. Pulmonary veins: Normal anatomy with two right-sided and two left-sided veins. No evidence of stenosis. Pericardium: Normal without effusion. Esophagus: Positioned directly posterior to the left of the atrial body.. Thoracic aorta: Moderate atherosclerosis is visualized in the aortic root. Maximum cross-sectional dimensions in visualized aorta are: Aortic sinus: 37 x 37 x 41 mm maximum [id number]. Ascending aorta: 32 x 33 mm. Descending thoracic aorta: 26 x 26 mm. Other findings: Significant coronary atherosclerosis noted in the [place] coronary arteries and bypass graft. But this study is not optimal to evaluate the coronary arteries. For Patients: As a result of the Century Cures Act, medical imaging exams and procedure reports are released immediately into your electronic medical record. You may view this report before your referring provider. If you have questions, please contact your health care provider. OVER-READ OVER-READ OVER-READ OVER-READ: DETAILED RADIOLOGY EXTRACARDIAC OVER-READ OF CARDIAC CT 06/08/2024 TECHNIQUE: Please see cardiology report for technical information. 80 cc Omnipaque-350 intravenous contrast. This exam is being performed in conjunction with the services provided by the [facility] ([facility]). CLINICAL HISTORY: Cardiac over-read. FINDINGS: There are findings of prior granulomatous disease with calcified pulmonary granulomata. There are calcified right hilar/subcarinal lymph nodes related to prior granulomatous infection. Areas of linear parenchymal opacity within the lungs may relate to linear parenchymal fibrosis and/or linear atelectasis. There is heterogeneous lung attenuation likely related to altered ventilation. Peribronchial thickening is present, likely inflammatory. 6 millimeter subpleural nodule left lower lobe abutting the fissure on image number 4 of series 5 is stable. No pleural effusion. There are degenerative changes of the spine. us Hans MONTENEGRO CT Final Res ult * (ABNORMAL) TSH WITH REFLEX (05/23/2024 9:30 AM BUSINESS INFORMATION MANAGER) TSH 5.24(H) 0.27 - 4.20 uIU/mL 05/23/2024 10:20 AM [facility] Blood BLOOD SPECIMEN / Unknown [facility] / Unknown 05/23/2024 9:30 AM BUSINESS INFORMATION MANAGER 05/23/2024 9:49 AM BUSINESS INFORMATION MANAGER Narrative [facility] - 05/23/2024 10:20 AM BUSINESS INFORMATION MANAGER In Adults, TSH values between 5.00 and 10.00 uIU/ml do not necessarily indicate the presence of Hypothyroidism. Correlation with clinical findings such as presence of goiter and/or Thyroperoxidase (TPO) Antibody may be helpful. For more information please refer to HOLLY 2004; 291: 228-238. us Flakito Ling MD CHEMISTRY Final Resu lt Performing Organization Address [facility]/RUST de Phone Number [facility] [address] [place] [address] * (ABNORMAL) CREATININE (05/23/2024 9:30 AM BUSINESS INFORMATION MANAGER) eGFR 65(L) >90 mL/min/1.7 3m2 05/23/2024 10:12 AM [facility] Comment:As of 2021, eG FR is calculated by the CKD-EPI creatinine equation without race adjustment. eGFR can be influenced by muscle mass, exercise, and diet. The reported eGFR is an estimation only and is only applicable if the renal function is stable. CREATININE 1.12 0.70 - 1.20 mg/dL 05/23/2024 10:12 AM [facility] Blood BLOOD SPECIMEN / Unknown [facility] / Unknown 05/23/2024 9:30 AM BUSINESS INFORMATION MANAGER 05/23/2024 9:49 AM BUSINESS INFORMATION MANAGER us Hans MONTENEGRO CHEMISTRY Final Res ult Performing Organization Address [facility]/ZIP Co de Phone Number [facility] [address] [place] [address] * T4,FREE (05/23/2024 9:30 AM BUSINESS INFORMATION MANAGER) T4,FREE 1.01 0.93 - 1.70 ng/dL 05/23/2024 11:19 PM BUSINESS INFORMATION MANAGER [facility] Blood BLOOD SPECIMEN / Unknown [facility] / Unknown 05/23/2024 9:30 AM BUSINESS INFORMATION MANAGER 05/23/2024 9:49 AM BUSINESS INFORMATION MANAGER us Flakito Ling MD CHEMISTRY Final Resu lt [facility] [address] [place] [address], [place] from Last 3 Months Insurance [employer] MR PB ONLY [employer] BL[employer] HB ONLY MEDICARE PART A HB ONLY MEDICARE PART B HB ONLY ([place]) [id number] [place] [id number] MEDICARE PPS [employer] [place] [address] Advance Directives * Full Code (Latest Code [...] 7:53 AM 10/13/2017 4:08 PM Care Teams [employer] Relationship Specialty Start Date End Date Flakito Ling MD [address] [place] [id number] PCP - General 11/02/06 Hans Schneider PA [address] [facility] [address] [place] [address] Physician Mushroom Laborer 02/06/24
[2024-08-13 06:25] VITALS: BMI 29.0
[2024-08-13] MEDS: LACTATED RINGERS 1000 ML 1,000 ML 100 ML IV (06:32)
[2024-08-13] MEDS: SODIUM CHLORIDE 0.9 % (FLUSH) 10 ML SYRINGE IVF (06:32)
[2024-08-13 06:53] VITALS: BP 198/97; PULSE 80; RESP 16; TEMP 36.6; O2SAT 97
--- NOTE | 2024-08-13 07:13 | W.PM.H&PU ---
History & Physical Update History & Physical Update H&P Reviewed and patient assessed: No changes noted H&P Updates: Patient is off Plavix
--- NOTE | 2024-08-13 07:16 | PM.GSPRC ---
Operative Note Date of procedure: 08/13/24 Pre-op diagnosis: 1. Symptomatic right inguinal hernia. Post-op diagnosis: 1. Right indirect inguinal hernia. Type of Procedure: 1. Open right inguinal hernia repair with mesh. Indications: 84-year-old male was seen in clinic for evaluation of a right inguinal hernia. Patient noticed the inguinal bulge a long time ago. He usually noticed discomfort in the bulge when he was climbing stairs. 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 He also noticed pain and a bulge with mowing a lawn. On clinical exam the patient standing up there was a right inguinal hernia noted. This was reducible. Given patient's clinical history and his physical exam, an open right inguinal hernia repair with mesh under MAC anesthesia was recommended. The procedure was discussed in detail. The risks associated procedure including infection, bleeding, hernia recurrence, nerve pain, and other complications were all discussed with the patient, and he agreed to proceed. Procedure Description: After discussing the risks and benefits of the procedure, the patient signed informed consent.? The operative site was marked and the patient was brought to the operating room and placed on the operating table in supine position.? Care was taken to pad the patient's pressure points.?? The patient was then Sedated by anesthesia.?? The operative site was then prepped and draped in the usual sterile fashion.? A time-out was then performed. Surgical site was prepped and draped in sterile fashion. Site of the incision was marked with a marking pen and local anesthetic was injected. An oblique incision was made just above and medial to the right inguinal ligament. Subcutaneous tissue was dissected to external obliques. Superficial subcutaneous vascular branches were clamped, divided and tied with 3-0 Vicryl ties. Small incision was made through the external oblique aponeurosis with scalpel. I then used Metzenbaum scissors to dissect under external obliques and extend my incision. Mosquito clamps were placed on the edges of external oblique exposing the inguinal floor. The right Ilioinguinal nerve was identified and was going through the plain of dissection. The nerve was divided proximally and distally and a 3 cm segment of it was excised. This was not sent to pathology. I then identified the spermatic cord and the hernia sac. I bluntly dissected subcutaneous tissues in order to place Gilbert drain around the cord structures. Cremasteric fibers were peeled off and dissected off the hernia sac and cord structures. This was an indirect hernia. The hernia sac was from the spermatic cord bluntly and with cautery. The indirect hernia sac was incised and examined from the inside. No intraabdominal organs were incarcerated in the hernia sac. A stitch using 2-0 Vicryl was placed near the base of the hernia sac through the sac and the hernia sac tied off. Hernia sac was then excised and not sent to pathology. The cut edge of the hernia sac was then oversewn with a locking 2-0 Vicryl suture. This was then pushed into preperitoneal space through the internal ring. Surgical field was examined for bleeding and hemostasis was achieved with cautery and Vicryl ties. A Bard mesh onlay was also used for hernia repair. The mesh onlay was sutured in place with interrupted 0-0 Neurolon sutures to the conjoint tendon medially and shelving edge laterally, pubic tubercle inferiorly. Simple interrupted sutures were placed using 0-0 Neurolon at the base of internal inguinal ring making it only large enough to fit a tip of one finger through. Spermatic cord was placed back into scrotum. [place] drain was removed. External oblique aponeurosis was closed with a running 3-0 Vicryl. Additional local anesthetic was injected into subcutaneous tissues. Grant's fascia and subcutaneous tissue was re-approximated with interrupted Vicryl stitches. Skin incision was closed with 4-0 Monocryl subcuticular stitch. Steri strips and sterile dressing were applied over incision. All counts were correct at the end of the case. Patient tolerated this procedure well and was transferred to PACU in stable condition. Findings: Right indirect hernia. Anesthesia: MAC and local Surgeon: Ashanti Coyne MD Estimated blood loss (mL): 5 Condition: stable Disposition: same day
[2024-08-13] MEDS: CEFAZOLIN 2 GM INJ IVP (07:25)
[2024-08-13] MEDS: BUPIVACAINE 0.25% 30 ML 10 ML INJECTION (08:19)
[2024-08-13] MEDS: LIDOCAINE 1%-EPI 1:100,000 10 ML INFILTRATI (08:19)
[2024-08-13 08:30] VITALS: BP 129/68; PULSE 60; RESP 14; TEMP 36.1; O2SAT 95
--- NOTE | 2024-08-13 08:37 | P.ANES_ITS ---
Anesthesia Charges Start Date/Time Anesthesia Start Date: 08/13/24 Anesthesia Start Time: 07:19 Stop Date/Time Anesthesia Stop Date: 08/13/24 Anesthesia Stop Time: 08:35 Coding CPT Codes CPT Codes: ANESTH REPAIR OF HERNIA - 53837 ([id number]) P4 - PT W/SEV SYS DIS THREAT LIFE, QK - BARBACK 2-4 CNCRNT ANES PROC, QX - ALTERATIONS SUPERVISOR SVC W/ MD MED DIRECTION
--- NOTE | 2024-08-13 08:37 | W.ANESCHARGE ---
Anesthesia Charges Start Date/Time Anesthesia Start Date: 08/13/24 Anesthesia Start Time: 07:19 Stop Date/Time Anesthesia Stop Date: 08/13/24 Anesthesia Stop Time: 08:35 Coding CPT Codes CPT Codes: ANESTH REPAIR OF HERNIA - 52287 ([id number]) P4 - PT W/SEV SYS DIS THREAT LIFE, QK - TOP HAT BODY MAKER 2-4 CNCRNT ANES PROC, QX - WAREHOUSE SUPERVISOR 3RD SHIFT SVC W/ MD MED DIRECTION
[2024-08-13 08:45] VITALS: BP 148/76; PULSE 68; RESP 16; O2SAT 93
--- NOTE | 2024-08-13 08:57 | P.ANES_ITS ---
Anesthesia Charges Start Date/Time Anesthesia Start Date: 08/13/24 Anesthesia Start Time: 07:19 Stop Date/Time Anesthesia Stop Date: 08/13/24 Anesthesia Stop Time: 08:35 Summary Extremes of Age - Over 70 or under 1: MDA Coding CPT Codes CPT Codes: ANESTH REPAIR OF HERNIA - 48735 ([id number]) P4 - PT W/SEV SYS DIS THREAT LIFE, QK - MANAGER CORPORATE MARKETING 2-4 CNCRNT ANES PROC, QX - OFFICE NURSE PRACTITIONER SVC W/ MD MED DIRECTION Additional Codes: Summary - Extremes of Age - Over 70 or under 1: MDA ([id number])
--- NOTE | 2024-08-13 08:57 | W.ANESCHARGE ---
Anesthesia Charges Start Date/Time Anesthesia Start Date: 08/13/24 Anesthesia Start Time: 07:19 Stop Date/Time Anesthesia Stop Date: 08/13/24 Anesthesia Stop Time: 08:35 Summary Extremes of Age - Over 70 or under 1: MDA Coding CPT Codes CPT Codes: ANESTH REPAIR OF HERNIA - 82479 ([id number]) P4 - PT W/SEV SYS DIS THREAT LIFE, QK - ASPHALT TAMPER 2-4 CNCRNT ANES PROC, QX - COST RECOVERY TECHNICIAN SVC W/ MD MED DIRECTION Additional Codes: Summary - Extremes of Age - Over 70 or under 1: MDA ([id number])
[2024-08-13 09:00] VITALS: BP 178/79; PULSE 68; RESP 16; O2SAT 93
[2024-08-13 09:15] VITALS: BP 164/73; PULSE 70; RESP 16; O2SAT 94
== END 2024-08-13 09:58 | disposition home or self-care (01) ==
PROVIDERS: PCP Family Medicine; Visit Provider Surgery
PROC: (CPT 49505; principal; 2024-08-13 07:30)
DX: K40.90 Unilateral inguinal hernia, without obstruction or gangrene, not specified as recurrent (principal)
CPT/HCPCS: 49505; 00830; 99100; C1781; J0665; J0690; J1100; J2405; J2704; J3010; J3490; J7120